=== PATIENT | female | born 1945 | race Caucasian/White ===

== ENCOUNTER 2016-12-26 00:29 | Emergency (ER) | payer MEDICARE, BC ==
[~2016-12-26] VITALS: Ht 172.7 cm; Wt 70.8 kg
[~2016-12-26 00:29] MED LIST: AMLO5TAB PO; ASPI-557 PO; ATOR10TA64 PO; CA C1TAB81 PO; DOCU-175 PO; ESCI5TAB8 PO; FENT1PAT68 TOP; FERR-70 PO; LEVO50TA72 PO; LORA-315 PO; OMEP40CA30 PO; ONDA4TAB7 PO; OXCA300T PO; OXYB15TA PO; PROM25TA7 PO; ROPI4TAB4 PO; TRAZ150T43 PO; [UNRECOGNIZED DRUG - CODE] PO
--- OUTSIDE RECORDS SUMMARY | 2016-12-26 00:32 | XMS REPORT | Continuity of Care Document ---
Author Author Melany Johnston Ambulatory Address Unknown Phone Unavailable Care Team Providers Care Store Deli Manager Name Role Phone Shon Decker PP Unavailable Jannie Cohen RP Unavailable Payers Payer name Insurance type Covered green party ID Authorization(s) Unknown Problems Condition Effective Dates (start - stop) Clinical Status Brachial neuritis or radiculitis nos - *Symptomatic Radiculitis, Thoracic or Lumbar - *Symptomatic Back pain - *Chronic Depression - *Chronic Anxiety - *Chronic Urge incontinence - *Chronic Paresthesias - *Chronic Narcotic dependency, continuous - *Chronic Hypertension - *Chronic Hypercholesterolemia - *Chronic Ulnar neuropathy - *Chronic Back pain - *Chronic Depression - *Chronic Anxiety - *Chronic Urge incontinence - *Chronic Hypertension - *Chronic Hypercholesterolemia - *Chronic Lymphadenopathy, inguinal - *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 - *Chronic Weight loss - *Chronic Rectal bleeding - Intermittent Lymphadenopathy - *Chronic Low back pain - *Chronic Hypertension - *Chronic Hypercholesterolemia - *Chronic Hypothyroidism - *Chronic Syncope - *Stable Chronic gastritis - *Chronic Hypertension - *Chronic Weight loss - *Resolved Generalized osteoarthritis - *Chronic Influenza Vaccine - Leg weakness, bilateral - *Worse Low back pain - *Chronic Chronic gastritis - Improved Fatigue - *Chronic Osteoarthritis, generalized - *Chronic Hypertension, Benign - *Chronic Urge incontinence - *Chronic Hypercholesterolemia - *Chronic Radiculitis, Thoracic or Lumbar - *Chronic Radiculitis, Thoracic or Lumbar - Chronic Radiculitis, Thoracic or Lumbar - *Symptomatic DISORDERS OF BLADDER NEC - *Chronic Mixed incontinence (male) (female) - *Chronic Enlargement of lymph nodes - *Resolved Lymphadenopathy, inguinal - New onset Hypertonicity of bladder - *Controlled Family History Family Member Diagnosis Age At Onset Status Mother (Alive) Lymphoma Yes Brother (Unknown) Myocardial infarction Yes Brother (Unknown) Diabetes Yes Brother (Alive) Cancer, colon and long Yes Mother (Unknown) Diabetes Yes Brother (Unknown) Alzheimer's Disease Yes Sister (Unknown) Diabetes Yes Social History Social History Element Description Quantity Unknown Allergies, Adverse Reactions, Alerts Substance Reaction Severity Status MORPHINE Delirium Unknown Medications Medication Instructions Dosage Effective Dates (start - stop) Status 1 tab PO QD - Active multivitamin with minerals tablet Take one daily. - Active lovastatin 10 mg tablet take 1 tablet (10MG) by oral route every day with the evening meal 10 MG - Active benazepril 20 mg tablet take 1 tablet (20MG) by oral route every day 20 MG - Active amlodipine 5 mg tablet take 1 tablet (5MG) by oral route every day 5 MG - Active omeprazole 40 mg capsule,delayed release take 1 capsule (40MG) by oral route every day before a meal 40 MG - Active gabapentin 800 mg tablet take 1 tablet (800MG) by oral route 2 times every day 800 MG - Active promethazine 25 mg tablet take 1 tablet (25MG) by oral route twice a day as needed for nausea - Active levothyroxine 50 mcg tablet take 1 tablet (50MCG) by oral route every day 50 MCG - Active trazodone 150 mg tablet take 3 tablets daily at bedtime. - Active docusate sodium 100 mg capsule take 1 capsule daily - Active Senokot-S 8.6 mg-50 mg tablet take 1 Tablet by oral route daily 2012 - Active Vitamin B Complex tablet take 1 Tablet by Oral route every day 0 2012 - Active ropinirole 3 mg tablet take 1 tablet by oral route daily at bedtime for restless legs. - Active sertraline 100 mg tablet take 1.5 tablets by oral route every day 100 MG - Active acetaminophen 500 mg tablet take 2 tablet (1000MG) by oral route every 6 hours as needed 1000 MG - Active ibuprofen 200 mg tablet take 2 tabletstwice a day as needed - Active Vitamin D3 1,000 unit tablet take 1 Tablet by Oral route every day 0 - Active oxybutynin chloride ER 15 mg tablet,extended release 24 hr take 1 tablet (15MG ) by oral route every day 15 MG - Active fentanyl 100 mcg/hr Transderm Patch apply 1 patch (100MCG/H) by transdermal route every 72 hours 100 MCG/H - Active lorazepam 0.5 mg tablet take 1 by Oral route 3 times a day - Active zolpidem 10 mg tablet take 1 tablet (10MG) by oral route every day at HS - Active Immunizations Vaccine Date Status Comments Flu (split) (3 yrs or older) completed Results Test Name Date and Time Measure Units Reference Range Abnormal Flag Comments Unknown Vital Signs Date / Time: Height Weight Pulse Rate Blood Pressure Temperature /14:34:00 64.00 in 182.00 lbs 110/62 mm[Hg] 98.1 F Procedures Procedure Date Unknown Encounters Encounter Location Date Patient Visit [facility] FC Pain Patient Visit [facility] FM Patient Visit [facility] FM Patient Visit [facility] Patient Visit [facility] Patient Visit [facility] New Patient [facility] Patient [facility] Patient [facility] Patient Visit [facility] FC Pain Patient Visit [facility] FC Pain Patient Visit [facility] Urology Patient Visit [facility] New Surg Patient Visit [facility] New Surg Patient Visit [facility] Advance Directives Directive Effective Date Unknown
--- OUTSIDE RECORDS SUMMARY | 2016-12-26 00:33 | XMS REPORT | Referral Summary ---
Author Author [facility], Family Medicine Organization [facility] Address Unknown Phone Unavailable Care Team Providers Care Business Area Manager Name Role Phone Lucian Decker Primary Care Physician [phone] Encounter VC Date(s): 05/06/16 - 05/06/16 [facility], [address] [place] [address]- Discharge Disposition: 01-Home or Self Care Attending Physician: Shon Decker MD Admitting Physician: Shon Decker MD Vital Signs Most recent to 1 oldest [Reference Range]: Temperature Tympanic 36.9 degC [36.6-38.1 degC] (05/06/16 10:45 AM) Apical Heart Rate 72 bpm [60-100 bpm] (05/06/16 10:45 AM) Blood Pressure 170/72 mmHg [90-140/60-90 mmHg] *HI* (05/06/16 10:45 AM) Problem List Condition Effective Dates Status Health Status Informant Acute Active bronchitis(Confirmed ) Arthritis(Confirmed) Resolved At high risk for Active pneumonia(Confirmed) Benign Active hypertension(Confirm ed) Atypical nevus of Active buttock(Confirmed) Cervical Active post-laminectomy syndrome(Confirmed) Cervical Active post-laminectomy syndrome(Confirmed) Cervical Active radiculopathy(Confir med) Chronic Active gastritis(Confirmed) Chronic low back Active pain(Confirmed) Lumbar degenerative Active disc disease(Confirmed) Fatigue(Confirmed) Active Gall bladder Resolved disease(Confirmed) Anxiety(Confirmed) Resolved History of lumbar Active fusion(Confirmed) Hypertension(Confirm Resolved ed) Adult Active hypothyroidism(Confi rmed) Rt Inguinal 04/12/13 Resolved lymphadenopathy(Conf irmed) Irregular Resolved heartbeat(Confirmed) Lumbar Active post-laminectomy syndrome (disorder)(Confirmed ) Basal cell Active carcinoma(Confirmed) Cancer of the skin, Active basal cell(Confirmed) Median nerve Active neuropathy(Confirmed ) Obesity(Confirmed) Active patient Pure Active hypercholesterolemia (Confirmed) Restless legs Active syndrome (RLS)(Confirmed) Depression(Confirmed Resolved ) Cervical spinal Active stenosis(Confirmed) Spinal stenosis, Active lumbar region, without neurogenic claudication(Confirm ed) Spondylolisthesis of Active lumbar region(Confirmed) Visit for suture Active removal(Confirmed) Thoracic or Active lumbosacral neuritis or radiculitis, unspecified(Confirme d) 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) Allergies, Adverse Reactions, Alerts Substance Reaction Severity Status meperidine took my memory away Active morphine Delirium Active Medications amLODIPine 5 mg oral tablet 2.5 mg 0.5 tabs, Oral, Daily, # 45 tabs, 3 Refill(s), other reason (Rx), TAKE ONE TABLET BY MOUTH EVERY DAY Start Date: 04/18/16 Stop Date: 04/13/17 Status: Ordered Aspirin Low Dose 81 mg, Oral, Daily, 0 Refill(s) Start Date: 11/03/15 Status: Ordered atorvastatin 10 mg oral tablet See Instructions, TAKE ONE TABLET BY MOUTH AT BEDTIME, # 30 tabs, 9 Refill(s), eRx: [facility] #[id number], TAKE ONE TABLET BY MOUTH AT BEDTIME Start Date: 07/27/15 Status: Ordered docusate sodium 100 mg, TAKES 1 BID, 0 Refill(s) Start Date: 12/12/15 Status: Ordered fentaNYL 100 mcg/hr transdermal film, extended release 1 patches, Topical, q72hr, # 10 patches, 0 Refill(s) Start Date: 04/12/16 Status: Ordered ferrous sulfate 325 mg (65 mg elemental iron) oral tablet 1 tabs, Oral, Daily, 0 Refill(s) Start Date: 07/07/14 Status: Ordered gabapentin 800 mg oral tablet See Instructions, TAKE ONE TABLET BY MOUTH TWICE A DAY, # 180 tabs, eRx: [facility] #[id number], TAKE ONE TABLET BY MOUTH TWICE A DAY Start Date: 04/30/16 Status: Ordered levothyroxine 50 mcg (0.05 mg) oral tablet See Instructions, TAKE ONE TABLET BY MOUTH DAILY, # 90 tabs, eRx: [facility] #[id number], TAKE ONE TABLET BY MOUTH DAILY Start Date: 02/19/16 Status: Ordered LORazepam 0.5 mg oral tablet 0.5 mg 1 tabs, Oral, BID, must last 30 days for each script Hetal Corado, # 60 tabs, 5 Refill(s) Start Date: 04/05/16 Status: Ordered omeprazole 40 mg oral delayed release capsule See Instructions, TAKE ONE CAPSULE BY MOUTH EVERY DAY BEFORE A MEAL, # 90 caps, eRx: [facility] #[id number], TAKE ONE CAPSULE BY MOUTH EVERY DAY BEFORE A MEAL Start Date: 03/25/16 Status: Ordered ondansetron 4 mg oral tablet 4 mg 1 tabs, Oral, BID, as needed for nausea/vomiting, 0 Refill(s) Start Date: 05/06/16 Status: Ordered OXcarbazepine 300 mg oral tablet 300 mg 1 tabs, Oral, BID, 0 Refill(s) Start Date: 05/06/16 Status: Ordered oxybutynin 15 mg/24 hr oral tablet, extended release See Instructions, TAKE ONE TABLET BY MOUTH EVERY DAY, # 30 unknown unit, 4 Refill(s), eRx: [facility] #[id number], TAKE ONE TABLET BY MOUTH EVERY DAY Start Date: 04/25/16 Status: Ordered promethazine 25 mg, Oral, BID, as needed for nausea/vomiting, 0 Refill(s) Start Date: 05/06/16 Status: Ordered rOPINIRole 4 mg oral tablet See Instructions, TAKE ONE TABLET BY MOUTH EVERY NIGHT AT BEDTIME, # 90 tabs, 1 Refill(s), eRx: [facility] #[id number], TAKE ONE TABLET BY MOUTH EVERY NIGHT AT BEDTIME Start Date: 03/11/16 Status: Ordered traZODone 150 mg oral tablet See Instructions, TAKE THREE TABLETS BY MOUTH EVERY NIGHT AT BEDTIME, # 270 tabs , eRx: [facility] #[id number], TAKE THREE TABLETS BY MOUTH EVERY NIGHT AT BEDTIME Start Date: 02/19/16 Status: Ordered Vitamin D3 1,000 Intl_Units, Oral, Daily, 0 Refill(s) Start Date: 03/21/14 Status: Ordered Results Chemistry Most recent to 1 oldest [Reference Range]: TSH [0.35-4.94] 0.62 (05/06/16 11:47 AM) Immunizations Vaccine Date Refusal Reason tetanus/diphth/pertuss (Tdap) adult/adol 03/28/14 hepatitis A-hepatitis B vaccine 09/07/15 hepatitis A-hepatitis B vaccine 08/07/15 influenza virus vaccine, inactivated 06/08/15 influenza virus vaccine, inactivated1 07/07/14 influenza virus vaccine, live 07/23/13 pneumococcal 13-valent conjugate vaccine 05/09/15 pneumococcal 23-polyvalent vaccine 03/28/14 pneumococcal 23-polyvalent vaccine 08/13/05 tetanus/diphtheria/pertussis, acel(Tdap) 06/08/15 1Result Comment: [07/07/2014] See scanned document Procedures Procedure Date Related Diagnosis Body Site T1-2 Translaminar 02/23/15 T1-2 Translaminar 10/20/14 Caudal 10/04/14 Caudal 06/20/14 T1-T2 Translaminar 06/07/14 Colonoscopic polypectomy1 05/09/14 Cataract extraction and insertion of 2014 intraocular lens2 Thoracic Transforaminal approach 08/25/13 Caudal 08/11/13 Cystoscopy 06/23/13 Rt Inguinal node biopsy benign 04/22/13 Carpal tunnel release and right elbow suergy 2013 Incisional hernia repair 2002 Cholecystectomy 1985 Appendectomy 1984 Gastric bypass 1981 Bilateral tubal ligation 1969 Hysterectomy and single salpingo-oophorectomy Low Back surgeries3 Neck surgery 1Tubular adenoma, diverticula, repeat in 5 years, family history of brother with colon cancer 2OU 38 low back surgeries Social History Social History Type Response Smoking Status Never smoker Assessment and Plan Extracted from: Title: Ambulatory Patient Education Author: Shon Decker MD Date: Cardiovascular Hyponatremia Hyponatremia is when the amount of salt (sodium) in your blood is too low. When sodium levels are low, your cells will absorb extra water and swell. The swelling happens throughout the body, but it mostly affects the brain. Severe brain swelling (cerebral edema), seizures, or coma can happen. CAUSES Heart, kidney, or liver problems. Thyroid problems. Adrenal gland problems. Severe vomiting and diarrhea. Certain medicines or illegal drugs. Dehydration. Drinking too much water. Low-sodium diet. SYMPTOMS Nausea and vomiting. Confusion. Lethargy. Agitation. Headache. Twitching or shaking (seizures). Unconsciousness. Appetite loss. Muscle weakness and cramping. DIAGNOSIS Hyponatremia is identified by a simple blood test. Your caregiver will perform a history and physical exam to try to find the cause and type of hyponatremia. Other tests may be needed to measure the amount of sodium in your blood and urine. TREATMENT Treatment will depend on the cause. Fluids may be given through the vein (IV). Medicines may be used to correct the sodium imbalance. If medicines are causing the problem, they will need to be adjusted. Water or fluid intake may be restricted to restore proper balance. The speed of correcting the sodium problem is very important. If the problem is corrected too fast, nerve damage (sometimes unchangeable) can happen. HOME CARE INSTRUCTIONS Only take medicines as directed by your caregiver. Many medicines can make hyponatremia worse. Discuss all your medicines with your caregiver. Carefully follow any recommended diet, including any fluid restrictions. You may be asked to repeat lab tests. Follow these directions. Avoid alcohol and recreational drugs. SEEK MEDICAL CARE IF: You develop worsening nausea, fatigue, headache, confusion, or weakness. Your original hyponatremia symptoms return. You have problems following the recommended diet. SEEK IMMEDIATE MEDICAL CARE IF: You have a seizure. You faint. You have ongoing diarrhea or vomiting. MAKE SURE YOU: Understand these instructions. Will watch your condition. Will get help right away if you are not doing well or get worse. This information is not intended to replace advice given to you by your health care provider. Make sure you discuss any questions you have with your health care provider. Document Released: 09/12/2003 Document Revised: 10/13/2015 Document Reviewed: [facility] Patient Information 2016 [facility]. No follow up information was provided. Extracted from: Title: tremors, depression Author: Shon Decker MD Date: 05/06/16 Impression and Plan Diagnosis Hypothyroidism (CHQ50-KP E03.9, Working, Medical). Tremor (ZGE33-KG R25.1, Working, Medical). Anxiety (OUU71-IJ F41.1, Working, Medical). 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 Hypertension (YDI71-GI I10, Working, Medical). Hyponatremia (FJS92-OY E87.1, Working, Medical). Low back pain (ORR63-MX M54.5, Working, Medical). Restless legs syndrome (RLS) (USO76-HX G25.81, Working, Medical). Plan: 1) Stop the Escitalopram, due to slight interaction with Oxcarbazepine.. 2) Restart Oxcarbazepine 300 mg BID, as you have taken before. 3) Continue the low dose Amlodipine at 1/2 of a 5 mg tab daily. 4) Continue your routine meds otherwise. 5) Lab ordered today. 6) See me in one week and as needed.. Orders Orders (Selected) Outpatient Orders Ordered Office Visit Level 4 Est 41855: TSH 3rd Generation: Future (On Hold) BMP: . Dx/Order Association Plan: Diagnosis: Anxiety Comment: Ordered: TSH 3rd Generation; Blood, Routine Collect, 05/06/16 11: 38:00 CDT, Once, Stop date 05/06/16 11:38:00 CDT, Lab Collect, Hypothyroidism | Tremor | Anxiety Office Visit Level 4 Est [id number]; 05/06/16 11:35:00 CDT, Tremor | Restless legs syndrome (RLS) | Moderate major depression | Hypertension | Anxiety Diagnosis: Hypertension Comment: Ordered: Office Visit Level 4 Est [id number]; 05/06/16 11:35:00 CDT, Tremor | Restless legs syndrome (RLS) | Moderate major depression | Hypertension | Anxiety Diagnosis: Hyponatremia Comment: Diagnosis: Hypothyroidism Comment: Ordered: TSH 3rd Generation; Blood, Routine Collect, 05/06/16 11: 38:00 CDT, Once, Stop date 05/06/16 11:38:00 CDT, Lab Collect, Hypothyroidism | Tremor | Anxiety Diagnosis: Low back pain Comment: Diagnosis: Moderate major depression Comment: Ordered: Office Visit Level 4 Est [id number]; 05/06/16 11:35:00 CDT, Tremor | Restless legs syndrome (RLS) | Moderate major depression | Hypertension | Anxiety Diagnosis: Restless legs syndrome (RLS) Comment: Ordered: Office Visit Level 4 Est [id number]; 05/06/16 11:35:00 CDT, Tremor | Restless legs syndrome (RLS) | Moderate major depression | Hypertension | Anxiety Diagnosis: Tremor Comment: Ordered: TSH 3rd Generation; Blood, Routine Collect, 05/06/16 11: 38:00 CDT, Once, Stop date 05/06/16 11:38:00 CDT, Lab Collect, Hypothyroidism | Tremor | Anxiety Office Visit Level 4 Est [id number]; 05/06/16 11:35:00 CDT, Tremor | Restless legs syndrome (RLS) | Moderate major depression | Hypertension | Anxiety Additional Orders: Comment: Ordered: OXcarbazepine 300 mg oral tablet,300 mg 1 tabs, Oral, BID , 0 Refill(s) End of Orders ."
--- OUTSIDE RECORDS SUMMARY | 2016-12-26 00:33 | XMS REPORT | Referral Summary ---
Author Author [facility], Family Medicine Organization [facility] Address Unknown Phone Unavailable Care Team Providers Care Chemical Engraver Name Role Phone Lucian Decker Primary Care Physician [phone] Encounter Date(s): 08/26/16 - 08/26/16 [facility], [address] [place] [address]- Discharge Diagnosis: Depression Discharge Diagnosis: Folate deficiency Discharge Diagnosis: Polyneuropathy Discharge Diagnosis: Fatigue Discharge Diagnosis: Restless legs syndrome (RLS) Discharge Diagnosis: Excessive daytime sleepiness Discharge Diagnosis: Hypertension Discharge Diagnosis: Anxiety Discharge Diagnosis: Vitamin B12 deficiency Discharge Diagnosis: Chronic low back pain Discharge Diagnosis: Mixed urge and stress incontinence Discharge Diagnosis: Need for influenza vaccination Discharge Disposition: 01-Home or Self Care Attending Physician: Shon Decker MD Admitting Physician: Shon Decker MD Vital Signs Most recent to 1 oldest [Reference Range]: Temperature Tympanic 36.2 degC [36.6-38.1 degC] *LOW* (08/26/16 9:28 AM) Peripheral Pulse 80 bpm Rate [60-100 bpm] (08/26/16 9:28 AM) Blood Pressure 96/62 mmHg [90-140/60-90 mmHg] (08/26/16 9:28 AM) Problem List Condition Effective Dates Status [...] memory away Active morphine Delirium Active Medications Amitiza 24 mcg oral capsule 24 mcg 1 caps, Oral, BID, # 60 caps, 11 Refill(s), Pharmacy: [facility] # [id number], 1 caps Oral BID Start Date: 05/29/16 Status: Ordered amLODIPine 5 mg oral tablet 2.5 mg 0.5 tabs, Oral, Daily, # 45 tabs, 3 Refill(s), other reason (Rx), TAKE ONE TABLET BY MOUTH EVERY DAY Start Date: 04/18/16 Stop Date: 04/13/17 Status: Ordered Aspirin Low Dose 81 mg, Oral, Daily, 0 Refill(s) Start Date: 11/03/15 Status: Ordered atorvastatin 10 mg oral tablet 10 mg 1 tabs, Oral, Daily, # 30 tabs, 3 Refill(s), Pharmacy: [facility] # [id number], 1 tabs Oral Daily Start Date: 05/27/16 Status: Ordered docusate sodium 100 mg, TAKES 1 BID, 0 Refill(s) Start Date: 12/12/15 Status: Ordered fentaNYL 100 mcg/hr transdermal film, extended release 1 patches, Topical, q72hr, # 10 patches, 0 Refill(s) Start Date: 08/12/16 Status: Ordered ferrous sulfate 325 mg (65 mg elemental iron) oral tablet 1 tabs, Oral, Daily, 0 Refill(s) Start Date: 07/07/14 Status: Ordered folic acid 0.4 mg oral tablet 0.4 mg 1 tabs, Oral, Daily, # 100 tabs, 0 Refill(s) Start Date: 08/26/16 Status: Ordered gabapentin 800 mg oral tablet 800 mg 1 tabs, Oral, BID, # 180 tabs, 0 Refill(s), Pharmacy: [facility] # [id number], 1 tabs Oral BID Start Date: 08/26/16 Status: Ordered levothyroxine 50 mcg (0.05 mg) oral tablet See Instructions, TAKE ONE TABLET BY MOUTH DAILY, # 90 tabs, eRx: [facility] #[id number], TAKE ONE TABLET BY MOUTH DAILY Start Date: 08/26/16 Status: Ordered LORazepam 0.5 mg oral tablet 0.5 mg 1 tabs, Oral, BID, must last 30 days for each script NBrigette Corado, # 60 tabs, 5 Refill(s) Start Date: 04/05/16 Status: Ordered omeprazole 40 mg oral delayed release capsule See Instructions, TAKE ONE CAPSULE BY MOUTH EVERY DAY BEFORE A MEAL, # 90 caps, eRx: [facility] #[id number], TAKE ONE CAPSULE BY MOUTH EVERY DAY BEFORE A MEAL Start Date: 06/25/16 Status: Ordered ondansetron 4 mg oral tablet See Instructions, TAKE ONE TABLET BY MOUTH TWICE A DAY NEEDED FOR NAUSEA AND VOMITING, # 60 tabs, eRx: [facility] #[id number], TAKE ONE TABLET BY MOUTH TWICE A DAY NEEDED FOR NAUSEA AND VOMITING Start Date: 08/05/16 Status: Ordered OXcarbazepine 300 mg oral tablet See Instructions, TAKE ONE-HALF TABLET BY MOUTH TWICE A DAY, # 90 tabs, 0 Refill (s), Pharmacy: [facility] #[id number], TAKE ONE-HALF TABLET BY MOUTH TWICE A DAY Start Date: 08/26/16 Status: Ordered oxybutynin 15 mg/24 hr oral tablet, extended release See Instructions, TAKE ONE TABLET BY MOUTH EVERY DAY, # 30 unknown unit, 4 Refill(s), eRx: [facility] #[id number], TAKE ONE TABLET BY MOUTH EVERY DAY Start Date: 04/25/16 Status: Ordered promethazine 25 mg oral tablet See Instructions, TAKE ONE TABLET BY MOUTH TWICE A DAY NEEDED FOR NAUSEA, # 180 tabs, eRx: [facility] #[id number], TAKE ONE TABLET BY MOUTH TWICE A DAY NEEDED FOR NAUSEA Start Date: 07/22/16 Status: Ordered rOPINIRole 2 mg oral tablet 2 mg 1 tabs, Oral, Bedtime (once a day), # 90 tabs, 3 Refill(s), Pharmacy: [facility] #[id number], 1 tabs Oral Bedtime (once a day),x90 days Start Date: 06/17/16 Stop Date: 06/12/17 Status: Ordered traZODone 150 mg oral tablet See Instructions, TAKE THREE TABLETS BY MOUTH EVERY NIGHT AT BEDTIME, # 270 tabs , eRx: [facility] #[id number], TAKE THREE TABLETS BY MOUTH EVERY NIGHT AT BEDTIME Start Date: 08/21/16 Status: Ordered Vitamin B-12 See Instructions, 2,000 mcg oral daily, 0 Refill(s) Start Date: 08/09/16 Status: Ordered Vitamin D3 1,000 Intl_Units, Oral, Daily, 0 Refill(s) Start Date: 03/21/14 Status: Ordered Results Hematology Most recent to 1 oldest [Reference Range]: WBC [4.8-10.8 3.7 10*3/uL 10*3/uL] *LOW* (08/26/16 10:14 AM) RBC [4.00-5.20] 4.77 (08/26/16 10:14 AM) Hgb [12.0-16.0 14.1 gm/dL gm/dL] (08/26/16 10:14 AM) Hct [37.0-47.0 %] 41.3 % (08/26/16 10:14 AM) MCV [82.0-99.0 fL] 86.6 fL (08/26/16 10:14 AM) MCH [27.0-32.0 pg] 29.6 pg (08/26/16 10:14 AM) MCHC [32.0-36.0 34.1 gm/dL gm/dL] (08/26/16 10:14 AM) RDW [11.5-14.5 %] 11.8 % (08/26/16 10:14 AM) Platelet [150-400 174 10*3/uL 10*3/uL] (08/26/16 10:14 AM) MPV [8.8-14.8 fL] 9.4 fL (08/26/16 10:14 AM) Immature 0.3 % Granulocytes (08/26/16 10:14 AM) [0.0-1.0 %] Neutrophils [51-75 55 % %] (08/26/16 10:14 AM) Lymphocytes [20-46 35 % %] (08/26/16 10:14 AM) Monocytes [4-11 %] 6 % (08/26/16 10:14 AM) Eosinophils [0-4 %] 3 % (08/26/16 10:14 AM) Basophils [0-2 %] 1 % (08/26/16 10:14 AM) Neutro Absolute 2.01 10*3 [1.90-7.00 10*3] (08/26/16 10:14 AM) Lymph Absolute 1.28 10*3 [0.80-3.30 10*3] (08/26/16 10:14 AM) [place] Absolute 0.21 10*3 [0.30-1.00 10*3] *LOW* (08/26/16 10:14 AM) Eos Absolute 0.12 10*3 [0.00-0.50 10*3] (08/26/16 10:14 AM) Baso Absolute 0.05 10*3 [0.00-0.20 10*3] (08/26/16 10:14 AM) Chemistry Most recent to 1 oldest [Reference Range]: Folate Lvl [7.0-31.4 15.2 ng/mL ng/mL] (08/26/16 10:14 AM) Immunizations Vaccine Date Refusal Reason tetanus/diphth/pertuss (Tdap) adult/adol 03/28/14 hepatitis A-hepatitis B vaccine 09/07/15 hepatitis A-hepatitis B vaccine 08/07/15 influenza virus vaccine, inactivated 08/26/16 influenza virus vaccine, inactivated 06/08/15 influenza virus [...] Incisional hernia repair 2002 Cholecystectomy 1985 Appendectomy 1983 Gastric bypass 1980 Bilateral tubal ligation 1969 Hysterectomy and single salpingo-oophorectomy Low Back surgeries3 Neck surgery 1Tubular adenoma, diverticula, repeat in 5 years, family history of brother with colon cancer 2OU 38 low back surgeries Social History Social History Type Response Smoking Status Never smoker Assessment and Plan Extracted from: Title: Ambulatory Patient Education Author: Shon Decker MD Date: Neurology Hypersomnia Hypersomnia is when you feel extremely tired during the day even though you're getting plenty of sleep at night. You may need to take naps during the day, and you may also be extremely difficult to wake up when you are sleeping. CAUSES The cause of your hypersomnia may not be known. Hypersomnia may be caused by: Medicines. Sleep disorders, such as narcolepsy. Trauma or injury to your head or nervous system. Using drugs or alcohol. Tumors. Medical conditions, such as depression or hypothyroidism. Genetics. SIGNS AND SYMPTOMS The main symptoms of hypersomnia include: Feeling extremely tired throughout the day. Being very difficult to wake up. Sleeping for longer and longer periods. Taking naps throughout the day. Other symptoms may include: Feeling: Restless. Annoyed. Anxious. Low energy. Having difficulty: Remembering. Speaking. Thinking. Losing your appetite. Experiencing hallucinations. DIAGNOSIS Hypersomnia may be diagnosed by: Medical history and physical exam. This will include a sleep history. Completing sleep logs. Tests may also be done, such as: Polysomnography. Multiple sleep latency test (MSLT). TREATMENT There is no cure for hypersomnia, but treatment can be very effective in helping manage the condition. Treatment may include: Lifestyle and sleeping strategies to help cope with the condition. Stimulant medicines. Treating any underlying causes of hypersomnia. HOME CARE INSTRUCTIONS Take medicines only as directed by your health care provider. Schedule short naps for when you feel sleepiest during the day. Tell your employer or teachers that you have hypersomnia. You may be able to adjust your schedule to include time for naps. Avoid drinking alcohol or caffeinated beverages. Do not eat a heavy meal before bedtime. Eat at about the same times every day. Do not drive or operate heavy machinery if you are sleepy. Do not swim or go out on the water without a life jacket. If possible, adjust your schedule so that you do not have to work or be active at night. Keep all follow-up visits as directed by your health care provider. This is important. SEEK MEDICAL CARE IF: You have new symptoms. Your symptoms get worse. SEEK IMMEDIATE MEDICAL CARE IF: You have serious thoughts of hurting yourself or someone else. This information is not intended to replace advice given to you by your health care provider. Make sure you discuss any questions you have with your health care provider. Document Released: 09/12/2003 Document Revised: 10/13/2015 Document Reviewed: [employer] Patient Education 2016 [employer] No follow up information was provided. Extracted from: Title: multiple problems Author: Shon Decker MD Date: 08/26/16 Impression and Plan Diagnosis Anxiety (OVT80-JK F41.1, Discharge, Medical). Hypertension (DTU56-TD I10, Discharge, Medical). Depression (ROQ94-IM F32.1, Discharge, Medical). Restless legs syndrome (RLS) (REI31-IR G25.81, Discharge, Medical). Excessive daytime sleepiness (MRX74-SR G47.19, Discharge, Medical). Chronic low back pain (CPG84-LF M54.5, Discharge, Medical). Vitamin B12 deficiency (WFV67-WQ E53.8, Discharge, Medical). Mixed urge and stress incontinence (EAJ46-KK N39.46, Discharge, Medical). Need for influenza vaccination (BVS42-NX Z23, Discharge, Medical). Folate deficiency (BMI08-LC E53.8, Discharge, Medical). Fatigue (CBH42-EO R53.83, Discharge, Medical). Polyneuropathy (DFY93-TN G62.9, Discharge, Medical). Plan: 1) Stop the Amlodipine. 2) See the neurologist about your peripheral neuropathy. 3) Continue your other meds. 4) See me in 3 months and as needed. 5) Lab ordered today. 6) Check your BP sometimes to see if it's normal. 7) Flu shot given today.. Orders Orders (Selected) Outpatient Orders Ordered Office Visit Level 4 Est 89052: influenza virus vaccine, inactivated: 0.5 mL, IntraMuscular, Once Future (On Hold) CBC w/ Differential: Folate Level: Heavy Metal Screen: Vitamin D 25 OH: Prescriptions Prescribed OXcarbazepine 300 mg oral tablet: See Instructions, TAKE ONE-HALF TABLET BY MOUTH TWICE A DAY, 90 tabs, 0 Refill(s) gabapentin 800 mg oral tablet: 800 mg=1 tabs, Oral, BID, 180 tabs, 0 Refill(s). Dx/Order Association Plan: Diagnosis: Anxiety Comment: Ordered: Office Visit Level 4 Est [id number]; 08/26/16 9:46:00 BIOPHYSICS SCIENTIST, Polyneuropathy | Fatigue | Hypertension | Restless legs syndrome (RLS) | Excessive daytime sleepiness | Chronic low back pain | Vitamin B12 deficiency | Depression | Anxiety | Folate deficiency | Mixed urge and stress incontinenc... Diagnosis: Chronic low back pain Comment: Ordered: Office Visit Level 4 Est [id number]; 08/26/16 9:46:00 BIOPHYSICS SCIENTIST, Polyneuropathy | Fatigue | Hypertension | Restless legs syndrome (RLS) | Excessive daytime sleepiness | Chronic low back pain | Vitamin B12 deficiency | Depression | Anxiety | Folate deficiency | Mixed urge and stress incontinenc... Diagnosis: Depression Comment: Ordered: Office Visit Level 4 Est [id number]; 08/26/16 9:46:00 BIOPHYSICS SCIENTIST, Polyneuropathy | Fatigue | Hypertension | Restless legs syndrome (RLS) | Excessive daytime sleepiness | Chronic low back pain | Vitamin B12 deficiency | Depression | Anxiety | Folate deficiency | Mixed urge and stress incontinenc... Diagnosis: Excessive daytime sleepiness Comment: Ordered: Office Visit Level 4 Est [id number]; 08/26/16 9:46:00 BIOPHYSICS SCIENTIST, Polyneuropathy | Fatigue | Hypertension | Restless legs syndrome (RLS) | Excessive daytime sleepiness | Chronic low back pain | Vitamin B12 deficiency | Depression | Anxiety | Folate deficiency | Mixed urge and stress incontinenc... Diagnosis: Fatigue Comment: Ordered: Office Visit Level 4 Est [id number]; 08/26/16 9:46:00 BIOPHYSICS SCIENTIST, Polyneuropathy | Fatigue | Hypertension | Restless legs syndrome (RLS) | Excessive daytime sleepiness | Chronic low back pain | Vitamin B12 deficiency | Depression | Anxiety | Folate deficiency | Mixed urge and stress incontinenc... Diagnosis: Folate deficiency Comment: Diagnosis: Hypertension Comment: Ordered: Office Visit Level 4 Est [id number]; 08/26/16 9:46:00 BIOPHYSICS SCIENTIST, Polyneuropathy | Fatigue | Hypertension | Restless legs syndrome (RLS) | Excessive daytime sleepiness | Chronic low back pain | Vitamin B12 deficiency | Depression | Anxiety | Folate deficiency | Mixed urge and stress incontinenc... Diagnosis: Mixed urge and stress incontinence Comment: Ordered: Office Visit Level 4 Est [id number]; 08/26/16 9:46:00 BIOPHYSICS SCIENTIST, Polyneuropathy | Fatigue | Hypertension | Restless legs syndrome (RLS) | Excessive daytime sleepiness | Chronic low back pain | Vitamin B12 deficiency | Depression | Anxiety | Folate deficiency | Mixed urge and stress incontinenc... Diagnosis: Need for influenza vaccination Comment: Ordered: influenza virus vaccine, inactivated; 0.5 mL, IntraMuscular, Once, First Dose: 08/26/16 9:47:00 BIOPHYSICS SCIENTIST, Stop Date: 08/26/16 9:47: 00 BIOPHYSICS SCIENTIST Office Visit Level 4 Est [id number]; 08/26/16 9:46:00 BIOPHYSICS SCIENTIST, Polyneuropathy | Fatigue | Hypertension | Restless legs syndrome (RLS) | Excessive daytime sleepiness | Chronic low back pain | Vitamin B12 deficiency | Depression | Anxiety | Folate deficiency | Mixed urge and stress incontinenc... Diagnosis: Polyneuropathy Comment: Ordered: Office Visit Level 4 Est [id number]; 08/26/16 9:46:00 BIOPHYSICS SCIENTIST, Polyneuropathy | Fatigue | Hypertension | Restless legs syndrome (RLS) | Excessive daytime sleepiness | Chronic low back pain | Vitamin B12 deficiency | Depression | Anxiety | Folate deficiency | Mixed urge and stress incontinenc... Diagnosis: Restless legs syndrome (RLS) Comment: Ordered: Office Visit Level 4 Est [id number]; 08/26/16 9:46:00 BIOPHYSICS SCIENTIST, Polyneuropathy | Fatigue | Hypertension | Restless legs syndrome (RLS) | Excessive daytime sleepiness | Chronic low back pain | Vitamin B12 deficiency | Depression | Anxiety | Folate deficiency | Mixed urge and stress incontinenc... Diagnosis: Vitamin B12 deficiency Comment: Ordered: Office Visit Level 4 Est [id number]; 08/26/16 9:46:00 BIOPHYSICS SCIENTIST, Polyneuropathy | Fatigue | Hypertension | Restless legs syndrome (RLS) | Excessive daytime sleepiness | Chronic low back pain | Vitamin B12 deficiency | Depression | Anxiety | Folate deficiency | Mixed urge and stress incontinenc... Diagnosis: Fatigue Comment: Diagnosis: Fatigue Comment: Diagnosis: Polyneuropathy Comment: Diagnosis: Vitamin B12 deficiency Comment: Diagnosis: Fatigue Comment: Diagnosis: Vitamin B12 deficiency Comment: End of Orders ."
--- OUTSIDE RECORDS SUMMARY | 2016-12-26 00:33 | XMS REPORT | Referral Summary ---
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 Phone Lucian Decker Primary Care Physician [phone] Encounter VC Date(s): 02/12/16 - 02/12/16 [facility], [address] [place] [address]- Discharge Disposition: 01-Home or Self Care Attending Physician: Shon Decker MD Admitting Physician: Shon Decker MD Vital Signs Most recent to 1 oldest [Reference Range]: Temperature Tympanic 36.4 degC [36.6-38.1 degC] *LOW* (02/12/16 11:00 AM) Peripheral Pulse 84 bpm Rate [60-100 bpm] (02/12/16 11:00 AM) Blood Pressure 136/62 mmHg [90-140/60-90 mmHg] (02/12/16 11:00 AM) Problem List Condition Effective Dates Status [...] Active Medications amLODIPine 5 mg oral tablet See Instructions, TAKE ONE TABLET BY MOUTH EVERY DAY, # 90 tabs, 2 Refill(s), eRx: [facility] #[id number], TAKE ONE TABLET BY MOUTH EVERY DAY Start Date: 06/15/15 Status: Ordered Aspirin Low Dose 81 mg, Oral, Daily, 0 Refill(s) Start Date: 11/03/15 Status: Ordered atorvastatin 10 mg oral tablet See Instructions, TAKE ONE TABLET BY MOUTH AT BEDTIME, # 30 tabs, 9 Refill(s), eRx: [facility] #[id number], TAKE ONE TABLET BY MOUTH AT BEDTIME Start Date: 07/27/15 Status: Ordered cyclobenzaprine 10 mg, Oral, TID, as needed for muscle spasm, 0 Refill(s) Start Date: 12/25/15 Status: Ordered docusate sodium 100 mg, TAKES 1 BID, 0 Refill(s) Start Date: 12/12/15 Status: Ordered fentaNYL 100 mcg/hr transdermal film, extended release 1 patches, Topical, q72hr, # 10 patches, 0 Refill(s) Start Date: 02/12/16 Status: Ordered ferrous sulfate 325 mg (65 mg elemental iron) oral tablet 1 tabs, Oral, Daily, 0 Refill(s) Start Date: 07/07/14 Status: Ordered gabapentin 800 mg oral tablet See Instructions, TAKE ONE TABLET BY MOUTH TWICE A DAY, # 180 tabs, 2 Refill(s) , eRx: [facility] #[id number], TAKE ONE TABLET BY MOUTH TWICE A DAY Start Date: 07/27/15 Status: Ordered levothyroxine 50 mcg (0.05 mg) oral tablet 50 mcg 1 tabs, Oral, Daily, # 90 tabs, 2 Refill(s), Pharmacy: [facility] # [id number], 1 tabs Oral Daily Start Date: 05/24/15 Status: Ordered LORazepam 0.5 mg oral tablet 0.5 mg 1 tabs, Oral, BID, must last 30 days for each script Hetal Corado, # 60 tabs, 5 Refill(s) Start Date: 10/05/15 Status: Ordered omeprazole 40 mg oral delayed release capsule See Instructions, TAKE ONE CAPSULE BY MOUTH EVERY DAY BEFORE A MEAL, # 90 caps, eRx: [facility] #[id number], TAKE ONE CAPSULE BY MOUTH EVERY DAY BEFORE A MEAL Start Date: 12/26/15 Status: Ordered ondansetron 4 mg oral tablet 4 mg 1 tabs, Oral, BID, as needed for nausea/vomiting, X 90 days, # 180 tabs, 3 Refill(s), Pharmacy: [facility] #[id number], 1 tabs Oral BID,x90 days,PRN:as needed for nausea/vomiting Start Date: 05/09/15 Stop Date: 05/03/16 Status: Ordered OXcarbazepine 300 mg oral tablet See Instructions, TAKE ONE TABLET BY MOUTH TWICE A DAY, # 120 tabs, eRx: [facility] #[id number], TAKE ONE TABLET BY MOUTH TWICE A DAY Start Date: 02/06/16 Status: Ordered oxybutynin 15 mg/24 hr oral tablet, extended release 15 mg 1 tabs, Oral, Daily, # 30 tabs, 4 Refill(s), Pharmacy: [facility] # [id number], 1 tabs Oral Daily Start Date: 11/14/15 Status: Ordered rOPINIRole 4 mg oral tablet See Instructions, TAKE ONE TABLET BY MOUTH EVERY NIGHT AT BEDTIME, # 90 tabs, 1 Refill(s), eRx: [facility] #[id number], TAKE ONE TABLET BY MOUTH EVERY NIGHT AT BEDTIME Start Date: 09/11/15 Status: Ordered traZODone 150 mg oral tablet See Instructions, TAKE THREE TABLETS BY MOUTH EVERY NIGHT AT BEDTIME, # 270 tabs , eRx: [facility] #[id number], TAKE THREE TABLETS BY MOUTH EVERY NIGHT AT BEDTIME Start Date: 11/22/15 Status: Ordered Vitamin D3 1,000 Intl_Units, Oral, Daily, 0 Refill(s) Start Date: 03/21/14 Status: Ordered Results No data available for this section Immunizations Vaccine Date Refusal Reason tetanus/diphth/pertuss (Tdap) [...] suergy 2013 Incisional hernia repair 2002 Cholecystectomy 1986 Appendectomy 1984 Gastric bypass 1981 Bilateral tubal ligation 1969 Hysterectomy and single salpingo-oophorectomy Low Back surgeries3 Neck surgery 1Tubular adenoma, diverticula, repeat in 5 years, family history of brother with colon cancer 2OU 38 low back surgeries Social History Social History Type Response Smoking Status Never smoker Assessment and Plan Extracted from: Title: Ambulatory Patient Education Author: Shno Decker MD Date: Musculoskeletal Bursitis Bursitis is inflammation and irritation of a bursa, which is one of the small, fluid-filled sacs that cushion and protect the moving parts of your body. These sacs are located between bones and muscles, muscle attachments, or skin areas next to bones. A bursa protects these structures from the wear and tear that results from frequent movement. An inflamed bursa causes pain and swelling. Fluid may build up inside the sac. Bursitis is most common near joints, especially the knees, elbows, hips, and shoulders. CAUSES Bursitis can be caused by: Injury from: A direct blow, like falling on your knee or elbow. Overuse of a joint (repetitive stress). Infection. This can happen if bacteria gets into a bursa through a cut or scrape near a joint. Diseases that cause joint inflammation, such as gout and rheumatoid arthritis. RISK FACTORS You may be at risk for bursitis if you: Have a job or hobby that involves a lot of repetitive stress on your joints. Have a condition that weakens your body's defense system (immune system) , such as diabetes, cancer, or HIV. Lift and reach overhead often. Kneel or lean on hard surfaces often. Run or walk often. SIGNS AND SYMPTOMS The most common signs and symptoms of bursitis are: Pain that gets worse when you move the affected body part or put weight on it. Inflammation. Stiffness. Other signs and symptoms may include: Redness. Tenderness. Warmth. Pain that continues after rest. Fever and chills. This may occur in bursitis caused by infection. DIAGNOSIS Bursitis may be diagnosed by: Medical history and physical exam. MRI. A procedure to drain fluid from the bursa with a needle (aspiration). The fluid may be checked for signs of infection or gout. Blood tests to rule out other causes of inflammation. TREATMENT Bursitis can usually be treated at home with rest, ice, compression, and elevation (RICE). For mild bursitis, RICE treatment may be all you need. Other treatments may include: Nonsteroidal anti-inflammatory drugs (NSAIDs) to treat pain and inflammation. Corticosteroids to fight inflammation. You may have these drugs injected into and around the area of bursitis. Aspiration of bursitis fluid to relieve pain and improve movement. Antibiotic medicine to treat an infected bursa. A splint, brace, or walking aid. Physical therapy if you continue to have pain or limited movement. Surgery to remove a damaged or infected bursa. This may be needed if you have a very bad case of bursitis or if other treatments have not worked. HOME CARE INSTRUCTIONS Take medicines only as directed by your health care provider. If you were prescribed an antibiotic medicine, finish it all even if you start to feel better. Rest the affected area as directed by your health care provider. Keep the area elevated. Avoid activities that make pain worse. Apply ice to the injured area: Place ice in a plastic bag. Place a towel between your skin and the bag. Leave the ice on for 20 minutes, 23 times a day. Use splints, braces, pads, or walking aids as directed by your health care provider. Keep all follow-up visits as directed by your health care provider. This is important. PREVENTION Wear kneepads if you kneel often. Wear sturdy running or walking shoes that fit you well. Take regular breaks from repetitive activity. Warm up by stretching before doing any strenuous activity. Maintain a healthy weight or lose weight as recommended by your health care provider. Ask your health care provider if you need help. Exercise regularly. Start any new physical activity gradually. SEEK MEDICAL CARE IF: Your bursitis is not responding to treatment or home care. You have a fever. You have chills. This information is not intended to replace advice given to you by your health care provider. Make sure you discuss any questions you have with your health care provider. Document Released: 09/19/2001 Document Revised: 07/11/2015 Document Reviewed: [facility]. No follow up information was provided. Extracted from: Title: cervical spinal stenosis Author: Shon Decker MD Date: 02/12/16 surgery, right hip bursitis, HTN Impression and Plan Diagnosis Depression (PMO87-RI F32.1, Working, Medical). Hypertension (MHI31-FE I10, Working, Medical). Restless legs syndrome (RLS) (OVS35-LA G25.81, Working, Medical). Pure hypercholesterolemia (EBY34-KF E78.0, Working, Medical). Adult hypothyroidism (OKB58-XW E03.9, Working, Medical). Cervical spinal stenosis (CPA89-SM M48.02, Working, Medical). Spinal stenosis, lumbar region, without neurogenic claudication (CCL20-KX M48.06 , Working, Medical). Greater trochanteric bursitis of right hip (XAS23-JG M70.61, Working, Medical). Drug-induced constipation (PVO12-RE K59.09, Working, Medical). Plan: 1) Continue your current meds, although you may reduce the Lorazepam to 1 daily.. 2) Add Miralax 17 gms mixed with water every day, for constipation. 3) See me in 3 months and as needed. 4) Get walking exercise every day. 5) Ask your orthopedic doctor about possible cortisone shot in the right hip bursitis region.. Orders Orders (Selected) Outpatient Orders Ordered Office Visit Level 4 Est 43146: Future (On Hold) XR Consultation Outside Film: Prescriptions Prescribed fentaNYL 100 mcg/hr transdermal film, extended release: 1 patches, Topical, q72hr, 10 patches, 0 Refill(s). Dx/Order Association Plan: Diagnosis: Adult hypothyroidism Comment: Diagnosis: Cervical spinal stenosis Comment: Diagnosis: Depression Comment: Ordered: Office Visit Level 4 Est 72082; 02/12/16 11:06:00 CDT, Hypertension | Pure hypercholesterolemia | Spinal stenosis, lumbar region, without neurogenic claudication | Restless legs syndrome (RLS) | Depression Diagnosis: Drug-induced constipation Comment: Diagnosis: Greater trochanteric bursitis of right hip Comment: Diagnosis: Hypertension Comment: Ordered: Office Visit Level 4 Est 65752; 02/12/16 11:06:00 CDT, Hypertension | Pure hypercholesterolemia | Spinal stenosis, lumbar region, without neurogenic claudication | Restless legs syndrome (RLS) | Depression Diagnosis: Pure hypercholesterolemia Comment: Ordered: Office Visit Level 4 Est 60883; 02/12/16 11:06:00 CDT, Hypertension | Pure hypercholesterolemia | Spinal stenosis, lumbar region, without neurogenic claudication | Restless legs syndrome (RLS) | Depression Diagnosis: Restless legs syndrome (RLS) Comment: Ordered: Office Visit Level 4 Est 11004; 02/12/16 11:06:00 CDT, Hypertension | Pure hypercholesterolemia | Spinal stenosis, lumbar region, without neurogenic claudication | Restless legs syndrome (RLS) | Depression Diagnosis: Spinal stenosis, lumbar region, without neurogenic claudication Comment: Ordered: Office Visit Level 4 Est 40958; 02/12/16 11:06:00 CDT, Hypertension | Pure hypercholesterolemia | Spinal stenosis, lumbar region, without neurogenic claudication | Restless legs syndrome (RLS) | Depression End of Orders ."
--- OUTSIDE RECORDS SUMMARY | 2016-12-26 00:33 | XMS REPORT | Referral Summary ---
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 Phone Lucian Decker Primary Care Physician [phone] Encounter VC Date(s): 05/13/16 - 05/13/16 [facility], [address] [place] [address]- Discharge Disposition: 01-Home or Self Care Attending Physician: Sohn Decker MD Admitting Physician: Shon Decker MD Vital Signs Most recent to 1 oldest [Reference Range]: Temperature Tympanic 36.0 degC [36.6-38.1 degC] *LOW* (05/13/16 9:59 AM) Apical Heart Rate 64 bpm [60-100 bpm] (05/13/16 9:59 AM) Blood Pressure 122/68 mmHg [90-140/60-90 mmHg] (05/13/16 9:59 AM) Problem List Condition Effective Dates Status [...] BEDTIME, # 30 tabs, 9 Refill(s), eRx: [facility] #[id number], TAKE ONE TABLET BY MOUTH AT BEDTIME Start Date: 07/27/15 Status: Ordered Cortisporin otic solution 4 drops, Ear-Left, TID, # 10 mL, 0 Refill(s), Pharmacy: [facility] #[id number] Start Date: 05/13/16 Stop Date: 05/20/16 Status: Ordered docusate sodium 100 mg, TAKES 1 BID, 0 Refill(s) Start Date: 12/12/15 Status: Ordered fentaNYL 100 mcg/hr transdermal film, extended release 1 patches, Topical, q72hr, # 10 patches, 0 Refill(s) Start Date: 05/13/16 Status: Ordered ferrous sulfate 325 mg (65 mg elemental iron) oral tablet 1 tabs, Oral, Daily, 0 Refill(s) Start Date: 07/07/14 Status: Ordered gabapentin 800 mg oral tablet See Instructions, TAKE ONE TABLET BY MOUTH TWICE A DAY, # 180 tabs, eRx: [facility] #[id number], TAKE ONE TABLET BY MOUTH TWICE A DAY Start Date: 04/30/16 Status: Ordered levothyroxine 50 mcg (0.05 mg) oral tablet See Instructions, TAKE ONE TABLET BY MOUTH DAILY, # 90 tabs, eRx: [facility] #[id number], TAKE ONE TABLET BY MOUTH DAILY Start Date: 02/19/16 Status: Ordered LORazepam 0.5 mg oral tablet 0.5 mg 1 tabs, Oral, BID, must last 30 days for each script JeffBrigette Morenitapancho, # 60 tabs, 5 Refill(s) Start Date: 04/05/16 Status: Ordered omeprazole 40 mg oral delayed release capsule See Instructions, TAKE ONE CAPSULE BY MOUTH EVERY DAY BEFORE A MEAL, # 90 caps, eRx: [facility] #[id number], TAKE ONE CAPSULE BY MOUTH EVERY DAY BEFORE A MEAL Start Date: 03/25/16 Status: Ordered ondansetron 4 mg oral tablet 4 mg 1 tabs, Oral, BID, as needed for nausea/vomiting, 0 Refill(s) Start Date: 05/06/16 Status: Ordered OXcarbazepine 300 mg oral tablet See Instructions, 1 tabs Oral in the morning and 0.5 tab in the evening, 0 Refill(s) Start Date: 05/06/16 Status: Ordered oxybutynin 15 mg/24 hr oral tablet, extended release See Instructions, TAKE ONE TABLET BY MOUTH EVERY DAY, # 30 unknown unit, 4 Refill(s), eRx: [facility] #[id number], TAKE ONE TABLET BY MOUTH EVERY DAY Start Date: 04/25/16 Status: Ordered promethazine 25 mg, Oral, BID, as needed for nausea/vomiting, 0 Refill(s) Start Date: 05/06/16 Status: Ordered rOPINIRole 4 mg oral tablet See Instructions, TAKE ONE TABLET BY MOUTH EVERY NIGHT AT BEDTIME, # 90 tabs, 1 Refill(s), eRx: [facility] #[id number], TAKE ONE TABLET BY MOUTH EVERY NIGHT AT BEDTIME Start Date: 03/11/16 Status: Ordered traZODone 150 mg oral tablet See Instructions, TAKE THREE TABLETS BY MOUTH EVERY NIGHT AT BEDTIME, # 270 tabs , eRx: [facility] #[id number], TAKE THREE TABLETS BY MOUTH EVERY NIGHT AT BEDTIME Start Date: 02/19/16 Status: Ordered Vitamin D3 1,000 Intl_Units, Oral, Daily, 0 Refill(s) Start Date: 03/21/14 Status: Ordered Results Chemistry Most recent to 1 oldest [Reference Range]: Sodium Lvl [135-144 124 mEq/L mEq/L] *LOW* (05/13/16 10:53 AM) Potassium Lvl 4.7 mEq/L [3.5-5.2 mEq/L] (05/13/16 10:53 AM) Chloride [99-111 92 mEq/L mEq/L] *LOW* (05/13/16 10:53 AM) CO2 [22-31 mEq/L] 24 mEq/L (05/13/16 10:53 AM) AGAP [3-20] 8 (05/13/16 10:53 AM) BUN [10-20 mg/dL] 11 mg/dL (05/13/16 10:53 AM) Glucose Lvl [70-99 111 mg/dL mg/dL] *HI* (05/13/16 10:53 AM) Creatinine Lvl 0.69 mg/dL [0.57-1.11 mg/dL] (05/13/16 10:53 AM) eGFR [>60 mL/min] >60 mL/min 1 (05/13/16 10:53 AM) Calcium Lvl 9.2 mg/dL [8.9-10.5 mg/dL] (05/13/16 10:53 AM) 1Result Comment: Multiply eGFR results by 1.21 for race. Immunizations Vaccine Date Refusal Reason tetanus/diphth/pertuss (Tdap) [...] Carpal tunnel release and right elbow suergy 2012 Incisional hernia repair 2002 Cholecystectomy 1985 Appendectomy [...] Released: 09/12/2003 Document Revised: 10/13/2015 Document Reviewed: [facility] Patient Information 2016 [place]. No follow up information was provided. Extracted from: Title: multiple medical problems Author: Shon Decker MD Date: 05/13/16 Impression and Plan Diagnosis Anxiety (LYN62-WW F41.1, Working, Medical). Depression (FHO22-LD F32.1, Working, Medical). Benign hypertension (RXA14-LD I10, Working, Medical). Restless legs syndrome (RLS) (YAN41-PR G25.81, Working, Medical). Chronic low back pain (UYZ19-HJ M54.5, Working, Medical). Pure hypercholesterolemia (LQJ88-AM E78.0, Working, Medical). Adult hypothyroidism (LBD37-SM E03.9, Working, Medical). Hyponatremia (SAG42-ZE E87.1, Working, Medical). Left otitis externa (WIA62-YT H60.8X2, Working, Medical). Dysplastic nevus (CLJ16-TU D23.9, Working, Medical). Plan: 1) Schedule a skin lesion removal from your left low back sometime. 2) Use your ear drops in the left ear for 7-10 days. 3) Continue your current meds. 4) Lab today. 5) Continue fluid restriction. . Orders Orders (Selected) Outpatient Orders Ordered BMP: Office Visit Level 4 Est 54859: eGFR: Prescriptions Prescribed Cortisporin otic solution: 4 drops, Ear-Left, TID, 10 mL, 0 Refill(s) fentaNYL 100 mcg/hr transdermal film, extended release: 1 patches, Topical, q72hr, 10 patches, 0 Refill(s). Dx/Order Association Plan: Diagnosis: Adult hypothyroidism Comment: Ordered: Office Visit Level 4 Est [id number]; 05/13/16 10:40:00 CDT, Depression | Hyponatremia | Left otitis externa | Benign hypertension | Anxiety | Chronic low back pain | Pure hypercholesterolemia | Restless legs syndrome ( RLS) | Adult hypothyroidism Diagnosis: Anxiety Comment: Ordered: Office Visit Level 4 Est 32965; 05/13/16 10:40:00 CDT, Depression | Hyponatremia | Left otitis externa | Benign hypertension | Anxiety | Chronic low back pain | Pure hypercholesterolemia | Restless legs syndrome ( RLS) | Adult hypothyroidism Diagnosis: Benign hypertension Comment: Ordered: BMP; Blood, Routine Collect, 05/13/16 10:46:00 CDT, Once , Stop date 05/13/16 10:46:00 CDT, Lab Collect, Hyponatremia | Benign hypertension Office Visit Level 4 Est 40738; 05/13/16 10:40:00 CDT, Depression | Hyponatremia | Left otitis externa | Benign hypertension | Anxiety | Chronic low back pain | Pure hypercholesterolemia | Restless legs syndrome (RLS) | Adult hypothyroidism Diagnosis: Chronic low back pain Comment: Ordered: Office Visit Level 4 Est 37273; 05/13/16 10:40:00 CDT, Depression | Hyponatremia | Left otitis externa | Benign hypertension | Anxiety | Chronic low back pain | Pure hypercholesterolemia | Restless legs syndrome ( RLS) | Adult hypothyroidism Diagnosis: Depression Comment: Ordered: Office Visit Level 4 Est 83489; 05/13/16 10:40:00 CDT, Depression | Hyponatremia | Left otitis externa | Benign hypertension | Anxiety | Chronic low back pain | Pure hypercholesterolemia | Restless legs syndrome ( RLS) | Adult hypothyroidism Diagnosis: Dysplastic nevus Comment: Diagnosis: Hyponatremia Comment: Ordered: BMP; Blood, Routine Collect, 05/13/16 10:46:00 CDT, Once , Stop date 05/13/16 10:46:00 CDT, Lab Collect, Hyponatremia | Benign hypertension Office Visit Level 4 Est 97132; 05/13/16 10:40:00 CDT, Depression | Hyponatremia | Left otitis externa | Benign hypertension | Anxiety | Chronic low back pain | Pure hypercholesterolemia | Restless legs syndrome (RLS) | Adult hypothyroidism Diagnosis: Left otitis externa Comment: Ordered: Office Visit Level 4 Est 87922; 05/13/16 10:40:00 CDT, Depression | Hyponatremia | Left otitis externa | Benign hypertension | Anxiety | Chronic low back pain | Pure hypercholesterolemia | Restless legs syndrome ( RLS) | Adult hypothyroidism Diagnosis: Pure hypercholesterolemia Comment: Ordered: Office Visit Level 4 Est 52965; 05/13/16 10:40:00 CDT, Depression | Hyponatremia | Left otitis externa | Benign hypertension | Anxiety | Chronic low back pain | Pure hypercholesterolemia | Restless legs syndrome ( RLS) | Adult hypothyroidism Diagnosis: Restless legs syndrome (RLS) Comment: Ordered: Office Visit Level 4 Est 69229; 05/13/16 10:40:00 CDT, Depression | Hyponatremia | Left otitis externa | Benign hypertension | Anxiety | Chronic low back pain | Pure hypercholesterolemia | Restless legs syndrome ( RLS) | Adult hypothyroidism Additional Orders: Comment: Ordered: Cortisporin otic solution,4 drops, Ear-Left, TID, # 10 mL , 0 Refill(s), Pharmacy: [facility] #[id number] End of Orders ."
--- OUTSIDE RECORDS SUMMARY | 2016-12-26 00:33 | XMS REPORT | Referral Summary ---
Author Author [facility] [place], [facility] Organization [facility] Address Unknown Phone Unavailable Care Team Providers Care Visitor Services Coordinator Name Role Phone Lucian Decker Primary Care Physician [phone] Encounter [facility] [phone] Date(s): 11/25/16 - 11/25/16 [facility] [place], [address] [place] [phone] Discharge Diagnosis: Lumbar radiculopathy Discharge Diagnosis: Weakness Discharge Diagnosis: Primary osteoarthritis of lumbar spine Discharge Diagnosis: Slow urinary stream Discharge Diagnosis: Benign essential hypertension Discharge Diagnosis: Fatigue Discharge Diagnosis: Myalgia Discharge Diagnosis: Hypovitaminosis D Discharge Diagnosis: Adult hypothyroidism Discharge Diagnosis: Primary hypercholesterolemia Discharge Diagnosis: Thrombocytopenia Discharge Diagnosis: Hyponatremia Discharge Diagnosis: Fever Discharge Diagnosis: Polyneuropathy Discharge Disposition: 01-Home or Self Care Attending Physician: Shon Decker MD Admitting Physician: Shon Decker MD Vital Signs Most recent to 1 oldest [Reference Range]: Temperature Tympanic 37.3 degC [36.6-38.1 degC] (11/25/16 10:24 AM) Peripheral Pulse 84 bpm Rate [60-100 bpm] (11/25/16 10:24 AM) Blood Pressure 130/80 mmHg [90-140/60-90 mmHg] (11/25/16 10:24 AM) Problem List Condition Effective Dates Status [...] memory away Active morphine Delirium Active Medications Aspirin Low Dose 81 mg, Oral, Daily, 0 Refill(s) Start Date: 11/03/15 Status: Ordered atorvastatin 10 mg oral tablet See Instructions, TAKE ONE TABLET BY MOUTH DAILY, # 30 tabs, 2 Refill(s), eRx: [facility] #[id number] Start Date: 09/24/16 Status: Ordered docusate sodium 100 mg, TAKES 1 BID, 0 Refill(s) Start Date: 12/12/15 Status: Ordered fentaNYL 100 mcg/hr transdermal film, extended release 1 patches, Topical, q72hr, # 10 patches, 0 Refill(s) Start Date: 11/13/16 Status: Ordered ferrous sulfate 325 mg (65 mg elemental iron) oral tablet 1 tabs, Oral, Daily, 0 Refill(s) Start Date: 07/07/14 Status: Ordered folic acid 0.4 mg oral tablet 0.4 mg 1 tabs, Oral, Daily, # 100 tabs, 0 Refill(s) Start Date: 08/26/16 Status: Ordered gabapentin 800 mg oral tablet 800 mg 1 tabs, Oral, BID, # 180 tabs, 0 Refill(s), Pharmacy: [facility] # [id number], 1 tabs Oral BID Start Date: 08/26/16 Status: Ordered levothyroxine 50 mcg (0.05 mg) oral tablet See Instructions, TAKE ONE TABLET BY MOUTH DAILY, # 90 tabs, eRx: [facility] #[id number] Start Date: 11/25/16 Status: Ordered LORazepam 0.5 mg oral tablet 0.5 mg 1 tabs, Oral, BID, must last 30 days for each script JeffBrigette Corado, # 60 tabs, 1 Refill(s) Start Date: 10/02/16 Status: Ordered omeprazole 40 mg oral delayed release capsule See Instructions, TAKE ONE CAPSULE BY MOUTH EVERY DAY BEFORE A MEAL, # 90 caps, eRx: [facility] #[id number] Start Date: 09/24/16 Status: Ordered ondansetron 4 mg oral tablet 4 mg 1 tabs, Oral, BID, as needed for nausea and vomiting, # 60 tabs, 1 Refill(s ), Pharmacy: [facility] #[id number], 1 tabs Oral BID,PRN:as needed for nausea and vomiting Start Date: 10/02/16 Status: Ordered OXcarbazepine 300 mg oral tablet See Instructions, TAKE ONE-HALF TABLET BY MOUTH TWICE A DAY, # 90 tabs, eRx: [facility] #[id number] Start Date: 11/25/16 Status: Ordered oxybutynin 15 mg/24 hr oral tablet, extended release See Instructions, TAKE ONE TABLET BY MOUTH DAILY, # 30 unknown unit, 2 Refill(s) , eRx: [facility] #[id number] Start Date: 11/25/16 Status: Ordered promethazine 25 mg oral tablet See Instructions, TAKE ONE TABLET BY MOUTH TWICE A DAY NEEDED FOR NAUSEA, # 180 tabs, eRx: [facility] #[id number], TAKE ONE TABLET BY MOUTH TWICE A DAY NEEDED FOR NAUSEA Start Date: 10/25/16 Status: Ordered rOPINIRole 2 mg oral tablet 2 mg 1 tabs, Oral, Bedtime (once a day), # 90 tabs, 3 Refill(s), Pharmacy: [facility] #[id number], 1 tabs Oral Bedtime (once a day),x90 days Start Date: 06/17/16 Stop Date: 06/12/17 Status: Ordered traZODone 150 mg oral tablet See Instructions, TAKE THREE TABLETS BY MOUTH EVERY NIGHT AT BEDTIME, # 150 tabs , 2 Refill(s), Pharmacy: [facility] #[id number], TAKE THREE TABLETS BY MOUTH EVERY NIGHT AT BEDTIME Start Date: 11/25/16 Status: Ordered Vitamin B-12 See Instructions, 2,000 mcg oral daily, 0 Refill(s) Start Date: 08/09/16 Status: Ordered Vitamin D3 1,000 Intl_Units, Oral, Daily, 0 Refill(s) Start Date: 03/21/14 Status: Ordered Results Hematology Most recent to 1 oldest [Reference Range]: WBC [4.8-10.8 7.8 10*3/uL 10*3/uL] (11/25/16 11:38 AM) RBC [4.00-5.20] 5.07 (11/25/16 11:38 AM) Hgb [12.0-16.0 15.0 gm/dL gm/dL] (11/25/16 11:38 AM) Hct [37.0-47.0 %] 42.8 % (11/25/16 11:38 AM) MCV [82.0-99.0 fL] 84.4 fL (11/25/16 11:38 AM) MCH [27.0-32.0 pg] 29.6 pg (11/25/16 11:38 AM) MCHC [32.0-36.0 35.0 gm/dL gm/dL] (11/25/16 11:38 AM) RDW [11.5-14.5 %] 12.6 % (11/25/16 11:38 AM) Platelet [150-400 142 10*3/uL 10*3/uL] *LOW* (11/25/16 11:38 AM) MPV [8.8-14.8 fL] 9.9 fL (11/25/16 11:38 AM) Immature 0.4 % Granulocytes (11/25/16 11:38 AM) [0.0-1.0 %] Neutrophils [51-75 90 % %] *HI* (11/25/16 11:38 AM) Lymphocytes [20-46 6 % %] *LOW* (11/25/16 11:38 AM) Monocytes [4-11 %] 3 % *LOW* (11/25/16 11:38 AM) Eosinophils [0-4 %] 0 % (11/25/16 11:38 AM) Basophils [0-2 %] 0 % (11/25/16 11:38 AM) Neutro Absolute 7.07 [1.90-7.00] *HI* (11/25/1638 AM) Lymph Absolute 0.45 [0.80-3.30] *LOW* (11/25/16 AM) Lander Absolute 0.27 [0.30-1.00] *LOW* (11/25/16 AM) Eos Absolute 0.00 [0.00-0.50] (11/25/16:38 AM) Baso Absolute 0.02 [0.00-0.20] (11/25/16:38 AM) Differential Scanned Slide (11/25/16 AM) Sed Rate [0-23] 9 (11/25/16 AM) Chemistry Most recent to 1 oldest [Reference Range]: Sodium Lvl [135-144 131 mEq/L mEq/L] *LOW* (11/25/16 AM) Potassium Lvl 4.2 mEq/L [3.5-5.2 mEq/L] (11/25/16:38 AM) Chloride [99-111 97 mEq/L mEq/L] *LOW* (11/25/16 AM) CO2 [22-31 mEq/L] 22 mEq/L (11/25/16:38 AM) AGAP [3-20] 12 (11/25/16:38 AM) BUN [10-20 mg/dL] 10 mg/dL (11/25/1638 AM) Glucose Lvl [70-99 127 mg/dL mg/dL] *HI* (11/25/16 AM) Creatinine Lvl 0.76 mg/dL [0.57-1.11 mg/dL] (11/25/16:38 AM) eGFR [>60 mL/min] >60 mL/min 1 (11/25/1638 AM) Calcium Lvl 9.1 mg/dL 2 [8.4-10.2 mg/dL] (11/25/16:38 AM) Albumin Lvl [3.4-4.8 4.5 gm/dL gm/dL] (2/20/17 11:38 AM) Total Protein 7.5 gm/dL [6.0-7.6 gm/dL] (11/25/16 11:38 AM) Globulin [1.8-4.0 3.0 gm/dL gm/dL] (11/25/16 11:38 AM) ALT [0-55 U/L] 9 U/L (11/25/16 11:38 AM) AST [5-34 U/L] 20 U/L 3 (11/25/16 11:38 AM) Alk Phos [40-150 56 U/L U/L] (11/25/16 11:38 AM) Bili Total [0.2-1.2 0.8 mg/dL mg/dL] (11/25/16 11:38 AM) Total CK [29-168 53 U/L U/L] (11/25/16 11:38 AM) Chol [0-199 mg/dL] 211 mg/dL *HI* (11/25/16 11:38 AM) Trig [0-149 mg/dL] 79 mg/dL (11/25/16 11:38 AM) HDL [40-84 mg/dL] 71 mg/dL (11/25/16 11:38 AM) LDL [0-130 mg/dL] 124 mg/dL (11/25/16 11:38 AM) VLDL Cholesterol 16 mg/dL [0-28 mg/dL] (11/25/16 11:38 AM) Cardiac Risk 3.0 [0.0-5.0] (11/25/16 11:38 AM) TSH [0.35-4.94] 0.63 (11/25/16 11:38 AM) 1Result Comment: Multiply eGFR results by 1.21 for race. 2Result Comment: Please note reference range change effective 11/08/2016. 3Result Comment: Specimen slightly hemolyzed. LDH, AST and Direct Bilirubin may be affected. Urinalysis Most recent to 1 oldest [Reference Range]: UA Color Yellow (11/25/16 3:00 PM) UA Appear Clear (11/25/16 3:00 PM) UA pH [5.0-8.0] 7.5 (11/25/16 3:00 PM) UA Leuk Est Pos 1+ [Negative] *ABN* (11/25/16 3:00 PM) UA Nitrite Negative [Negative] (11/25/16 3:00 PM) UA Protein Negative [Negative] (11/25/16 3:00 PM) UA Glucose Negative [Negative] (11/25/16 3:00 PM) UA Ketones Trace [Negative] *ABN* (11/25/16 3:00 PM) UA Urobilinogen 1.0 mg/dL [<1.0 mg/dL] (11/25/16 3:00 PM) UA Bili [Negative] Negative (11/25/16 3:00 PM) UA Blood [Negative] Trace *ABN* (11/25/16 3:00 PM) UA Spec Grav 1.012 [1.003-1.030] (11/25/16 3:00 PM) Type Clean Catch (11/25/16 3:00 PM) UA WBC [0-4] 2-4 (11/25/16 3:00 PM) UA RBC [0-4] 5-10 *ABN* (11/25/16 3:00 PM) Epithelial Cells 0-2 (11/25/16 3:00 PM) Immunizations Given and Recorded Vaccine Date Status Refusal Reason tetanus/diphth/pertuss (Tdap) adult/adol 03/28/14 Given hepatitis A-hepatitis B vaccine 09/07/15 Recorded hepatitis A-hepatitis B vaccine 08/07/15 Recorded influenza virus vaccine, inactivated 08/26/16 Given influenza virus vaccine, inactivated 06/08/15 Recorded influenza virus vaccine, inactivated1 07/07/14 Recorded influenza virus vaccine, live 07/23/13 Given pneumococcal 13-valent conjugate vaccine 05/09/15 Given pneumococcal 23-polyvalent vaccine 03/28/14 Given pneumococcal 23-polyvalent vaccine 08/13/05 Given tetanus/diphtheria/pertussis, acel(Tdap) 06/08/15 Recorded 1Result Comment: [07/07/2014] See scanned document Procedures [...] suergy 2012 Incisional hernia repair 2002 Cholecystectomy 1986 Appendectomy [...] Patient Education Author: Shon Decker MD Date: 11/25 Home Health Care Chronic Pain Chronic pain can be defined as pain that is off and on and lasts for 36 months or longer. Many things cause chronic pain, which can make it difficult to make a diagnosis. There are many treatment options available for chronic pain. However, finding a treatment that works well for you may require trying various approaches until the right one is found. Many people benefit from a combination of two or more types of treatment to control their pain. SYMPTOMS Chronic pain can occur anywhere in the body and can range from mild to very severe. Some types of chronic pain include: Headache. Low back pain. Cancer pain. Arthritis pain. Neurogenic pain. This is pain resulting from damage to nerves. People with chronic pain may also have other symptoms such as: Depression. Anger. Insomnia. Anxiety. DIAGNOSIS Your health care provider will help diagnose your condition over time. In many cases, the initial focus will be on excluding possible conditions that could be causing the pain. Depending on your symptoms, your health care provider may order tests to diagnose your condition. Some of these tests may include: Blood tests. CT scan. MRI. X-rays. Ultrasounds. Nerve conduction studies. You may need to see a specialist. TREATMENT Finding treatment that works well may take time. You may be referred to a pain specialist. He or she may prescribe medicine or therapies, such as: Mindful meditation or yoga. Shots (injections) of numbing or pain-relieving medicines into the spine or area of pain. Local electrical stimulation. Acupuncture. Massage therapy. Aroma, color, light, or sound therapy. Biofeedback. Working with a physical therapist to keep from getting stiff. Regular, gentle exercise. Cognitive or behavioral therapy. Group support. Sometimes, surgery may be recommended. HOME CARE INSTRUCTIONS Take all medicines as directed by your health care provider. Lessen stress in your life by relaxing and doing things such as listening to calming music. Exercise or be active as directed by your health care provider. Eat a healthy diet and include things such as vegetables, fruits, fish, and lean meats in your diet. Keep all follow-up appointments with your health care provider. Attend a support group with others suffering from chronic pain. SEEK MEDICAL CARE IF: Your pain gets worse. You develop a new pain that was not there before. You cannot tolerate medicines given to you by your health care provider. You have new symptoms since your last visit with your health care provider. SEEK IMMEDIATE MEDICAL CARE IF: You feel weak. You have decreased sensation or numbness. You lose control of bowel or bladder function. Your pain suddenly gets much worse. You develop shaking. You develop chills. You develop confusion. You develop chest pain. You develop shortness of breath. MAKE SURE YOU: Understand these instructions. Will watch your condition. Will get help right away if you are not doing well or get worse. This information is not intended to replace advice given to you by your health care provider. Make sure you discuss any questions you have with your health care provider. Document Released: 06/14/2003 Document Revised: 05/25/2014 Document Reviewed: [employer] Patient Education 2016 [employer] No follow up information was provided. Extracted from: Title: multiple diagnoses Author: Shon Decker MD Date: 11/25/16 Impression and Plan Diagnosis Polyneuropathy (TND76-YT G62.9, Discharge, Medical). Primary osteoarthritis of lumbar spine (EMJ46-BW M47.816, Discharge, Medical). Lumbar radiculopathy (MJG49-UD M54.16, Discharge, Medical). Fatigue (AZD37-XT R53.83, Discharge, Medical). Hypovitaminosis D (JHG33-NT E55.9, Discharge, Medical). Fever (FPV16-OQ R50.9, Discharge, Medical). Myalgia (LQD06-UR M79.1, Discharge, Medical). Slow urinary stream (VFC85-KX R39.198, Discharge, Medical). Weakness (LZA28-JC R53.1, Discharge, Medical). Adult hypothyroidism (ZFF42-RT E03.9, Discharge, Medical). Primary hypercholesterolemia (MFF62-YS E78.00, Discharge, Medical). Benign essential hypertension (KAF36-CR I10, Discharge, Medical). Hyponatremia (HJU27-OA E87.1, Discharge, Medical). Thrombocytopenia (LGD66-SK D69.6, Discharge, Medical). Plan: 1) Stop Atorvastatin. 2) Fasting lab ordered today. 3) Schedule an MRI of the lumbar spine at [facility]. 4) See me for a physical in 2-3 months, and as needed. 5) See the neurologist, as scheduled.. Orders Orders (Selected) Outpatient Orders InProcess (In Process) ESR: Vitamin D 25 OH: Ordered Office Visit Level 5 Est 99878: Ordered (Pending Collection) Routine Urinalysis: Completed CBC w/ Differential: CK: CMP: Fasting Lipid Profile: Influenza A/B: TSH 3rd Generation: eGFR: Future (On Hold) MRI Spine Lumbar w/o Contrast: Vitamin D 25 OH: Prescriptions Prescribed OXcarbazepine 300 mg oral tablet: See Instructions, TAKE ONE-HALF TABLET BY MOUTH TWICE A DAY, 90 tabs levothyroxine 50 mcg (0.05 mg) oral tablet: See Instructions, TAKE ONE TABLET BY MOUTH DAILY, 90 tabs oxybutynin 15 mg/24 hr oral tablet, extended release: See Instructions, TAKE ONE TABLET BY MOUTH DAILY, 30 unknown unit, 2 Refill(s) traZODone 150 mg oral tablet: See Instructions, TAKE THREE TABLETS BY MOUTH EVERY NIGHT AT BEDTIME, 150 tabs, 2 Refill(s). Dx/Order Association Plan: Diagnosis: Adult hypothyroidism Comment: Diagnosis: Benign essential hypertension Comment: Ordered: Office Visit Level 5 Est [id number]; 11/25/16 17:19:00 SHAKER REPAIRER, Myalgia | Lumbar radiculopathy | Polyneuropathy | Weakness | Primary osteoarthritis of lumbar spine | Primary hypercholesterolemia | Fatigue | Benign essential hypertension | Fever | Hypovitaminosis D | Hyponatremia | Thrombocyt... Other status: CBC w/ Differential; Blood, Routine Collect, 11:22:00 SHAKER REPAIRER, Once, Stop date 11/25/16 11:22:00 SHAKER REPAIRER, Lab Collect, Polyneuropathy | Fever | Fatigue | Benign essential hypertension (Completed) Diagnosis: Fatigue Comment: Ordered: Office Visit Level 5 Est 79382; 11/25/16 17:19:00 SHAKER REPAIRER, Myalgia | Lumbar radiculopathy | Polyneuropathy | Weakness | Primary osteoarthritis of lumbar spine | Primary hypercholesterolemia | Fatigue | Benign essential hypertension | Fever | Hypovitaminosis D | Hyponatremia | Thrombocyt... Other status: CBC w/ Differential; Blood, Routine Collect, 11:22:00 SHAKER REPAIRER, Once, Stop date 11/25/16 11:22:00 SHAKER REPAIRER, Lab Collect, Polyneuropathy | Fever | Fatigue | Benign essential hypertension (Completed) CMP; Blood, Routine Collect, 11/25/16 11:22: 00 SHAKER REPAIRER, Once, Stop date 11/25/16 11:22:00 SHAKER REPAIRER, Lab Collect, Polyneuropathy | Weakness | Fatigue | Primary hypercholesterolemia (Completed) Diagnosis: Fever Comment: Ordered: Office Visit Level 5 Est [id number]; 11/25/16 17:19:00 SHAKER REPAIRER, Myalgia | Lumbar radiculopathy | Polyneuropathy | Weakness | Primary osteoarthritis of lumbar spine | Primary hypercholesterolemia | Fatigue | Benign essential hypertension | Fever | Hypovitaminosis D | Hyponatremia | Thrombocyt... Other status: CBC w/ Differential; Blood, Routine Collect, 11:22:00 SHAKER REPAIRER, Once, Stop date 11/25/16 11:22:00 SHAKER REPAIRER, Lab Collect, Polyneuropathy | Fever | Fatigue | Benign essential hypertension (Completed) Influenza A/B; Nasopharyngeal Swab, Stat collect, 11/25/16 11:12:00 SHAKER REPAIRER, Once, Stop date 11/25/16 11:12:00 SHAKER REPAIRER, Nurse Collect Non-Blood, Fever (Completed) Diagnosis: Hyponatremia Comment: Ordered: Office Visit Level 5 Est [id number]; 11/25/16 17:19:00 SHAKER REPAIRER, Myalgia | Lumbar radiculopathy | Polyneuropathy | Weakness | Primary osteoarthritis of lumbar spine | Primary hypercholesterolemia | Fatigue | Benign essential hypertension | Fever | Hypovitaminosis D | Hyponatremia | Thrombocyt... Diagnosis: Hypovitaminosis D Comment: Ordered: Office Visit Level 5 Est 87331; 11/25/16 17:19:00 SHAKER REPAIRER, Myalgia | Lumbar radiculopathy | Polyneuropathy | Weakness | Primary osteoarthritis of lumbar spine | Primary hypercholesterolemia | Fatigue | Benign essential hypertension | Fever | Hypovitaminosis D | Hyponatremia | Thrombocyt... Diagnosis: Lumbar radiculopathy Comment: Ordered: Office Visit Level 5 Est 16223; 11/25/16 17:19:00 SHAKER REPAIRER, Myalgia | Lumbar radiculopathy | Polyneuropathy | Weakness | Primary osteoarthritis of lumbar spine | Primary hypercholesterolemia | Fatigue | Benign essential hypertension | Fever | Hypovitaminosis D | Hyponatremia | Thrombocyt... Diagnosis: Myalgia Comment: Ordered: Office Visit Level 5 Est 66889; 11/25/16 17:19:00 SHAKER REPAIRER, Myalgia | Lumbar radiculopathy | Polyneuropathy | Weakness | Primary osteoarthritis of lumbar spine | Primary hypercholesterolemia | Fatigue | Benign essential hypertension | Fever | Hypovitaminosis D | Hyponatremia | Thrombocyt... Other status: CK; Blood, Routine Collect, 11/25/16 11:22:00 SHAKER REPAIRER, Once, Stop date 11/25/16 11:22:00 SHAKER REPAIRER, Lab Collect, Myalgia | Weakness | Polyneuropathy | Primary hypercholesterolemia (Completed) Diagnosis: Polyneuropathy Comment: Ordered: Office Visit Level 5 Est 69871; 11/25/16 17:19:00 SHAKER REPAIRER, Myalgia | Lumbar radiculopathy | Polyneuropathy | Weakness | Primary osteoarthritis of lumbar spine | Primary hypercholesterolemia | Fatigue | Benign essential hypertension | Fever | Hypovitaminosis D | Hyponatremia | Thrombocyt... Other status: CBC w/ Differential; Blood, Routine Collect, 11:22:00 SHAKER REPAIRER, Once, Stop date 11/25/16 11:22:00 SHAKER REPAIRER, Lab Collect, Polyneuropathy | Fever | Fatigue | Benign essential hypertension (Completed) CMP; Blood, Routine Collect, 11/25/16 11:22: 00 SHAKER REPAIRER, Once, Stop date 11/25/16 11:22:00 SHAKER REPAIRER, Lab Collect, Polyneuropathy | Weakness | Fatigue | Primary hypercholesterolemia (Completed) CK; Blood, Routine Collect, 11/25/16 11:22: 00 SHAKER REPAIRER, Once, Stop date 11/25/16 11:22:00 SHAKER REPAIRER, Lab Collect, Myalgia | Weakness | Polyneuropathy | Primary hypercholesterolemia (Completed) Diagnosis: Primary hypercholesterolemia Comment: Ordered: Office Visit Level 5 Est 55042; 11/25/16 17:19:00 SHAKER REPAIRER, Myalgia | Lumbar radiculopathy | Polyneuropathy | Weakness | Primary osteoarthritis of lumbar spine | Primary hypercholesterolemia | Fatigue | Benign essential hypertension | Fever | Hypovitaminosis D | Hyponatremia | Thrombocyt... Other status: Fasting Lipid Profile; Blood, Routine Collect, 11/25 11:22:00 SHAKER REPAIRER, Once, Stop date 11/25/16 11:22:00 SHAKER REPAIRER, Lab Collect, Primary hypercholesterolemia (Completed) CMP; Blood, Routine Collect, 11/25/16 11:22: 00 SHAKER REPAIRER, Once, Stop date 11/25/16 11:22:00 SHAKER REPAIRER, Lab Collect, Polyneuropathy | Weakness | Fatigue | Primary hypercholesterolemia (Completed) CK; Blood, Routine Collect, 11/25/16 11:22: 00 SHAKER REPAIRER, Once, Stop date 11/25/16 11:22:00 SHAKER REPAIRER, Lab Collect, Myalgia | Weakness | Polyneuropathy | Primary hypercholesterolemia (Completed) Diagnosis: Primary osteoarthritis of lumbar spine Comment: Ordered: Office Visit Level 5 Est [id number]; 11/25/16 17:19:00 SHAKER REPAIRER, Myalgia | Lumbar radiculopathy | Polyneuropathy | Weakness | Primary osteoarthritis of lumbar spine | Primary hypercholesterolemia | Fatigue | Benign essential hypertension | Fever | Hypovitaminosis D | Hyponatremia | Thrombocyt... Diagnosis: Slow urinary stream Comment: Ordered: Routine Urinalysis; Urine, Clean Catch, Routine collect, 11/25/16 11:22:00 SHAKER REPAIRER, Once, Stop date 11/25/16 11:22:00 SHAKER REPAIRER, Nurse Collect Non- Blood, Slow urinary stream Diagnosis: Thrombocytopenia Comment: Ordered: Office Visit Level 5 Est [id number]; 11/25/16 17:19:00 SHAKER REPAIRER, Myalgia | Lumbar radiculopathy | Polyneuropathy | Weakness | Primary osteoarthritis of lumbar spine | Primary hypercholesterolemia | Fatigue | Benign essential hypertension | Fever | Hypovitaminosis D | Hyponatremia | Thrombocyt... Diagnosis: Weakness Comment: Ordered: Office Visit Level 5 Est 29247; 11/25/16 17:19:00 SHAKER REPAIRER, Myalgia | Lumbar radiculopathy | Polyneuropathy | Weakness | Primary osteoarthritis of lumbar spine | Primary hypercholesterolemia | Fatigue | Benign essential hypertension | Fever | Hypovitaminosis D | Hyponatremia | Thrombocyt... Other status: CMP; Blood, Routine Collect, 11/25/16 11:22:00 SHAKER REPAIRER, Once, Stop date 11/25/16 11:22:00 SHAKER REPAIRER, Lab Collect, Polyneuropathy | Weakness | Fatigue | Primary hypercholesterolemia (Completed) CK; Blood, Routine Collect, 11/25/16 11:22: 00 SHAKER REPAIRER, Once, Stop date 11/25/16 11:22:00 SHAKER REPAIRER, Lab Collect, Myalgia | Weakness | Polyneuropathy | Primary hypercholesterolemia (Completed) Diagnosis: Lumbar radiculopathy Comment: Diagnosis: Polyneuropathy Comment: Diagnosis: Primary osteoarthritis of lumbar spine Comment: End of Orders ."
--- OUTSIDE RECORDS SUMMARY | 2016-12-26 00:33 | XMS REPORT | Referral Summary ---
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 Discharge Diagnosis: Cervical radiculopathy Discharge Diagnosis: Spinal stenosis, lumbar region, without neurogenic claudication Discharge Diagnosis: Lumbar post-laminectomy syndrome (disorder) Discharge Diagnosis: Cervical spinal stenosis Discharge Diagnosis: Thoracic or lumbosacral neuritis or radiculitis, unspecified Discharge Diagnosis: Cervical post-laminectomy syndrome Discharge Diagnosis: Chronic low back pain Discharge Disposition: 01-Home or Self Care Attending Physician: Pili Oliva APRN Admitting Physician: Pili Oliva APRN Referring Physician: Shon Decker MD Vital Signs Most recent to 1 oldest [Reference Range]: Temperature Oral 36.5 degC [35.8-37.3 degC] (02/13/15 1:35 PM) Blood Pressure 134/78 mmHg [90-140/60-90 mmHg] (02/13/15 1:35 PM) Problem List Condition Effective Dates Status Health [...] DAY, # 90 tabs, 2 Refill(s), eRx: [facility] #[id number], TAKE ONE TABLET BY MOUTH EVERY DAY Start Date: 06/15/15 Status: Ordered atorvastatin 10 mg oral tablet See Instructions, TAKE ONE TABLET BY MOUTH AT BEDTIME, # 30 tabs, 9 Refill(s), eRx: [facility] #[id number], TAKE ONE TABLET BY MOUTH AT BEDTIME Start Date: 07/27/15 Status: Ordered docusate 100 mg, Oral, Daily, 0 Refill(s) Start Date: 03/28/14 Status: Ordered fentaNYL 100 mcg/hr transdermal film, extended release 1 patches, Topical, q72hr, # 10 patches, 0 Refill(s) Start Date: 08/14/15 Status: Ordered ferrous sulfate 325 mg (65 mg elemental iron) oral tablet 1 tabs, Oral, Daily, 0 Refill(s) Start Date: 07/07/14 Status: Ordered gabapentin 800 mg oral tablet See Instructions, TAKE ONE TABLET BY MOUTH TWICE A DAY, # 180 tabs, 2 Refill(s) , eRx: [facility] #[id number], TAKE ONE TABLET BY MOUTH TWICE A DAY Start Date: 07/27/15 Status: Ordered ibuprofen 200 mg oral tablet 2 tabs, Oral, BID, as needed for arthritis, # 120 tabs, 0 Refill(s) Start Date: 03/28/14 Status: Ordered levothyroxine 50 mcg (0.05 mg) oral tablet 50 mcg 1 tabs, Oral, Daily, # 90 tabs, 2 Refill(s), Pharmacy: [facility] # [id number], 1 tabs Oral Daily Start Date: 05/24/15 Status: Ordered LORazepam 0.5 mg oral tablet 0.5 mg 1 tabs, Oral, BID, must last 30 days Hetal Corado, # 60 tabs, 0 Refill(s) Start Date: 08/07/15 Status: Ordered omeprazole 40 mg oral delayed release capsule See Instructions, TAKE ONE CAPSULE BY MOUTH EVERY DAY BEFORE A MEAL, # 90 caps, 2 Refill(s), eRx: [facility] #[id number], TAKE ONE CAPSULE BY MOUTH EVERY DAY BEFORE A MEAL Start Date: 03/30/15 Status: Ordered ondansetron 4 mg oral tablet 4 mg 1 tabs, Oral, BID, as needed for nausea/vomiting, X 90 days, # 180 tabs, 3 Refill(s), Pharmacy: [facility] #[id number], 1 tabs Oral BID,x90 days,PRN:as needed for nausea/vomiting Start Date: 05/09/15 Stop Date: 05/03/16 Status: Ordered oxybutynin 15 mg/24 hr oral tablet, extended release See Instructions, TAKE ONE TABLET BY MOUTH EVERY DAY, # 30 unknown unit, 6 Refill(s), eRx: [facility] #[id number], TAKE ONE TABLET BY MOUTH EVERY DAY Start Date: 08/11/14 Status: Ordered oxybutynin 15 mg/24 hr oral tablet, extended release See Instructions, TAKE ONE TABLET BY MOUTH EVERY DAY, # 30 unknown unit, 5 Refill(s), eRx: [facility] #[id number], TAKE ONE TABLET BY MOUTH EVERY DAY Start Date: 03/13/15 Status: Ordered rOPINIRole 4 mg oral tablet See Instructions, TAKE ONE TABLET BY MOUTH EVERY NIGHT AT BEDTIME, # 90 tabs, 2 Refill(s), eRx: [facility] #[id number], TAKE ONE TABLET BY MOUTH EVERY NIGHT AT BEDTIME Start Date: 12/14/14 Status: Ordered Senna S 1 tabs, Oral, Bedtime (once a day), 0 Refill(s) Start Date: 03/28/14 Status: Ordered traZODone 150 mg oral tablet See Instructions, TAKE THREE TABLETS BY MOUTH EVERY NIGHT AT BEDTIME, # 270 tabs , eRx: [facility] #[id number], TAKE THREE TABLETS BY MOUTH EVERY NIGHT AT BEDTIME Start Date: 08/23/15 Status: Ordered Trileptal 300 mg oral tablet See Instructions, TAKE ONE TABLET BY MOUTH TWICE A DAY, # 120 tabs, eRx: [facility] #[id number], TAKE ONE TABLET BY MOUTH TWICE A DAY Start Date: 06/29/15 Status: Ordered Vitamin D3 1,000 Intl_Units, Oral, Daily, 0 Refill(s) Start Date: 03/21/14 Status: Ordered Results No data available for this section Immunizations Vaccine Date Refusal Reason tetanus/diphth/pertuss (Tdap) adult/adol 03/28/14 hepatitis A-hepatitis B vaccine 08/07/15 influenza virus [...] smoker Assessment and Plan Extracted from: Title: Office Visit Note Author: Pili Oliva ZHEN Date: 02/13/15 Assessment/Plan Cervical post-laminectomy syndrome Cervical radiculopathy Cervical spinal stenosis Chronic low back pain Lumbar post-laminectomy syndrome (disorder) Median nerve neuropathy Spinal stenosis, lumbar region, without neurogenic claudication Thoracic or lumbosacral neuritis or radiculitis, unspecified Ulnar neuropathy at elbow This patient was evaluated by Dr. Harrell. She is here today for follow-up of her low back pain and neck pain symptoms. Her primary complaint is low back pain radiating into her bilateral legs worse in the right leg and anterior thigh. Dr. Harrell discussed with her that unfortunately he does read not recommend any further injections for her low back pain, she has previously not hadsignificant relief with a caudal epidural steroid injections. Her second pain complaint is her neck pain radiating into her right shoulder. He does recommend repeating her T1 2 transforaminal epidural steroid injection which previously provided her with 60 percent relief for approximately 3-4 months. 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 Discussed the potential side effects and possible risks from the injection: localized increase in pain, infection, bleeding, allergic reaction, nerve damage involving temporary or permanent pain , numbness, weakness, epidural headache, paralysis or . She will continue to take her Trileptal 300 mg twice daily denies any side effects. She has previously not tolerated and increase in higher dose due to side effects. The patient is requesting to have a CT myelogram of her neck and back to see if she has had any changes since her lumbar spine MRI on July 29, 2013 and cervical spine MRI from August 12, 2013[address] Dr. Harrell did discuss with her that he would not order this at this time however if she would like to see a spinal surgeon or neurosurgeon for further evaluation, they may order one.The patient would like to defer seen a surgeon currently for further evaluation of her neck and low back pain. History of present illness, physical exam and plan of care are in agreement with Dr. Harrell's findings patient is in agreement to the above plan of care. She will continue to obtain refills for her nortriptyline gabapentin and fentanyl through her primary care provider. Her last sodium level was checked in August 2014, will recheck at future visit. She will follow-up in our clinic 3 months after her injection or sooner if her symptoms do not improve patient is in agreement to the above plan of care.
--- OUTSIDE RECORDS SUMMARY | 2016-12-26 00:34 | XMS REPORT | Continuity Of Care Document ---
Author Author [facility] Organization [facility] Address [address] [place] [address] Phone Care Team Providers Care Packing Checker Name Role Phone FANNY NEGRON, LAKE Badillo AT ANKITA NEGRON, MO Moore AT ABRIL NEGRON, EILEEN Castro CP [phone] STANISLAV NEGRON, RICHI Mazariegos PP Results Lab Results Visit/Account #[id number] (January 27, 2013 12:34pm - February 03, 2013 2:54pm) Test Result Reported Date/Time G3AR STYPE ART January 29, 2013 8:58am PH(7.35-7.45) 7.479 January 29, 2013 8:58am PCO2(35-45 mmHg) 35.7 mmHg January 29, 2013 8:58am PO2(80-105 mmHg) 76 mmHg January 29, 2013 8:58am HCO3(22-26 MMOL/L) 26.5 MMOL/L January 29, 2013 8:58am TCO2(23-27 MMOL/L) 28 MMOL/L January 29, 2013 8:58am SO2C(95-98 %) 96 % January 29, 2013 8:58am ABG BASE EXCESS(0-30 mmol/L) 3 mmol/L January 29, 2013 8:58am FIO2(%) 21 % January 29, 2013 8:58am COMPLETE BLOOD COUNT WITH DIFF WHITE BLOOD COUNT(4.0-11.0 10E3/UL) 5.5 10E3/UL January 27, 2013 12:59pm 5.8 10E3/UL January 27, 2013 3:43pm 5.0 10E3/UL January 28, 2013 7:08am 7.9 10E3/UL January 29, 2013 4:42am 6.0 10E3/UL January 30, 2013 4:10am 5.0 10E3/UL January 31, 2013 5:36am RED BLOOD COUNT(3.80-5.20 10E6/UL) 3.87 10E6/UL January 27, 2013 12:59pm 3.73 10E6/UL January 27, 2013 3:43pm 3.39 10E6/UL January 28, 2013 7:08am 3.71 10E6/UL January 29, 2013 4:42am 3.90 10E6/UL January 30, 2013 4:10am 3.45 10E6/UL January 31, 2013 5:36am HEMOGLOBIN(12.0-16.0 G/DL) 10.7 G/DL January 27, 2013 12:59pm 10.2 G/DL January 27, 2013 3:43pm 9.4 G/DL January 28, 2013 7:08am 10.1 G/DL January 29, 2013 4:42am 10.7 G/DL January 30, 2013 4:10am 9.6 G/DL January 31, 2013 5:36am HEMATOCRIT(36.0-48.0 %) 33.5 % January 27, 2013 12:59pm 32.3 % January 27, 2013 3:43pm 29.3 % January 28, 2013 7:08am 31.8 % January 29, 2013 4:42am 33.6 % January 30, 2013 4:10am 30.0 % January 31, 2013 5:36am MEAN CORPUSCULAR VOLUME(80.0-100.0 FL) 86.6 FL January 27, 2013 12:59pm 86.6 FL January 27, 2013 3:43pm 86.4 FL January 28, 2013 7:08am 85.7 FL January 29, 2013 4:42am 86.2 FL January 30, 2013 4:10am 87.0 FL January 31, 2013 5:36am MEAN CORPUSCULAR HEMOGLOBIN(27.0-34.0 PG) 27.6 PG January 27, 2013 12:59pm 27.3 PG January 27, 2013 3:43pm 27.7 PG January 28, 2013 7:08am 27.2 PG January 29, 2013 4:42am 27.4 PG January 30, 2013 4:10am 27.8 PG January 31, 2013 5:36am MEAN CORPUSCULAR HGB CONC(33.0-37.0 G/DL) 31.9 G/DL January 27, 2013 12:59pm 31.6 G/DL January 27, 2013 3:43pm 32.1 G/DL January 28, 2013 7:08am 31.8 G/DL January 29, 2013 4:42am 31.8 G/DL January 30, 2013 4:10am 32.0 G/DL January 31, 2013 5:36am RED CELL DISTRIBUTION WIDTH(11.0-15.0 %) 14.4 % January 27, 2013 12:59pm 14.4 % January 27, 2013 3:43pm 14.5 % January 28, 2013 7:08am 14.3 % January 29, 2013 4:42am 14.7 % January 30, 2013 4:10am 14.5 % January 31, 2013 5:36am 777-3: PLATELET COUNT(130-400 10E3/UL) 274 10E3/UL January 27, 2013 12:59pm 310 10E3/UL January 27, 2013 3:43pm 286 10E3/UL January 28, 2013 7:08am 286 10E3/UL January 29, 2013 4:42am 267 10E3/UL January 30, 2013 4:10am 252 10E3/UL January 31, 2013 5:36am MEAN PLATELET VOLUME(7.4-11.0 FL) 9.2 FL January 27, 2013 12:59pm 9.6 FL January 27, 2013 3:43pm 9.5 FL January 28, 2013 7:08am 8.9 FL January 29, 2013 4:42am 9.1 FL January 30, 2013 4:10am 9.0 FL January 31, 2013 5:36am NEUTROPHILS % (AUTO)(40-70 %) 82 % January 27, 2013 12:59pm 79 % January 27, 2013 3:43pm 61 % January 28, 2013 7:08am 67 % January 29, 2013 4:42am 70 % January 30, 2013 4:10am 64 % January 31, 2013 5:36am LYMPHOCYTES % (AUTO)(15-45 %) % January 27, 2013 12:59pm 16 % January 27, 2013 3:43pm 29 % January 28, 2013 7:08am 21 % January 29, 2013 4:42am 19 % January 30, 2013 4:10am 27 % January 31, 2013 5:36am MONOCYTES % (AUTO)(2-10 %) 5 % January 27, 2013 12:59pm 5 % January 27, 2013 3:43pm 8 % January 28, 2013 7:08am 10 % January 29, 2013 4:42am 8 % January 30, 2013 4:10am 7 % January 31, 2013 5:36am EOSINOPHILS % (AUTO)(0-6 %) 0 % January 27, 2013 12:59pm 0 % January 27, 2013 3:43pm 1 % January 28, 2013 7:08am 1 % January 29, 2013 4:42am 3 % January 30, 2013 4:10am 2 % January 31, 2013 5:36am BASOPHILS % (AUTO)(0-1 %) 0 % January 27, 2013 12:59pm 0 % January 27, 2013 3:43pm 1 % January 28, 2013 7:08am 1 % January 29, 2013 4:42am 1 % January 30, 2013 4:10am 1 % January 31, 2013 5:36am IMMATURE GRANS % (AUTO)(0-0 %) 0 % January 27, 2013 12:59pm 0 % January 27, 2013 3:43pm 0 % January 28, 2013 7:08am 0 % January 29, 2013 4:42am 0 % January 30, 2013 4:10am 0 % January 31, 2013 5:36am NEUTROPHILS # (AUTO)(2.5-7.5 10E3/UL) 4.5 10E3/UL January 27, 2013 12:59pm 4.5 10E3/UL January 27, 2013 3:43pm 3.1 10E3/UL January 28, 2013 7:08am 5.3 10E3/UL January 29, 2013 4:42am 4.2 10E3/UL January 30, 2013 4:10am 3.2 10E3/UL January 31, 2013 5:36am LYMPHOCYTES # (AUTO)(1.0-4.0 10E3/UL) 0.7 10E3/UL January 27, 2013 12:59pm 0.9 10E3/UL January 27, 2013 3:43pm 1.5 10E3/UL January 28, 2013 7:08am 1.7 10E3/UL January 29, 2013 4:42am 1.1 10E3/UL January 30, 2013 4:10am 1.3 10E3/UL January 31, 2013 5:36am MONOCYTES # (AUTO)(0.2-0.8 10E3/UL) 0.3 10E3/UL January 27, 2013 12:59pm 0.3 10E3/UL January 27, 2013 3:43pm 0.4 10E3/UL January 28, 2013 7:08am 0.8 10E3/UL January 29, 2013 4:42am 0.5 10E3/UL January 30, 2013 4:10am 0.3 10E3/UL January 31, 2013 5:36am EOSINOPHILS # (AUTO)(0.0-0.4 10E3/UL) 0.0 10E3/UL January 27, 2013 12:59pm 0.0 10E3/UL January 27, 2013 3:43pm 0.0 10E3/UL January 28, 2013 7:08am 0.1 10E3/UL January 29, 2013 4:42am 0.2 10E3/UL January 30, 2013 4:10am 0.1 10E3/UL January 31, 2013 5:36am BASOPHILS # (AUTO)(0.0-0.2 10E3/UL) 0.0 10E3/UL January 27, 2013 12:59pm 0.0 10E3/UL January 27, 2013 3:43pm 0.0 10E3/UL January 28, 2013 7:08am 0.0 10E3/UL January 29, 2013 4:42am 0.0 10E3/UL January 30, 2013 4:10am 0.0 10E3/UL January 31, 2013 5:36am IMMATURE GRANS # (AUTO)(0.0-0.0 10E3/UL) 0.0 10E3/UL January 27, 2013 12:59pm 0.0 10E3/UL January 27, 2013 3:43pm 0.0 10E3/UL January 28, 2013 7:08am 0.0 10E3/UL January 29, 2013 4:42am 0.0 10E3/UL January 30, 2013 4:10am 0.0 10E3/UL January 31, 2013 5:36am DIFF TYPE AUTOMATED January 27, 2013 1:03pm AUTOMATED January 27, 2013 3:44pm AUTOMATED January 28, 2013 7:11am AUTOMATED January 29, 2013 4:44am AUTOMATED January 30, 2013 4:10am AUTOMATED January 31, 2013 5:37am ERYTHROCYTE SEDIMENTATION RATE ERYTHROCYTE SEDIMENTATION RATE(0-20 MM/HR) 82 MM/HR January 27, 2013 4:21pm RETIC PANEL RETICULOCYTE %(0.5-1.7 %) 1.5 % January 27, 2013 3:54pm ABSOLUTE RETICS #(16-78 10E9/L) 55 10E9/L January 27, 2013 3:54pm IMMATURE RETIC FRACTION(3.0-15.9 %) 6.2 % January 27, 2013 3:54pm 33733-9: PROTHROMBIN TIME WITH INR PROTHROMBIN TIME(12.6-14.9 SEC) 13.4 SEC January 27, 2013 3:50pm 14.4 SEC January 28, 2013 7:22am 74677-0: INR 1.05 Result Comments: INR reference interval applies to patients on anticoagulant therapy. Suggested INR therapeutic range for oral anticoagulant therapy: (Stabilized anticoagulated patients) Routine Therapy: 2.0 to 3.0 Recurrent Myocardial Infarction: 2.5 to 3.5 Mechanical Prosthetic Valves: 2.5 to 3.5 January 27, 2013 3:50pm 1.15 Result Comments: INR reference interval applies to patients on anticoagulant therapy. Suggested INR therapeutic range for oral anticoagulant therapy: (Stabilized anticoagulated patients) Routine Therapy: 2.0 to 3.0 Recurrent Myocardial Infarction: 2.5 to 3.5 Mechanical Prosthetic Valves: 2.5 to 3.5 January 28, 2013 7:22am PARTIAL THROMBOPLASTIN TIME PARTIAL THROMBOPLASTIN TIME(22.2-37.4 SEC) 31.8 SEC January 27, 2013 3:51pm 41.0 SEC January 28, 2013 7:23am UA WITH SCREEN FOR CULTURE COLOR,URINE YELLOW January 29, 2013 2:21am CLARITY,URINE CLEAR January 29, 2013 2:21am GLUCOSE, URINE(NEGATIVE MG/DL) NEGATIVE MG/DL January 29, 2013 2:21am URINE BILIRUBIN(NEGATIVE) NEGATIVE January 29, 2013 2:21am KETONES,URINE(NEGATIVE MG/DL) NEGATIVE MG/DL January 29, 2013 2:21am URINE SPECIFIC GRAVITY(1.001-1.035) 1.010 January 29, 2013 2:21am URINE BLOOD(NEGATIVE) MODERATE January 29, 2013 2:21am URINE PH(5.0-9.0) 7.0 January 29, 2013 2:21am URINE PROTEIN(Less than 20 MG/DL) NEGATIVE MG/DL January 29, 2013 2:21am URINE UROBILINOGEN(0.2-1.0 MG/DL) 0.2 MG/DL January 29, 2013 2:21am URINE NITRITE(NEGATIVE) NEGATIVE January 29, 2013 2:21am LEUKOCYTE ESTERASE ,URINE(NEGATIVE) NEGATIVE January 29, 2013 2:21am URINE CULTURE NOT INDICATED January 29, 2013 2:21am URINE MICROSCOPIC REQUIRED YES January 29, 2013 2:21am URINE WBCS(/HPF) 0-3 /HPF January 29, 2013 2:31am URINE RBCS(/HPF) 8-12 /HPF January 29, 2013 2:31am URINE EPITHELIAL CELLS(/HPF) 0-3 /HPF January 29, 2013 2:31am BACTERIA,URINE(/HPF) NONE SEEN /HPF January 29, 2013 2:31am URINE CRYSTALS(/HPF) NONE SEEN /HPF January 29, 2013 2:23am URINE CASTS(/LPF) NONE SEEN /LPF January 29, 2013 2:23am URINE COMMENTS NONE January 29, 2013 2:23am COMPLETE METABOLIC PROFILE GLUCOSE(70-110 MG/DL) 93 MG/DL January 27, 2013 1:19pm 96 MG/DL January 27, 2013 4:44pm 136 MG/DL January 29, 2013 5:02am 95 MG/DL January 30, 2013 4:36am BLOOD UREA NITROGEN(6-20 MG/DL) 12 MG/DL January 27, 2013 1:19pm 12 MG/DL January 27, 2013 4:44pm 5 MG/DL January 29, 2013 5:02am 6 MG/DL January 30, 2013 4:36am CREATININE(0.50-1.20 MG/DL) 0.51 MG/DL January 27, 2013 1:19pm 0.54 MG/DL January 27, 2013 4:44pm 0.40 MG/DL January 29, 2013 5:02am 0.53 MG/DL January 30, 2013 4:36am EST GLOMERULAR FILTRATION RATE(Greater than or equal to 60) Greater than or equal to 60 Result Comments: If the patient is of -[place] descent/extraction multiply the eGFR value by 1.212 to obtain the actual eGFR. >=60 mg/dL Normal 30-59 mg/dL Moderate Kidney Disease 15-29 mg/dL Severe Kidney Disease <15 mg/dL Kidney Failure January 27, 2013 1:19pm Greater than or equal to 60 Result Comments: If the patient is of -[place] descent/extraction multiply the eGFR value by 1.212 to obtain the actual eGFR. >=60 mg/dL Normal 30-59 mg/dL Moderate Kidney Disease 15-29 mg/dL Severe Kidney Disease <15 mg/dL Kidney Failure January 27, 2013 4:44pm Greater than or equal to 60 Result Comments: If the patient is of -[place] descent/extraction multiply the eGFR value by 1.212 to obtain the actual eGFR. >=60 mg/dL Normal 30-59 mg/dL Moderate Kidney Disease 15-29 mg/dL Severe Kidney Disease <15 mg/dL Kidney Failure If the patient is of -[place] descent/extraction multiply the eGFR value by 1.212 to obtain the actual eGFR. >=60 mg/dL Normal 30-59 mg/dL Moderate Kidney Disease 15-29 mg/dL Severe Kidney Disease <15 mg/dL Kidney Failure January 29, 2013 5:04am Greater than or equal to 60 Result Comments: If the patient is of -[place] descent/extraction multiply the eGFR value by 1.212 to obtain the actual eGFR. >=60 mg/dL Normal 30-59 mg/dL Moderate Kidney Disease 15-29 mg/dL Severe Kidney Disease <15 mg/dL Kidney Failure If the patient is of -[place] descent/extraction multiply the eGFR value by 1.212 to obtain the actual eGFR. >=60 mg/dL Normal 30-59 mg/dL Moderate Kidney Disease 15-29 mg/dL Severe Kidney Disease <15 mg/dL Kidney Failure January 30, 2013 4:36am BUN CREATININE RATIO(10.0-20.0 RATIO) 23.5 RATIO January 27, 2013 1:19pm 22.2 RATIO January 27, 2013 4:44pm 12.5 RATIO January 29, 2013 5:02am 11.3 RATIO January 30, 2013 4:36am SODIUM(135-145 MMOL/L) 135 MMOL/L January 27, 2013 1:19pm 135 MMOL/L January 27, 2013 4:44pm 140 MMOL/L January 29, 2013 5:02am 141 MMOL/L January 30, 2013 4:36am POTASSIUM(3.6-5.0 MMOL/L) 3.8 MMOL/L January 27, 2013 1:19pm 3.5 MMOL/L January 27, 2013 4:44pm 3.8 MMOL/L January 29, 2013 5:02am 3.4 MMOL/L January 30, 2013 4:36am CHLORIDE(101-111 MMOL/L) 99 MMOL/L January 27, 2013 1:19pm 98 MMOL/L January 27, 2013 4:44pm 105 MMOL/L January 29, 2013 5:02am 109 MMOL/L January 30, 2013 4:36am CO2(21-31 MMOL/L) 25.0 MMOL/L January 27, 2013 1:19pm 24.0 MMOL/L January 27, 2013 4:44pm 27.0 MMOL/L January 29, 2013 5:02am 24.0 MMOL/L January 30, 2013 4:36am ANION GAP(8-18) 15 January 27, 2013 1:19pm 17 January 27, 2013 4:44pm 12 January 29, 2013 5:02am 11 January 30, 2013 4:36am OSMO CALCULATED(270.0-290.0) 269.5 January 27, 2013 1:19pm 269.6 January 27, 2013 4:44pm 278.7 January 29, 2013 5:02am 278.6 January 30, 2013 4:36am CALCIUM(8.5-10.5 MG/DL) 9.1 MG/DL January 27, 2013 1:19pm 9.0 MG/DL January 27, 2013 4:44pm 9.2 MG/DL January 29, 2013 5:02am 8.6 MG/DL January 30, 2013 4:36am BILIRUBIN,TOTAL(0.1-1.2 MG/DL) 0.8 MG/DL January 27, 2013 1:19pm 0.9 MG/DL January 27, 2013 4:44pm 0.6 MG/DL January 29, 2013 5:02am 0.7 MG/DL January 30, 2013 4:36am ALKALINE PHOSPHATASE(42-121 U/L) 89 U/L January 27, 2013 1:19pm 92 U/L January 27, 2013 4:44pm 84 U/L January 29, 2013 5:02am 74 U/L January 30, 2013 4:36am ASPARTATE AMINO TRANSFERASE(10-42 U/L) 50 U/L January 27, 2013 1:19pm 50 U/L January 27, 2013 4:44pm 60 U/L January 29, 2013 5:02am 36 U/L January 30, 2013 4:36am ALANINE AMINOTRANSFERASE(10-60 U/L) 28 U/L January 27, 2013 1:19pm 28 U/L January 27, 2013 4:44pm 37 U/L January 29, 2013 5:02am 30 U/L January 30, 2013 4:36am TOTAL PROTEIN(6.4-8.2 G/DL) 8.0 G/DL January 27, 2013 1:19pm 7.9 G/DL January 27, 2013 4:44pm 7.7 G/DL January 29, 2013 5:02am 6.4 G/DL January 30, 2013 4:36am ALBUMIN(3.5-5.5 G/DL) 3.5 G/DL January 27, 2013 1:19pm 3.5 G/DL January 27, 2013 4:44pm 3.6 G/DL January 29, 2013 5:02am 3.4 G/DL January 30, 2013 4:36am GLOBULIN(2.4-3.6) 4.5 January 27, 2013 1:19pm 4.4 January 27, 2013 4:44pm 4.1 January 29, 2013 5:02am 3.0 January 30, 2013 4:36am ALBUMIN/GLOBULIN RATIO(0.9-1.8 RATIO) 0.8 RATIO January 27, 2013 1:19pm 0.8 RATIO January 27, 2013 4:44pm 0.9 RATIO January 29, 2013 5:02am 1.1 RATIO January 30, 2013 4:36am BASIC METABOLIC PANEL GLUCOSE(70-110 MG/DL) 79 MG/DL January 28, 2013 8:15am BLOOD UREA NITROGEN(6-20 MG/DL) 10 MG/DL January 28, 2013 8:15am CREATININE(0.50-1.20 MG/DL) 0.42 MG/DL January 28, 2013 8:15am EST GLOMERULAR FILTRATION RATE(Greater than or equal to 60) Greater than or equal to 60 Result Comments: If the patient is of -[place] descent/extraction multiply the eGFR value by 1.212 to obtain the actual eGFR. >=60 mg/dL Normal 30-59 mg/dL Moderate Kidney Disease 15-29 mg/dL Severe Kidney Disease <15 mg/dL Kidney Failure If the patient is of -[place] descent/extraction multiply the eGFR value by 1.212 to obtain the actual eGFR. >=60 mg/dL Normal 30-59 mg/dL Moderate Kidney Disease 15-29 mg/dL Severe Kidney Disease <15 mg/dL Kidney Failure January 28, 2013 8:16am BUN CREATININE RATIO(10.0-20.0 RATIO) 23.8 RATIO January 28, 2013 8:15am SODIUM(135-145 MMOL/L) 138 MMOL/L January 28, 2013 8:15am POTASSIUM(3.6-5.0 MMOL/L) 2.9 MMOL/L January 28, 2013 8:15am CHLORIDE(101-111 MMOL/L) 103 MMOL/L January 28, 2013 8:15am CO2(21-31 MMOL/L) 25.0 MMOL/L January 28, 2013 8:15am ANION GAP(8-18) 13 January 28, 2013 8:15am OSMO CALCULATED(270.0-290.0) 273.6 January 28, 2013 8:15am CALCIUM(8.5-10.5 MG/DL) 8.5 MG/DL January 28, 2013 8:15am TOTAL IRON BINDING CAPACITY IRON BINDING CAPACITY, TOTAL(250-400 UG/DL) 212 UG/DL January 27, 2013 5:22pm TRANSFERRIN(192-382 MG/DL) 142 MG/DL January 27, 2013 5:22pm PREALBUMIN PREALBUMIN(18.0-38.0 MG/DL) 11.0 MG/DL January 27, 2013 6:02pm CARDIAC TROPONIN I CARDIAC TROPONIN I(0.01-0.04 NG/ML) 0.01 NG/ML Result Comments: REFERENCE RANGES: NEGATIVE </=0.04 NG/ML INTERMEDIATE 0.05-0.49 NG/ML POSITIVE >/=0.50 NG/ML January 27, 2013 4:44pm IRON IRON(40-160 UG/DL) 32 UG/DL January 27, 2013 5:22pm LIPID PROFILE TRIGLYCERIDES(35-160 MG/DL) 95 MG/DL January 28, 2013 8:15am CHOLESTEROL(0-200 MG/DL) 180 MG/DL January 28, 2013 8:15am LDL CHOLESTEROL,DIRECT(0-99 MG/DL) 108 MG/DL January 28, 2013 8:15am VLDL CHOLESTEROL(1-53 MG/DL) 19 MG/DL January 28, 2013 8:15am HDL CHOLESTEROL(35-85 MG/DL) 44 MG/DL January 28, 2013 8:15am CHOL/HDL RATIO(0.0-4.4 RATIO) 4.1 RATIO January 28, 2013 8:15am FERRITIN FERRITIN(11.0-306.8 NG/ML) 362.2 NG/ML January 27, 2013 5:22pm VITAMIN B12 AND FOLATE VITAMIN B12(180-914 PG/ML) 432 PG/ML Result Comments: REFERENCE RANGES: B12 NORMAL 180-914 PG/ML B12 INDETERMINATE 145-180 PG/ML B12 DEFICIENT <145 PG/ML January 27, 2013 5:22pm FOLATE(5.90-24.80 NG/ML) 12.89 NG/ML Result Comments: The folate assay is not traceable to WHO standards. Patient values may shift upwards from previous values. Please note the new Reference Range and Deficiency cutoff values. Reference Range: 5.90 - 24.80 ng/ml Deficiency Cutoff: <4.00 ng/ml January 27, 2013 5:22pm FREE T4 FREE T4(0.58-1.64 NG/DL) 1.10 NG/DL January 27, 2013 4:44pm THYROID STIMULATING HORMONE THYROID STIMULATING HORMONE(0.340-5.600 uIU/ML) 1.000 uIU/ML January 27, 2013 4:44pm AMMONIA AMMONIA(10-35 uMOL/L) Less than 9.0 uMOL/L January 31, 2013 9:19pm ALCOHOL ALCOHOL(0-5.0 MG/DL) Less than 5.0 MG/DL January 27, 2013 6:02pm DRUGS OF ABUSE, URINE OPIATE SCREEN,URINE(NEGATIVE) NEGATIVE January 29, 2013 1:20am BARBITURATES SCREEN, URINE(NEGATIVE) NEGATIVE January 29, 2013 1:20am AMPHETAMINE SCREEN,URINE(NEGATIVE) NEGATIVE January 29, 2013 1:20am BENZODIAZEPINES SCREEN,URINE(NEGATIVE) PRESUMPTIVE POSITIVE January 29, 2013 1:20am COCAINE SCREEN, URINE(NEGATIVE) NEGATIVE January 29, 2013 1:20am CANNABINOID SCREEN,URINE(NEGATIVE) NEGATIVE January 29, 2013 1:20am Microbiology Results Visit/Account #[id number] (January 27, 2013 12:34pm - February 03, 2013 2:54pm) Procedure Result Specimen #: [id number] BLOOD CULTURE Result Instance On February 02, 2013 6:29am Source: BLOOD Special Result Comments: BLOOD CULTURE NEGATIVE: NO GROWTH IN 5 DAYS Specimen #: [id number] BLOOD CULTURE Result Instance On February 02, 2013 6:30am Source: BLOOD Special Result Comments: BLOOD CULTURE NEGATIVE: NO GROWTH IN 5 DAYS Specimen #: [id number] MRSA SCREEN FOR INFEC CONTROL Result Instance On January 29, 2013 9:24am Source: NARE Special Result Comments: NO MRSA ISOLATED Result Procedures Visit/Account #[id number] (January 27, 2013 12:34pm - February 03, 2013 2:54pm) Department: DIAGNOSTIC IMAGING [ Report: Diagnostic Imaging Report ] Diagnostic Imaging Report Dictated By: GERMAN AREVALO MD Signed By: GERMAN AREVALO MD Reason for exam: CONFUSION/CHNG LEVEL OF CONSCIENTIOUSNESS & BEHAVI Special Instructions: *CALL REPORT [phone]*/JAKOB JAC FOR CT ADD ON TODAY [address] [id number] ~Department of Radiology~ Patient: EVENS ORNELAS Unit/MR#: [id number] : 1945 Age: 67 Sex: F Report#: [id number] Room#: 358-A Location: 3SE Order Dr: RICHI BURGER MD Tech: Jac Ribeiro Attn: Dr: MO LUCIANO MD Signed CAT SCAN Dt/Tm of Exam: 01/27/13 1300 Exam Description: CT HEAD WO Reason for Exam: CONFUSION/CHNG LEVEL OF CONSCIENTIOUSNESS & BEHAVI cc: RICHI BURGER MD [facility] ~ EXAM: CT HEAD WITHOUT CONTRAST DATE: 01/27/2013 at 1310 hours LOCATION OF DICTATION: Main HISTORY: 67-year-old female with confusion, changed level of consciousness COMPARISON: 04/02/2012 PROCEDURE: CT images were obtained throughout the head without contrast enhancement. FINDINGS: The ventricles are symmetrical and not enlarged. There is no evidence of midline shift or mass effect. No wedge shaped ischemia changes, mass lesions, or hemorrhages can be identified. The cortical sulci are preserved. The orbits and sinuses are unremarkable. IMPRESSION: 1. Negative CT head with no evidence of hemorrhage, ischemic changes or mass lesions 2. The right maxillary now clear Transcribed By: SPEECHQ 01/27/13 1315 Dictated By: GERMAN AREVALO MD Signed By: GERMAN AREVALO MD 01/27/139 Diagnostic Imaging Report Dictated By: JUSTINO SANCHEZ DO Signed By: JUSTINO SANCHEZ DO Method of Transportation: Reason for exam: Suspected Stroke Isolation #1: S Isolation?: N [address] [address] ~Department of Radiology~ Patient: CECIEVENS Unit/MR#: [id number] : 1945 Age: 67 Sex: F Report#: [id number] Room#: 358-A Location: 3SE Order Dr: LAKE TONG MD Tech: [place] Mayo Attn: Dr: MO LUCIANO MD Signed ULTRASOUND Dt/Tm of Exam: 01/27/13 Exam Description: US CAROTID DOPPLER BILAT Reason for Exam: Suspected Stroke cc: [place] TONG [facility] ~ LOCATION OF DICTATION: Main EXAM: Bilateral carotid Doppler ultrasound exam. HISTORY: Suspected stroke. COMPARISON: None FINDINGS: Somewhat technically difficult exam as the patient was very confused and unable to cooperate. No significantly elevated velocity in the right internal carotid artery to suggest hemodynamically significant stenosis. Right vertebral blood flow is antegrade. There is a small amount of calcific plaque noted in the left carotid bulb/proximal internal carotid artery region. No significantly elevated velocities to suggest hemodynamically significant stenosis. Degree of stenosis is probably less than 50% by velocity criteria. Left vertebral blood flow is antegrade. IMPRESSION: Somewhat technically limited examination as the patient was confused and unable to cooperate with the radiologic technologist. No significantly elevated velocities in either the right or left internal carotid arteries to suggest hemodynamically significant stenosis. Transcribed By: SPEECHQ 01/27/13 2970 Dictated By: JUSTINO SANCHEZ DO Signed By: JUSTINO SANCHEZ DO 01/27/13 1701 Diagnostic Imaging Report Dictated By: AD AGRAWAL MD Signed By: AD AGRAWAL MD Method of Transportation: B Pertinent Items in Place: IV T Reason for exam: AMS Isolation #1: S Isolation?: N [address] [address] ~Department of Radiology~ Patient: EVENS ORNELAS Unit/MR#: [id number] : 1945 Age: 67 Sex: F Report#: [id number] Room#: 358-A Location: [address] [place] [address] Dr: FRANDY RASHID MD Tech: Elvia Arzate Attn: Dr: MO LUCIANO MD Signed CAT SCAN Dt/Tm of Exam: 01/29/13 Exam Description: CT HEAD W/WO Reason for Exam: AMS cc: RICHI BURGER MD, SUHAIR MD [facility] ~ CT BRAIN WITHOUT AND WITH IV CONTRAST CLINICAL INFORMATION: 67-year-old patient, AMS, altered mental status. CT brain without and with IV contrast. Patient received 50 cc of Omnipaque-240. This is compared with prior studies dated 03/26/2012, 04/02/2012 and 2012. DISCUSSION: Ventricular system is in the midline. Carney-white matter differentiation is maintained. There is no intra-axial or extra-axial bleed or intracerebral hematoma noted. Postcontrast exam reveals no abnormal enhancement. Bone calvarium is unremarkable. Mastoid air cells are equal. Visualized sinuses are normal. Compared with prior study reveals no change. IMPRESSION: 1. There is no acute intracranial abnormality. 2. There is no bleed. 3. No abnormal enhancement with contrast. 4. There is no change since previous exam dated 01/27/2013. Job [id number] Transcribed By: PETE 01/29/13 1144 Dictated By: AD AGRAWAL MD Signed By: AD AGRAWAL MD 02/01/13 1446 Department: MEDICAL RECORDS [ Report: CARDIAC LAB ] CARDIAC LAB Dictated By: MARCELLO QUIJANO MD Signed By: MARCELLO QUIJANO MD [address] [address] Patient: [facility]/MR#: [id number] : 1945 Age: 67 Sex: F Report#: [id number] Room#: 358-A [place] [facility] [place]ictator: MARCELLO QUIJANO MD Attn Phys: MO LUCIANO MD Adm Date: 01/29/13 01/27/13 Disch Date: 02/03/13 ~CARDIAC LAB~ Signed DATE OF SERVICE: 01/27/2013 PRIMARY CARE PHYSICIAN: Dr. Burger, and Dr. Tong. INDICATION FOR STUDY: Possible cerebrovascular accident. TECHNICAL QUALITY: 2D, M-mode, color, and Doppler images were obtained of good technical quality. CHAMBER DIMENSIONS: All 4 chambers were adequately visualized, appeared to be normal in size. No intracardiac mass or thrombus was seen. VALVES: Aortic valve: Aortic valve is normal structure and motion. Normal Doppler interrogation. Mitral valve: Normal structure and motion. Mild mitral regurgitation, mitral stenosis. Tricuspid valve: Appears to have normal structure and motion. Mild tricuspid regurgitation. No tricuspid stenosis. Regurgitant velocity is 2.1 m/sec. Peak right ventricular systolic pressure of approximately 25 to 30 mmHg. LEFT VENTRICLE: Left ventricular martinez are of normal thickness. There are no segmental wall motion abnormalities identified. Overall, left ventricular contractility is normal. Estimated ejection fraction between 50 and 60%. MISCELLANEOUS: There is no pericardial effusion seen. IMPRESSION: 1. Normal left ventricular contractility 2. Mild tricuspid regurgitation. 3. Mild mitral regurgitation. 4. No evidence of intracardiac mass or thrombus. MTM:MedQ [id number] D. 01/27/2013 T. 01/27/2013 CC: MD LA[place] SAUCEDO MD BRUCE L LABES, MD ~ Dictated By: MARCELLO QUIJANO MD Signed By: MARCELLO QUIJANO MD 02/05/13 0826 MARCELLO QUIJANO MD 02/05/13 0826 Allergies and Adverse Reactions Allergies and Adverse Reactions Patient Unit Number: [id number] Agent Type Reaction Severity Status Date ADHESIVE TAPES Adverse Reaction BLISTERS/REDNESS Intermediate Active February 09, 2007 MORPHINE Drug Allergy HALLUCINATIONS Unknown Active January 05, 2009 OXYCODONE Drug Allergy HALLUCINATIONS Unknown Active December 09, 2006 ASPIRIN Drug Allergy nausea Intermediate Active February 09, 2007 NAPROXEN Drug Allergy N/V Unknown Active December 09, 2006 METHADONE Drug Allergy HALLUCINATIONS Intermediate Active February 09, 2007 Problem List Problem List Visit/Account #[id number] (January 27, 2013 12:34pm - February 03, 2013 2:54pm) Active Problems: Code/Condition Comments Documented Start Date Documented Resolved Date 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 February 01, 2013 Vital Signs Vital Signs Visit/Account #[id number] (January 27, 2013 12:34pm - February 03, 2013 2:54pm) Label First Result Last Result 2710-2: O2% 98 % January 27, 2013 2:46pm 96 % February 03, 2013 2:26pm 3141-9: Weight Measured 68.8000 kg January 27, 2013 2:48pm 68.8000 kg January 27, 2013 2:48pm 8310-5: Celsius Body Temperature 36.66045 Shanika January 27, 2013 2:46pm 36.84124 Shanika February 03, 2013 2:26pm 8310-5: Fahrenheit Body Temperature 97.9 [degF] January 27, 2013 2:46pm 98.3 [degF] February 03, 2013 2:26pm Blood Pressure 154/61 mm[Hg] January 27, 2013 2:46pm 126/65 mm[Hg] February 03, 2013 2:26pm 8867-4: Heart Rate 71 /min January 27, 2013 2:46pm 77 /min February 03, 2013 2:26pm 9279-1: Respiratory Rate 18 /min January 27, 2013 2:46pm 20 /min February 03, 2013 2:26pm Home Medications Home Medications Visit/Account #[id number] (January 27, 2013 12:34pm - February 03, 2013 2:54pm) Medication Dose Route Sig/Schedule Precondition/Indication Comments/ Instructions NDC Prevacid(LANSOPRAZOLE) 30 MG CAPSULE.DR 30 MG PO: ORAL PRN: NEEDED Prevacid (LANSOPRAZOLE): [id number] Levothroid(LEVOTHYROXINE SODIUM) 0.05 MG TAB 0.05 MG PO: ORAL DAILYAM: DAILY IN AM Levothroid (LEVOTHYROXINE SODIUM): 18229027677 Mevacor(LOVASTATIN) 10 MG TAB 10 MG PO: ORAL DAILYS: DAILY WITH SUPPER Mevacor (LOVASTATIN): 37817989204 Demerol(MEPERIDINE HCL) 50 MG TABLET 200 MG PO: ORAL Q6S: EVERY 6 HOURS Demerol (MEPERIDINE HCL): 47694308713 Gabapentin(GABAPENTIN) 800 MG TABLET 800 MG PO: ORAL BID: TWICE A DAY Gabapentin (GABAPENTIN): 80100898322 Trazodone Hcl(TraZODone HCL) 100 MG TABLET 300 MG PO: ORAL HS: AT BEDTIME Trazodone Hcl (TraZODone HCL): 13769356840 Promethazine(PROMETHazine HCL) 25 MG TAB 50 MG PO: ORAL Q8S: EVERY 8 HOURS Promethazine (PROMETHazine HCL): 91242820653 Lorazepam(LORazepam) 1 MG TAB 1 MG PO: ORAL TID: 3 TIMES A DAY Lorazepam (LORazepam): 73292962616 Demerol(MEPERIDINE HCL) 100 MG/ML INJECTION 100 MG IM: INTRAMUSC q2h Rx Note Text Comments: Takes 2 ampules q3h. Demerol (MEPERIDINE HCL): 50976993738 PHENERGAN INJ(PROMETHazine HCL) 50 MG/ML AMPUL 50 MG IM: INTRAMUSC PRN: NEEDED PHENERGAN INJ (PROMETHazine HCL): 15495132637 DOCUSATE SODIUM-SENNOSIDES(SENNOSIDES/DOCUSATE SODIUM) 1 TAB TABLET 1 TAB PO: ORAL PRN: NEEDED DOCUSATE SODIUM-SENNOSIDES (SENNOSIDES/DOCUSATE SODIUM): 49418005642 Furosemide(FUROSEMIDE) 40 MG TAB 40 MG PO: ORAL DAILY: DAILY Furosemide (FUROSEMIDE): 27391998399 Ropinirole Hcl(ROPINIRole HCL) 3 MG TABLET 3 MG PO: ORAL HS: AT BEDTIME Rx Note Text Comments: PER [facility] H&P Ropinirole Hcl (ROPINIRole HCL): 14422030364 Benazepril Hcl(BENAZEPRIL HCL) 20 MG TAB 20 MG PO: ORAL DAILY: DAILY Benazepril Hcl (BENAZEPRIL HCL): 14954206875 Amlodipine Besylate(AmLODIpine BESYLATE) 5 MG TABLET 5 MG PO: ORAL DAILY: DAILY Amlodipine Besylate (AmLODIpine BESYLATE): 01041833352 Omeprazole(OMEPRAZOLE) 20 MG CAP 40 MG PO: ORAL HS: AT BEDTIME Rx Note Text Comments: PER [facility] H&P Omeprazole (OMEPRAZOLE): 57165644032 calcium complete 1 TAB PO: ORAL PRN: NEEDED Multivitamin And Mineral(MULTIVITS,TH W-CA,FE,OTH MIN) 1 TAB TABLET 1 TAB PO: ORAL PRN: NEEDED Multivitamin And Mineral (MULTIVITS,TH W-CA,FE,OTH MIN): 72866401908 Iron(FERROUS SULFate) 1 TAB TABLET 1 TAB PO: ORAL DAILY: DAILY Rx Instructions: 27 mg Iron (FERROUS SULFate): 46029644489 Ibuprofen(IBUPROFEN) 200 MG CAPSULE 200 MG PO: ORAL PRN: NEEDED Ibuprofen (IBUPROFEN): 68423432296 Zoloft(SERTRALINE HCL) 50 MG TAB 50 MG PO: ORAL DAILY: DAILY Zoloft (SERTRALINE HCL): 29811013231 DURAGESIC 100(FentaNYL) 1 PATCH PATCH 1 PATCH TOP: TOPICALLY Q72H DURAGESIC 100 (FentaNYL): 29001445519 Discontinued Medications Medication Dose Route Sig/Schedule Precondition/Indication Comments/ Instructions NDC Lotrel 5-10 Mg Capsule(AmLODIpine/BENAZEPRIL) 1 CAP CAP 1 CAP PO: ORAL DAILYAM: DAILY IN AM Status: Discontinued as of 01/27/2013 6:24pm Lotrel 5-10 Mg Capsule (AmLODIpine/BENAZEPRIL): 35539328461 pristig 50 MG PO: ORAL DAILYAM: DAILY IN AM Status: Discontinued as of 01/27/2013 6:31pm natural made vitamin 1 (No Unit Defined) PO: ORAL DAILY: DAILY Status: Discontinued as of 01/27/2013 6:31pm Lorcet 10-650 Tablet(HYDROCODONE BIT/ACETAMINOPHEN) 1 TAB TABLET 2 TAB PO: ORAL Q6: EVERY 6 HOURS Status: Discontinued as of 01/27/2013 6:35pm Lorcet 10-650 Tablet (HYDROCODONE BIT/ACETAMINOPHEN): 72400808322 Sertraline Hcl(SERTRALINE HCL) 100 MG TABLET 2 TAB PO: ORAL DAILYAM: DAILY IN AM Status: Discontinued as of 01/27/2013 6:31pm Sertraline Hcl (SERTRALINE HCL): 72784527657 Pramipexole Dihydrochloride(PRAMIPEXOLE DI-HCL) 1 MG TABLET 2 TAB PO: ORAL HS: AT BEDTIME Status: Discontinued as of 01/27/2013 6:35pm Pramipexole Dihydrochloride (PRAMIPEXOLE DI-HCL): 39053459112 Amoxil(AMOXICILLIN) 875 MG TAB 1 TAB PO: ORAL BID: TWICE A DAY Status: Discontinued as of 01/27/2013 6:24pm Amoxil (AMOXICILLIN): 98247828989 Ordered Medications Ordered Medications Visit/Account #[id number] (January 27, 2013 12:34pm - February 03, 2013 2:54pm) Medication Dose Route Sig/Schedule Precondition/Indication Comments/ Instructions NDC DEMEROL INJ(MEPERIDINE HCL) 50 MG/ML INJECTION 100 MG IV: INTRAVEN SHANICE: ONE TIME ORDER Label Comments: MAY INCREASE FALL RISK DEMEROL INJ (MEPERIDINE HCL): 73015539224 IV Medication Carriers: NORMAL SALINE(SODIUM CHLORIDE) 1000 ML INJECTION 1000 ML IV: INTRAVEN .Q6H40M (Rate: 150 MLS/HR Duration: 6 HR 40 MIN) Label Comments: Give 2 Liters then stop Carriers: NORMAL SALINE (SODIUM CHLORIDE): 34121972056 NORVASC(AmLODIpine BESYLATE) 5 MG TAB 5 MG PO: ORAL DAILY: DAILY Label Comments: MAY INCREASE FALL RISK NORVASC (AmLODIpine BESYLATE): 51829334497 ATIVAN(LORazepam) 1 MG TAB 1 MG PO: ORAL TID: 3 TIMES A DAY PRN Reason: anxiety Label Comments: MAY INCREASE FALL RISK ATIVAN (LORazepam): 47297882245 DEMEROL INJ(MEPERIDINE HCL) 100 MG/ML INJECTION 100 MG IM: INTRAMUSC Q3H PRN Reason: PRN Is Schedule, No PRN Reason Listed Rx Order Comments: Order filed UNV: 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 WOMEN SHOULD NOT HANDLE OR CRUSH. MEVACOR (LOVASTATIN): 58518968997 REQUIP(ROPINIRole HCL) 2 MG TAB 3 MG PO: ORAL HS: AT BEDTIME Label Comments: MAY INCREASE FALL RISK REQUIP (ROPINIRole HCL): 45024972615 PROTONIX(PANTOPRAZOLE SOD) 40 MG TAB 40 MG PO: ORAL 60ACB: 60 MIN BEFORE BKFST Label Comments: SUB FOR PRILOSEC 20 MG DAILY PROTONIX (PANTOPRAZOLE SOD): 88992736944 LOVENOX(ENOXAPARIN) 40 MG/0.4 ML INJECTION 40 MG SC: SUBCUTANEOUSLY DAILY@07 Label Comments: INJECT SC INTO ABDOMINAL WALL ONLY. LOVENOX (ENOXAPARIN): 71522685475 IV Medication Additives: KCL INJ(POTASSIUM CHLORIDE) 40 MEQ/20 ML INJECTION Carriers: SODIUM CHLORIDE 500 ML INJECTION 520 MEQ IV: INTRAVEN NOW (Rate: 130 MLS/HR Duration: 4 HR) Additives: KCL INJ (POTASSIUM CHLORIDE): 87979527508 Carriers: (SODIUM CHLORIDE): 75663418382 K-DUR(POTASSIUM CHLORIDE) 20 MEQ TAB 40 MEQ PO: ORAL NOW: NOW Label Comments: TAKE WITH FOOD TO AVOID GI UPSET Special Dose Instructions: REPEAT IN 4 HOURS K-DUR (POTASSIUM CHLORIDE): 28347649331 ATIVAN INJ(LORazepam) 2 MG/ML INJECTION 0 MG IV: INTRAVEN Q2H PRN Reason: PRN Reason: ANXIETY/AGITATION Label Comments: *DILUTE WITH EQUAL VOLUME OF NORMAL SALINE PRIOR TO IV ADMINISTRATION MAY INCREASE FALL RISK Special Dose Instructions: 1-2 mg ATIVAN INJ (LORazepam): 54037597897 K-DUR(POTASSIUM CHLORIDE) 20 MEQ TAB 40 MEQ PO: ORAL NOW: NOW Label Comments: TAKE WITH FOOD TO AVOID GI UPSET Special Dose Instructions: REPEAT IN 4 HOURS K-DUR (POTASSIUM CHLORIDE): 92954078478 MICRO-K(POTASSIUM CHLORIDE) 10 MEQ TAB 10 MEQ PO: ORAL SHANICE: ONE TIME ORDER Label Comments: TO REPLACE 1/2 OF 20 MEQ THAT FELL ON THE FLOOR TAKE WITH FOOD TO AVOID GI USPET MICRO-K (POTASSIUM CHLORIDE): 76136372533 HALDOL INJ(HALOPERIDOL LACTATE) 5 MG/ML INJECTION 5 MG .ROUTE: Route .[facility] HALDOL INJ (HALOPERIDOL LACTATE): 25826955935 HALDOL INJ(HALOPERIDOL LACTATE) 5 MG/ML INJECTION 0 MG IV: INTRAVEN Q1H PRN Reason: PRN Reason: AGITATION Label Comments: MAY INCREASE FALL RISK Special Dose Instructions: may give 5-10 mg iv every hour as needed for agitation HALDOL INJ (HALOPERIDOL LACTATE): 29272999323 HALDOL INJ(HALOPERIDOL LACTATE) 5 MG/ML INJECTION 5 MG .ROUTE: Route .STK-MED HALDOL INJ (HALOPERIDOL LACTATE): 56243651631 HALDOL INJ(HALOPERIDOL LACTATE) 5 MG/ML INJECTION 5 MG IV: INTRAVEN NOW: NOW Label Comments: MAY INCREASE FALL RISK Special Dose Instructions: ALREADY GIVEN HALDOL INJ (HALOPERIDOL LACTATE): 56249899500 GEODON INJ(ZIPRASIDONE) 20 MG INJECTION 10 MG IM: INTRAMUSC Q2H PRN Reason: PRN Is Schedule, No PRN Reason Listed Label Comments: NOT TO EXCEED 40 MG /24 HRS MAY INCREASE FALL RISK GEODON INJ (ZIPRASIDONE): 08976763066 WATER STERILE 10 ML INJECTION 1.2 ML INJ: INJECTION Q2H PRN Reason: PRN Is Schedule, No PRN Reason Listed Label Comments: FOR GEODON DILUTION (WATER STERILE): 11922191002 DEMEROL INJ(MEPERIDINE HCL) 100 MG/ML INJECTION 200 MG .ROUTE: Route .ST-MED DEMEROL INJ (MEPERIDINE HCL): 32664123864 IV Medication Additives: PRECEDEX INJ(DEXMEDETOMIDINE HCL) 200 MCG/2 ML INJECTION Carriers: SODIUM CHLORIDE 100 ML INJECTION 100 ML IV: INTRAVEN .Q0M (Rate: 0 MLS/HR Duration: 0 SEC) PRN Reason: PRN Reason: SEDATION Label Comments: Conc: 4 mcg/mL *Dexmedetomidine (Precedex) Protocol* start at 0.2 mcg/kg/hr with no bolus. Titrate every 30 minutes to a max dose of 1.5 mcg/kg/hr to the desired Gilbert score. *Restricted to critical care areas* Additives: PRECEDEX INJ (DEXMEDETOMIDINE HCL): 31022264258 Carriers: (SODIUM CHLORIDE): 15645583705 IV Medication Additives: SUBLIMAZE INJ(FentaNYL CITRATE) 250 MCG/5 ML INJECTION Carriers: SODIUM CHLORIDE 100 ML INJECTION 100 ML IV: INTRAVEN .Q0M (Rate: 0 MLS/HR Duration: 0 SEC) PRN Reason: PRN Reason: CONTINUOUS IV Label Comments: Initial infusion rate: CONC=5 MCG/ML MAY INCREASE FALL RISK Additives: SUBLIMAZE INJ (FentaNYL CITRATE): 36720192783 Carriers: (SODIUM CHLORIDE): 32411024254 ZyPREXA INJ(OLANZapine) 10 MG INJECTION 10 MG IM: INTRAMUSC Q2H PRN Reason: PRN Reason: ANXIETY/AGITATION/SLEEP Label Comments: Dilute vial with 2.1 mL Sterile water for injection. The final concentration is 5 mg/mL. Use immediately (within 1 hr) following reconstitution. Discard unused portion. MAY INCREASE FALL RISK Special Dose Instructions: NOT TO EXCEED TOTAL DAILY DOSE OF 30 MG/24 HR ZyPREXA INJ (OLANZapine): 85295226512 WATER STERILE 10 ML INJECTION 2.1 ML INJ: INJECTION .DRUG DILUTION PRN Reason: PRN Is Schedule, No PRN Reason Listed Label Comments: TO DILUTE ZYPREXA IM (WATER STERILE): 09519713998 IV Medication Additives: ZOVIRAX INJ(ACYCLOVIR) 500 MG INJECTION Carriers: SODIUM CHLORIDE 100 ML INJECTION 100 MG IV: INTRAVEN Q8S (Rate: 100 MLS/HR Duration: 1 HR) Label Comments: EXP IN 24 HR @ DO NOT REFRIGERATE Additives: ZOVIRAX INJ (ACYCLOVIR): 70184426877N Carriers: (SODIUM CHLORIDE): 87011666629 XYLOCAINE-MPF 1% INJ(LIDOCAINE HCL/PF) 20 MG/2 ML INJECTION 0 MG ID: INTRADERM PRN: NEEDED PRN Reason: PRN Reason: CATHETER INSERTION Label Comments: For PICC line insertion if no allergy to Lidocaine and needed for pain control. Special Dose Instructions: 0.1 - 0.5 ML XYLOCAINE-MPF 1% INJ (LIDOCAINE HCL/PF): 99574310984 IV Medication Additives: PRECEDEX INJ(DEXMEDETOMIDINE HCL) 200 MCG/2 ML INJECTION Carriers: SODIUM CHLORIDE 250 ML INJECTION 250 ML IV: INTRAVEN .Q0M (Rate: 0 MLS/HR Duration: 0 SEC) PRN Reason: PRN Reason: SEDATION Label Comments: CONC=4 MCG/ML MAY INCREASE FALL RISK Additives: PRECEDEX INJ (DEXMEDETOMIDINE HCL): 84221341655 Carriers: (SODIUM CHLORIDE): 66768857563 IV Medication Additives: SUBLIMAZE INJ(FentaNYL CITRATE) 1000 MCG/20 ML INJECTION SUBLIMAZE INJ(FentaNYL CITRATE) 250 MCG/5 ML INJECTION Carriers: SODIUM CHLORIDE 250 ML INJECTION 250 MCG IV: INTRAVEN PRN (Rate: 0 MLS/HR Duration: 0 SEC) PRN Reason: PRN Reason: PAIN Label Comments: FENTANYL CONC: 5 MCG/ML *REFRIGERATE* MAY INCREASE FALL RISK Expires 48 HRS after preparation Taper off after few hours of placing fentanyl patch Additives: SUBLIMAZE INJ (FentaNYL CITRATE): 14239718242 SUBLIMAZE INJ (FentaNYL CITRATE): 33270898708 Carriers: (SODIUM CHLORIDE): 99456742067 IV Medication Carriers: NORMAL SALINE(SODIUM CHLORIDE) 1000 ML INJECTION 1000 ML IV: INTRAVEN .Q10H (Rate: 100 MLS/HR Duration: 10 HR) PRN Reason: PRN Is Schedule, No PRN Reason Listed Carriers: NORMAL SALINE (SODIUM CHLORIDE): 92343813638 DURAGESIC 100(FentaNYL) 1 PATCH PATCH 1 PATCH TOP: TOPICALLY Q72H Label Comments: MAY INCREASE FALL RISK *Warning* patients with fever or patches exposed to a heat source can lead to substantial increases in fentanyl absorption and possible overdose. DURAGESIC 100 (FentaNYL): 02312582450 DESYREL(TraZODone HCL) 100 MG TAB 300 MG PO: ORAL HS: AT BEDTIME Label Comments: MAY INCREASE FALL RISK DESYREL (TraZODone HCL): 05634983933F ZOLOFT(SERTRALINE HCL) 50 MG TAB 50 MG PO: ORAL DAILY: DAILY Label Comments: MAY INCREASE FALL RISK ZOLOFT (SERTRALINE HCL): 30700586006 TYLENOL(ACETAMINOPHEN) 325 MG TAB 650 MG PO: ORAL Q6H PRN Reason: PRN Reason: PAIN OR FEVER Label Comments: DO NOT EXCEED 4000 MG PER 24 HR Special Dose Instructions: for pain TYLENOL (ACETAMINOPHEN): 88541040037O Discharge Medications Discharge Medications Visit/Account #[id number] (January 27, 2013 12:34pm - February 03, 2013 2:54pm) Medication Dose Route Sig/Schedule Precondition/Indication Comments/ Instructions NDC Levothroid(LEVOTHYROXINE SODIUM) 0.05 MG TAB 0.05 MG PO: ORAL DAILYAM: DAILY IN AM Levothroid (LEVOTHYROXINE SODIUM): 98485135017 Ambien(ZOLPIDEM TARTRATE) 10 MG TABLET 10 MG PO: ORAL HS: AT BEDTIME Ambien (ZOLPIDEM TARTRATE): 09492048178 Mevacor(LOVASTATIN) 10 MG TAB 10 MG PO: ORAL DAILYS: DAILY WITH SUPPER Mevacor (LOVASTATIN): 38059061029 Gabapentin(GABAPENTIN) 800 MG TABLET 800 MG PO: ORAL BID: TWICE A DAY Gabapentin (GABAPENTIN): 54076739624 Trazodone Hcl(TraZODone HCL) 100 MG TABLET 300 MG PO: ORAL HS: AT BEDTIME Trazodone Hcl (TraZODone HCL): 08153178121 Lorazepam(LORazepam) 1 MG TAB 1 MG PO: ORAL TID: 3 TIMES A DAY Lorazepam (LORazepam): 02644056447 DOCUSATE SODIUM-SENNOSIDES(SENNOSIDES/DOCUSATE SODIUM) 1 TAB TABLET 1 TAB PO: ORAL PRN: NEEDED DOCUSATE SODIUM-SENNOSIDES (SENNOSIDES/DOCUSATE SODIUM): 22297761028 Ropinirole Hcl(ROPINIRole HCL) 3 MG TABLET 3 MG PO: ORAL HS: AT BEDTIME Rx Note Text Comments: PER [facility] H[facility]P Ropinirole Hcl (ROPINIRole HCL): 58651004654 Benazepril Hcl(BENAZEPRIL HCL) 20 MG TAB 20 MG PO: ORAL DAILY: DAILY Benazepril Hcl (BENAZEPRIL HCL): 09285076179 Amlodipine Besylate(AmLODIpine BESYLATE) 5 MG TABLET 5 MG PO: ORAL DAILY: DAILY Amlodipine Besylate (AmLODIpine BESYLATE): 15637374516 Omeprazole(OMEPRAZOLE) 20 MG CAP 40 MG PO: ORAL HS: AT BEDTIME Rx Note Text Comments: PER [facility] H&P Omeprazole (OMEPRAZOLE): 47853588035 calcium complete 1 TAB PO: ORAL PRN: NEEDED Multivitamin And Mineral(MULTIVITS,TH W-CA,FE,OTH MIN) 1 TAB TABLET 1 TAB PO: ORAL PRN: NEEDED Multivitamin And Mineral (MULTIVITS,TH W-CA,FE,OTH MIN): 21428938907 Iron(FERROUS SULFate) 1 TAB TABLET 1 TAB PO: ORAL DAILY: DAILY Rx Instructions: 27 mg Iron (FERROUS SULFate): 85232751180 Ibuprofen(IBUPROFEN) 200 MG CAPSULE 200 MG PO: ORAL PRN: NEEDED Ibuprofen (IBUPROFEN): 31634932800 Zoloft(SERTRALINE HCL) 50 MG TAB 50 MG PO: ORAL DAILY: DAILY Converted from Pharmacy Inpatient Medication Zoloft (SERTRALINE HCL): 44100549769 DURAGESIC 100(FentaNYL) 1 PATCH PATCH 1 PATCH TOP: TOPICALLY Q72H Converted from Pharmacy Inpatient Medication DURAGESIC 100 (FentaNYL): 67952521747 Discontinued Medication Dose Route Sig/Schedule Precondition/Indication Comments/ Instructions NDC Prevacid(LANSOPRAZOLE) 30 MG CAPSULE.DR 30 MG PO: ORAL PRN: NEEDED Status: Discontinued as of 02/03/2013 2:12pm Prevacid (LANSOPRAZOLE): 75706350381Q Demerol(MEPERIDINE HCL) 50 MG TABLET 200 MG PO: ORAL Q6S: EVERY 6 HOURS Status: Discontinued as of 02/03/2013 2:12pm Demerol (MEPERIDINE HCL): 11829612141 Carafate(SUCRALFATE) 1 GM TAB 1 GM PO: ORAL 4XD: 4 TIMES DAILY Status: Discontinued as of 02/03/2013 2:12pm Carafate (SUCRALFATE): 07704672565 Promethazine(PROMETHazine HCL) 25 MG TAB 50 MG PO: ORAL Q8S: EVERY 8 HOURS Status: Discontinued as of 02/03/2013 2:12pm Promethazine (PROMETHazine HCL): 65192910250 Demerol(MEPERIDINE HCL) 100 MG/ML INJECTION 100 MG IM: INTRAMUSC q2h Status: Discontinued as of 02/03/2013 2:12pm Rx Note Text Comments: Takes 2 ampules q3h. Demerol (MEPERIDINE HCL): 78358599123 PHENERGAN INJ(PROMETHazine HCL) 50 MG/ML AMPUL 50 MG IM: INTRAMUSC PRN: NEEDED Status: Discontinued as of 02/03/2013 2:12pm PHENERGAN INJ (PROMETHazine HCL): 46771703585 Furosemide(FUROSEMIDE) 40 MG TAB 40 MG PO: ORAL DAILY: DAILY Status: Discontinued as of 02/03/2013 2:12pm Furosemide (FUROSEMIDE): 43900844646 Functional Status Functional Status Visit/Account #[id number] (January 27, 2013 12:34pm - February 03, 2013 2:54pm) Intervention: Physical Therapy Activity Record: PT documented on February 01, 2013 9:50am Activity Intervention: Physical Therapy Activity Record: PT documented on February 01, 2013 3:28pm Activity Intervention: Physical Therapy Activity Record: PT documented on February 02, 2013 2:10pm Activity Activity Ability Needs Assistance 2 Person Assist Activity Ability Needs Assistance 1 Person Assist 2 Person Assist Activity Ability Needs Assistance 1 Person Assist 2 Person Assist Mobility Ambulation Ability Min Assist Mod Assist 1 Person Transfers Transfers Supine to Sit Max Assist Of 1 Person Supine to Sit Mod Assist Of 1 Person Sit to Supine Max Assist Of 1 Person Sit to Supine Of 2 Person Max Assist Mod Assist Sit to Stand Min Assist Mod Assist Of 1 Person History Of Encounters Encounters Visit/Account #[id number] (January 27, 2013 12:34pm - February 03, 2013 2:54pm) HISTORY AND PHYSICAL January 27, 2013 3:30pm Dictated By: LAKE TONG MD Signed By: LAKE TONG MD [address] [address] Patient: EVENS ORNELAS [place] UNIT/MR#: [id number] : 1945 Age: 67 Sex: F Report#: [id number] Room#: 358-A [place] [facility] [place]ictator: LAKE TONG MD Attn Phys: MO LUCIANO MD Adm Date: 01/29/13 01/27/13 Disch Date: 02/03/13 ~HISTORY AND PHYSICAL~ Signed ADMISSION CHIEF COMPLAINT: Altered mental status. ADMISSION HISTORY OF PRESENT ILLNESS: The patient is a 67-year-old female with a past medical history significant for chronic narcotic use due to chronic pain from multiple back surgeries, hypertension, hypothyroidism, gastroesophageal reflux and depression, who initially presented to Dr. Burger' office today with a 2-day history of altered mental status. The patient has a long history of chronic back pain and reports being on injection Demerol for pain control for the past 15 years. The patient normally takes 100 mg of Demerol every 3 hours for pain control. The patient's reports that she is allergic to all morphine-containing medications and does not tolerate them well. The patient has been staying at her sister's house for the last 3 weeks with her while they are switching houses. The patient has a poor diet at baseline and is becoming more weak and deconditioned. The patient has lost 50 pounds in the last year due to malnutrition per report. Yesterday, the patient was noted to wake up in the morning and was somewhat confused. The patient was acting "goofy" and had altered mental status. The patient did not recognize some of her family members. The patient was spelling words that were nonsense. The patient was continued on her pain medication during the day, and in the evening the patient was back to her normal state per her . When patient woke up this morning she was very confused and did not know where she was. She did not recognize her . Patient's tried to give her her prescription Demerol, but he was unable to find the supply. They do not know if patient received her doses at night. The patient was taken in to Dr. Burger' office who seeing her confused state was sent over to [facility] for a CT scan head to evaluate for possible stroke. CT head was negative. Patient was subsequently admitted to [facility] directly to the Hospitalist Service for evaluation of altered mental status. On my interview, patient was awake, writhing and tearful because she was in pain. They report that patient has not received her pain medication since approximately 3:30 a.m. this morning. The patient does not do well when she does not have her Demerol and she frequently goes into withdrawal. Looking at the patient's medication list she is on antidepressants which include sertraline that has serotonin effects. The patient was not able to very well contribute to the history because she was tearful because she was in so much pain. The patient indicated her pain was in her back and in her legs. The patient has had multiple back surgeries, approximately 7 on her low back per report. The patient was last seen by the Neurosurgery Service in 2007 per report. The patient was admitted to the Hospitalist Service for concern for possible stroke. REVIEW OF SYSTEMS: Unable to obtain review of systems due to patient's altered mental status. PAST MEDICAL HISTORY: 1. Hypertension. 2. Gastroesophageal reflux disease. 3. Obesity. 4. Hyperlipidemia. 5. Multiple back surgeries with chronic narcotic use. Patient uses injection Demerol every 3 hours at home per report. This is confirmed by records from Dr. Burger' office. PAST SURGICAL HISTORY: 1. Multiple back surgeries in the past due to spinal stenosis. 2. Varicose vein stripping in the past. 3. D and C performed in past. 4. Tubal ligation in past. 5. Hysterectomy done in past. 6. Dental extraction in past. 7. Cervical laminectomy in past. SOCIAL HISTORY: The patient has a history of smoking in the past, but none currently. The family denies history of alcohol use. Denies history of recreational drug abuse. The patient currently lives with her and they are staying at her sister's house for 3 weeks while they are changing houses. FAMILY HISTORY: Noncontributory. ALLERGIES: THE PATIENT HAS MULTIPLE DRUG ALLERGIES REPORTED INCLUDING ASPIRIN, METHADONE, MORPHINE, NAPROXEN, AND OXYCODONE. HOME MEDICATIONS: 1. Amlodipine 5 mg p.o. daily. 2. Ativan 1 mg p.o. q.h.s. p.r.n. anxiety. 3. Benazepril 20 mg p.o. daily. 4. Demerol injection 100 mcg injection q.2 hours p.r.n. 5. Demerol oral tab 50 mg, 4 tablets by mouth every 6 hours p.r.n. 6. Furosemide 40 mg p.o. daily. 7. Gabapentin 800 mg p.o. b.i.d. 8. Iron tablets strength unknown daily. 9. Levothyroxine 50 mcg p.o. daily. 10.Lovastatin 10 mg p.o. q.h.s. 11.Omeprazole 40 mg p.o. q.h.s. 12.Phenergan injection 25 mg p.r.n. nausea and vomiting. 13.Promethazine 25 mg p.o. q.6 hours p.r.n. nausea and vomiting. 14.Requip 3 mg p.o. q.h.s. 15.Sertraline 200 mg p.o. daily. 16.Trazodone 150 mg 3 tablets p.o. q.h.s. 17.Zolpidem 10 mg p.o. q.h.s. p.r.n. insomnia. CURRENT PHYSICAL EXAMINATION: VITAL SIGNS: Temperature 97.9, pulse 71, respiratory rate 18, blood pressure 154/61, oxygen saturation 98% on room air. GENERAL: Patient awake, but very tearful, crying in pain, oriented to person and place, disoriented to date and time, recognizes family members' faces. In significant distress due to back and lower extremity discomfort. HEENT: Atraumatic, normocephalic. Pupils equal, round, responsive to light and accommodation. Extraocular movements intact. Oral mucosa moist. NECK: Supple with no lymphadenopathy. No JVD or bruit appreciated. CARDIOVASCULAR: Regular rate and rhythm. No appreciable murmur. PULM: Clear to auscultation bilaterally. No wheezes or rhonchi. ABDOMEN: Soft, nontender, nondistended. Positive bowel sounds. No guarding. BACK: Exquisitely tender as are hips and upper thighs. No erythema or skin breakdown observed. EXTREMITIES: No cyanosis or edema appreciated. 2+ peripheral pulses of all extremities. NEURO: Cranial nerves 2-12 grossly intact. Patient moves all extremities. Symmetric machine egg washer strength. SKIN: No obvious skin rashes. Lots of loose skin on patient. ADMISSION LABORATORY DATA: White blood cell count 5.5, hemoglobin 10.7, hematocrit 33.5, platelet count 274, differential 82% neutrophils, 13% lymphocytes, 5% monocytes. Sodium 135, potassium 3.8, chloride 99, carbon dioxide 25, BUN 12, creatinine 0.51, glucose 93, calcium 9.1. LFTs within normal limits except for an AST slightly elevated at 50. IMAGING: CT head without contrast revealed no evidence of hemorrhage, ischemic change or mass lesions. ASSESSMENT: A 67-year-old female with history of hypertension, hypothyroidism, hyperlipidemia and has severe back pain with narcotic dependence, currently admitted for altered mental status. The leading consideration of this would be Demerol withdrawal. Other considerations would include a possible ischemic stroke as the patient does have risk factors including hypertension, hyperlipidemia, and a history of smoking. Other medical problems include the acute weight loss, hypothyroidism, anemia, weakness and deconditioning. PLAN: 1. Altered mental status. We will admit patient on observation status and a telemetry bed. We will restart patient's home Demerol as patient has chronic back pain and has been on this medication documented for several years. We will monitor patient's mental status once Demerol is restarted. We will check a urine drug screen and evaluate for other contributing substances. Due to concern for stroke we will obtain a carotid ultrasound and an echocardiogram to assess for structural abnormalities. We will monitor patient on telemetry for arrhythmia. We will perform neuro status checks regularly. 2. Hypertension. We will continue patient's home blood pressure medications of benazepril and amlodipine. 3. Hypothyroidism. We will continue patient's home thyroid supplementation of 15 mcg daily. We will check a TSH and free T4. 4. Gastroesophageal reflux. We will continue patient's home omeprazole. 5. Depression. Patient is on sertraline and trazodone for depression management. It is not recommended for SSRIs to be given with Demerol. We will stop sertraline and we will discuss management with primary care physician at discharge. 6. Restless legs syndrome in past. We will continue patient's home Requip and gabapentin. 7. Protein calorie malnutrition. We will check patient's albumin level as well as a pre-albumin. We will monitor p.o. intake while in house. 8. DVT prophylaxis. We will use Lovenox for DVT prophylaxis. 9. Anemia. We will assess anemia with iron panel, vitamin B12 and folic acid level. 10.Code status DNR. ADH:MedQ [id number] D. 01/27/2013 T. 01/27/2013 CC: MD RICHI OCHOA MD ~ Dictated By: LAKE TONG MD Signed By: LAKE TONG MD 01/28/13 1356 LAKE TONG MD 01/28/13 1356 DISCHARGE SUMMARY February 03, 2013 5:39pm Dictated By: MO LUCIANO MD Signed By: OM LUCIANO MD [address] [place] [address] Patient: CECIEVENS Kumari UNIT/MR#: [id number] : 1945 Age: 67 Sex: F Report#: [id number] Room#: 358-A [place] [facility] [place]ator: MO LUCIANO MD Attn Phys: MO LUCIANO MD Adm Date: 01/29/13 01/27/13 Disch Date: 02/03/13 ~DISCHARGE SUMMARY~ Signed DISCHARGE DIAGNOSES: Change in mental status, most likely metabolic encephalopathy; chronic back pain and long-term narcotic use; med noncompliance; failed back surgery; reported weight loss; depression; normochromic, normocytic anemia. HISTORY OF PRESENT ILLNESS: This is a 67-year-old white female with failed back syndrome and chronic narcotic use; on 100 mg IM Demerol q.3 hours for the past 10 to 15 years. The patient had been under a lot of stress with attempting to move to [place], but was unable to obtain her medications and had some noncompliant with her other medications during this move. She moved back [place] into her sister's home and was not having very coherent speech and was acting goofy and was brought to the emergency room for further evaluation. The patient was initially thought to have been going through drug withdrawal as a number of her medications were missing, but these were later found and the pt never went without narcotics. DISCHARGE PHYSICAL EXAMINATION: GENERAL: This is an elderly white female, appears older than her stated age, sitting in bed. SKIN: Warm and dry. Her skin is intact. HEENT: Sclerae and conjunctivae are clear. Oropharynx benign. CARDIOVASCULAR: Regular rate and rhythm. CHEST: Clear. ABDOMEN: Obese, soft, nontender. No masses. EXTREMITIES: No peripheral edema. She moves all extremities without difficulty and has adequate strength bilaterally and symmetric. She has some ecchymosis over the forearm with some mild tenderness of the left dorsum of the hand. She has no soft tissue or joint edema or effusions. NEUROLOGIC: The patient is oriented to person and place. Cranial nerves are nonfocal. Her gait is actually fairly stable. PERTINENT LABORATORY AND X-RAY DATA: The patient's CBC was fairly unremarkable. Hemoglobin stable at 9.6. Platelets and WBC were normal. Her potassium dropped to 2.9, but corrected to 3.4 before discharge. Creatinine was normal. Albumin was 3.4. Cholesterol 180, LDL 108, HDL 44. B12 432. TSH 1. Ammonia level was less than 9. The patient had a CT of the head, which was fairly unremarkable without any acute changes. She had a EEG, which showed no seizure activity. HOSPITAL COURSE: The patient was admitted and was fairly agitated and incoherent. It was thought that she was going through withdrawal from her Demerol and she was placed in the ICU on a fentanyl drip and was quite sedated. As they lightened up the sedation, she became fairly agitated and was treated with Haldol and Geodon. Over the next 24 hours, we discontinued the Precedex and titrated down the fentanyl and started her on a fentanyl patch, and she gradually became more awake and alert. She was stable and transferred to the floor. Over the course of the next couple days, she became more awake, alert, and responsive with the family. She was up ambulating with physical therapy and not actually complaining of any back pain. She had some hand and ankle pain and some nonspecific complaints, but was in general doing fairly well. She was seen by Cardiology, Neurology, Psychiatry and Rehab without any specific significant abnormalities. The patient was noted to be depressed and was restarted on Zoloft 50 mg with her reportedly being on 200 mg prior to this admission, but not taking it. The patient was doing well and it was felt that she would be benefited by some physical and occupational therapy before returning to independent living, and would be transferred to skilled facility. DISCHARGE DISPOSITION: She is going to the skilled facility in [place]. DIET: As tolerated. ACTIVITY: Up with assistance and using a walker. Physical and Occupational Therapy evaluation. She will need to establish with a new physician as they will be moving to [place] within the next month after discharge. MEDICATIONS: Levothyroxine 50 mcg daily; Ambien 10 mg at bedtime; Mevacor 10 mg at bedtime; gabapentin 800 mg twice daily; trazodone 300 mg at bedtime; lorazepam 1 mg 3 times daily; docusate daily; ropinirole 3 mg daily; benazepril 20 mg daily; amlodipine 5 mg daily; omeprazole 20 mg daily; multivitamin daily; iron daily; ibuprofen 200 mg p.r.n.; sertraline 50 mg daily; fentanyl 100 mcg patch q.3 days. BKS:MedQ [id number] D. 02/03/2013 T. 02/03/2013 CC: MO LUCIANO MD ~ Dictated By: MO LUCIANO MD Signed By: MO LUCIANO MD 02/11/13 0808 MO LUCIANO MD 02/11/13 0808
--- OUTSIDE RECORDS SUMMARY | 2016-12-26 00:34 | XMS REPORT | Referral Summary ---
Author Author [facility], Family Medicine Organization [facility] Address Unknown Phone Unavailable Care Team Providers Care Container Coordinator Name Role Phone Lucian Decker Primary Care Physician [phone] Encounter VC Date(s): 07/03/16 - 07/03/16 [facility], [address] [place] [address]- Discharge Disposition: 01-Home or Self Care Attending Physician: Shon Decker MD Admitting Physician: Shon Decker MD Vital Signs No data available for this section Problem List Condition Effective Dates Status Health [...] BID, # 60 caps, 11 Refill(s), Pharmacy: [facility] # [id number], 1 caps Oral BID Start Date: 05/29/16 [...] Daily, # 30 tabs, 3 Refill(s), Pharmacy: [facility] # [id number], 1 tabs Oral Daily Start Date: 05/27/16 Status: Ordered cyanocobalamin 1000 mcg/mL injectable solution 1,000 mcg, IntraMuscular, Daily, Given LV 07-01-16, 0 Refill(s) Start Date: 06/21/16 Stop Date: 06/27/16 Status: Ordered docusate sodium 100 mg, TAKES 1 BID, 0 Refill(s) Start Date: 12/12/15 Status: Ordered fentaNYL 100 mcg/hr transdermal film, extended release 1 patches, Topical, q72hr, # 10 patches, 0 Refill(s) Start Date: 06/12/16 Status: Ordered ferrous sulfate 325 mg (65 mg elemental iron) oral tablet 1 tabs, Oral, Daily, 0 Refill(s) Start Date: 07/07/14 Status: Ordered gabapentin 800 mg oral tablet See Instructions, TAKE ONE TABLET BY MOUTH TWICE A DAY, # 180 tabs, eRx: [facility] #[id number], TAKE ONE TABLET BY MOUTH TWICE A DAY Start Date: 04/30/16 Status: Ordered levothyroxine 50 mcg (0.05 mg) oral tablet See Instructions, TAKE ONE TABLET BY MOUTH DAILY, # 90 tabs, eRx: [facility] #[id number], TAKE ONE TABLET BY MOUTH DAILY Start Date: 05/21/16 Status: Ordered LORazepam 0.5 mg oral tablet 0.5 mg 1 tabs, Oral, BID, must last 30 days for each script JeffBrigette Mak, # 60 tabs, 5 Refill(s) Start Date: 04/05/16 Status: Ordered omeprazole 40 mg oral delayed release capsule See Instructions, TAKE ONE CAPSULE BY MOUTH EVERY DAY BEFORE A MEAL, # 90 caps, eRx: [facility] #[id number], TAKE ONE CAPSULE BY MOUTH EVERY DAY BEFORE A MEAL Start Date: 06/25/16 Status: Ordered ondansetron 4 mg oral tablet See Instructions, TAKE ONE TABLET BY MOUTH TWICE A DAY NEEDED FOR NAUSEA AND VOMITING, # 60 tabs, eRx: [facility] #[id number], TAKE ONE TABLET BY MOUTH TWICE A DAY NEEDED FOR NAUSEA AND VOMITING Start Date: 07/01/16 Status: Ordered OXcarbazepine 300 mg oral tablet 150 mg 0.5 tabs, Oral, Daily, # 30 tabs, 0 Refill(s), Pharmacy: [facility] #[id number], 0.5 tabs Oral BID Start Date: 05/27/16 Status: Ordered oxybutynin 15 mg/24 hr oral tablet, extended release See Instructions, TAKE ONE TABLET BY MOUTH EVERY DAY, # 30 unknown unit, 4 Refill(s), eRx: [facility] #[id number], TAKE ONE TABLET BY MOUTH EVERY DAY Start Date: 04/25/16 Status: Ordered promethazine 25 mg, Oral, BID, as needed for nausea/vomiting, 0 Refill(s) Start Date: 05/06/16 Status: Ordered rOPINIRole 2 mg oral tablet 2 mg 1 tabs, Oral, Bedtime (once a day), # 90 tabs, 3 Refill(s), Pharmacy: [facility] #[id number], 1 tabs Oral Bedtime (once a day),x90 days Start Date: 06/17/16 Stop Date: 06/12/17 Status: Ordered traZODone 150 mg oral tablet See Instructions, TAKE THREE TABLETS BY MOUTH EVERY NIGHT AT BEDTIME, # 270 tabs , eRx: [facility] #[id number], TAKE THREE TABLETS BY MOUTH EVERY NIGHT AT BEDTIME Start Date: 05/21/16 Status: Ordered Vitamin D3 1,000 Intl_Units, Oral, [...] 2002 Cholecystectomy 1986 Appendectomy 1984 Gastric bypass 1980 Bilateral tubal ligation 1969 Hysterectomy and single salpingo-oophorectomy Low Back surgeries3 Neck surgery 1Tubular adenoma, diverticula, repeat in 5 years, family history of brother with colon cancer 2OU 38 low back surgeries Social History Social History Type Response Smoking Status Never smoker Assessment and Plan No data available for this section
--- OUTSIDE RECORDS SUMMARY | 2016-12-26 00:34 | XMS REPORT | Referral Summary ---
Author Author [facility], [facility] Organization [facility] Address Unknown Phone Unavailable Care Team Providers Care Estate Agent Name Role Phone Lucian Decker Primary Care Physician [phone] Encounter VC Date(s): 07/17/16 - 07/17/16 [facility], [address] [place] [address] Discharge Disposition: 01-Home or Self Care Attending [...] BID, # 60 caps, 11 Refill(s), Pharmacy: [facility] # [id number], 1 caps Oral BID Start Date: 05/29/16 [...] Daily, # 30 tabs, 3 Refill(s), Pharmacy: [facility] # [id number], 1 tabs Oral Daily Start Date: 05/27/16 Status: Ordered cyanocobalamin 1000 mcg/mL injectable solution 1,000 mcg, IntraMuscular, Daily, Given [facility] 07-01-16 To get weekly dose x4 weeks after 7 daily doses., 0 Refill(s) Start Date: 06/21/16 Stop Date: 06/27/16 Status: Ordered docusate sodium 100 mg, TAKES 1 BID, 0 Refill(s) Start Date: 12/12/15 Status: Ordered fentaNYL 100 mcg/hr transdermal film, extended release 1 patches, Topical, q72hr, # 10 patches, 0 Refill(s) Start Date: 07/12/16 Status: Ordered ferrous sulfate 325 mg (65 mg elemental iron) oral tablet 1 tabs, Oral, Daily, 0 Refill(s) Start Date: 07/07/14 Status: Ordered gabapentin 800 mg oral tablet See Instructions, TAKE ONE TABLET BY MOUTH TWICE A DAY, # 180 tabs, eRx: [facility] #[id number], TAKE ONE TABLET BY MOUTH TWICE A DAY Start Date: 04/30/16 Status: Ordered levothyroxine 50 mcg (0.05 mg) oral tablet See Instructions, TAKE ONE TABLET BY MOUTH DAILY, # 90 tabs, eRx: [facility] #[id number], TAKE ONE TABLET BY MOUTH DAILY Start Date: 05/21/16 Status: Ordered LORazepam 0.5 mg oral tablet 0.5 mg 1 tabs, Oral, BID, must last 30 days for each script JeffBrigette Corado, # 60 tabs, 5 Refill(s) Start Date: 04/05/16 Status: Ordered omeprazole 40 mg oral delayed release capsule See Instructions, TAKE ONE CAPSULE BY MOUTH EVERY DAY BEFORE A MEAL, # 90 caps, eRx: [facility] #[id number], TAKE ONE CAPSULE BY MOUTH EVERY DAY BEFORE A MEAL Start Date: 06/25/16 Status: Ordered ondansetron 4 mg oral tablet See Instructions, TAKE ONE TABLET BY MOUTH TWICE A DAY NEEDED FOR NAUSEA AND VOMITING, # 60 tabs, eRx: [facility] #[id number], TAKE ONE TABLET BY MOUTH TWICE A DAY NEEDED FOR NAUSEA AND VOMITING Start Date: 07/01/16 Status: Ordered OXcarbazepine 300 mg oral tablet 150 mg 0.5 tabs, Oral, Daily, # 30 tabs, 0 Refill(s), Pharmacy: [facility] #[id number], 0.5 tabs Oral BID Start Date: 05/27/16 Status: Ordered oxybutynin 15 mg/24 hr oral tablet, extended release See Instructions, TAKE ONE TABLET BY MOUTH EVERY DAY, # 30 unknown unit, 4 Refill(s), eRx: [facility] #[id number], TAKE ONE TABLET BY MOUTH EVERY DAY Start Date: 04/25/16 Status: Ordered promethazine 25 mg, Oral, BID, as needed for nausea/vomiting, 0 Refill(s) Start Date: 05/06/16 Status: Ordered rOPINIRole 2 mg oral tablet 2 mg 1 tabs, Oral, Bedtime (once a day), # 90 tabs, 3 Refill(s), Pharmacy: [facility] #[id number], 1 tabs Oral Bedtime (once a day),x90 days Start Date: 06/17/16 Stop Date: 06/12/17 Status: Ordered traZODone 150 mg oral tablet See Instructions, TAKE THREE TABLETS BY MOUTH EVERY NIGHT AT BEDTIME, # 270 tabs , eRx: [facility] #[id number], TAKE THREE TABLETS BY MOUTH EVERY NIGHT [...] Incisional hernia repair 2002 Cholecystectomy 1986 Appendectomy 1983 Gastric bypass 1980 Bilateral tubal ligation 1969 Hysterectomy and single salpingo-oophorectomy Low Back surgeries3 Neck surgery 1Tubular adenoma, diverticula, repeat in 5 years, family history of brother with colon cancer 2OU 38 low back surgeries Social History Social History Type Response Smoking Status Never smoker Assessment and Plan No data available for this section
--- OUTSIDE RECORDS SUMMARY | 2016-12-26 00:34 | XMS REPORT | Referral Summary ---
Author Author [facility] Organization [facility] Address Unknown Phone Unavailable Care Team Providers Care Clothing Worker Name Role Phone Lucian Decker Primary Care Physician [phone] Encounter [facility] [id number] Date(s): 02/03/15 - 02/03/15 [facility], [address] [place] [address]- Discharge Diagnosis: Benign hypertension Discharge Diagnosis: Anxiety Discharge Diagnosis: Cervical spinal stenosis Discharge Diagnosis: Cervical radiculopathy Discharge Diagnosis: Hyperglycemia Discharge Diagnosis: Restless legs syndrome (RLS) Discharge Diagnosis: Depression Discharge Diagnosis: Pure hypercholesterolemia Discharge Diagnosis: Spinal stenosis, lumbar region, without neurogenic claudication Discharge Disposition: 01-Home or Self Care Attending Physician: Shon Decker MD Admitting Physician: Shon Decker MD Referring Physician: Shon Decker MD Vital Signs Most recent to 1 oldest [Reference Range]: Temperature Tympanic 35.9 degC [36.6-38.1 degC] *LOW* (02/03/15 9:57 AM) Peripheral Pulse 68 bpm Rate [60-100 bpm] (02/03/15 9:57 AM) Blood Pressure 126/74 mmHg [90-140/60-90 mmHg] (02/03/15 9:57 AM) Problem List Condition Effective Dates Status [...] DAY, # 90 tabs, 2 Refill(s), eRx: [facility] #[id number], TAKE ONE TABLET BY MOUTH EVERY DAY Start Date: 06/15/15 Status: Ordered atorvastatin 10 mg oral tablet See Instructions, TAKE ONE TABLET BY MOUTH AT BEDTIME, # 30 tabs, 9 Refill(s), eRx: [facility] #[id number], TAKE ONE TABLET BY MOUTH AT BEDTIME Start Date: 07/27/15 Status: Ordered docusate 100 mg, Oral, Daily, 0 Refill(s) Start Date: 03/28/14 Status: Ordered fentaNYL 100 mcg/hr transdermal film, extended release 1 patches, Topical, q72hr, # 10 patches, 0 Refill(s) Start Date: 07/13/15 Status: Ordered ferrous sulfate 325 mg (65 mg elemental iron) oral tablet 1 tabs, Oral, Daily, 0 Refill(s) Start Date: 07/07/14 Status: Ordered gabapentin 800 mg oral tablet See Instructions, TAKE ONE TABLET BY MOUTH TWICE A DAY, # 180 tabs, 2 Refill(s) , eRx: [facility] #[id number], TAKE ONE TABLET BY MOUTH TWICE A DAY Start Date: 07/27/15 Status: Ordered ibuprofen 200 mg oral tablet 2 tabs, Oral, BID, as needed for arthritis, # 120 tabs, 0 Refill(s) Start Date: 03/28/14 Status: Ordered levothyroxine 50 mcg (0.05 mg) oral tablet 50 mcg 1 tabs, Oral, Daily, # 90 tabs, 2 Refill(s), Pharmacy: [facility] # [id number], 1 tabs Oral Daily Start Date: 05/24/15 Status: Ordered LORazepam 0.5 mg oral tablet 0.5 mg 1 tabs, Oral, BID, must last 30 days Hetal Corado, # 60 tabs, 0 Refill(s) Start Date: 08/07/15 Status: Ordered omeprazole 40 mg oral delayed release capsule See Instructions, TAKE ONE CAPSULE BY MOUTH EVERY DAY BEFORE A MEAL, # 90 caps, 2 Refill(s), eRx: [facility] #[id number], TAKE ONE CAPSULE BY MOUTH EVERY DAY BEFORE A MEAL Start Date: 03/30/15 Status: Ordered ondansetron 4 mg oral tablet 4 mg 1 tabs, Oral, BID, as needed for nausea/vomiting, X 90 days, # 180 tabs, 3 Refill(s), Pharmacy: [facility] #[id number], 1 tabs Oral BID,x90 days,PRN:as needed for nausea/vomiting Start Date: 05/09/15 Stop Date: 05/03/16 Status: Ordered oxybutynin 15 mg/24 hr oral tablet, extended release See Instructions, TAKE ONE TABLET BY MOUTH EVERY DAY, # 30 unknown unit, 6 Refill(s), eRx: [facility] #[id number], TAKE ONE TABLET BY MOUTH EVERY DAY Start Date: 08/11/14 Status: Ordered oxybutynin 15 mg/24 hr oral tablet, extended release See Instructions, TAKE ONE TABLET BY MOUTH EVERY DAY, # 30 unknown unit, 5 Refill(s), eRx: [facility] #[id number], TAKE ONE TABLET BY MOUTH EVERY DAY Start Date: 03/13/15 Status: Ordered rOPINIRole 4 mg oral tablet See Instructions, TAKE ONE TABLET BY MOUTH EVERY NIGHT AT BEDTIME, # 90 tabs, 2 Refill(s), eRx: [facility] #[id number], TAKE ONE TABLET BY MOUTH EVERY NIGHT AT BEDTIME Start Date: 12/14/14 Status: Ordered Senna S 1 tabs, Oral, Bedtime (once a day), 0 Refill(s) Start Date: 03/28/14 Status: Ordered traZODone 150 mg oral tablet See Instructions, TAKE THREE TABLETS BY MOUTH EVERY NIGHT AT BEDTIME, # 270 tabs , eRx: [facility] #[id number], TAKE THREE TABLETS BY MOUTH EVERY NIGHT AT BEDTIME Start Date: 05/24/15 Status: Ordered traZODone 150 mg oral tablet See Instructions, TAKE THREE TABLETS BY MOUTH EVERY NIGHT AT BEDTIME, # 270 tabs , eRx: [facility] #[id number], TAKE THREE TABLETS BY MOUTH EVERY NIGHT AT BEDTIME Start Date: 02/22/15 Status: Ordered Trileptal 300 mg oral tablet See Instructions, TAKE ONE TABLET BY MOUTH TWICE A DAY, # 120 tabs, eRx: [facility] #[id number], TAKE ONE TABLET BY MOUTH TWICE A DAY Start Date: 06/29/15 Status: Ordered Vitamin D3 1,000 Intl_Units, Oral, Daily, 0 Refill(s) Start Date: 03/21/14 Status: Ordered Results Chemistry Most recent to 1 oldest [Reference Range]: Sodium Lvl [135-144 137 mEq/L mEq/L] (02/03/15 10:50 AM) Potassium Lvl 3.7 mEq/L [3.5-5.2 mEq/L] (02/03/15 10:50 AM) Chloride [99-111 103 mEq/L mEq/L] (02/03/15 10:50 AM) CO2 [22-31 mEq/L] 26 mEq/L (02/03/15 10:50 AM) AGAP [3-20] 8 (02/03/15 10:50 AM) BUN [10-20 mg/dL] 13 mg/dL (02/03/15 10:50 AM) Glucose Lvl [70-99 109 mg/dL mg/dL] *HI* (02/03/15 10:50 AM) Creatinine Lvl 0.74 mg/dL [0.57-1.11 mg/dL] (02/03/15 10:50 AM) eGFR [>60 mL/min] >60 mL/min 1 (02/03/15 10:50 AM) Calcium Lvl 9.6 mg/dL [8.9-10.5 mg/dL] (02/03/15 10:50 AM) LDL Direct [0-129 127 mg/dL mg/dL] (02/03/15 10:50 AM) Hgb A1c [4.1-5.6 %] 4.7 % (02/03/15 10:50 AM) eAvg Glucose 88.2 mg/dL (02/03/15 10:50 AM) 1Result Comment: Multiply eGFR results by [...] Patient Education Author: Shon Decker MD Date: Family Medicine Hyperglycemia Hyperglycemia occurs when the glucose (sugar ) in your blood is too high. Hyperglycemia can happen for many reasons, but it most often happens to people who do not know they have diabetes or are not managing their diabetes properly. CAUSES Whether you have diabetes or not, there are other causes of hyperglycemia. Hyperglycemia can occur when you have diabetes, but it can also occur in other situations that you might not be as aware of, such as: Diabetes If you have diabetes and are having problems controlling your blood glucose , hyperglycemia could occur because of some of the following reasons: Not following your meal plan. Not taking your diabetes medications or not taking it properly. Exercising less or doing less activity than you normally do. Being sick. Pre-diabetes This cannot be ignored. Before people develop Type 2 diabetes, they almost always have "pre-diabetes." This is when your blood glucose levels are higher than normal, but not yet high enough to be diagnosed as diabetes. Research has shown that some long-term damage to the body, especially the heart and circulatory system, may already be occurring during pre-diabetes. If you take action to manage your blood glucose when you have pre-diabetes, you may delay or prevent Type 2 diabetes from developing. Stress If you have diabetes, you may be "diet" controlled or on oral medications or insulin to control your diabetes. However, you may find that your blood glucose is higher than usual in the hospital whether you have diabetes or not. This is often referred to as "stress hyperglycemia." Stress can elevate your blood glucose. This happens because of hormones put out by the body during times of stress. If stress has been the cause of your high blood glucose, it can be followed regularly by your caregiver. That way he/she can make sure your hyperglycemia does not continue to get worse or progress to diabetes. Steroids Steroids are medications that act on the infection fighting system (immune system ) to block inflammation or infection. One side effect can be a rise in blood glucose. Most people can produce enough extra insulin to allow for this rise, but for those who cannot, steroids make blood glucose levels go even higher. It is not unusual for steroid treatments to "uncover" diabetes that is developing. It is not always possible to determine if the hyperglycemia will go away after the steroids are stopped. A special blood test called an A1c is sometimes done to determine if your blood glucose was elevated before the steroids were started. SYMPTOMS Thirsty. Frequent urination. Dry mouth. Blurred vision. Tired or fatigue. Weakness. Sleepy. Tingling in feet or leg. DIAGNOSIS Diagnosis is made by monitoring blood glucose in one or all of the following ways: A1c test. This is a chemical found in your blood. Fingerstick blood glucose monitoring. Laboratory results. TREATMENT First, knowing the cause of the hyperglycemia is important before the hyperglycemia can be treated. Treatment may include, but is not be limited to: Education. Change or adjustment in medications. Change or adjustment in meal plan. Treatment for an illness, infection, etc. More frequent blood glucose monitoring. Change in exercise plan. Decreasing or stopping steroids. Lifestyle changes. HOME CARE INSTRUCTIONS Test your blood glucose as directed. Exercise regularly. Your caregiver will give you instructions about exercise. Pre-diabetes or diabetes which comes on with stress is helped by exercising. Eat wholesome, balanced meals. Eat often and at regular, fixed times. Your caregiver or planting machine operator will give you a meal plan to guide your sugar intake. Being at an ideal weight is important. If needed, losing as little as 10 to 15 pounds may help improve blood glucose levels. SEEK MEDICAL CARE IF: You have questions about medicine, activity, or diet. You continue to have symptoms (problems such as increased thirst, urination , or weight gain). SEEK IMMEDIATE MEDICAL CARE IF: You are vomiting or have diarrhea. Your breath smells fruity. You are breathing faster or slower. You are very sleepy or incoherent. You have numbness, tingling, or pain in your feet or hands. You have chest pain. Your symptoms get worse even though you have been following your caregiver' s orders. If you have any other questions or concerns. Document Released: 03/18/2002 Document Revised: 12/14/2012 Document Reviewed: [facility] Patient Information 2014 [employer] [facility]. No follow up information was provided. Extracted from: Title: neck pain, HTN Author: Shon Decker MD Date: 02/03/15 Impression and Plan Diagnosis Anxiety (ICD9 300.00, Discharge, Medical). Benign hypertension (ICD9 401.1, Discharge, Medical). Cervical radiculopathy (ICD9 723.4, Discharge, Medical). Cervical spinal stenosis (ICD9 723.0, Discharge, Medical). Depression (ICD9 311, Discharge, Medical). Pure hypercholesterolemia (ICD9 272.0, Discharge, Medical). Restless legs syndrome (RLS) (ICD9 333.94, Discharge, Medical). Spinal stenosis, lumbar region, without neurogenic claudication (ICD9 724.02, Discharge, Medical). Plan: Continue your current meds. The patient doesn't want physical therapy. See Dr. Harrell as scheduled. See me in 3 months and as needed. Daily exercise and healthy diet helps everything., Lab ordered today.. Orders Orders (Selected) Outpatient Orders Ordered Office Visit Level 4 Est 09848: Future (On Hold) BMP: Hgb A1c: LDL Direct: . Dx/Order Association Plan: Diagnosis: Anxiety Comment: Ordered: Office Visit Level 4 Est 25942; 02/03/15 10:25:00 CDT, Benign hypertension | Cervical radiculopathy | Cervical spinal stenosis | Depression | Pure hypercholesterolemia Diagnosis: Benign hypertension Comment: Ordered: Office Visit Level 4 Est 99800; 02/03/15 10:25:00 CDT, Benign hypertension | Cervical radiculopathy | Cervical spinal stenosis | Depression | Pure hypercholesterolemia Diagnosis: Cervical radiculopathy Comment: Ordered: Office Visit Level 4 Est 97767; 02/03/15 10:25:00 CDT, Benign hypertension | Cervical radiculopathy | Cervical spinal stenosis | Depression | Pure hypercholesterolemia Diagnosis: Cervical spinal stenosis Comment: Ordered: Office Visit Level 4 Est 98696; 02/03/15 10:25:00 CDT, Benign hypertension | Cervical radiculopathy | Cervical spinal stenosis | Depression | Pure hypercholesterolemia Diagnosis: Depression Comment: Ordered: Office Visit Level 4 Est 17326; 02/03/15 10:25:00 CDT, Benign hypertension | Cervical radiculopathy | Cervical spinal stenosis | Depression | Pure hypercholesterolemia Diagnosis: Hyperglycemia Comment: Ordered: Office Visit Level 4 Est 13368; 02/03/15 10:25:00 CDT, Benign hypertension | Cervical radiculopathy | Cervical spinal stenosis | Depression | Pure hypercholesterolemia Diagnosis: Pure hypercholesterolemia Comment: Ordered: Office Visit Level 4 Est 24642; 02/03/15 10:25:00 CDT, Benign hypertension | Cervical radiculopathy | Cervical spinal stenosis | Depression | Pure hypercholesterolemia Diagnosis: Restless legs syndrome (RLS) Comment: Ordered: Office Visit Level 4 Est 18363; 02/03/15 10:25:00 CDT, Benign hypertension | Cervical radiculopathy | Cervical spinal stenosis | Depression | Pure hypercholesterolemia Diagnosis: Spinal stenosis, lumbar region, without neurogenic claudication Comment: Ordered: Office Visit Level 4 Est 06912; 02/03/15 10:25:00 CDT, Benign hypertension | Cervical radiculopathy | Cervical spinal stenosis | Depression | Pure hypercholesterolemia Additional Orders: Comment: Future Orders: BMP,Blood, Routine Collect, 02/03/15, Once, Lab Collect, Benign hypertension, Order for future visit Future Orders: Hgb A1c,Blood, Routine Collect, 02/03/15, Once, Lab Collect, Hyperglycemia, Order for future visit Future Orders: LDL Direct,Blood, Routine Collect, 02/03/15, Once, Lab Collect, Pure hypercholesterolemia, Order for future visit End of Orders .
--- OUTSIDE RECORDS SUMMARY | 2016-12-26 00:34 | XMS REPORT | Continuity of Care Document ---
Author Author [facility] Organization [facility] Address Unknown Phone Unavailable Allergies Active Description Code Type Severity Reaction Onset Reported/Identified Relationship to Patient Clinical Status Yes meperidine meperidine Drug Allergy Mild DIDN'T WORK FOR HER 12/20/2015 Yes morphine morphine Drug Allergy Mild NIGHT TERRORS 12/20/2015 Medications Problems Date Dx Coded Attending Type Code Diagnosis Diagnosed By 12/21/2015 Jared Haji MD D69.6 THROMBOCYTOPENIA, UNSPECIFIED 12/21/2015 Jared Haji MD E03.9 HYPOTHYROIDISM, UNSPECIFIED 12/21/2015 Jared Haji MD E78.5 HYPERLIPIDEMIA, UNSPECIFIED 12/21/2015 Jared Haji MD E87.1 HYPO-OSMOLALITY AND HYPONATREMIA 12/21/2015 Jared Haji MD F32.9 MAJOR DEPRESSIVE DISORDER, SINGLE EPISODE, UNSPECI 12/21/2015 Jared Haji MD G25.81 RESTLESS LEGS SYNDROME 12/21/2015 Jared Haji MD I10 ESSENTIAL (PRIMARY) HYPERTENSION 12/21/2015 Jared Haji MD K21.9 GASTRO-ESOPHAGEAL REFLUX DISEASE WITHOUT ESOPHAGIT 12/21/2015 Jared Haji MD M43.02 SPONDYLOLYSIS, CERVICAL REGION 12/21/2015 Jared Haji MD 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, MID-CE 12/21/2015 Jared Haji MD 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 12/21/2015 Jared Haji MD M54.12 RADICULOPATHY, CERVICAL REGION 12/21/2015 Jared Haji MD M96.1 POSTLAMINECTOMY SYNDROME, NOT ELSEWHERE CLASSIFIED 12/21/2015 Jared Haji MD 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 12/21/2015 Jared Haji MD M43.02 SPONDYLOLYSIS, CERVICAL REGION 12/21/2015 Jared Haji MD 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, MID-CE Procedures Code Description Performed By Performed On [id number] FUSION OF 2-6 C JT, ANT APPR A COL, OPEN APPROACH Jared Haji MD 12/21/2015 [id number] RESECTION OF CERVICAL VERTEBRAL DISC, OPEN APPROAC Jared Haji MD 12/21/2015 Results Test Result Range METABOLIC PANEL, BASIC - 12/21/15 06:24 POTASSIUM 3.6 mmol/L 3.5-5.3 EST GFR (MDRD) > 60 mL/min > 59 ANION GAP 12 mmol/L 5-15 EST CrCl (CG) > 60 mL/min > 59 GLUCOSE 104 mg/dL 70-99 CALCIUM 9.4 mg/dL 8.5-10.1 BLOOD UREA NITROGEN 6 mg/dL 7-20 CREATININE 0.7 mg/dL 0.6-1.0 SODIUM 135 mmol/L 135-148 CHLORIDE 99 mmol/L 98-110 CARBON DIOXIDE 24 mmol/L 21-32 HEMOGLOBIN - 12/21/15 06:24 MEAN CELL VOLUME 83.7 fl 80.0-100.0 HEMOGLOBIN 14.4 gm/dL 12.0-16.0 MRSA SURVEILLANCE SCREEN - 12/21/15 06:24 Microbiology GLUCOSE (POC) - 12/22/15 00:41 GLUCOSE (POC) 156 mg/dL 70-99 CBC - 12/22/15 06:57 MEAN CELL HGB 30.5 pg 27.0-33.0 MEAN CELL HGB CONCENTRATION 36.8 g/dL 32.0-37.0 MEAN CELL VOLUME 82.7 fl 80.0-100.0 RED BLOOD CELL 4.63 m/cumm 4.00-6.00 RED CELL DISTRIBUTION WIDTH 12.4 % 11.0- 15.6 WHITE BLOOD CELL 7.4 k/cumm 5.0-10.0 HEMOGLOBIN 14.1 gm/dL 12.0-16.0 HEMATOCRIT 38.3 % 37.0-47.0 PLATELET COUNT 110 k/cumm 150-400 METABOLIC PANEL, COMPREHN - 12/22/15 06:57 POTASSIUM 4.7 mmol/L 3.5-5.3 EST GFR (MDRD) > 60 mL/min > 59 ANION GAP 8 mmol/L 5-15 EST CrCl (CG) > 60 mL/min > 59 GLUCOSE 145 mg/dL 70-99 CALCIUM 8.6 mg/dL 8.5-10.1 BLOOD UREA NITROGEN 7 mg/dL 7-20 CREATININE 0.6 mg/dL 0.6-1.0 SODIUM 133 mmol/L 135-148 CHLORIDE 100 mmol/L 98-110 AST/SGOT 36 Units/L 10-37 ALT/SGPT 17 Units/L < 66 CARBON DIOXIDE 25 mmol/L 21-32 TOTAL PROTEIN 7.0 gm/dL 6.4-8.2 ALBUMIN 3.7 gm/dL 3.4-5.0 BILI TOTAL 0.5 mg/dL 0.0-1.0 ALKALINE PHOSPHATASE TOTAL 56 IU/L 45- 117 Encounters ACCT No. Visit Date/Time Discharge Status Pt. Type Provider Facility Loc./Unit Complaint [id number] 12/21/2013 09:56:00 12/21/2013 23 :59:59 CLS Outpatient [id number] 10/22/2013 10:05:00 10/22/2013 23 :59:59 CLS Outpatient [id number] 10/07/2013 10:17:00 10/07/2013 23 :59:59 CLS Outpatient [id number] 08/02/2013 14:13:00 08/02/2013 23 :59:59 CLS Outpatient
--- OUTSIDE RECORDS SUMMARY | 2016-12-26 00:35 | XMS REPORT | Referral Summary ---
Author Author [facility] Organization [facility] Address Unknown Phone Unavailable Care Team Providers Care Photography Intern Name Role Phone Lucian Decker Primary Care Physician [phone] Encounter [facility] Date(s): 06/26/16 - 06/26/16 [facility], [address] [place] [address]- Discharge Disposition: 01-Home or Self Care Attending [...] BID, # 60 caps, 11 Refill(s), Pharmacy: [facility] # [id number], 1 caps Oral BID Start Date: 05/29/16 [...] Daily, # 30 tabs, 3 Refill(s), Pharmacy: [facility] # [id number], 1 tabs Oral Daily Start Date: 05/27/16 Status: Ordered cyanocobalamin 1000 mcg/mL injectable solution 1,000 mcg, IntraMuscular, Daily, 0 Refill(s) Start Date: 06/21/16 Stop Date: [...] TWICE A DAY, # 180 tabs, eRx: [facility] #[id number], TAKE ONE TABLET BY MOUTH TWICE A DAY Start Date: 04/30/16 Status: Ordered levothyroxine 50 mcg (0.05 mg) oral tablet See Instructions, TAKE ONE TABLET BY MOUTH DAILY, # 90 tabs, eRx: [facility] #[id number], TAKE ONE TABLET BY MOUTH DAILY Start [...] BEFORE A MEAL, # 90 caps, eRx: [facility] #[id number], TAKE ONE CAPSULE BY MOUTH EVERY DAY BEFORE A MEAL Start Date: 06/25/16 Status: Ordered ondansetron 4 mg oral tablet 4 mg 1 tabs, Oral, BID, as needed for nausea/vomiting, # 60 tabs, 0 Refill(s), Pharmacy: [facility] #[id number], 1 tabs Oral BID,PRN:as needed for nausea/ vomiting Start Date: 05/27/16 Status: Ordered OXcarbazepine 300 mg oral tablet 150 mg 0.5 tabs, Oral, Daily, # 30 tabs, 0 Refill(s), Pharmacy: [facility] #[id number], 0.5 tabs Oral BID Start Date: 05/27/16 Status: Ordered oxybutynin 15 mg/24 hr oral tablet, extended release See Instructions, TAKE ONE TABLET BY MOUTH EVERY DAY, # 30 unknown unit, 4 Refill(s), eRx: [facility] #[id number], TAKE ONE TABLET BY MOUTH EVERY DAY Start Date: 04/25/16 Status: Ordered promethazine 25 mg, Oral, BID, as needed for nausea/vomiting, 0 Refill(s) Start Date: 05/06/16 Status: Ordered rOPINIRole 2 mg oral tablet 2 mg 1 tabs, Oral, Bedtime (once a day), # 90 tabs, 3 Refill(s), Pharmacy: [facility] #[id number], 1 tabs Oral Bedtime (once a day),x90 days Start Date: 06/17/16 Stop Date: 06/12/17 Status: Ordered traZODone 150 mg oral tablet See Instructions, TAKE THREE TABLETS BY MOUTH EVERY NIGHT AT BEDTIME, # 270 tabs , eRx: [facility] #[id number], TAKE THREE TABLETS BY MOUTH EVERY NIGHT [...]
--- OUTSIDE RECORDS SUMMARY | 2016-12-26 00:35 | XMS REPORT | Referral Summary ---
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 Name Role Phone Lucian Decker Primary Care Physician [phone] Encounter VC Date(s): 10/20/14 - 10/20/14 [facility], Milana Sifuentes, Pain Management [address] [place], [place] [address] Discharge Diagnosis: Back pain, thoracic Discharge Diagnosis: Cervical radiculopathy Discharge Diagnosis: Cervical spinal stenosis Discharge Diagnosis: Cervical post-laminectomy syndrome Discharge Disposition: Home or Self Care Attending Physician: Derek Harrell MD Admitting Physician: Derek Harrell MD Referring Physician: Shon Decker MD Vital Signs Most recent to 1 oldest [Reference Range]: Apical Heart Rate 72 bpm [60-100 bpm] (10/20/14 1:48 PM) Respiratory Rate 24 br/min [14-20 br/min] *HI* (10/20/14 1:48 PM) Blood Pressure 153/82 mmHg [90-140/60-90 mmHg] *HI* (10/20/14 1:48 PM) Most recent to 1 oldest [Reference Range]: SpO2 96 % (10/20/14 1:48 PM) Problem List Condition Effective Dates Status Health Status Informant Acute Active bronchitis(Confirmed ) Anxiety(Confirmed) Resolved Arthritis(Confirmed) Resolved Benign Active hypertension(Confirm ed) Atypical nevus of Active buttock(Confirmed) Cervical Active post-laminectomy syndrome(Confirmed) Cervical Active radiculopathy(Confir med) Chronic Active gastritis(Confirmed) Chronic low back Active pain(Confirmed) Lumbar degenerative Active disc disease(Confirmed) Depression(Confirmed Resolved ) Gall bladder Resolved disease(Confirmed) Hypertension(Confirm Resolved ed) Adult Active hypothyroidism(Confi rmed) Rt Inguinal 04/12/13 Resolved lymphadenopathy(Conf irmed) Irregular Resolved heartbeat(Confirmed) Lumbar Active post-laminectomy syndrome (disorder)(Confirmed ) Basal cell Active carcinoma(Confirmed) Cancer of the skin, Active basal cell(Confirmed) Median nerve Active neuropathy(Confirmed ) Pure Active hypercholesterolemia (Confirmed) Restless legs Active syndrome (RLS)(Confirmed) Cervical spinal Active stenosis(Confirmed) Spinal stenosis, Active lumbar region, without neurogenic claudication(Confirm ed) Visit for suture Active removal(Confirmed) Thoracic or Active lumbosacral neuritis or radiculitis, unspecified(Confirme d) 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) Allergies, Adverse Reactions, Alerts Substance Reaction Severity Status morphine Delirium Active Medications amLODIPine 5 mg oral tablet See Instructions, TAKE ONE TABLET BY MOUTH EVERY DAY, # 90 tabs, 3 Refill(s), eRx: [facility] #[id number], TAKE ONE TABLET BY MOUTH EVERY DAY Special Instructions: TAKE ONE TABLET BY MOUTH EVERY DAY Start Date: 06/13/14 Status: Ordered atorvastatin 10 mg oral tablet 1 tabs, Oral, Bedtime (once a day), # 30 tabs, 11 Refill(s), Pharmacy: [facility] #[id number], Stop Lovastatin, 1 tabs Oral Bedtime (once a day) Start Date: 03/29/14 Status: Ordered docusate 100 mg, Oral, Daily, 0 Refill(s) Start Date: 03/28/14 Status: Ordered fentaNYL 100 mcg/hr transdermal film, extended release 1 patches, Topical, q72hr, # 10 patches, 0 Refill(s) Start Date: 10/14/14 Status: Ordered ferrous sulfate 325 mg (65 mg elemental iron) oral tablet 1 tabs, Oral, Daily, 0 Refill(s) Start Date: 07/07/14 Status: Ordered gabapentin 800 mg oral tablet See Instructions, TAKE ONE TABLET BY MOUTH TWICE A DAY, # 180 tabs, 3 Refill(s) , eRx: [facility] #[id number], TAKE ONE TABLET BY MOUTH TWICE A DAY Special Instructions: TAKE ONE TABLET BY MOUTH TWICE A DAY Start Date: 04/28/14 Status: Ordered ibuprofen 200 mg oral tablet 2 tabs, Oral, BID, as needed for arthritis, # 120 tabs, 0 Refill(s) Start Date: 03/28/14 Status: Ordered levothyroxine 50 mcg (0.05 mg) oral tablet See Instructions, TAKE ONE TABLET BY MOUTH EVERY DAY, # 90 tabs, 2 Refill(s), eRx: [facility] #[id number], TAKE ONE TABLET BY MOUTH EVERY DAY Special Instructions: TAKE ONE TABLET BY MOUTH EVERY DAY Start Date: 08/02/14 Status: Ordered levothyroxine 50 mcg (0.05 mg) oral tablet 1 tabs, Oral, Daily, # 30 tabs, 2 Refill(s), Pharmacy: [facility] #[id number] , 1 tabs Oral Daily Start Date: 08/01/14 Status: Ordered LORazepam 0.5 mg oral tablet 1 tabs, Oral, BID, must last 30 days NBrigette Corado, # 60 tabs, 0 Refill(s) Special Instructions: must last 30 days Hetal Corado Start Date: 10/03/14 Stop Date: 11/02/14 Status: Ordered omeprazole 40 mg oral delayed release capsule See Instructions, TAKE ONE CAPSULE BY MOUTH EVERY DAY BEFORE A MEAL, # 90 caps, 3 Refill(s), eRx: [facility] #[id number], TAKE ONE CAPSULE BY MOUTH EVERY DAY BEFORE A MEAL Special Instructions: TAKE ONE CAPSULE BY MOUTH EVERY DAY BEFORE A MEAL Start Date: 04/04/14 Status: Ordered oxybutynin 15 mg/24 hr oral tablet, extended release See Instructions, TAKE ONE TABLET BY MOUTH EVERY DAY, # 30 unknown unit, 6 Refill(s), eRx: [facility] #[id number], TAKE ONE TABLET BY MOUTH EVERY DAY Special Instructions: TAKE ONE TABLET BY MOUTH EVERY DAY Start Date: 08/11/14 Status: Ordered promethazine 25 mg oral tablet See Instructions, TAKE ONE TABLET BY MOUTH TWICE A DAY NEEDED FOR NAUSEA, # 180 tabs, eRx: [facility] #[id number], TAKE ONE TABLET BY MOUTH TWICE A DAY NEEDED FOR NAUSEA Special Instructions: TAKE ONE TABLET BY MOUTH TWICE A DAY NEEDED FOR NAUSEA Start Date: 07/12/14 Status: Ordered rOPINIRole 4 mg oral tablet 1 tabs, Oral, Bedtime (once a day), 0 Refill(s) Start Date: 03/21/14 Status: Ordered Senna S 1 tabs, Oral, Bedtime (once a day), 0 Refill(s) Start Date: 03/28/14 Status: Ordered traZODone 150 mg oral tablet See Instructions, TAKE THREE TABLETS BY MOUTH EVERY NIGHT AT BEDTIME, # 270 tabs , 1 Refill(s), eRx: [facility] #[id number], TAKE THREE TABLETS BY MOUTH EVERY NIGHT AT BEDTIME Special Instructions: TAKE THREE TABLETS BY MOUTH EVERY NIGHT AT BEDTIME Start Date: 08/26/14 Status: Ordered Trileptal 300 mg oral tablet See Instructions, TAKE ONE TABLET BY MOUTH THREE TIMES A DAY FOR 7 DAYS,THEN INCREASE TO 2 TABLETS EVERY 12 HOURS, # 120 tabs, eRx: [facility] #[id number] , TAKE ONE TABLET BY MOUTH THREE TIMES A DAY FOR 7 DAYS,THEN INCREASE TO 2 TABLETS EVERY 12 HOURS Special Instructions: TAKE ONE TABLET BY MOUTH THREE TIMES A DAY FOR 7 DAYS, THEN INCREASE TO 2 TABLETS EVERY 12 HOURS Start Date: 10/03/14 Status: Ordered Trileptal 300 mg oral tablet See Instructions, Take 1 tab, by mouth, 3 times a day for 7 days, then take 2 tabs every 12 hours, # 120 tabs, 0 Refill(s), Pharmacy: [facility] #[id number] , Take 1 tab, by mouth, 3 times a day for 7 days, then take 2 tabs every 12 hours Special Instructions: Take 1 tab, by mouth, 3 times a day for 7 days, then take 2 tabs every 12 hours Start Date: 08/10/14 Status: Ordered Trileptal 300 mg oral tablet See Instructions, TAKE ONE TABLET BY MOUTH TWICE A DAY, # 60 tabs, eRx: [facility] #[id number], TAKE ONE TABLET BY MOUTH TWICE A DAY Special Instructions: TAKE ONE TABLET BY MOUTH TWICE A DAY Start Date: 07/12/14 Status: Ordered Vitamin D3 1,000 Intl_Units, Oral, Daily, 0 Refill(s) Start Date: 03/21/14 Status: Ordered zolpidem 10 mg oral tablet 1 tabs, Oral, Bedtime (once a day), as needed for sleep, Hetal Corado, # 30 tabs, 0 Refill(s) Special Instructions: Hetal Corado Start Date: 10/03/14 Status: Ordered Results No data available for this section Immunizations Vaccine Date Refusal Reason tetanus/diphth/pertuss (Tdap) adult/adol 03/28/14 influenza virus vaccine, inactivated1 07/07/14 influenza virus vaccine, live 07/23/13 pneumococcal 23-polyvalent vaccine 03/28/14 pneumococcal 23-polyvalent vaccine 08/13/05 1Result Comment: [07/07/2014] See scanned document Procedures Procedure Date Related Diagnosis Body Site Injection(s), of diagnostic or therapeutic 10/20/14 substance(s) (including anesthetic, antispasmodic, opioid, steroid, other solution), not including neurolytic substances, including needle or catheter placement, includes contrast for localization when performed, T1-2 Translaminar 10/20/14 Caudal 10/04/14 Caudal 06/20/14 T1-T2 Translaminar 06/07/14 Colonoscopic polypectomy1 05/09/14 Thoracic Transforaminal approach 08/25/13 Caudal 08/11/13 Cystoscopy 06/23/13 Rt Inguinal node biopsy benign 04/22/13 Carpal tunnel release and right elbow suergy 2012 Incisional hernia repair 2002 Cholecystectomy 1986 Appendectomy 1984 Gastric bypass 1980 Bilateral tubal ligation 1969 Hysterectomy and single salpingo-oophorectomy Low Back surgeries2 Neck surgery 1Tubular adenoma, diverticula, repeat in 5 years, family history of brother with colon cancer 28 low back surgeries Social History Social History Type Response Smoking Status Never smoker Assessment and Plan No data available for this section
--- OUTSIDE RECORDS SUMMARY | 2016-12-26 00:35 | XMS REPORT | Continuity of Care Document ---
Author Author [facility] Organization [facility] Address Unknown Phone Unavailable Support Name Relationship Address Phone ALDO VAZ Next Of Kin [address] [place] [address] Unavailable Insurance Providers Payer Name Policy Number Subscriber Name Relationship Medicare [facility] [employer] Pffs [id number] Jennifer Vaz 17 Self Problems No Known Problems or Medical conditions. Family History History Response Recorded Date/Time HX of Orthopedic Surgeries Y [facility]; RT ELBOW NERVE TRANSPOSITION 05/11/13 5 :10pm Hx Abdominal Surgery Y MALI SHUNT; HERNIA; SACHI; 05/11/13 5:10pm HX Cerebrovascular Accident Y MAYBE TIA 05/11/13 5:10pm Hx Seizures N 05/11/13 5:10pm Hx Angina Y FREQUENTLY-NON CARDIAC 05/11/13 5:10pm Hx Congestive Heart Failure N 05/11/13 5:10pm Hx Heart Attack N 05/11/13 5:10pm Hx Hypertension Y 05/11/13 5:10pm Hx Chronic Obstructive Pulmonary Disease (COPD) N 05/11/13 5:10pm Hx Diabetes N 05/11/13 5:10pm Hx Clotting Problems N 05/11/13 5:10pm Hx Cancer N 05/11/13 5:10pm Hx MRSA Y HIP-2003 05/11/13 5:10pm HX of Cardiac Surgeries N 05/11/13 5:10pm HX of Reproductive Surgeries Y TUBAL LIG; HYST 05/11/13 5:10pm HX of Endocrine Surgeries N 05/11/13 5:10pm HX of Throat Surgery N 05/11/13 5:10pm HX of Neurological Surgeries Y BACK X8; CERVICAL X1; HAS ONE SCREW IN BACK ALL OTHER HARDWARE REMOVED 05/11/13 5:10pm HX of Genitourinary Surgeries N 05/11/13 5:10pm Social History History Response Recorded Date/Time Smoking Status Never smoker 05/11/13 5:10pm Chewing Tobacco Status N 05/11/13 5:10pm Hx Substance Use N 05/11/13 5:10pm Hx Alcohol Use N 05/11/13 5:10pm Has the pt used tobacco in the last 12 months N 04/20/13 2:22pm Allergies, Adverse Reactions, Alerts Allergen Type Severity Reaction Last Updated meperidine HCl Allergy Unknown DISORIENTED, ALMOST 05/11/13 morphine Allergy Unknown NIGHT TERRORS 05/11/13 Medications Medication Dose Units Route Sig Qty Days Benazepril Hcl (Lotensin) 120 Mg PO DAILY Ferrous Sulfate (Iron) 1 Tab PO DAILY Levothyroxine Sodium 50 Mcg PO DAILY Promethazine Hcl 25 Mg PO BID Gabapentin 800 Mg PO BID Ropinirole Hcl 3 Mg PO HS Docusate Sodium 200 Mg PO HS PRN Omeprazole 40 Mg PO DAILY Amlodipine Besylate DAILY Lorazepam 0.5 Mg PO TID Zolpidem Tartrate 10 Mg PO HS Sertraline Hcl 150 Mg PO DAILY Trazodone Hcl 450 Mg PO HS Lovastatin 10 Mg PO PM Sennosides/Docusate Sodium (Senokot-S Tablet) 1 Tab PO BID Acetaminophen Q4H PRN Fentanyl (Duragesic 100MCG/Hr Patch) 1 Patch TD Q72H Immunizations Name Given Type Hx Influenza Vaccination N H Hx Pneumococcal Vaccination N 2011 H Response Recorded Date/Time Status not known Unknown Results No Known Relevant Diagnostic Tests, Laboratory Data and/or Discharge Summary. Procedures Procedure Code Date BIOPSY/REMOVAL LYMPH NODES 33402 04/22/13 THER/PROPH/DIAG INJ IV PUSH 73970 05/11/13 HYDRATE IV INFUSION ADD-ON 28504 05/11/13 HYDRATE IV INFUSION ADD-ON 32496 05/11/13 Encounters Encounter Location Date/Time Departed Emergency Room [facility] 05/11/13 3:56pm
--- OUTSIDE RECORDS SUMMARY | 2016-12-26 00:35 | XMS REPORT | Referral Summary ---
Author Author [facility], [facility] Organization [facility] [place], [facility] Address Unknown Phone Unavailable Care Team Providers Care Installation Engineer Name Role Phone Lucian Decker Primary Care Physician [phone] Encounter VC Date(s): 02/26/16 - 02/26/16 [facility] [place], [address] [place] [address]- Discharge Disposition: 01-Home or Self Care Attending Physician: Shon Decker MD Admitting Physician: Shon Decker MD Vital Signs Most recent to 1 oldest [Reference Range]: Temperature Tympanic 37.1 degC [36.6-38.1 degC] (02/26/16 4:27 PM) Peripheral Pulse 88 bpm Rate [60-100 bpm] (02/26/16 4:27 PM) Blood Pressure 138/76 mmHg [90-140/60-90 mmHg] (02/26/16 4:27 PM) Mean Arterial 97 mmHg Pressure, Cuff (02/26/16 4:27 PM) Problem List Condition Effective Dates Status [...] DAY, # 90 tabs, 2 Refill(s), eRx: [facility] #[id number], TAKE ONE TABLET BY MOUTH EVERY DAY Start Date: 06/15/15 Status: Ordered Aspirin Low Dose 81 mg, Oral, Daily, 0 Refill(s) Start Date: 11/03/15 Status: Ordered atorvastatin 10 mg oral tablet See Instructions, TAKE ONE TABLET BY MOUTH AT BEDTIME, # 30 tabs, 9 Refill(s), eRx: [facility] #[id number], TAKE ONE TABLET BY MOUTH AT BEDTIME [...] # 180 tabs, 2 Refill(s) , eRx: [facility] #[id number], TAKE ONE TABLET BY MOUTH TWICE A DAY Start Date: 07/27/15 Status: Ordered levothyroxine 50 mcg (0.05 mg) oral tablet See Instructions, TAKE ONE TABLET BY MOUTH DAILY, # 90 tabs, eRx: [facility] #[id number], TAKE ONE TABLET BY MOUTH DAILY Start [...] BEFORE A MEAL, # 90 caps, eRx: [facility] #[id number], TAKE ONE CAPSULE BY MOUTH EVERY DAY BEFORE A MEAL Start Date: 12/26/15 Status: Ordered ondansetron 4 mg oral tablet 4 mg 1 tabs, Oral, BID, as needed for nausea/vomiting, X 90 days, # 180 tabs, 3 Refill(s), Pharmacy: [facility] #[id number], 1 tabs Oral BID,x90 days,PRN:as needed for nausea/vomiting Start Date: 05/09/15 Stop Date: 05/03/16 Status: Ordered OXcarbazepine 300 mg oral tablet See Instructions, TAKE ONE TABLET BY MOUTH TWICE A DAY, # 120 tabs, eRx: [facility] #[id number], TAKE ONE TABLET BY MOUTH TWICE A DAY Start Date: 02/06/16 Status: Ordered oxybutynin 15 mg/24 hr oral tablet, extended release 15 mg 1 tabs, Oral, Daily, # 30 tabs, 4 Refill(s), Pharmacy: [facility] # [id number], 1 tabs Oral Daily Start Date: 11/14/15 Status: Ordered rOPINIRole 4 mg oral tablet See Instructions, TAKE ONE TABLET BY MOUTH EVERY NIGHT AT BEDTIME, # 90 tabs, 1 Refill(s), eRx: [facility] #[id number], TAKE ONE TABLET BY MOUTH EVERY NIGHT AT BEDTIME Start Date: 09/11/15 Status: Ordered traZODone 150 mg oral tablet See Instructions, TAKE THREE TABLETS BY MOUTH EVERY NIGHT AT BEDTIME, # 270 tabs , eRx: [facility] #[id number], TAKE THREE TABLETS BY MOUTH EVERY NIGHT [...] Patient Education Author: Shon Decker MD Date: 02/25 Family Medicine Constipation Constipation is when a person has fewer than three bowel movements a week, has difficulty having a bowel movement, or has stools that are dry, hard, or larger than normal. As people grow older, constipation is more common. If you try to fix constipation with medicines that make you have a bowel movement (laxatives) , the problem may get worse. Long-term laxative use may cause the muscles of the colon to become weak. A low-fiber diet, not taking in enough fluids, and taking certain medicines may make constipation worse. CAUSES Certain medicines, such as antidepressants, pain medicine, iron supplements, antacids, and water pills. Certain diseases, such as diabetes, irritable bowel syndrome (IBS), thyroid disease, or depression. Not drinking enough water. Not eating enough fiber-rich foods. Stress or travel. Lack of physical activity or exercise. Ignoring the urge to have a bowel movement. Using laxatives too much. SIGNS AND SYMPTOMS Having fewer than three bowel movements a week. Straining to have a bowel movement. Having stools that are hard, dry, or larger than normal. Feeling full or bloated. Pain in the lower abdomen. Not feeling relief after having a bowel movement. DIAGNOSIS Your health care provider will take a medical history and perform a physical exam. Further testing may be done for severe constipation. Some tests may include: A barium enema X-ray to examine your rectum, colon, and, sometimes, your small intestine. A sigmoidoscopy to examine your lower colon. A colonoscopy to examine your entire colon. TREATMENT Treatment will depend on the severity of your constipation and what is causing it. Some dietary treatments include drinking more fluids and eating more fiber- rich foods. Lifestyle treatments may include regular exercise. If these diet and lifestyle recommendations do not help, your health care provider may recommend taking dmyp-[id number] laxative medicines to help you have bowel movements. Prescription medicines may be prescribed if qsei-gsh-xeksscc medicines do not work. HOME CARE INSTRUCTIONS Eat foods that have a lot of fiber, such as fruits, vegetables, whole grains, and beans. Limit foods high in fat and processed sugars, such as luxembourger fries, hamburgers, cookies, candies, and soda. A fiber supplement may be added to your diet if you cannot get enough fiber from foods. Drink enough fluids to keep your urine clear or pale yellow. Exercise regularly or as directed by your health care provider. Go to the restroom when you have the urge to go. Do not hold it. Only take [id number] or prescription medicines as directed by your health care provider. Do not take other medicines for constipation without talking to your health care provider first. SEEK IMMEDIATE MEDICAL CARE IF: You have bright red blood in your stool. Your constipation lasts for more than 4 days or gets worse. You have abdominal or rectal pain. You have thin, pencil-like stools. You have unexplained weight loss. MAKE SURE YOU: Understand these instructions. Will watch your condition. Will get help right away if you are not doing well or get worse. This information is not intended to replace advice given to you by your health care provider. Make sure you discuss any questions you have with your health care provider. Document Released: 06/20/2005 Document Revised: 09/27/2014 Document Reviewed: [facility] Patient Information 2015 [employer] [facility]. No follow up information was provided. Extracted from: Title: decubitus ulcer left Author: Shon Decker MD Date: 02/26/16 buttock, chronic LBP, HTN Impression and Plan Diagnosis Decubitus ulcer of left buttock, stage 1 (DXG41-XY L89.321, Working, Medical). Drug-induced constipation (LBG71-PP K59.09, Working, Medical). Trochanteric bursitis, right hip (NVF90-EG M70.61, Working, Medical). Hypertension (QUB62-YD I10, Working, Medical). Spinal stenosis, lumbar region, without neurogenic claudication (KSF15-GI M48.06 , Working, Medical). Mild major depression (WHS05-QK F32.0, Working, Medical). Plan: 1) See your orthopedic surgeon about possibly excising some of the scar tissue from the left buttock, since this seems to be contributing to the small decubitus ulcer. 2) In the meantime, use LAKEISHA and a bandaid to the area and keep pressure off that ulcerated area. 3) May continue your current meds the same otherwise. 4) Followup with me as scheduled, and as needed.. Orders Orders (Selected) Outpatient Orders Ordered Office Visit Level 4 Est 99019: Discontinued Office Visit Level 3 Est 36535: Future (On Hold) XR Consultation Outside Film: . Dx/Order Association Plan: Diagnosis: Decubitus ulcer of left buttock, stage 1 Comment: Ordered: Office Visit Level 4 Est 45367; 02/26/16 17:07:00 CDT, Decubitus ulcer of left buttock, stage 1 | Trochanteric bursitis, right hip | Drug-induced constipation | Hypertension | Mild major depression Discontinued: Office Visit Level 3 Est 91790; 02/26/16 16:51:00 CDT, Decubitus ulcer of left buttock, stage 1 | Drug-induced constipation | Trochanteric bursitis, right hip Diagnosis: Drug-induced constipation Comment: Ordered: Office Visit Level 4 Est 62863; 02/26/16 17:07:00 CDT, Decubitus ulcer of left buttock, stage 1 | Trochanteric bursitis, right hip | Drug-induced constipation | Hypertension | Mild major depression Discontinued: Office Visit Level 3 Est 37577; 02/26/16 16:51:00 CDT, Decubitus ulcer of left buttock, stage 1 | Drug-induced constipation | Trochanteric bursitis, right hip Diagnosis: Hypertension Comment: Ordered: Office Visit Level 4 Est 16005; 02/26/16 17:07:00 CDT, Decubitus ulcer of left buttock, stage 1 | Trochanteric bursitis, right hip | Drug-induced constipation | Hypertension | Mild major depression Diagnosis: Mild major depression Comment: Ordered: Office Visit Level 4 Est 33126; 02/26/16 17:07:00 CDT, Decubitus ulcer of left buttock, stage 1 | Trochanteric bursitis, right hip | Drug-induced constipation | Hypertension | Mild major depression Diagnosis: Spinal stenosis, lumbar region, without neurogenic claudication Comment: Diagnosis: Trochanteric bursitis, right hip Comment: Ordered: Office Visit Level 4 Est 45249; 02/26/16 17:07:00 CDT, Decubitus ulcer of left buttock, stage 1 | Trochanteric bursitis, right hip | Drug-induced constipation | Hypertension | Mild major depression Discontinued: Office Visit Level 3 Est 11842; 02/26/16 16:51:00 CDT, Decubitus ulcer of left buttock, stage 1 | Drug-induced constipation | Trochanteric bursitis, right hip End of Orders ."
--- OUTSIDE RECORDS SUMMARY | 2016-12-26 00:35 | XMS REPORT | Continuity of Care Document ---
Author Author [facility] Organization [facility] Address Unknown Phone Unavailable Support Name Relationship Address Phone SAMANTHA ALBERTO MD Caregiver [facility] [address] [place] [address] Unavailable EMERSON POLLARD MD Caregiver [address] [place] [address] [place], [place] [phone] ENRIQUEALDO Castro Next Of Kin [address] [place] [address] CP Insurance Providers Payer Name Policy Number Subscriber Name Relationship Medicare [id number] Jennifer Ornelas 17 Self [facility] [id number] Jennifer Ornelas 17 Self Advance Directives Directive Response Recorded Date/Time Advanced Directives Type None 09/02/14 6:00pm Problems Medical Problems Problem Onset Date Status Influenza-like illness Unknown Active Influenza-like illness Unknown Active Medications Medication Dose Route Sig Days/Qty Instructions Order Date Discontinued Date Status Trazodone Hcl 450 Mg PO BEDTIME 04/20/13 Active Zolpidem Tartrate 10 Mg PO BEDTIME 04/20/13 Active Lorazepam 0.5 Mg PO TWICE A DAY 04/20/13 Active Amlodipine Besylate DAILY 04/20/13 Active Omeprazole 40 Mg PO DAILY 04/20/13 Active Gabapentin 800 Mg PO TWICE A DAY 04/20/13 Active Promethazine Hcl 25 Mg PO TWICE A DAY 04/20/13 Active Levothyroxine Sodium 50 Mcg PO DAILY 04/20/13 Active Multivits,Therap W-Fe,Hematin 1 Tab PO DAILY 06/22/13 Active Multivitamins 1 Tab PO DAILY 06/22/13 Active Duloxetine HCl 60 Mg PO DAILY 30 Qty 05/06/14 Active Atorvastatin Calcium 10 Mg PO DAILY 30 Qty 05/06/14 Active Oxybutynin Chloride 15 Mg PO DAILY 30 Qty 05/06/14 Active Ropinirole HCl 05/09/14 Active Fentanyl 100 Mcg TOP Q 72HR 05/09/14 Active Ca Cmb No.1/Vit D3/B-6/FA/B12 1 PO DAILY 09/02/14 Active Docusate Sodium 1 Cap PO DAILY 09/02/14 Active Sennosides/Docusate Sodium 1 PO BEDTIME 09/02/14 Active Ferrous Sulfate 1 Tab PO GIVE WITH BREAKFAST BEST WITH FOOD. 09/02/14 Active Ibuprofen 1 Cap PO Q4H PRN 09/02/14 Active Oxcarbazepine 300 Mg PO TWICE A DAY 09/02/14 Active Benzonatate 1 Cap PO THREE TIMES A DAY For COUGH 30 Qty DO NOT BITE, CHEW , OR CRUSH 09/02/14 Active Social History Social History Problem Response Recorded Date/Time Smoking Status Never smoker 09/02/2014 7:00pm Chewing Tobacco Status No 06/23/2013 10:27am Hx Substance Use No 09/02/2014 7:00pm Hx Alcohol Use No 09/02/2014 7:00pm Has the pt used tobacco in the last 12 months No 05/09/2014 9:09am Query Response Start Date Stop Date Smoking Status Never smoker Hospital Discharge Instructions No hospital discharge instructions. Plan of Care No plan of care. Functional Status Query Response Date Recorded Physical Hygiene Self September 02, 2014 7:00pm Disabilities Visual September 02, 2014 7:00pm Devices Used Glasses Cane Walker Wheelchair September 02, 2014 7:00pm Dressing Self September 02, 2014 7:00pm Ambulation Assist September 02, 2014 7:00pm Diet Self September 02, 2014 7:00pm Mental Status Alert September 02, 2014 8:06pm Disabilities Visual September 02, 2014 7:00pm Devices Used Glasses Cane Walker Wheelchair September 02, 2014 7:00pm Physical Hygiene Self September 02, 2014 7:00pm Dressing Self September 02, 2014 7:00pm Ambulation Assist September 02, 2014 7:00pm Diet Self September 02, 2014 7:00pm Allergies, Adverse Reactions, Alerts Allergen Type Severity Reaction Status Last Updated meperidine HCl Allergy Unknown DISORIENTED, ALMOST Active 09/02/14 Morphine Allergy Unknown NIGHT TERRORS Active 09/02/14 Adhesive Adverse Reaction Mild RASH Active 09/02/14 Immunizations Name Given Type Hx Influenza Vaccination Y Jul Historical Hx Pneumococcal Vaccination Y 2010 Historical Hx Influenza Vaccination Y Jul Historical Vital Signs Acute Vital Signs Vital Response Date/Time Temperature (Fahrenheit) 99.2 deg F (96.8 - 99.1) Temperature (Calculated Celsius) 37.22359 degrees C (36.0 - 37.3) Pulse Rate (adult) 65 bpm (60 - 100) Respiratory Rate 18 breaths/min (10 - 20) O2 Sat by Pulse Oximetry 97 % (90 - 100) Blood Pressure 142/65 mm Hg Height 5 ft 4 in Weight 182 lb Body Mass Index 31.0 kg/m^2 Results Test Source Date Result Interp. Ref. Range Comments Alanine Aminotransferase (ALT/SGPT) September 02, 2014 6:50pm 38 U/L N 9- 52 Albumin September 02, 2014 6:50pm 4.2 G/DL N 3.5-5.0 Albumin/Globulin Ratio September 02, 2014 6:50pm 1.4 RATIO N 1.1-2.2 Alkaline Phosphatase September 02, 2014 6:50pm 84 U/L N 38-126 Amylase Level May 11, 2013 4:30pm 127 U/L H 30-110 Anion Gap September 02, 2014 6:50pm 16 MEQ/L H 5-15 Aspartate Amino Transf (AST/SGOT) September 02, 2014 6:50pm 41 U/L H 14- 36 BUN/Creatinine Ratio September 02, 2014 6:50pm 17 RATIO N 6-26 Basophils # (Auto) September 02, 2014 6:50pm 0.1 T/MM3 N 0-0.2 Basophils (%) (Auto) September 02, 2014 6:50pm 0.9 % N 0-2 Blood Urea Nitrogen September 02, 2014 6:50pm 12.0 MG/DL N 7-17 Calcium Level September 02, 2014 6:50pm 9.3 MG/DL N 8.4-10.2 Calculated Osmolality September 02, 2014 6:50pm 253 MOSM/KG L 261-280 Carbon Dioxide Level September 02, 2014 6:50pm 22 MEQ/L N 22-30 Chloride Level September 02, 2014 6:50pm 93 MEQ/L L 98-107 Creatinine September 02, 2014 6:50pm 0.7 MG/DL N 0.7-1.2 Eosinophils # (Auto) September 02, 2014 6:50pm 0.1 T/MM3 N 0-0.5 Eosinophils (%) (Auto) September 02, 2014 6:50pm 1.0 % N 0-4 Globulin September 02, 2014 6:50pm 2.9 G/DL N 2.4-3.6 Glucose Level September 02, 2014 6:50pm 107 MG/DL N 65-110 Hematocrit September 02, 2014 6:50pm 37.3 % N 36-46 Hemoglobin September 02, 2014 6:50pm 13.5 GM/DL N 12-16 Influenza Type A Antigen September 02, 2014 7:14pm Negative - Negative for Flu A protein antigen. Assay sensitivity is90%. Influenza Type B Antigen September 02, 2014 7:14pm Negative - Negative for Flu B protein antigen. Assay sensitivity is90%. Lipase May 11, 2013 4:30pm 74 U/L N 23-300 Lymphocytes # (Auto) September 02, 2014 6:50pm 2.4 T/MM3 N 1-4.8 Lymphocytes (%) (Auto) September 02, 2014 6:50pm 26.7 % N 23-45 Mean Corpuscular Hemoglobin September 02, 2014 6:50pm 29.9 UUG N 26-34 Mean Corpuscular Hemoglobin Concent September 02, 2014 6:50pm 36.2 GM/DL N 31-37 Mean Corpuscular Volume September 02, 2014 6:50pm 82.5 UM3 N 80-100 Mean Platelet Volume September 02, 2014 6:50pm 8.8 UM3 L 9.4-12.4 Monocytes # (Auto) September 02, 2014 6:50pm 0.6 T/MM3 N 0-0.8 Monocytes (%) (Auto) September 02, 2014 6:50pm 7.1 % N 0-9.0 Neutrophils # (Auto) September 02, 2014 6:50pm 5.8 T/MM3 N 1.8-7.7 Neutrophils (%) (Auto) September 02, 2014 6:50pm 64.2 % N 33-66 Platelet Count September 02, 2014 6:50pm 195 T/MM3 N 130-400 Potassium Level September 02, 2014 6:50pm 3.6 MEQ/L N 3.6-5 RDW Standard Deviation September 02, 2014 6:50pm 35.3 FL L 36.9-50.2 Red Blood Count September 02, 2014 6:50pm 4.52 M/MM3 N 4.00-5.20 Sodium Level September 02, 2014 6:50pm 131 MEQ/L L 134-144 Total Bilirubin September 02, 2014 6:50pm 0.90 MG/DL N 0.20-1.30 Total Protein September 02, 2014 6:50pm 7.1 G/DL N 6.3-8.2 Troponin I May 11, 2013 4:30pm < 0.012 ng/ml 0-0.12 Urine Bacteria May 11, 2013 6:09pm None seen - Has specimen been collected/obtained? Y Urine Bilirubin May 11, 2013 6:09pm Negative - Has specimen been collected/obtained? Y Urine Blood May 11, 2013 6:09pm 1+ H - Has specimen been collected/ obtained? Y Urine Collection Type May 11, 2013 6:09pm Voided-not cc-midstr - Has specimen been collected/obtained? Y Urine Color May 11, 2013 6:09pm Yellow - Has specimen been collected/obtained? Y Urine Culture Indicated May 11, 2013 6:09pm Cult not indicated - Has specimen been collected/obtained? Y Urine Glucose (UA) May 11, 2013 6:09pm Negative - Has specimen been collected/obtained? Y Urine Ketones May 11, 2013 6:09pm Negative - Has specimen been collected/obtained? Y Urine Leukocyte Esterase May 11, 2013 6:09pm Negative - Has specimen been collected/obtained? Y Urine Nitrite May 11, 2013 6:09pm Negative - Has specimen been collected/obtained? Y Urine Protein May 11, 2013 6:09pm Negative - Has specimen been collected/obtained? Y Urine RBC May 11, 2013 6:09pm 0-1 /HPF - Has specimen been collected/obtained? Y Urine Specific [place] May 11, 2013 6:09pm 1.005 L - Has specimen been collected/obtained? Y Urine Squamous Epithelial Cells May 11, 2013 6:09pm None seen - Has specimen been collected/obtained? Y Urine Turbidity May 11, 2013 6:09pm Clear - Has specimen been collected/obtained? Y Urine Urobilinogen May 11, 2013 6:09pm Normal EU/DL - Has specimen been collected/obtained? Y Urine WBC May 11, 2013 6:09pm 0-1 /HPF - Has specimen been collected/obtained? Y Urine pH May 11, 2013 6:09pm 7.0 - Has specimen been collected/ obtained? Y White Blood Count September 02, 2014 6:50pm 9.1 T/MM3 N 4.5-11.0 Chemistry Specimen Hemolysis September 02, 2014 6:50pm < 15 0-25 0-25 : No Hemolysis.26-70: Slight Hemolysis - can falsely elevate K and Urine Protein. 71-285: Moderate Hemolysis - can falsely elevate K, Troponin I, CA 19-9, PTH, CSF GLucose, and Urine Protein, and can falsely decrease Phenytoin. 286-999: Gross Hemolysis - can falsely elevate K, Troponin I, CA 19-9, PTH, CSF Glucose, and Urine Protine, and can falsely decrease Phenytoin. Recommend specimen recollection. Lab Scanned Report August 12, 2013 10:06am LAB TEST FORM REQUEST [id number] - Turbidity September 02, 2014 6:50pm < 20 0-20 Glomerular Filtration Rate Calc September 02, 2014 6:50pm 83 - Immature Granulocyte # (Auto) September 02, 2014 6:50pm 0.01 T/MM3 N 0.00 -0.03 Immature Granulocyte % (Auto) September 02, 2014 6:50pm 0.1 % N 0.0-0.5 Icterus Index September 02, 2014 6:50pm < 2 0-7 Procedures No known history of procedures. Encounters Encounter Location Date/Time Departed Emergency Room [facility] 09/02/14 4:51pm Recent Diagnosis
--- OUTSIDE RECORDS SUMMARY | 2016-12-26 00:35 | XMS REPORT | Continuity of Care Document ---
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 Phone Shon Decker PP Unavailable Jannie Cohen RP Unavailable Payers Payer name Insurance type Covered republican ID Authorization(s) Unknown Problems Condition Effective Dates (start - stop) Clinical Status Hypertension, benign - *Chronic Low back pain - *Chronic Chest pain - Intermittent Fatigue - *Chronic Chronic gastritis - *Chronic Restless legs syndrome (RLS) - *Chronic Hypercholesterolemia - *Chronic Depression - *Chronic Back pain - *Chronic Depression [...] Chronic Radiculitis, Thoracic or Lumbar - *Symptomatic Brachial neuritis or radiculitis nos - *Symptomatic Radiculitis, Thoracic or Lumbar - *Symptomatic Postlaminectomy syndrome of lumbar region - *Symptomatic DISORDERS OF BLADDER NEC - *Chronic Mixed incontinence (male) (female) - *Chronic Brachial neuritis or radiculitis nos - *Symptomatic Radiculitis, Thoracic or Lumbar - *Symptomatic Enlargement of lymph nodes - *Resolved Hypertension - *Chronic Low back pain - *Chronic Fatigue - *Chronic Chronic gastritis - Improved Hypercholesterolemia - *Chronic RLS (restless legs syndrome) - *Chronic Hypertonicity of bladder - *Poor control Urge incontinence - *Poor control Lymphadenopathy, inguinal - New onset Hypertonicity of [...] Dosage Effective Dates (start - stop) Status ropinirole 4 mg tablet take 1 tablet (4MG) by oral route daily at bedtime - Active oxybutynin chloride ER 15 mg tablet,extended release 24 hr take 1 tablet (15MG ) by oral route every day 15 MG - Active promethazine 25 mg tablet take 1 tablet (25MG) by oral route once a day as needed for nausea - Active sertraline 100 mg tablet take 2 tablets by oral route every day 100 MG - Active oxybutynin chloride ER 10 mg tablet,extended release 24 hr take 1 tablet (10MG ) by oral route every day 10 MG - No Longer Active 1 tab PO QD - Active multivitamin with minerals tablet Take one daily. - Active benazepril 20 mg tablet take [...] times every day 800 MG - Active levothyroxine 50 mcg tablet take 1 tablet (50MCG) by oral route every day 50 MCG - Active trazodone 150 mg tablet take 3 tablets daily at bedtime. - Active docusate sodium 100 mg capsule take 1 capsule daily - Active Senokot-S 8.6 mg-50 mg tablet take 1 Tablet by oral route daily 2012 - Active acetaminophen 500 mg tablet take 2 tablet (1000MG) by oral route every 6 hours as needed 1000 MG - Active Vitamin D3 1,000 unit tablet take 1 Tablet by Oral route every day 0 - Active lovastatin 10 mg tablet take 1 tablet (10MG) by oral route every day with the evening meal 10 MG - Active zolpidem 10 mg tablet take 1 tablet (10MG) by oral route every day at HS - Active fentanyl 100 mcg/hr transdermal patch apply 1 patch (100MCG/H) by transdermal route every 72 hours 100 MCG/H - Active lorazepam 0.5 mg tablet take 1 by Oral route 3 times a day - Active Immunizations Vaccine Date Status Comments Flu (split) (3 yrs or older) completed Results Test Name Date and Time Measure Units Reference Range Abnormal Flag Comments Unknown Vital Signs Date / Time: Height Weight Pulse Rate Blood Pressure Temperature /10:05:00 64.00 in 190.50 lbs 76 /min 132/78 mm[Hg] 97.1 F Procedures Procedure Date Unknown Encounters Encounter Location Date Patient Visit [facility] Patient Visit [facility] Patient Visit [facility] Patient Visit [facility] Patient Visit [facility] Patient [facility] Patient [facility] New FM Patient Visit [facility] Patient Visit [facility] FM Patient Visit [facility] FC Pain Patient Visit [facility] FC Pain Patient Visit [facility] FC Pain Patient Visit [facility] Urology Patient Visit [facility] FC Pain Patient Visit [facility] New Surg Patient Visit [facility] FM Patient Visit [facility] FM Patient Visit [facility] New Surg Patient Visit [facility] FM Advance Directives Directive Effective Date Unknown
--- OUTSIDE RECORDS SUMMARY | 2016-12-26 00:35 | XMS REPORT | Continuity of Care Document ---
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 Role Phone Shon Decker PP Unavailable Jannie Cohen RP Unavailable Payers Payer name Insurance type Covered democrat ID Authorization(s) Unknown Problems Condition Effective Dates (start - stop) Clinical Status Hypertonicity of bladder - *Poor control Urge incontinence - *Poor control Back pain - *Chronic Depression - *Chronic Anxiety - *Chronic Urge incontinence - *Chronic Paresthesias - *Chronic Narcotic dependency, continuous - *Chronic Hypertension - *Chronic Hypercholesterolemia - *Chronic Lymphadenopathy, inguinal - *Chronic Hypercholesterolemia - *Chronic Hypertension - *Chronic Urge incontinence - *Chronic Anxiety - *Chronic Depression - *Chronic Back pain - *Chronic Ulnar neuropathy - *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 - *Chronic Weight loss - *Chronic Rectal bleeding - Intermittent Lymphadenopathy - *Chronic Low back pain - *Chronic Hypertension - *Chronic Hypercholesterolemia - *Chronic Hypothyroidism - *Chronic Generalized osteoarthritis - *Chronic Weight loss - *Resolved Hypertension - *Chronic Chronic gastritis - *Chronic Syncope - *Stable Leg weakness, bilateral - *Worse Low back pain - *Chronic Chronic gastritis - Improved Fatigue - *Chronic Osteoarthritis, generalized - *Chronic Hypertension, Benign - *Chronic Urge incontinence - *Chronic Hypercholesterolemia - *Chronic Influenza Vaccine - Brachial neuritis or radiculitis nos - *Symptomatic Radiculitis, Thoracic or Lumbar - *Symptomatic Postlaminectomy syndrome of lumbar region - *Symptomatic Enlargement of lymph nodes - *Resolved Hypertension - *Chronic Low back pain - *Chronic Fatigue - *Chronic Chronic gastritis - Improved Hypercholesterolemia - *Chronic RLS (restless legs syndrome) - *Chronic Lymphadenopathy, inguinal - New onset Hypertonicity of bladder - *Controlled Radiculitis, Thoracic or Lumbar - *Symptomatic Brachial neuritis or radiculitis nos - *Symptomatic Radiculitis, Thoracic or Lumbar - *Symptomatic Radiculitis, Thoracic or Lumbar - Chronic Radiculitis, Thoracic or Lumbar - *Chronic Mixed incontinence (male) (female) - *Chronic DISORDERS OF BLADDER NEC - *Chronic Family History Family Member Diagnosis Age At Onset Status Mother (Alive) Lymphoma Yes Brother (Unknown) Myocardial infarction Yes Brother (Unknown) Diabetes Yes Brother (Alive) Cancer, colon and long Yes Mother (Unknown) Diabetes Yes Brother (Unknown) Alzheimer's Disease Yes Sister (Unknown) Diabetes Yes Social History Social History Element Description Quantity caffeine soda 4 cups Allergies, Adverse Reactions, Alerts Substance Reaction Severity Status MORPHINE Delirium Unknown Medications Medication Instructions Dosage Effective Dates (start - stop) Status Abilify 2 mg tablet take 1 tab po q am - No Longer Active Vesicare 10 mg tablet take 1 tablet (10MG) by oral route every day 10 MG - Active Vesicare 10 mg tablet take 1 tablet (10MG) by oral route every day 10 MG [...] by oral route daily 2012 - Active ropinirole 3 mg tablet [...] Height Weight Pulse Rate Blood Pressure Temperature /13:27:00 64.00 in 183.00 lbs 72 /min 134/94 mm[Hg] Procedures Procedure Date Unknown Encounters Encounter Location Date Patient Visit [facility] Patient Visit [facility] Patient Visit [facility] Patient Visit [facility] Patient Visit [facility] Patient Visit [facility] FM Patient Visit [facility] FM Patient Visit [facility] FM Patient Visit [facility] FM Patient Visit [facility] FM Patient [facility] Pain Patient Visit [facility] Surg Patient Visit [facility] Patient Visit [facility] New Surg Patient Visit [facility] Patient Visit [facility] Pain Patient Visit [facility] Pain Patient Visit [facility] Pain Patient Visit [facility] New Urology Advance Directives Directive Effective Date Unknown
--- OUTSIDE RECORDS SUMMARY | 2016-12-26 00:35 | XMS REPORT | Referral Summary ---
Author Author [facility] Organization [facility] Address Unknown Phone Unavailable Care Team Providers Care Health Information Systems Technician Name Role Phone Lucian Decker Primary Care Physician [phone] Encounter VC Date(s): 06/12/16 - 06/12/16 [facility], [address] [place] [address]- Discharge Disposition: 01-Home or Self Care Attending Physician: Shon Decker MD Admitting Physician: Shon Decker MD Vital Signs Most recent to 1 oldest [Reference Range]: Temperature Tympanic 36.4 degC [36.6-38.1 degC] *LOW* (06/12/16 9:04 AM) Apical Heart Rate 80 bpm [60-100 bpm] (06/12/16 9:04 AM) Blood Pressure 122/70 mmHg [90-140/60-90 mmHg] (06/12/16 9:04 AM) Problem List Condition Effective Dates Status [...] BID, # 60 caps, 11 Refill(s), Pharmacy: [facility] # [id number], 1 caps Oral BID Start Date: 05/29/16 [...] Daily, # 30 tabs, 3 Refill(s), Pharmacy: [facility] # [id number], 1 tabs Oral Daily Start Date: 05/27/16 [...] TWICE A DAY, # 180 tabs, eRx: [facility] #[id number], TAKE ONE TABLET BY MOUTH TWICE A DAY Start Date: 04/30/16 Status: Ordered levothyroxine 50 mcg (0.05 mg) oral tablet See Instructions, TAKE ONE TABLET BY MOUTH DAILY, # 90 tabs, eRx: [facility] #[id number], TAKE ONE TABLET BY MOUTH DAILY Start [...] BEFORE A MEAL, # 90 caps, eRx: [facility] #[id number], TAKE ONE CAPSULE BY MOUTH EVERY DAY BEFORE A MEAL Start Date: 03/25/16 Status: Ordered ondansetron 4 mg oral tablet 4 mg 1 tabs, Oral, BID, as needed for nausea/vomiting, # 60 tabs, 0 Refill(s), Pharmacy: [facility] #[id number], 1 tabs Oral BID,PRN:as needed for nausea/ vomiting Start Date: 05/27/16 Status: Ordered OXcarbazepine 300 mg oral tablet 150 mg 0.5 tabs, Oral, Daily, # 30 tabs, 0 Refill(s), Pharmacy: [facility] #[id number], 0.5 tabs Oral BID Start Date: 05/27/16 Status: Ordered oxybutynin 15 mg/24 hr oral tablet, extended release See Instructions, TAKE ONE TABLET BY MOUTH EVERY DAY, # 30 unknown unit, 4 Refill(s), eRx: [facility] #[id number], TAKE ONE TABLET BY MOUTH EVERY DAY Start Date: 04/25/16 Status: Ordered promethazine 25 mg, Oral, BID, as needed for nausea/vomiting, 0 Refill(s) Start Date: 05/06/16 Status: Ordered rOPINIRole 4 mg oral tablet See Instructions, TAKE ONE TABLET BY MOUTH EVERY NIGHT AT BEDTIME, # 90 tabs, 1 Refill(s), eRx: [facility] #[id number], TAKE ONE TABLET BY MOUTH EVERY NIGHT AT BEDTIME Start Date: 03/11/16 Status: Ordered traZODone 150 mg oral tablet See Instructions, TAKE THREE TABLETS BY MOUTH EVERY NIGHT AT BEDTIME, # 270 tabs , eRx: [facility] #[id number], TAKE THREE TABLETS BY MOUTH EVERY NIGHT AT BEDTIME Start Date: 05/21/16 Status: Ordered Vitamin D3 1,000 Intl_Units, Oral, Daily, 0 Refill(s) Start Date: 03/21/14 Status: Ordered Results Hematology Most recent to 1 oldest [Reference Range]: WBC [5.0-10.0 4.7 10*3/uL 10*3/uL] *LOW* (06/12/16 10:16 AM) RBC [3.70-5.20] 4.43 (06/12/16 10:16 AM) Hgb [12.0-16.0 13.5 gm/dL gm/dL] (06/12/16 10:16 AM) Hct [37.0-47.0 %] 39.8 % (06/12/16 10:16 AM) MCV [80.0-96.0 fL] 89.8 fL (06/12/16 10:16 AM) MCH [26.0-34.0 pg] 30.5 pg (06/12/16 10:16 AM) MCHC [32.0-36.0 33.9 gm/dL gm/dL] (06/12/16 10:16 AM) RDW [0.0-14.5 %] 12.4 % (06/12/16 10:16 AM) Platelet [150-400 119 10*3/uL 10*3/uL] *LOW* (06/12/16 10:16 AM) MPV [8.8-14.8 fL] 9.6 fL (06/12/16 10:16 AM) Neutrophils [50-70 64 % %] (06/12/16 10:16 AM) Lymphocytes [20-40 28 % %] (06/12/16 10:16 AM) Monocytes [4-8 %] 6 % (06/12/16 10:16 AM) Eosinophils [0-6 %] 1 % (06/12/16 10:16 AM) Basophils [0-2 %] 1 % (06/12/16 10:16 AM) Neutro Absolute 3.04 10*3 [2.50-7.00 10*3] (06/12/16 10:16 AM) Lymph Absolute 1.31 10*3 [1.00-4.00 10*3] (06/12/16 10:16 AM) Kidder Absolute 0.30 10*3 [0.20-0.80 10*3] (06/12/16 10:16 AM) Eos Absolute 0.04 10*3 [0.00-0.60 10*3] (06/12/16 10:16 AM) Baso Absolute 0.05 [0.00-0.30] (06/12/16 10:16 AM) Urinalysis Most recent to 1 oldest [Reference Range]: UA Color Yellow (06/12/16 11:30 AM) UA Appear Clear (06/12/16 11:30 AM) UA pH [5.0-8.0] 6.0 (06/12/16 11:30 AM) UA Leuk Est Trace [Negative] *ABN* (06/12/16 11:30 AM) UA Nitrite Negative [Negative] (06/12/16 11:30 AM) UA Protein Negative [Negative] (06/12/16 11:30 AM) UA Glucose Negative [Negative] (06/12/16 11:30 AM) UA Ketones Negative [Negative] (06/12/16 11:30 AM) UA Urobilinogen 1.0 mg/dL [<=1.0 mg/dL] (06/12/16 11:30 AM) UA Bili [Negative] Negative (06/12/16 11:30 AM) UA Blood [Negative] Pos 2+ *ABN* (06/12/16 11:30 AM) UA Spec Grav 1.010 [1.003-1.030] (06/12/16 11:30 AM) Type Cl Catch (06/12/16 11:30 AM) UA WBC [0-4] 0-2 (06/12/16 11:30 AM) UA RBC [0-2] 0-2 (06/12/16 11:30 AM) Epithelial Cells 10-20 (06/12/16 11:30 AM) UA Bacteria Rare (06/12/16 11:30 AM) UA Mucous Present (06/12/16 11:30 AM) Immunizations Vaccine Date Refusal Reason tetanus/diphth/pertuss [...] 1983 Gastric bypass 1980 Bilateral tubal ligation 1968 Hysterectomy and single salpingo-oophorectomy Low Back surgeries3 Neck surgery 1Tubular adenoma, diverticula, repeat in 5 years, family history of brother with colon cancer 2OU 38 low back surgeries Social History Social History Type Response Smoking Status Never smoker Assessment and Plan Extracted from: Title: Ambulatory Patient Education Author: Shon Decker MD Date: Family Medicine Back Exercises Back exercises help treat and prevent back injuries. The goal is to increase your strength in your belly (abdominal) and back muscles. These exercises can also help with flexibility. Start these exercises when told by your doctor. HOME CARE Back exercises include: Pelvic Tilt. Lie on your back with your knees bent. Tilt your pelvis until the lower part of your back is against the floor. Hold this position 5 to 10 sec. Repeat this exercise 5 to 10 times. Knee to Chest. Pull 1 knee up against your chest and hold for 20 to 30 seconds. Repeat this with the other knee. This may be done with the other leg straight or bent, whichever feels better. Then, pull both knees up against your chest. Sit-Ups or Curl-Ups. Bend your knees 90 degrees. Start with tilting your pelvis, and do a partial, slow sit-up. Only lift your upper half 30 to 45 degrees off the floor. Take at least 2 to 3 seonds for each sit-up. Do not do sit-ups with your knees out straight. If partial sit-ups are difficult, simply do the above but with only tightening your belly (abdominal) muscles and holding it as told. Hip-Lift. Lie on your back with your knees flexed 90 degrees. Push down with your feet and shoulders as you raise your hips 2 inches off the floor. Hold for 10 seconds, repeat 5 to 10 times. Back Arches. Lie on your stomach. Prop yourself up on bent elbows. Slowly press on your hands, causing an arch in your low back. Repeat 3 to 5 times. Shoulder-Lifts. Lie face down with arms beside your body. Keep hips and belly pressed to floor as you slowly lift your head and shoulders off the floor. Do not overdo your exercises. Be careful in the beginning. Exercises may cause you some mild back discomfort. If the pain lasts for more than 15 minutes, stop the exercises until you see your doctor. Improvement with exercise for back problems is slow. This information is not intended to replace advice given to you by your health care provider. Make sure you discuss any questions you have with your health care provider. Document Released: 10/25/2011 Document Revised: 12/14/2012 Document Reviewed: [employer] Patient Information 2016 [place]. No follow up information was provided. Extracted from: Title: multiple problems Author: Shon Decker MD Date: 06/12/16 Impression and Plan Diagnosis Excessive daytime sleepiness (ZZR72-OA G47.19, Working, Medical). Constipation due to opioid therapy (VUO26-BO K59.09, Working, Medical). Urge incontinence (BAN69-IE N39.41, Working, Medical). Chilling (BHT60-GC R68.83, Working, Medical). Chronic low back pain (ZQK55-UD M54.5, Working, Medical). RLS (restless legs syndrome) (BGP81-BN G25.81, Working, Medical). Tremor (KJO26-PC R25.1, Working, Medical). Hyponatremia (HPH02-VR E87.1, Working, Medical). Plan: 1) Reduce your Ropinirole to 1/2 tab daily. 2) Get lab today. 3) Continue your other meds. 4) See me next week as scheduled.. Orders Orders (Selected) Outpatient Orders InProcess (In Process) Urine Culture: Ordered Office Visit Level 4 Est 77915: Canceled BMP: Completed CBC w/ Differential: Routine Urinalysis: Urine Microscopic: Prescriptions Prescribed fentaNYL 100 mcg/hr transdermal film, extended release: 1 patches, Topical, q72hr, 10 patches, 0 Refill(s). Dx/Order Association Plan: Diagnosis: Chilling Comment: Ordered: Office Visit Level 4 Est 36676; 06/12/16 13:33:00 CDT, Excessive daytime sleepiness | Chilling | RLS (restless legs syndrome) | Tremor | Hyponatremia | Constipation due to opioid therapy | Urge incontinence | Chronic low back pain Other status: CBC w/ Differential; Blood, Stat Collect, 06/12/16 10:05:00 CDT, Once, Stop date 06/12/16 10:05:00 CDT, Lab Collect, Chilling | Urge incontinence (Completed) Diagnosis: Chronic low back pain Comment: Ordered: Office Visit Level 4 Est [id number]; 06/12/16 13:33:00 CDT, Excessive daytime sleepiness | Chilling | RLS (restless legs syndrome) | Tremor | Hyponatremia | Constipation due to opioid therapy | Urge incontinence | Chronic low back pain Diagnosis: Constipation due to opioid therapy Comment: Ordered: Office Visit Level 4 Est [id number]; 06/12/16 13:33:00 CDT, Excessive daytime sleepiness | Chilling | RLS (restless legs syndrome) | Tremor | Hyponatremia | Constipation due to opioid therapy | Urge incontinence | Chronic low back pain Diagnosis: Excessive daytime sleepiness Comment: Ordered: Office Visit Level 4 Est 16547; 06/12/16 13:33:00 CDT, Excessive daytime sleepiness | Chilling | RLS (restless legs syndrome) | Tremor | Hyponatremia | Constipation due to opioid therapy | Urge incontinence | Chronic low back pain Diagnosis: Hyponatremia Comment: Ordered: Office Visit Level 4 Est 19397; 06/12/16 13:33:00 CDT, Excessive daytime sleepiness | Chilling | RLS (restless legs syndrome) | Tremor | Hyponatremia | Constipation due to opioid therapy | Urge incontinence | Chronic low back pain Diagnosis: RLS (restless legs syndrome) Comment: Ordered: Office Visit Level 4 Est 71835; 06/12/16 13:33:00 CDT, Excessive daytime sleepiness | Chilling | RLS (restless legs syndrome) | Tremor | Hyponatremia | Constipation due to opioid therapy | Urge incontinence | Chronic low back pain Diagnosis: Tremor Comment: Ordered: Office Visit Level 4 Est [id number]; 06/12/16 13:33:00 CDT, Excessive daytime sleepiness | Chilling | RLS (restless legs syndrome) | Tremor | Hyponatremia | Constipation due to opioid therapy | Urge incontinence | Chronic low back pain Diagnosis: Urge incontinence Comment: Ordered: Office Visit Level 4 Est 80508; 06/12/16 13:33:00 CDT, Excessive daytime sleepiness | Chilling | RLS (restless legs syndrome) | Tremor | Hyponatremia | Constipation due to opioid therapy | Urge incontinence | Chronic low back pain Other status: Routine Urinalysis; Urine, Clean Catch, Stat collect , 06/12/16 12:15:00 CDT, Once, Stop date 06/12/16 12:15:00 CDT, Nurse Collect Non-Blood, Urge incontinence (Completed) CBC w/ Differential; Blood, Stat Collect, 10:05:00 CDT, Once, Stop date 06/12/16 10:05:00 CDT, Lab Collect, Chilling | Urge incontinence (Completed) Additional Orders: Comment: Ordered: fentaNYL 100 mcg/hr transdermal film, extended release,1 patches, Topical, q72hr, # 10 patches, 0 Refill(s) End of Orders ."
--- OUTSIDE RECORDS SUMMARY | 2016-12-26 00:36 | XMS REPORT | Referral Summary ---
Author Author [facility] Organization [facility] Address Unknown Phone Unavailable Care Team Providers Care Pipe Chipper Name Role Phone Lucian Decker Primary Care Physician [phone] Encounter VC Date(s): 02/23/15 - 02/23/15 [facility] [address], [place] [address] Discharge Diagnosis: Thoracic back pain Discharge Diagnosis: Cervical spinal stenosis Discharge Diagnosis: Cervical radiculopathy Discharge Diagnosis: Cervical post-laminectomy syndrome Discharge Disposition: 01-Home or Self Care Attending Physician: Derek Harrell MD Admitting Physician: Derek Harrell MD Referring Physician: Shon Decker MD Vital Signs Most recent to 1 oldest [Reference Range]: Apical Heart Rate 86 bpm [60-100 bpm] (02/23/15 11:18 AM) Respiratory Rate 14 br/min [14-20 br/min] (02/23/15 11:18 AM) Blood Pressure 134/82 mmHg [90-140/60-90 mmHg] (02/23/15 11:18 AM) SpO2 96 % (02/23/15 11:18 AM) Problem List Condition Effective Dates Status [...] ed) Adult Active hypothyroidism(Confi rmed) Rt Inguinal 7/8/13 Resolved lymphadenopathy(Conf irmed) Irregular Resolved heartbeat(Confirmed) Lumbar [...] DAY, # 90 tabs, 2 Refill(s), eRx: [facility] #[id number], TAKE ONE TABLET BY MOUTH EVERY DAY Start Date: 06/15/15 Status: Ordered atorvastatin 10 mg oral tablet See Instructions, TAKE ONE TABLET BY MOUTH AT BEDTIME, # 30 tabs, 9 Refill(s), eRx: [facility] #[id number], TAKE ONE TABLET BY MOUTH AT BEDTIME [...] # 180 tabs, 2 Refill(s) , eRx: [facility] #[id number], TAKE ONE TABLET BY MOUTH TWICE A DAY Start Date: 07/27/15 Status: Ordered ibuprofen 200 mg oral tablet 2 tabs, Oral, BID, as needed for arthritis, # 120 tabs, 0 Refill(s) Start Date: 03/28/14 Status: Ordered levothyroxine 50 mcg (0.05 mg) oral tablet 50 mcg 1 tabs, Oral, Daily, # 90 tabs, 2 Refill(s), Pharmacy: [facility] # [id number], 1 tabs Oral Daily Start Date: 05/24/15 Status: Ordered LORazepam 0.5 mg oral tablet 0.5 mg 1 tabs, Oral, BID, must last 30 days Hetal Corado, # 60 tabs, 0 Refill(s) Start Date: 09/04/15 Status: Ordered omeprazole 40 mg oral delayed release capsule See Instructions, TAKE ONE CAPSULE BY MOUTH EVERY DAY BEFORE A MEAL, # 90 caps, 2 Refill(s), eRx: [facility] #[id number], TAKE ONE CAPSULE BY MOUTH EVERY DAY BEFORE A MEAL Start Date: 03/30/15 Status: Ordered ondansetron 4 mg oral tablet 4 mg 1 tabs, Oral, BID, as needed for nausea/vomiting, X 90 days, # 180 tabs, 3 Refill(s), Pharmacy: [facility] #[id number], 1 tabs Oral BID,x90 days,PRN:as needed for nausea/vomiting Start Date: 05/09/15 Stop Date: 05/03/16 Status: Ordered oxybutynin 15 mg/24 hr oral tablet, extended release See Instructions, TAKE ONE TABLET BY MOUTH EVERY DAY, # 30 unknown unit, 6 Refill(s), eRx: [facility] #[id number], TAKE ONE TABLET BY MOUTH EVERY DAY Start Date: 08/11/14 Status: Ordered oxybutynin 15 mg/24 hr oral tablet, extended release See Instructions, TAKE ONE TABLET BY MOUTH EVERY DAY, # 30 unknown unit, 5 Refill(s), eRx: [facility] #[id number], TAKE ONE TABLET BY MOUTH EVERY DAY Start Date: 03/13/15 Status: Ordered rOPINIRole 4 mg oral tablet See Instructions, TAKE ONE TABLET BY MOUTH EVERY NIGHT AT BEDTIME, # 90 tabs, 2 Refill(s), eRx: [facility] #[id number], TAKE ONE TABLET BY MOUTH EVERY NIGHT AT BEDTIME Start Date: 12/14/14 Status: Ordered Senna S 1 tabs, Oral, Bedtime (once a day), 0 Refill(s) Start Date: 03/28/14 Status: Ordered traZODone 150 mg oral tablet See Instructions, TAKE THREE TABLETS BY MOUTH EVERY NIGHT AT BEDTIME, # 270 tabs , eRx: [facility] #[id number], TAKE THREE TABLETS BY MOUTH EVERY NIGHT AT BEDTIME Start Date: 08/23/15 Status: Ordered Trileptal 300 mg oral tablet See Instructions, TAKE ONE TABLET BY MOUTH TWICE A DAY, # 120 tabs, eRx: [facility] #[id number], TAKE ONE TABLET BY MOUTH TWICE A [...] Body Site Injection(s), of diagnostic or therapeutic 02/23/15 substance(s) (including anesthetic, antispasmodic, opioid, steroid, other solution), not including neurolytic substances, including needle or catheter placement, includes contrast for localization when performed, T1-2 Translaminar 02/23/15 T1-2 Translaminar 10/20/14 Caudal [...]
--- OUTSIDE RECORDS SUMMARY | 2016-12-26 00:36 | XMS REPORT | Continuity of Care Document ---
Author Author [facility] Organization [facility] Address Unknown Phone Unavailable Support Name Relationship Address Phone CALOS BENNETT FACS, MD Caregiver [address] [place] [address] [place] [phone] EMERSON POLLARD MD Caregiver [address] [place] [address] [place] [phone] CECI ALDO Next Of Kin [address] [place] [address] Insurance Providers Payer Name Policy Number Subscriber Name Relationship Medicare [id number] Jennifer Ornelas 17 Self [facility] [id number] Jennifer Ornelas 17 Self Advance Directives Directive Response Recorded Date/Time Advanced Directives Type None 05/06/14 3:30pm Ordered Resuscitation Status Full Code 05/06/14 3:43pm Problems No known problems or medical conditions. Medications Medication Dose Route Sig Days/Qty Instructions Order Date Discontinued Date Status Acetaminophen Q4H PRN 04/20/13 Active Trazodone Hcl 450 Mg PO BEDTIME 04/20/13 Active Zolpidem Tartrate 10 Mg PO BEDTIME 04/20/13 Active Lorazepam 0.5 Mg PO THREE TIMES A DAY 04/20/13 Active Amlodipine Besylate DAILY [...] 05/06/14 Active Ropinirole HCl 05/09/14 Active Fentanyl 05/09/14 Active Sertraline HCl 05/09/14 Active Social History Social History Problem Response Recorded Date/Time Smoking Status Never smoker 05/09/2014 9:09am Chewing Tobacco Status No 06/23/2013 10:27am Hx Substance Use No 05/09/2014 9:09am Hx Alcohol Use No 05/09/2014 9:09am Has the pt used tobacco in the last 12 months No 05/09/2014 9:09am Query Response Start Date Stop Date Smoking Status Never smoker Hospital Discharge Instructions No hospital discharge instructions. Plan of Care No plan of care. Functional Status No functional status results. Allergies, Adverse Reactions, Alerts Allergen Type Severity Reaction Status Last Updated meperidine HCl Allergy Unknown DISORIENTED, ALMOST Active 05/11/13 Morphine Allergy Unknown NIGHT TERRORS Active 05/11/13 Adhesive Adverse Reaction Mild RASH Active 05/09/14 Immunizations Name Given Type Hx Influenza Vaccination Y FALL 2012 Historical Hx Pneumococcal Vaccination Y 2010 Historical Hx Influenza Vaccination Y FALL 2012 Historical Vital Signs Acute Vital Signs Vital Response Date/Time Temperature (Fahrenheit) 97.6 deg F (96.8 - 99.1) Temperature (Calculated Celsius) 36.88314 degrees C (36.0 - 37.3) Temperature Source Temporal Pulse Rate (adult) 60 bpm (60 - 100) Respiratory Rate 16 breaths/min (10 - 20) O2 Sat by Pulse Oximetry 90 % (90 - 100) Blood Pressure 146/67 mm Hg Blood Pressure Source Automatic Cuff Height 5 ft 4 in Weight 190 lb Body Mass Index 32.0 kg/m^2 Results Test Source Date Result Interp. Ref. Range Comments Alanine Aminotransferase (ALT/SGPT) May 11, 2013 4:30pm 24 U/L N 9- 52 Albumin May 11, 2013 4:30pm 4.1 G/DL N 3.5-5.0 Albumin/Globulin Ratio May 11, 2013 4:30pm 1.2 RATIO N 1.1-2.2 Alkaline Phosphatase May 11, 2013 4:30pm 66 U/L N 38-126 Amylase Level May 11, 2013 4:30pm 127 U/L H 30-110 Anion Gap June 23, 2013 10:42am 10 MEQ/L N 5-15 Aspartate Amino Transf (AST/SGOT) May 11, 2013 4:30pm 29 U/L N 14-36 BUN/Creatinine Ratio June 23, 2013 10:42am 20 RATIO N 6-26 Basophils # (Auto) June 23, 2013 10:42am 0.0 T/MM3 N 0-0.2 COMMENT SCU WILL CALL Basophils (%) (Auto) June 23, 2013 10:42am 0.7 % N 0-2 COMMENT SCU WILL CALL Blood Urea Nitrogen August 12, 2013 9:05am 15.0 MG/DL N 7-17 Calcium Level June 23, 2013 10:42am 9.7 MG/DL N 8.4-10.2 Calculated Osmolality June 23, 2013 10:42am 272 MOSM/KG N 261-280 Carbon Dioxide Level June 23, 2013 10:42am 28 MEQ/L N 22-30 Chloride Level June 23, 2013 10:42am 103 MEQ/L N 98-107 Creatinine August 12, 2013 9:05am 0.6 MG/DL L 0.7-1.2 Eosinophils # (Auto) June 23, 2013 10:42am 0.1 T/MM3 N 0-0.5 COMMENT SCU WILL CALL Eosinophils (%) (Auto) June 23, 2013 10:42am 1.8 % N 0-4 COMMENT SCU WILL CALL Globulin May 11, 2013 4:30pm 3.5 G/DL N 2.4-3.6 Glucose Level June 23, 2013 10:42am 98 MG/DL N 65-110 Hematocrit June 23, 2013 10:42am 37.3 % N 36-46 COMMENT SCU WILL CALL Hemoglobin June 23, 2013 10:42am 12.5 GM/DL N 12-16 COMMENT SCU WILL CALL Lipase May 11, 2013 4:30pm 74 U/L N 23-300 Lymphocytes # (Auto) June 23, 2013 10:42am 1.2 T/MM3 N 1-4.8 COMMENT SCU WILL CALL Lymphocytes (%) (Auto) June 23, 2013 10:42am 20.5 % L 23-45 COMMENT SCU WILL CALL Mean Corpuscular Hemoglobin June 23, 2013 10:42am 29.1 UUG N 26-34 COMMENT SCU WILL CALL Mean Corpuscular Hemoglobin Concent June 23, 2013 10:42am 33.5 GM/DL N 31-37 COMMENT SCU WILL CALL Mean Corpuscular Volume June 23, 2013 10:42am 86.9 UM3 N 80-100 COMMENT SCU WILL CALL Mean Platelet Volume June 23, 2013 10:42am 9.2 UM3 L 9.4-12.4 COMMENT SCU WILL CALL Monocytes # (Auto) June 23, 2013 10:42am 0.3 T/MM3 N 0-0.8 COMMENT SCU WILL CALL Monocytes (%) (Auto) June 23, 2013 10:42am 5.5 % N 0-9.0 COMMENT SCU WILL CALL Neutrophils # (Auto) June 23, 2013 10:42am 4.1 T/MM3 N 1.8-7.7 COMMENT SCU WILL CALL Neutrophils (%) (Auto) June 23, 2013 10:42am 71.3 % H 33-66 COMMENT SCU WILL CALL Platelet Count June 23, 2013 10:42am 197 T/MM3 N 130-400 COMMENT SCU WILL CALL Potassium Level June 23, 2013 10:42am 4.6 MEQ/L N 3.6-5 RDW Standard Deviation June 23, 2013 10:42am 39.0 FL N 36.9-50.2 COMMENT SCU WILL CALL Red Blood Count June 23, 2013 10:42am 4.29 M/MM3 N 4.00-5.20 COMMENT SCU WILL CALL Sodium Level June 23, 2013 10:42am 141 MEQ/L N 134-144 Total Bilirubin May 11, 2013 4:30pm 0.50 MG/DL N 0.20-1.30 Total Protein May 11, 2013 4:30pm 7.6 G/DL N 6.3-8.2 Troponin I May 11, [...] Has specimen been collected/obtained? Y Urine Specific [place] May 11, 2013 6:09pm 1.005 L - [...] been collected/ obtained? Y White Blood Count June 23, 2013 10:42am 5.7 T/MM3 N 4.5-11.0 COMMENT SCU WILL CALL Lab Scanned Report August 12, 2013 10:06am LAB TEST FORM REQUEST [id number] - Glomerular Filtration Rate Calc August 12, 2013 9:05am 99 - Immature Granulocyte # (Auto) June 23, 2013 10:42am 0.01 T/MM3 N 0.00-0.03 COMMENT SCU WILL CALL Immature Granulocyte % (Auto) June 23, 2013 10:42am 0.2 % N 0.0- 0.5 COMMENT SCU WILL CALL Procedures Procedure Status Date Provider(s) Colonoscopy with polypectomy and biopsy completed 05/09/14 CALOS BENNETT MD, FACS, CWS
--- OUTSIDE RECORDS SUMMARY | 2016-12-26 00:36 | XMS REPORT | Referral Summary ---
Author Author [facility], Family Medicine Organization [facility] Address Unknown Phone Unavailable Care Team Providers Care Leak Detector Name Role Phone Lucian Decker Primary Care Physician [phone] Encounter [facility] Date(s): 05/29/16 - 05/29/16 [facility], [address] [place] [address]- Discharge Disposition: 01-Home or Self Care Attending Physician: Shon Decker MD Admitting Physician: Shon Decker MD Vital Signs Most recent to 1 oldest [Reference Range]: Temperature Tympanic 36.5 degC [36.6-38.1 degC] *LOW* (05/29/16 9:38 AM) Peripheral Pulse 76 bpm Rate [60-100 bpm] (05/29/16 9:38 AM) Blood Pressure 144/78 mmHg [90-140/60-90 mmHg] *HI* (05/29/16 9:38 AM) Problem List Condition Effective Dates Status [...] Refill(s), Pharmacy: [facility] # [id number], 1 caps Oral BID Start Date: 05/29/16 [...] Refill(s), Pharmacy: [facility] # [id number], 1 tabs Oral Daily Start Date: 05/27/16 [...] 180 tabs, eRx: [facility] #[id number], TAKE ONE TABLET BY MOUTH TWICE A DAY Start Date: 04/30/16 Status: Ordered levothyroxine 50 mcg (0.05 mg) oral tablet See Instructions, TAKE ONE TABLET BY MOUTH DAILY, # 90 tabs, eRx: [facility] #[id number], TAKE ONE TABLET BY MOUTH DAILY Start [...] 90 caps, eRx: [facility] #[id number], TAKE ONE CAPSULE BY MOUTH EVERY DAY BEFORE A MEAL Start Date: 03/25/16 Status: Ordered ondansetron 4 mg oral tablet 4 mg 1 tabs, Oral, BID, as needed for nausea/vomiting, # 60 tabs, 0 Refill(s), Pharmacy: [facility] #[id number], 1 tabs Oral BID,PRN:as needed for nausea/ vomiting Start Date: 05/27/16 Status: Ordered OXcarbazepine 300 mg oral tablet 150 mg 0.5 tabs, Oral, BID, # 30 tabs, 0 Refill(s), Pharmacy: [facility] # [id number], 0.5 tabs Oral BID Start Date: 05/27/16 Status: Ordered oxybutynin 15 mg/24 hr oral tablet, extended release See Instructions, TAKE ONE TABLET BY MOUTH EVERY DAY, # 30 unknown unit, 4 Refill(s), eRx: [facility] #[id number], TAKE ONE TABLET BY MOUTH EVERY DAY Start Date: 04/25/16 Status: Ordered promethazine 25 mg, Oral, BID, as needed for nausea/vomiting, 0 Refill(s) Start Date: 05/06/16 Status: Ordered rOPINIRole 4 mg oral tablet See Instructions, TAKE ONE TABLET BY MOUTH EVERY NIGHT AT BEDTIME, # 90 tabs, 1 Refill(s), eRx: [facility] #[id number], TAKE ONE TABLET BY MOUTH EVERY NIGHT AT BEDTIME Start Date: 03/11/16 Status: Ordered traZODone 150 mg oral tablet See Instructions, TAKE THREE TABLETS BY MOUTH EVERY NIGHT AT BEDTIME, # 270 tabs , eRx: [facility] #[id number], TAKE THREE TABLETS BY MOUTH EVERY NIGHT AT BEDTIME Start Date: 05/21/16 Status: Ordered Vitamin D3 1,000 Intl_Units, Oral, Daily, 0 Refill(s) Start Date: 03/21/14 Status: Ordered Results Chemistry Most recent to 1 oldest [Reference Range]: Sodium Lvl [135-144 127 mEq/L mEq/L] *LOW* (05/29/16 10:13 AM) Potassium Lvl 4.5 mEq/L [3.5-5.2 mEq/L] (05/29/16 10:13 AM) Chloride [99-111 94 mEq/L mEq/L] *LOW* (05/29/16 10:13 AM) CO2 [22-31 mEq/L] 25 mEq/L (05/29/16 10:13 AM) AGAP [3-20] 8 (05/29/16 10:13 AM) BUN [10-20 mg/dL] 9 mg/dL *LOW* (05/29/16 10:13 AM) Glucose Lvl [70-99 102 mg/dL mg/dL] *HI* (05/29/16 10:13 AM) Creatinine Lvl 0.68 mg/dL [0.57-1.11 mg/dL] (05/29/16 10:13 AM) eGFR [>60 mL/min] >60 mL/min 1 (05/29/16 10:13 AM) Calcium Lvl 9.3 mg/dL [8.9-10.5 mg/dL] (05/29/16 10:13 AM) Albumin Lvl [3.4-4.8 4.3 gm/dL gm/dL] (05/29/16 10:13 AM) Total Protein 6.6 gm/dL 2 [6.0-7.6 gm/dL] (05/29/16 10:13 AM) Globulin [1.8-4.0 2.3 gm/dL gm/dL] (05/29/16 10:13 AM) ALT [0-55 U/L] 9 U/L (05/29/16 10:13 AM) AST [5-34 U/L] 17 U/L (05/29/16 10:13 AM) Alk Phos [40-150 62 U/L U/L] (05/29/16 10:13 AM) Bili Total [0.2-1.2 0.8 mg/dL mg/dL] (05/29/16 10:13 AM) 1Result Comment: Multiply eGFR results by 1.21 for race. 2Result Comment: Please note new reference range for adult Protein. Immunizations Vaccine Date Refusal Reason tetanus/diphth/pertuss (Tdap) [...] Patient Education Author: Shon Decker MD Date: 05/29 Cardiovascular Hyponatremia Hyponatremia is when the amount [...] Released: 09/12/2003 Document Revised: 10/13/2015 Document Reviewed: [employer]Care Patient Information 2016 [employer] [facility]. No follow up information was provided. Extracted from: Title: Hyponatremia, tremors, HTN, Author: Shno Decker MD Date: and other problems Impression and Plan Diagnosis Anxiety (QSO62-LM F41.1, Working, Medical). Depression (PGI76-BS F32.1, Working, Medical). Hypertension (DOE58-FT I10, Working, Medical). Restless legs syndrome (RLS) (BIU47-JS G25.81, Working, Medical). Pure hypercholesterolemia (PUN47-LI E78.0, Working, Medical). Adult hypothyroidism (PAN31-ZX E03.9, Working, Medical). Hyponatremia (RVO88-UT E87.1, Working, Medical). Tremor (HJL70-WW G25.2, Working, Medical). Constipation due to opioid therapy (ZEX14-PW K59.09, Working, Medical). Plan: 1) Movantik initially prescribed. Insurance refused to pay unless Amitiza tried first. 2) Amitiza prescribed for your constipation. 3) Lab ordered today. 4) Continue your other meds the same. 5) May use Miralax daily as needed for constipation.. Orders Orders (Selected) Outpatient Orders Ordered CMP: Office Visit Level 4 Est 01349: eGFR: Canceled BMP: Prescriptions Prescribed Amitiza 24 mcg oral capsule: 24 mcg=1 caps, Oral, BID, 60 caps, 11 Refill(s) Discontinued Movantik 25 mg oral tablet: 25 mg=1 tabs, Oral, qAM, on an empty stomach 1 hour before or 2 hours after eating, 30 tabs, 11 Refill(s). Dx/Order Association Plan: Diagnosis: Adult hypothyroidism Comment: Ordered: Office Visit Level 4 Est 43703; 05/29/16 10:07:00 CDT, Tremor | Constipation due to opioid therapy | Hyponatremia | Hypertension | Depression | Restless legs syndrome (RLS) | Pure hypercholesterolemia | Anxiety | Adult hypothyroidism Diagnosis: Anxiety Comment: Ordered: Office Visit Level 4 Est 72729; 05/29/16 10:07:00 CDT, Tremor | Constipation due to opioid therapy | Hyponatremia | Hypertension | Depression | Restless legs syndrome (RLS) | Pure hypercholesterolemia | Anxiety | Adult hypothyroidism Diagnosis: Constipation due to opioid therapy Comment: Ordered: Office Visit Level 4 Est 58455; 05/29/16 10:07:00 CDT, Tremor | Constipation due to opioid therapy | Hyponatremia | Hypertension | Depression | Restless legs syndrome (RLS) | Pure hypercholesterolemia | Anxiety | Adult hypothyroidism Diagnosis: Depression Comment: Ordered: Office Visit Level 4 Est 16819; 05/29/16 10:07:00 CDT, Tremor | Constipation due to opioid therapy | Hyponatremia | Hypertension | Depression | Restless legs syndrome (RLS) | Pure hypercholesterolemia | Anxiety | Adult hypothyroidism Diagnosis: Hypertension Comment: Ordered: CMP; Blood, Routine Collect, 05/29/16 10:06:00 CDT, Once , Stop date 05/29/16 10:06:00 CDT, Lab Collect, Hyponatremia | Hypertension Office Visit Level 4 Est 27828; 05/29/16 10:07:00 CDT, Tremor | Constipation due to opioid therapy | Hyponatremia | Hypertension | Depression | Restless legs syndrome (RLS) | Pure hypercholesterolemia | Anxiety | Adult hypothyroidism Diagnosis: Hyponatremia Comment: Ordered: CMP; Blood, Routine Collect, 05/29/16 10:06:00 CDT, Once , Stop date 05/29/16 10:06:00 CDT, Lab Collect, Hyponatremia | Hypertension Office Visit Level 4 Est 94726; 05/29/16 10:07:00 CDT, Tremor | Constipation due to opioid therapy | Hyponatremia | Hypertension | Depression | Restless legs syndrome (RLS) | Pure hypercholesterolemia | Anxiety | Adult hypothyroidism Diagnosis: Pure hypercholesterolemia Comment: Ordered: Office Visit Level 4 Est 69875; 05/29/16 10:07:00 CDT, Tremor | Constipation due to opioid therapy | Hyponatremia | Hypertension | Depression | Restless legs syndrome (RLS) | Pure hypercholesterolemia | Anxiety | Adult hypothyroidism Diagnosis: Restless legs syndrome (RLS) Comment: Ordered: Office Visit Level 4 Est 81005; 05/29/16 10:07:00 CDT, Tremor | Constipation due to opioid therapy | Hyponatremia | Hypertension | Depression | Restless legs syndrome (RLS) | Pure hypercholesterolemia | Anxiety | Adult hypothyroidism Diagnosis: Tremor Comment: Ordered: Office Visit Level 4 Est 15118; 05/29/16 10:07:00 CDT, Tremor | Constipation due to opioid therapy | Hyponatremia | Hypertension | Depression | Restless legs syndrome (RLS) | Pure hypercholesterolemia | Anxiety | Adult hypothyroidism Additional Orders: Comment: Ordered: Amitiza 24 mcg oral capsule,24 mcg 1 caps, Oral, BID, # 60 caps, 11 Refill(s), Pharmacy: [facility] #[id number], 1 caps Oral BID Discontinued: Movantik 25 mg oral tablet,25 mg 1 tabs, Oral, qAM, on an empty stomach 1 hour before or 2 hours after eating, # 30 tabs, 11 Refill( s), Pharmacy: [facility] #[id number], 1 tabs Oral qAM,Instr:on an empty stomach 1 hour before or 2 hours after eating End of Orders ."
--- OUTSIDE RECORDS SUMMARY | 2016-12-26 00:36 | XMS REPORT | Referral Summary ---
Author Author [facility], [facility] Medicine Organization [facility] Address Unknown Phone Unavailable Care Team Providers Care Fine Arts Teacher Name Role Phone Lucian Decker Primary Care Physician [phone] Encounter [facility] [id number] Date(s): 02/03/15 - 02/03/15 [facility], [address] [place] [address]- Discharge Diagnosis: Benign hypertension Discharge Diagnosis: Anxiety [...] DAY, # 90 tabs, 2 Refill(s), eRx: [facility] #[id number], TAKE ONE TABLET BY MOUTH EVERY DAY Start Date: 06/15/15 Status: Ordered atorvastatin 10 mg oral tablet See Instructions, TAKE ONE TABLET BY MOUTH AT BEDTIME, # 30 tabs, 9 Refill(s), eRx: [facility] #[id number], TAKE ONE TABLET BY MOUTH AT BEDTIME [...] # 180 tabs, 2 Refill(s) , eRx: [facility] #[id number], TAKE ONE TABLET BY MOUTH TWICE A DAY Start Date: 07/27/15 Status: Ordered ibuprofen 200 mg oral tablet 2 tabs, Oral, BID, as needed for arthritis, # 120 tabs, 0 Refill(s) Start Date: 03/28/14 Status: Ordered levothyroxine 50 mcg (0.05 mg) oral tablet 50 mcg 1 tabs, Oral, Daily, # 90 tabs, 2 Refill(s), Pharmacy: [facility] # [id number], 1 tabs Oral Daily Start Date: 05/24/15 Status: Ordered LORazepam 0.5 mg oral tablet 0.5 mg 1 tabs, Oral, BID, must last 30 days Hetal Corado, # 60 tabs, 0 Refill(s) Start Date: 08/07/15 Status: Ordered omeprazole 40 mg oral delayed release capsule See Instructions, TAKE ONE CAPSULE BY MOUTH EVERY DAY BEFORE A MEAL, # 90 caps, 2 Refill(s), eRx: [facility] #[id number], TAKE ONE CAPSULE BY MOUTH EVERY DAY BEFORE A MEAL Start Date: 03/30/15 Status: Ordered ondansetron 4 mg oral tablet 4 mg 1 tabs, Oral, BID, as needed for nausea/vomiting, X 90 days, # 180 tabs, 3 Refill(s), Pharmacy: [facility] #[id number], 1 tabs Oral BID,x90 days,PRN:as needed for nausea/vomiting Start Date: 05/09/15 Stop Date: 05/03/16 Status: Ordered oxybutynin 15 mg/24 hr oral tablet, extended release See Instructions, TAKE ONE TABLET BY MOUTH EVERY DAY, # 30 unknown unit, 6 Refill(s), eRx: [facility] #[id number], TAKE ONE TABLET BY MOUTH EVERY DAY Start Date: 08/11/14 Status: Ordered oxybutynin 15 mg/24 hr oral tablet, extended release See Instructions, TAKE ONE TABLET BY MOUTH EVERY DAY, # 30 unknown unit, 5 Refill(s), eRx: [facility] #[id number], TAKE ONE TABLET BY MOUTH EVERY DAY Start Date: 03/13/15 Status: Ordered rOPINIRole 4 mg oral tablet See Instructions, TAKE ONE TABLET BY MOUTH EVERY NIGHT AT BEDTIME, # 90 tabs, 2 Refill(s), eRx: [facility] #[id number], TAKE ONE TABLET BY MOUTH EVERY NIGHT AT BEDTIME Start Date: 12/14/14 Status: Ordered Senna S 1 tabs, Oral, Bedtime (once a day), 0 Refill(s) Start Date: 03/28/14 Status: Ordered traZODone 150 mg oral tablet See Instructions, TAKE THREE TABLETS BY MOUTH EVERY NIGHT AT BEDTIME, # 270 tabs , eRx: [facility] #[id number], TAKE THREE TABLETS BY MOUTH EVERY NIGHT AT BEDTIME Start Date: 05/24/15 Status: Ordered traZODone 150 mg oral tablet See Instructions, TAKE THREE TABLETS BY MOUTH EVERY NIGHT AT BEDTIME, # 270 tabs , eRx: [facility] #[id number], TAKE THREE TABLETS BY MOUTH EVERY NIGHT AT BEDTIME Start Date: 02/22/15 Status: Ordered Trileptal 300 mg oral tablet See Instructions, TAKE ONE TABLET BY MOUTH TWICE A DAY, # 120 tabs, eRx: [facility] #[id number], TAKE ONE TABLET BY MOUTH TWICE A [...] at regular, fixed times. Your caregiver or audit manager will give you a meal plan to [...] Released: 03/18/2002 Document Revised: 12/14/2012 Document Reviewed: [facility] Patient Information [address] [employer] [facility]. No follow up information was provided. [...] Orders Ordered Office Visit Level 4 Est 33918: Future (On Hold) BMP: Hgb A1c: LDL Direct: . Dx/Order Association Plan: Diagnosis: Anxiety Comment: Ordered: Office Visit Level 4 Est 39975; 02/03/15 10:25:00 CDT, Benign hypertension | Cervical radiculopathy | Cervical spinal stenosis | Depression | Pure hypercholesterolemia Diagnosis: Benign hypertension Comment: Ordered: Office Visit Level 4 Est 69325; 02/03/15 10:25:00 CDT, Benign hypertension | Cervical radiculopathy | Cervical spinal stenosis | Depression | Pure hypercholesterolemia Diagnosis: Cervical radiculopathy Comment: Ordered: Office Visit Level 4 Est 77450; 02/03/15 10:25:00 CDT, Benign hypertension | Cervical radiculopathy | Cervical spinal stenosis | Depression | Pure hypercholesterolemia Diagnosis: Cervical spinal stenosis Comment: Ordered: Office Visit Level 4 Est 09602; 02/03/15 10:25:00 CDT, Benign hypertension | Cervical radiculopathy | Cervical spinal stenosis | Depression | Pure hypercholesterolemia Diagnosis: Depression Comment: Ordered: Office Visit Level 4 Est 76939; 02/03/15 10:25:00 CDT, Benign hypertension | Cervical radiculopathy | Cervical spinal stenosis | Depression | Pure hypercholesterolemia Diagnosis: Hyperglycemia Comment: Ordered: Office Visit Level 4 Est 36449; 02/03/15 10:25:00 CDT, Benign hypertension | Cervical radiculopathy | Cervical spinal stenosis | Depression | Pure hypercholesterolemia Diagnosis: Pure hypercholesterolemia Comment: Ordered: Office Visit Level 4 Est 81821; 02/03/15 10:25:00 CDT, Benign hypertension | Cervical radiculopathy | Cervical spinal stenosis | Depression | Pure hypercholesterolemia Diagnosis: Restless legs syndrome (RLS) Comment: Ordered: Office Visit Level 4 Est 20191; 02/03/15 10:25:00 CDT, Benign hypertension | Cervical radiculopathy | Cervical spinal stenosis | Depression | Pure hypercholesterolemia Diagnosis: Spinal stenosis, lumbar region, without neurogenic claudication Comment: Ordered: Office Visit Level 4 Est 68861; 02/03/15 10:25:00 CDT, Benign hypertension | Cervical [...]
--- OUTSIDE RECORDS SUMMARY | 2016-12-26 00:36 | XMS REPORT | Referral Summary ---
Author Author [facility], [facility] Medicine Organization [facility] Address Unknown Phone Unavailable Care Team Providers Care Tufter Hand Name Role Phone Lucian Decker Primary Care Physician [phone] Encounter [facility] Date(s): 06/04/16 - 06/04/16 [facility], [address] [place] [address]- Discharge Disposition: 01-Home or Self Care Attending Physician: Shon Decker MD Admitting Physician: Shon Decker MD Vital Signs Most recent to 1 oldest [Reference Range]: Temperature Tympanic 26.2 degC [36.6-38.1 degC] *LOW* (06/04/16 7:23 AM) Peripheral Pulse 87 bpm Rate [60-100 bpm] (06/04/16 7:23 AM) Blood Pressure 122/80 mmHg [90-140/60-90 mmHg] (06/04/16 7:23 AM) SpO2 97 % (06/04/16 7:23 AM) Problem List Condition Effective Dates Status [...] BID, # 60 caps, 11 Refill(s), Pharmacy: [facility] # [id number], 1 caps Oral BID Start Date: 05/29/16 [...] Daily, # 30 tabs, 3 Refill(s), Pharmacy: [facility] # [id number], 1 tabs Oral Daily Start Date: 05/27/16 [...] TWICE A DAY, # 180 tabs, eRx: [facility] #[id number], TAKE ONE TABLET BY MOUTH TWICE A DAY Start Date: 04/30/16 Status: Ordered levothyroxine 50 mcg (0.05 mg) oral tablet See Instructions, TAKE ONE TABLET BY MOUTH DAILY, # 90 tabs, eRx: [facility] #[id number], TAKE ONE TABLET BY MOUTH DAILY Start [...] BEFORE A MEAL, # 90 caps, eRx: [facility] #[id number], TAKE ONE CAPSULE BY MOUTH EVERY DAY BEFORE A MEAL Start Date: 03/25/16 Status: Ordered ondansetron 4 mg oral tablet 4 mg 1 tabs, Oral, BID, as needed for nausea/vomiting, # 60 tabs, 0 Refill(s), Pharmacy: [facility] #[id number], 1 tabs Oral BID,PRN:as needed for nausea/ vomiting Start Date: 05/27/16 Status: Ordered OXcarbazepine 300 mg oral tablet 150 mg 0.5 tabs, Oral, Daily, # 30 tabs, 0 Refill(s), Pharmacy: [facility] #[id number], 0.5 tabs Oral BID Start Date: 05/27/16 Status: Ordered oxybutynin 15 mg/24 hr oral tablet, extended release See Instructions, TAKE ONE TABLET BY MOUTH EVERY DAY, # 30 unknown unit, 4 Refill(s), eRx: [facility] #[id number], TAKE ONE TABLET BY MOUTH EVERY DAY Start Date: 04/25/16 Status: Ordered promethazine 25 mg, Oral, BID, as needed for nausea/vomiting, 0 Refill(s) Start Date: 05/06/16 Status: Ordered rOPINIRole 4 mg oral tablet See Instructions, TAKE ONE TABLET BY MOUTH EVERY NIGHT AT BEDTIME, # 90 tabs, 1 Refill(s), eRx: [facility] #[id number], TAKE ONE TABLET BY MOUTH EVERY NIGHT AT BEDTIME Start Date: 03/11/16 Status: Ordered traZODone 150 mg oral tablet See Instructions, TAKE THREE TABLETS BY MOUTH EVERY NIGHT AT BEDTIME, # 270 tabs , eRx: [facility] #[id number], TAKE THREE TABLETS BY MOUTH EVERY NIGHT [...] Procedures Procedure Date Related Diagnosis Body Site Excision, benign lesion including margins, 06/04/16 except skin tag (unless listed elsewhere), trunk, arms or legs; excised diameter 0.5 cm or less T1-2 Translaminar 02/23/15 T1-2 Translaminar 10/20/14 Caudal [...] Patient Education Author: Shon Decker MD Date: 06/04 Dermatology Moles Moles are usually harmless growths on the skin. They are accumulations of color (pigment) cells in the skin that: Can be various colors, from light brown to black. Can appear anywhere on the body. May remain flat or become raised. May contain hairs. May remain smooth or develop wrinkling. Most moles are not cancerous (benign). However, some moles may develop changes and become cancerous. It is important to check your moles every month. If you check your moles regularly, you will be able to notice any changes that may occur. CAUSES Moles occur when skin cells grow together in clusters instead of spreading out in the skin as they normally do. The reason for this clustering is unknown. DIAGNOSIS Your caregiver will perform a skin examination to diagnose your mole. TREATMENT Moles usually do not require treatment. If a mole becomes worrisome, your caregiver may choose to take a sample of the mole or remove it entirely, and then send it to a lab for examination. HOME CARE INSTRUCTIONS Check your mole(s) monthly for changes that may indicate skin cancer. These changes can include: A change in size. A change in color. Note that moles tend to darken during or when taking control pills (oral contraception). A change in shape. A change in the border of the mole. Wear sunscreen (with an SPF of at least 30) when you spend long periods of time outside. Reapply the sunscreen every 23 hours. Schedule annual appointments with your skin doctor (gear inspector) if you have a large number of moles. SEEK MEDICAL CARE IF: Your mole changes size, especially if it becomes larger than a pencil eraser. Your mole changes in color or develops more than one color. Your mole becomes itchy or bleeds. Your mole, or the skin near the mole, becomes painful, sore, red, or swollen. Your mole becomes scaly, sheds skin, or oozes fluid. Your mole develops irregular borders. Your mole becomes flat or develops raised areas. Your mole becomes hard or soft. This information is not intended to replace advice given to you by your health care provider. Make sure you discuss any questions you have with your health care provider. Document Released: 06/17/2002 Document Revised: 06/16/2013 Document Reviewed: [employer] Patient Information 2016 [employer] [facility]. No follow up information was provided. Extracted from: Title: Nevus excision from back Author: Shon Decker MD Date: 06/04/16 Impression and Plan Diagnosis Atypical mole (ESS94-KX L81.9, Working, Medical). Dysplastic nevus (ISQ21-LK D22.9, Working, Medical). Orders (Selected) Outpatient Orders Ordered Exc Nelson Les Trunk Arm Leg 0.5cm or less 97983: Completed Pathology Surgical Order: Future (On Hold) BMP: . Counseled: Patient advised to keep the excisional site clean and dry for 72 hours. Apply LAKEISHA and dressing daily. Return in 2 weeks for suture removal and PRN..
--- OUTSIDE RECORDS SUMMARY | 2016-12-26 00:36 | XMS REPORT | Referral Summary ---
Author Author [facility], [facility] Organization [facility] Address Unknown Phone Unavailable Care Team Providers Care Stitch Cleaner Name Role Phone Lucian Decker Primary Care Physician [phone] Encounter VC Date(s): 07/24/16 - 07/24/16 [facility], [address] [place] [address]- Discharge Disposition: 01-Home or Self Care Attending [...] BID, # 60 caps, 11 Refill(s), Pharmacy: [facility] # [id number], 1 caps Oral BID Start Date: 05/29/16 [...] Daily, # 30 tabs, 3 Refill(s), Pharmacy: [facility] # [id number], 1 tabs Oral Daily Start Date: 05/27/16 Status: Ordered cyanocobalamin 1000 mcg/mL injectable solution 1,000 mcg, IntraMuscular, Daily, Given [facility] 07-01-16 To get weekly dose x4 weeks [...] TWICE A DAY, # 180 tabs, eRx: [facility] #[id number], TAKE ONE TABLET BY MOUTH TWICE A DAY Start Date: 04/30/16 Status: Ordered levothyroxine 50 mcg (0.05 mg) oral tablet See Instructions, TAKE ONE TABLET BY MOUTH DAILY, # 90 tabs, eRx: [facility] #[id number], TAKE ONE TABLET BY MOUTH DAILY Start [...] A MEAL, # 90 caps, eRx: [facility] #[id number], TAKE ONE CAPSULE BY MOUTH EVERY DAY BEFORE A MEAL Start Date: 06/25/16 Status: Ordered ondansetron 4 mg oral tablet See Instructions, TAKE ONE TABLET BY MOUTH TWICE A DAY NEEDED FOR NAUSEA AND VOMITING, # 60 tabs, eRx: [facility] #[id number], TAKE ONE TABLET BY MOUTH TWICE A DAY NEEDED FOR NAUSEA AND VOMITING Start Date: 07/01/16 Status: Ordered OXcarbazepine 300 mg oral tablet 150 mg 0.5 tabs, Oral, Daily, # 30 tabs, 0 Refill(s), Pharmacy: [facility] #[id number], 0.5 tabs Oral BID Start Date: 05/27/16 Status: Ordered oxybutynin 15 mg/24 hr oral tablet, extended release See Instructions, TAKE ONE TABLET BY MOUTH EVERY DAY, # 30 unknown unit, 4 Refill(s), eRx: [facility] #[id number], TAKE ONE TABLET BY MOUTH EVERY DAY Start Date: 04/25/16 Status: Ordered promethazine 25 mg oral tablet See Instructions, TAKE ONE TABLET BY MOUTH TWICE A DAY NEEDED FOR NAUSEA, # 180 tabs, eRx: [facility] #[id number], TAKE ONE TABLET BY MOUTH TWICE A DAY NEEDED FOR NAUSEA Start Date: 07/22/16 Status: Ordered rOPINIRole 2 mg oral tablet 2 mg 1 tabs, Oral, Bedtime (once a day), # 90 tabs, 3 Refill(s), Pharmacy: [facility] #[id number], 1 tabs Oral Bedtime (once a day),x90 days Start Date: 06/17/16 Stop Date: 06/12/17 Status: Ordered traZODone 150 mg oral tablet See Instructions, TAKE THREE TABLETS BY MOUTH EVERY NIGHT AT BEDTIME, # 270 tabs , eRx: [facility] #[id number], TAKE THREE TABLETS BY MOUTH EVERY NIGHT [...]
--- OUTSIDE RECORDS SUMMARY | 2016-12-26 00:36 | XMS REPORT | Referral Summary ---
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 Role Phone Lucian Decker Primary Care Physician [phone] Encounter VC Date(s): 05/16/15 - 05/16/15 [address] [facility] [address] [address] [place], [place] [address] Discharge Diagnosis: Cervicalgia Discharge Diagnosis: Cervical post-laminectomy syndrome Discharge Diagnosis: History of lumbar fusion Discharge Diagnosis: Spondylolisthesis of lumbar region Discharge Diagnosis: Lumbago Discharge Disposition: 01-Home or Self Care Attending Physician: Willi Duran MD Admitting Physician: Willi Duran MD Referring Physician: Derek Harrell MD Vital Signs Most recent to 1 oldest [Reference Range]: Respiratory Rate 14 br/min [14-20 br/min] (05/16/15 2:08 PM) Problem List Condition Effective Dates Status [...] DAY, # 90 tabs, 2 Refill(s), eRx: [facility] #[id number], TAKE ONE TABLET BY MOUTH EVERY DAY Start Date: 06/15/15 Status: Ordered Aspirin Low Dose 81 mg, Oral, Daily, 0 Refill(s) Start Date: 11/03/15 Status: Ordered atorvastatin 10 mg oral tablet See Instructions, TAKE ONE TABLET BY MOUTH AT BEDTIME, # 30 tabs, 9 Refill(s), eRx: [facility] #[id number], TAKE ONE TABLET BY MOUTH AT BEDTIME Start Date: 07/27/15 Status: Ordered fentaNYL 100 mcg/hr transdermal film, extended release 1 patches, Topical, q72hr, # 10 patches, 0 Refill(s) Start Date: 11/14/15 Status: Ordered ferrous sulfate 325 mg (65 mg elemental iron) oral tablet 1 tabs, Oral, Daily, 0 Refill(s) Start Date: 07/07/14 Status: Ordered gabapentin 800 mg oral tablet See Instructions, TAKE ONE TABLET BY MOUTH TWICE A DAY, # 180 tabs, 2 Refill(s) , eRx: [facility] #[id number], TAKE ONE TABLET BY MOUTH TWICE A DAY Start Date: 07/27/15 Status: Ordered levothyroxine 50 mcg (0.05 mg) oral tablet 50 mcg 1 tabs, Oral, Daily, # 90 tabs, 2 Refill(s), Pharmacy: [facility] # [id number], 1 tabs Oral Daily Start Date: 05/24/15 [...] MEAL, # 90 caps, 2 Refill(s), eRx: [facility] #[id number], TAKE ONE CAPSULE BY MOUTH EVERY DAY BEFORE A MEAL Start Date: 03/30/15 Status: Ordered ondansetron 4 mg oral tablet 4 mg 1 tabs, Oral, BID, as needed for nausea/vomiting, X 90 days, # 180 tabs, 3 Refill(s), Pharmacy: [facility] #[id number], 1 tabs Oral BID,x90 days,PRN:as needed for nausea/vomiting Start Date: 05/09/15 Stop Date: 05/03/16 Status: Ordered oxybutynin 15 mg/24 hr oral tablet, extended release 15 mg 1 tabs, Oral, Daily, # 30 tabs, 4 Refill(s), Pharmacy: [facility] # [id number], 1 tabs Oral Daily Start Date: 11/14/15 Status: Ordered rOPINIRole 4 mg oral tablet See Instructions, TAKE ONE TABLET BY MOUTH EVERY NIGHT AT BEDTIME, # 90 tabs, 1 Refill(s), eRx: [facility] #[id number], TAKE ONE TABLET BY MOUTH EVERY NIGHT AT BEDTIME Start Date: 09/11/15 Status: Ordered Senna S 1 tabs, Oral, Bedtime (once a day), 0 Refill(s) Start Date: 03/28/14 Status: Ordered traZODone 150 mg oral tablet See Instructions, TAKE THREE TABLETS BY MOUTH EVERY NIGHT AT BEDTIME, # 270 tabs , eRx: [facility] #[id number], TAKE THREE TABLETS BY MOUTH EVERY NIGHT AT BEDTIME Start Date: 11/22/15 Status: Ordered Trileptal 300 mg oral tablet See Instructions, TAKE ONE TABLET BY MOUTH TWICE A DAY, # 120 tabs, eRx: [facility] #[id number], TAKE ONE TABLET BY MOUTH TWICE A DAY Start Date: 10/12/15 Status: Ordered Vitamin D3 1,000 Intl_Units, Oral, Daily, 0 Refill(s) Start Date: 6/16/14 Status: Ordered Results No data available for [...] Extracted from: Title: Office Visit Note Author: Willi Duran Date: 05/16/15 Assessment/Plan Cervical post-laminectomy syndrome Ordered: Office Visit Level 3 New 61875 Return to Clinic Cervicalgia Ordered: Office Visit Level 3 New 18199 Return to Clinic History of lumbar fusion Ordered: Office Visit Level 3 New 12404 Return to Clinic Lumbago Ordered: Office Visit Level 3 New 66239 Return to Clinic Spondylolisthesis of lumbar region Conservative treatment options were discussed with the patient length. She's tried physical therapy and injections with little to no benefit. She has over 10 mm of anterolisthesis of L4 and L5 and 10 mm of retrolisthesis of L2 on L3. Number of previous lumbar spine surgeries. In addition, she has cervical kyphosis, likely related to her previous laminectomy. I recommended updating her cervical and lumbar spine MRIs. We discussed, that I will not be with the clinic much longer. She was provided a list of other spine surgeons and we will attempt to expedite her appointment. She was instructed to have the MRIs completed prior to the appointment so that it's not a wasted visit. Ordered: Office Visit Level 3 New 84835 Return to Clinic Referrals to Other Providers Referred by: Willi Duran MD
--- OUTSIDE RECORDS SUMMARY | 2016-12-26 00:37 | XMS REPORT | Continuity of Care Document ---
Author Author [facility] Organization [facility] Address Unknown Phone Unavailable Support Name Relationship Address Phone ALDO VAZ Next Of Kin [address] [place] [address] Unavailable Insurance Providers Payer Name Policy Number Subscriber Name Relationship Medicare [facility] [employer] Pffs [id number] Jennifer Vaz 17 Self Problems No Known [...] Procedures Procedure Code Date BIOPSY/REMOVAL LYMPH NODES 80406 04/22/13 THER/PROPH/DIAG INJ IV PUSH 06795 05/11/13 HYDRATE IV INFUSION ADD-ON 14834 05/11/13 HYDRATE IV INFUSION ADD-ON 67766 05/11/13 Encounters Encounter Location Date/Time Departed Emergency Room [facility] 05/11/13 3:56pm
--- OUTSIDE RECORDS SUMMARY | 2016-12-26 00:37 | XMS REPORT | Referral Summary ---
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 Role Phone Lucian Decker Primary Care Physician [phone] Encounter VC Date(s): 06/27/16 - 06/27/16 [facility], [address] [place] [address]- Discharge Disposition: 01-Home or Self Care Attending [...] BID, # 60 caps, 11 Refill(s), Pharmacy: [facility] # [id number], 1 caps Oral BID Start Date: 05/29/16 [...] Daily, # 30 tabs, 3 Refill(s), Pharmacy: [facility] # [id number], 1 tabs Oral Daily Start Date: 05/27/16 [...] TWICE A DAY, # 180 tabs, eRx: [facility] #[id number], TAKE ONE TABLET BY MOUTH TWICE A DAY Start Date: 04/30/16 Status: Ordered levothyroxine 50 mcg (0.05 mg) oral tablet See Instructions, TAKE ONE TABLET BY MOUTH DAILY, # 90 tabs, eRx: [facility] #[id number], TAKE ONE TABLET BY MOUTH DAILY Start [...] BEFORE A MEAL, # 90 caps, eRx: [facility] #[id number], TAKE ONE CAPSULE BY MOUTH EVERY DAY BEFORE A MEAL Start Date: 06/25/16 Status: Ordered ondansetron 4 mg oral tablet 4 mg 1 tabs, Oral, BID, as needed for nausea/vomiting, # 60 tabs, 0 Refill(s), Pharmacy: [facility] #[id number], 1 tabs Oral BID,PRN:as needed for nausea/ vomiting Start Date: 05/27/16 Status: Ordered OXcarbazepine 300 mg oral tablet 150 mg 0.5 tabs, Oral, Daily, # 30 tabs, 0 Refill(s), Pharmacy: [facility] #[id number], 0.5 tabs Oral BID Start Date: 05/27/16 Status: Ordered oxybutynin 15 mg/24 hr oral tablet, extended release See Instructions, TAKE ONE TABLET BY MOUTH EVERY DAY, # 30 unknown unit, 4 Refill(s), eRx: [facility] #[id number], TAKE ONE TABLET BY MOUTH EVERY DAY Start Date: 04/25/16 Status: Ordered promethazine 25 mg, Oral, BID, as needed for nausea/vomiting, 0 Refill(s) Start Date: 05/06/16 Status: Ordered rOPINIRole 2 mg oral tablet 2 mg 1 tabs, Oral, Bedtime (once a day), # 90 tabs, 3 Refill(s), Pharmacy: [facility] #[id number], 1 tabs Oral Bedtime (once a day),x90 days Start Date: 06/17/16 Stop Date: 06/12/17 Status: Ordered traZODone 150 mg oral tablet See Instructions, TAKE THREE TABLETS BY MOUTH EVERY NIGHT AT BEDTIME, # 270 tabs , eRx: [facility] #[id number], TAKE THREE TABLETS BY MOUTH EVERY NIGHT [...]
--- OUTSIDE RECORDS SUMMARY | 2016-12-26 00:37 | XMS REPORT | Referral Summary ---
Author Author [facility] Organization [facility] Address Unknown Phone Unavailable Care Team Providers Care Chief Medical Physicist Name Role Phone Lucian Decker Primary Care Physician [phone] Encounter VC Date(s): 12/12/15 - 12/12/15 [facility], [address] [place] [address]- Discharge Disposition: 01-Home or Self Care Attending Physician: Shon Decker MD Admitting Physician: Shon Decker MD Referring Physician: Shon Decker MD Vital Signs Most recent to 1 oldest [Reference Range]: Temperature Tympanic 36.6 degC [36.6-38.1 degC] (12/12/15 10:52 AM) Peripheral Pulse 81 bpm Rate [60-100 bpm] (12/12/15 10:52 AM) Blood Pressure 118/76 mmHg [90-140/60-90 mmHg] (12/12/15 10:52 AM) SpO2 96 % (12/12/15 10:52 AM) Problem List Condition Effective Dates Status [...] # 90 tabs, 2 Refill(s), eRx: [facility] #[id number], TAKE ONE TABLET BY MOUTH EVERY DAY Start Date: 06/15/15 Status: Ordered Aspirin Low Dose 81 mg, Oral, Daily, 0 Refill(s) Start Date: 11/03/15 Status: Ordered atorvastatin 10 mg oral tablet See Instructions, TAKE ONE TABLET BY MOUTH AT BEDTIME, # 30 tabs, 9 Refill(s), eRx: [facility] #[id number], TAKE ONE TABLET BY MOUTH AT BEDTIME Start Date: 07/27/15 Status: Ordered docusate sodium 100 mg, TAKES 1 QD, 0 Refill(s) Start Date: 12/12/15 Status: Ordered fentaNYL 100 mcg/hr transdermal film, extended release 1 patches, Topical, q72hr, # 10 patches, 0 Refill(s) Start Date: 12/12/15 Status: Ordered ferrous sulfate 325 mg (65 mg elemental iron) oral tablet 1 tabs, Oral, Daily, 0 Refill(s) Start Date: 07/07/14 Status: Ordered gabapentin 800 mg oral tablet See Instructions, TAKE ONE TABLET BY MOUTH TWICE A DAY, # 180 tabs, 2 Refill(s) , eRx: [facility] #[id number], TAKE ONE TABLET BY MOUTH TWICE A DAY Start Date: 07/27/15 Status: Ordered levothyroxine 50 mcg (0.05 mg) oral tablet 50 mcg 1 tabs, Oral, Daily, # 90 tabs, 2 Refill(s), Pharmacy: [facility] # [id number], 1 tabs Oral Daily Start Date: 05/24/15 [...] MEAL, # 90 caps, 2 Refill(s), eRx: [facility] #[id number], TAKE ONE CAPSULE BY MOUTH EVERY DAY BEFORE A MEAL Start Date: 03/30/15 Status: Ordered ondansetron 4 mg oral tablet 4 mg 1 tabs, Oral, BID, as needed for nausea/vomiting, X 90 days, # 180 tabs, 3 Refill(s), Pharmacy: [facility] #[id number], 1 tabs Oral BID,x90 days,PRN:as needed for nausea/vomiting Start Date: 05/09/15 Stop Date: 05/03/16 Status: Ordered oxybutynin 15 mg/24 hr oral tablet, extended release 15 mg 1 tabs, Oral, Daily, # 30 tabs, 4 Refill(s), Pharmacy: [facility] # [id number], 1 tabs Oral Daily Start Date: 11/14/15 Status: Ordered rOPINIRole 4 mg oral tablet See Instructions, TAKE ONE TABLET BY MOUTH EVERY NIGHT AT BEDTIME, # 90 tabs, 1 Refill(s), eRx: [facility] #[id number], TAKE ONE TABLET BY MOUTH EVERY NIGHT AT BEDTIME Start Date: 09/11/15 Status: Ordered traZODone 150 mg oral tablet See Instructions, TAKE THREE TABLETS BY MOUTH EVERY NIGHT AT BEDTIME, # 270 tabs , eRx: [facility] #[id number], TAKE THREE TABLETS BY MOUTH EVERY NIGHT AT BEDTIME Start Date: 11/22/15 Status: Ordered Trileptal 300 mg oral tablet See Instructions, TAKE ONE TABLET BY MOUTH TWICE A DAY, # 120 tabs, eRx: [facility] #[id number], TAKE ONE TABLET BY MOUTH TWICE A DAY Start Date: 10/12/15 Status: Ordered Vitamin D3 1,000 Intl_Units, Oral, Daily, 0 Refill(s) Start Date: 03/21/14 Status: Ordered Results Hematology Most recent to 1 oldest [Reference Range]: WBC [5.0-10.0 4.7 10*3/uL 10*3/uL] *LOW* (12/12/15:23 AM) RBC [3.70-5.20] 4.94 (12/12/15:23 AM) Hgb [12.0-16.0 15.1 gm/dL gm/dL] (12/12/1523 AM) Hct [37.0-47.0 %] 41.6 % (12/12/15:23 AM) MCV [80.0-96.0 fL] 84.2 fL (12/12/15:23 AM) MCH [26.0-34.0 pg] 30.6 pg (12/12/15:23 AM) MCHC [32.0-36.0 36.3 gm/dL gm/dL] *HI* (12/12/15:) RDW [0.0-14.5 %] 12.4 % (12/12/15:23 AM) Platelet [150-400 162 10*3/uL 10*3/uL] (12/12/15 11:23 AM) MPV [8.8-14.8 fL] 9.4 fL (12/12/15:23 AM) Neutrophils [50-70 60 % %] (12/12/15:23 AM) Lymphocytes [20-40 31 % %] (12/12/15:23 AM) Monocytes [4-8 %] 6 % (12/12/15:23 AM) Eosinophils [0-6 %] 1 % (12/12/15:23 AM) Basophils [0-2 %] 1 % (12/12/15 11:23 AM) Neutro Absolute 2.79 10*3 [2.50-7.00 10*3] (12/12/15 11:23 AM) Lymph Absolute 1.46 10*3 [1.00-4.00 10*3] (12/12/15 11:23 AM) Sabine Absolute 0.30 10*3 [0.20-0.80 10*3] (12/12/15 11:23 AM) Eos Absolute 0.05 10*3 [0.00-0.60 10*3] (12/12/15 AM) Baso Absolute 0.06 [0.00-0.30] (12/12/15 AM) Chemistry Most recent to 1 oldest [Reference Range]: Sodium Lvl [135-144 130 mEq/L mEq/L] *LOW* (12/12/15) Potassium Lvl 3.7 mEq/L [3.5-5.2 mEq/L] (12/12/15 AM) Chloride [99-111 96 mEq/L mEq/L] *LOW* (12/12/15) CO2 [22-31 mEq/L] 24 mEq/L (12/12/15 AM) AGAP [3-20] 10 (12/12/15 AM) BUN [10-20 mg/dL] 7 mg/dL *LOW* (12/12/15) Glucose Lvl [70-99 123 mg/dL mg/dL] *HI* (12/12/15) Creatinine Lvl 0.72 mg/dL [0.57-1.11 mg/dL] (12/12/15 AM) eGFR [>60 mL/min] >60 mL/min 1 (12/12/15 AM) Calcium Lvl 9.1 mg/dL [8.9-10.5 mg/dL] (12/12/15 AM) Albumin Lvl [3.4-4.8 4.3 gm/dL gm/dL] (12/12/15 AM) Total Protein 6.7 gm/dL [6.2-8.1 gm/dL] (12/12/15) Globulin [1.8-4.0 2.4 gm/dL gm/dL] (12/12/15 AM) ALT [0-55 U/L] 10 U/L (12/12/15 AM) AST [5-34 U/L] 18 U/L (12/12/15 AM) Alk Phos [40-150 59 U/L U/L] (12/12/15 11:23 AM) Bili Total [0.2-1.2 0.8 mg/dL mg/dL] (12/12/15 11:23 AM) 1Result Comment: Multiply eGFR results by [...] Patient Education Author: Shon Decker MD Date: Emergency Medicine Abdominal Pain Many things can cause abdominal pain. Usually, abdominal pain is not caused by a disease and will improve without treatment. It can often be observed and treated at home. Your health care provider will do a physical exam and possibly order blood tests and X-rays to help determine the seriousness of your pain. However, in many cases, more time must pass before a clear cause of the pain can be found. Before that point, your health care provider may not know if you need more testing or further treatment. HOME CARE INSTRUCTIONS Monitor your abdominal pain for any changes. The following actions may help to alleviate any discomfort you are experiencing: Only take [id number]-[id number] or prescription medicines as directed by your health care provider. Do not take laxatives unless directed to do so by your health care provider. Try a clear liquid diet (broth, tea, or water) as directed by your health care provider. Slowly move to a bland diet as tolerated. SEEK MEDICAL CARE IF: You have unexplained abdominal pain. You have abdominal pain associated with nausea or diarrhea. You have pain when you urinate or have a bowel movement. You experience abdominal pain that wakes you in the night. You have abdominal pain that is worsened or improved by eating food. You have abdominal pain that is worsened with eating fatty foods. You have a fever. SEEK IMMEDIATE MEDICAL CARE IF: Your pain does not go away within 2 hours. You keep throwing up (vomiting). Your pain is felt only in portions of the abdomen, such as the right side or the left lower portion of the abdomen. You pass bloody or black tarry stools. MAKE SURE YOU: Understand these instructions. Will watch your condition. Will get help right away if you are not doing well or get worse. This information is not intended to replace advice given to you by your health care provider. Make sure you discuss any questions you have with your health care provider. Document Released: 07/02/2006 Document Revised: 09/27/2014 Document Reviewed: [facility] Patient Information 2015 [employer]. No follow up information was provided. Extracted from: Title: abdominal pain, nausea, Author: hSon Decker MD Date: 12/12/15 weight loss, depression, cervical spinal stenosis, HTN Impression and Plan Diagnosis LLQ abdominal pain (EEY13-PG R10.32, Working, Medical). Abnormal weight loss (TBZ44-FX R63.4, Working, Medical). Hypertension (PHN85-GT I10, Working, Medical). Pure hypercholesterolemia (NNO43-OQ E78.0, Working, Medical). Chronic low back pain (PRG18-QT M54.5, Working, Medical). Cervical spinal stenosis (SGE44-UL M48.02, Working, Medical). Cervical radiculopathy (SED25-AB M54.12, Working, Medical). Moderate major depression (RJP70-TP F32.1, Working, Medical). Spinal stenosis, lumbar region, without neurogenic claudication (VCQ83-WX M48.06 , Working, Medical). Plan: 1) Renal Colic CT ordered today, due to the lower abdominal pain, nausea , and abnormal weight loss. 2) Lab ordered today. 3) May have neck surgery if your CT and lab are OK. 4) May continue your routine meds the same. 5) See me in 2 months and as needed.. Orders Orders (Selected) Outpatient Orders Ordered CMP: Office Visit Level 4 Est 85792: Completed CBC w/ Differential: Future (On Hold) XR Consultation Outside Film: Prescriptions Prescribed fentaNYL 100 mcg/hr transdermal film, extended release: 1 patches, Topical, q72hr, 10 patches, 0 Refill(s). Dx/Order Association Plan: Diagnosis: Abnormal weight loss Comment: Ordered: CMP; Blood, Routine Collect, 12/12/15 11:17:00 TELESALES AGENT, Once , Stop date 12/12/15 11:17:00 TELESALES AGENT, Lab Collect, LLQ abdominal pain | Abnormal weight loss | Hypertension | Pure hypercholesterolemia Office Visit Level 4 Est 79742; 12/12/15 11:28:00 TELESALES AGENT, LLQ abdominal pain | Abnormal weight loss | Cervical spinal stenosis | Moderate major depression Other status: CBC w/ Differential; Blood, Routine Collect, 11:17:00 TELESALES AGENT, Once, Stop date 12/12/15 11:17:00 TELESALES AGENT, Lab Collect, LLQ abdominal pain | Abnormal weight loss | Hypertension | Pure hypercholesterolemia (Completed) Diagnosis: Cervical radiculopathy Comment: Diagnosis: Cervical spinal stenosis Comment: Ordered: Office Visit Level 4 Est 13563; 12/12/15 11:28:00 TELESALES AGENT, LLQ abdominal pain | Abnormal weight loss | Cervical spinal stenosis | Moderate major depression Diagnosis: Chronic low back pain Comment: Diagnosis: Hypertension Comment: Ordered: CMP; Blood, Routine Collect, 12/12/15 11:17:00 TELESALES AGENT, Once , Stop date 12/12/15 11:17:00 TELESALES AGENT, Lab Collect, LLQ abdominal pain | Abnormal weight loss | Hypertension | Pure hypercholesterolemia Other status: CBC w/ Differential; Blood, Routine Collect, 11:17:00 TELESALES AGENT, Once, Stop date 12/12/15 11:17:00 TELESALES AGENT, Lab Collect, LLQ abdominal pain | Abnormal weight loss | Hypertension | Pure hypercholesterolemia (Completed) Diagnosis: LLQ abdominal pain Comment: Ordered: CMP; Blood, Routine Collect, 12/12/15 11:17:00 TELESALES AGENT, Once , Stop date 12/12/15 11:17:00 TELESALES AGENT, Lab Collect, LLQ abdominal pain | Abnormal weight loss | Hypertension | Pure hypercholesterolemia Office Visit Level 4 Est 94707; 12/12/15 11:28:00 TELESALES AGENT, LLQ abdominal pain | Abnormal weight loss | Cervical spinal stenosis | Moderate major depression Other status: CBC w/ Differential; Blood, Routine Collect, 11:17:00 TELESALES AGENT, Once, Stop date 12/12/15 11:17:00 TELESALES AGENT, Lab Collect, LLQ abdominal pain | Abnormal weight loss | Hypertension | Pure hypercholesterolemia (Completed) Diagnosis: Moderate major depression Comment: Ordered: Office Visit Level 4 Est 20937; 12/12/15 11:28:00 TELESALES AGENT, LLQ abdominal pain | Abnormal weight loss | Cervical spinal stenosis | Moderate major depression Diagnosis: Pure hypercholesterolemia Comment: Ordered: CMP; Blood, Routine Collect, 12/12/15 11:17:00 TELESALES AGENT, Once , Stop date 12/12/15 11:17:00 TELESALES AGENT, Lab Collect, LLQ abdominal pain | Abnormal weight loss | Hypertension | Pure hypercholesterolemia Other status: CBC w/ Differential; Blood, Routine Collect, 11:17:00 TELESALES AGENT, Once, Stop date 12/12/15 11:17:00 TELESALES AGENT, Lab Collect, LLQ abdominal pain | Abnormal weight loss | Hypertension | Pure hypercholesterolemia (Completed) Diagnosis: Spinal stenosis, lumbar region, without neurogenic claudication Comment: End of Orders ."
--- OUTSIDE RECORDS SUMMARY | 2016-12-26 00:37 | XMS REPORT | Referral Summary ---
Author Author [facility], Family Medicine Organization 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 Role Phone Lucian Decker Primary Care Physician [phone] Encounter VC Date(s): 06/28/16 - 06/28/16 [facility], [address] [place] [address]- Discharge Disposition: 01-Home or Self Care Attending Physician: Shon Decker MD Admitting Physician: hSon Decker MD Vital Signs No data available [...] BID, # 60 caps, 11 Refill(s), Pharmacy: [facility] # [id number], 1 caps Oral BID Start Date: 05/29/16 [...] Daily, # 30 tabs, 3 Refill(s), Pharmacy: [facility] # [id number], 1 tabs Oral Daily Start Date: 05/27/16 [...] TWICE A DAY, # 180 tabs, eRx: [facility] #[id number], TAKE ONE TABLET BY MOUTH TWICE A DAY Start Date: 04/30/16 Status: Ordered levothyroxine 50 mcg (0.05 mg) oral tablet See Instructions, TAKE ONE TABLET BY MOUTH DAILY, # 90 tabs, eRx: [facility] #[id number], TAKE ONE TABLET BY MOUTH DAILY Start [...] BEFORE A MEAL, # 90 caps, eRx: [facility] #[id number], TAKE ONE CAPSULE BY MOUTH EVERY DAY BEFORE A MEAL Start Date: 06/25/16 Status: Ordered ondansetron 4 mg oral tablet 4 mg 1 tabs, Oral, BID, as needed for nausea/vomiting, # 60 tabs, 0 Refill(s), Pharmacy: [facility] #[id number], 1 tabs Oral BID,PRN:as needed for nausea/ vomiting Start Date: 05/27/16 Status: Ordered OXcarbazepine 300 mg oral tablet 150 mg 0.5 tabs, Oral, Daily, # 30 tabs, 0 Refill(s), Pharmacy: [facility] #[id number], 0.5 tabs Oral BID Start Date: 05/27/16 Status: Ordered oxybutynin 15 mg/24 hr oral tablet, extended release See Instructions, TAKE ONE TABLET BY MOUTH EVERY DAY, # 30 unknown unit, 4 Refill(s), eRx: [facility] #[id number], TAKE ONE TABLET BY MOUTH EVERY DAY Start Date: 04/25/16 Status: Ordered promethazine 25 mg, Oral, BID, as needed for nausea/vomiting, 0 Refill(s) Start Date: 05/06/16 Status: Ordered rOPINIRole 2 mg oral tablet 2 mg 1 tabs, Oral, Bedtime (once a day), # 90 tabs, 3 Refill(s), Pharmacy: [facility] #[id number], 1 tabs Oral Bedtime (once a day),x90 days Start Date: 06/17/16 Stop Date: 06/12/17 Status: Ordered traZODone 150 mg oral tablet See Instructions, TAKE THREE TABLETS BY MOUTH EVERY NIGHT AT BEDTIME, # 270 tabs , eRx: [facility] #[id number], TAKE THREE TABLETS BY MOUTH EVERY NIGHT [...]
--- OUTSIDE RECORDS SUMMARY | 2016-12-26 00:37 | XMS REPORT | Continuity of Care Document ---
Author Author [facility] Organization [facility] Address Unknown Phone Unavailable Support Name Relationship Address Phone EMERSON DECKER MD Caregiver [address] [place] [place] [address] Unavailable NITA SHOEMAKER MD Caregiver [address] [place] [place] [address] Unavailable ALDO ORNELAS Next Of Kin [address] [place] [address] CP Insurance Providers Guarantor Nanci Ornelas Address [address] [place] [address] CP Email DENIED/NO TO PT PORT AT THIS TIME [facility] Policy Number [id number] Subscriber's Name Jennifer Ornelas Relationship 18 Self Group Number [id number] Payer Medicare Policy Number [id number] Subscriber's Name Jennifer Ornelas Relationship 18 Self Chief Complaint and Reason for Visit Chief Complaint Neuro Symptoms/Deficits Reason for Visit [id number] Problems Active Problems Medical Problem Onset Date Status Influenza-like illness Unknown Acute Influenza-like illness Unknown Acute Past Problems Medical Problem Onset Date Dystonic drug reaction Unknown Medications Current Home Medications Medication Dose Units Route Directions Days Qty Instructions Start Date Amlodipine Besylate (Norvasc) 5 Mg Tablet 2.5 Mg Oral Daily 04/20 Aspirin (Aspir 81) 81 Mg Tablet.dr 81 Mg Oral Daily 09/15/15 Atorvastatin Calcium 10 Mg Tablet 10 Mg Oral Bedtime 05/06/14 Ca Cmb No.1/Vit D3/B-6/Fa/B12 (Vitamin D3 1,000 Unit Tablet) 1 Each Tablet 1 Oral Daily 09/02/14 Docusate Sodium 100 Mg Capsule 100 Mg Oral Twice A Day 09/02/14 Escitalopram Oxalate 5 Mg Tablet 5 Mg Oral Daily 05/05/16 Fentanyl (Fentanyl 100 Mcg/Hr) 1 Each Patch.td72 1 Patch Topically Every 72 Hours 05/05/16 Ferrous Sulfate 325 Mg Tablet 325 Mg Oral Daily 09/02/14 Gabapentin 800 Mg Tablet 800 Mg Oral Twice A Day 04/20/13 Levothyroxine Sodium 50 Mcg Tablet 50 Mcg Oral Daily 04/20/13 Lorazepam 0.5 Mg Tablet 0.5 Mg Oral Twice A Day 04/20/13 Omeprazole (Prilosec) 40 Mg Capsule.dr 40 Mg Oral Daily 04/20/13 Ondansetron (Zofran Odt) 4 Mg Tab.rapdis 4 Mg Oral Twice A Day Oxcarbazepine (Trileptal) 300 Mg Tablet 150 Mg Oral Twice A Day 09/02/14 Oxybutynin Chloride (Oxybutynin Chloride Er) 15 Mg Tab.er.24 15 Mg Oral Daily 05/06/14 Promethazine Hcl 25 Mg Tablet 25 Mg Oral Twice A Day as needed for Prn Orders 05/05/16 Ropinirole Hcl 4 Mg Tablet 4 Mg Oral Bedtime 05/09/14 Trazodone Hcl 150 Mg Tablet 450 Mg Oral Bedtime 04/20/13 Past Home Medications Medication Directions Ordered Status Nitroglycerin (Nitrostat) 0.4 Mg Tablet, 0.4 Mg Sublingual for Chest Pain Discontinued Social History Social History Problem Response Recorded Date/Time Onset Date Status Chewing Tobacco Status No 06/23/2013 10:27am Not Applicable Not Applicable Hx Substance Use No 05/05/2016 2:25pm Not Applicable Not Applicable Hx Alcohol Use No 05/05/2016 2:25pm Not Applicable Not Applicable Has the pt used tobacco in the last 12 months No 09/18/2015 7:10am Not Applicable Not Applicable Query Response Start Date Stop Date Smoking Status Never smoker Hospital Discharge Instructions No hospital discharge instructions. Plan of Care Discharge Date 05/05/16 4:36pm Disposition 01 DISCHARGED HOME, SELF-CARE Condition at Discharge Stable Instructions/Education Provided Dystonia Movement Disorders Prescriptions See Medication Section Referrals EMERSON DECKER MD Address: [address] [place] [address] [place] [phone] Note: Follow-up for evaluation Additional Instructions/Education Follow-up with Dr. Decker tomorrow recommend diphenhydramine (Benadryl) 25 mg tablets, take 2 tablets every 6 hours for the next 2 days Care Plan and Goals Physician Care Plan Problem: Dystonic reaction probable medication Goal: Follow up with primary care provider Instructions: Take medications and follow care plan as discussed/written Functional Status No functional status results. Allergies, Adverse Reactions, Alerts Allergen Type Severity Reaction Status Last Updated meperidine HCl Allergy Unknown DISORIENTED, ALMOST Active 05/05/16 Morphine Allergy Unknown NIGHT TERRORS Active 05/05/16 Adhesive Adverse Reaction Mild RASH Active 05/05/16 Immunizations Query Response on File Recorded Date/Time Hx Influenza Vaccination Y Jul09/18/15 7:10am Hx Pneumococcal Vaccination Y 201409/18/15 7:10am Hx Influenza Vaccination Y Jul09/18/15 7:10am Vital Signs Acute Vital Signs Vital Response Date/Time Temperature (Fahrenheit) 98.5 deg F (96.8 - 99.1) 05/05/2016 4:36pm Temperature (Calculated Celsius) 36.62276 degrees C (36.0 - 37.3) 05/05/2016 4:36pm Pulse Rate (adult) 54 bpm (60 - 100) 05/05/2016 4:36pm Respiratory Rate 18 breaths/min (10 - 20) 05/05/2016 4:36pm O2 Sat by Pulse Oximetry 95 % (90 - 100) 05/05/2016 4:36pm Blood Pressure 144/70 mm Hg 05/05/2016 4:36pm Height (Feet) 5 feet 05/05/2016 1:35pm Height (Inches) 4.00 inches 05/05/2016 1:35pm Weight (Kilograms) 69.000 kg 05/05/2016 1:35pm Body Mass Index (BMI) 26.0 05/05/2016 1:35pm Results Laboratory Results Test Name Result Units Flags Reference Collection Date/Time Result Date/ Time Comments White Blood Count 3.4 T/MM3 L 4.5-11.0 05/05/2016 2:38pm 05/05/2016 2: 44pm Red Blood Count 4.30 M/MM3 4.00-5.20 05/05/2016 2:38pm 05/05/2016 2: 44pm Hemoglobin 13.1 GM/DL -16 05/05/2016 2:38pm 05/05/2016 2:44pm Hematocrit 38.2 % 36-46 05/05/2016 2:38pm 05/05/2016 2:44pm Mean Corpuscular Volume 88.8 UM3 80-100 05/05/2016 2:38pm 05/05/2016 2: 44pm Mean Corpuscular Hemoglobin 30.5 UUG 26-34 05/05/2016 2:38pm 2015 2:44pm Mean Corpuscular Hemoglobin Concent 34.3 GM/DL 31-37 05/05/2016 2:38pm 05/05/2016 2:44pm RDW Standard Deviation 39.1 FL 36.9-50.2 05/05/2016 2:38pm 05/05/2016 2 :44pm Platelet Count 173 T/MM3 130-400 05/05/2016 2:38pm 05/05/2016 2:44pm Mean Platelet Volume 9.2 UM3 L 9.4-12.4 05/05/2016 2:38pm 05/05/2016 2: 44pm Neutrophils (%) (Auto) 61.2 % 33-66 05/05/2016 2:38pm 05/05/2016 2: 44pm Lymphocytes (%) (Auto) 31.3 % 23-45 05/05/2016 2:38pm 05/05/2016 2: 44pm Monocytes (%) (Auto) 6.3 % 0-9.0 05/05/2016 2:38pm 05/05/2016 2:44pm Eosinophils (%) (Auto) 0.3 % 0-4 05/05/2016 2:38pm 05/05/2016 2:44pm Basophils (%) (Auto) 0.9 % 0-2 05/05/2016 2:38pm 05/05/2016 2:44pm Immature Granulocyte % (Auto) 0.0 % 0.0-0.5 05/05/2016 2:38pm 2015 2:44pm Absolute Neutrophils (auto) 2.1 T/MM3 1.8-7.7 05/05/2016 2:38pm 2015 2:44pm Absolute Lymphocytes (auto) 1.1 T/MM3 1-4.8 05/05/2016 2:38pm 2015 2:44pm Absolute Monocytes (auto) 0.2 T/MM3 0-0.8 05/05/2016 2:38pm 05/05/2016 2:44pm Absolute Eosinophils (auto) 0.0 T/MM3 0-0.5 05/05/2016 2:38pm 2015 2:44pm Absolute Basophils (auto) 0.0 T/MM3 0-0.2 05/05/2016 2:38pm 05/05/2016 2:44pm Absolute Immature Granulocyte (auto 0.00 T/MM3 0.00-0.03 05/05/2016 2: 38pm 05/05/2016 2:44pm Icterus Index < 2 0-7 05/05/2016 2:38pm 05/05/2016 2:55pm Chemistry Specimen Hemolysis < 15 0-25 05/05/2016 2:38pm 05/05/2016 2 :55pm 0-25: Specimen Exhibited No Hemolysis. Turbidity < 20 0-20 05/05/2016 2:38pm 05/05/2016 2:55pm Sodium Level 141 MEQ/L 134-144 05/05/2016 2:38pm 05/05/2016 2:55pm Potassium Level 4.2 MEQ/L 3.6-5 05/05/2016 2:38pm 05/05/2016 2:55pm Chloride Level 104 MEQ/L 98-107 05/05/2016 2:38pm 05/05/2016 2:55pm Carbon Dioxide Level 25 MEQ/L 22-30 05/05/2016 2:38pm 05/05/2016 2: 55pm Anion Gap 12 MEQ/L 5-15 05/05/2016 2:38pm 05/05/2016 2:55pm Blood Urea Nitrogen 7.0 MG/DL 7-17 05/05/2016 2:38pm 05/05/2016 2:55pm Creatinine 0.6 MG/DL L 0.7-1.2 05/05/2016 2:38pm 05/05/2016 2:55pm BUN/Creatinine Ratio 12 RATIO 6-26 05/05/2016 2:38pm 05/05/2016 2:55pm Glomerular Filtration Rate Calc 99 05/05/2016 2:38pm 05/05/2016 2: 55pm Glucose Level 108 MG/DL 65-110 05/05/2016 2:38pm 05/05/2016 2:55pm Calculated Osmolality 270 MOSM/KG 261-280 05/05/2016 2:38pm 05/05/2016 2:55pm Calcium Level 9.4 MG/DL 8.4-10.2 05/05/2016 2:38pm 05/05/2016 2:55pm C-Reactive Protein < 5.0 MG/L 0-9 05/05/2016 2:38pm 05/05/2016 2:55pm Procedures No known history of procedures. Encounters Encounter Location Arrival/Admit Date Discharge/Depart Date Attending Provider Departed Emergency Room [facility] 05/05/16 1:31pm 05/05/16 4: 36pm NITA SHOEMAKER MD Recent Diagnosis
--- OUTSIDE RECORDS SUMMARY | 2016-12-26 00:37 | XMS REPORT | Referral Summary ---
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 Name Role Phone Lucian Decker Primary Care Physician [phone] Encounter VC Date(s): 11/03/15 - 11/03/15 [facility], [address] [place] [address]- Discharge Disposition: 01-Home or Self Care Attending Physician: Shon Decker MD Admitting Physician: Shon Decker MD Vital Signs Most recent to 1 oldest [Reference Range]: Temperature Tympanic 35.8 degC [36.6-38.1 degC] *LOW* (11/03/15 10:53 AM) Peripheral Pulse 74 bpm Rate [60-100 bpm] (11/03/15 10:53 AM) Blood Pressure 124/80 mmHg [90-140/60-90 mmHg] (11/03/15 10:53 AM) SpO2 97 % (11/03/15 10:53 AM) Problem List Condition Effective Dates Status [...] DAY, # 90 tabs, 2 Refill(s), eRx: [facility] #[id number], TAKE ONE TABLET BY MOUTH EVERY DAY Start Date: 06/15/15 Status: Ordered Aspirin Low Dose 81 mg, Oral, Daily, 0 Refill(s) Start Date: 11/03/15 Status: Ordered atorvastatin 10 mg oral tablet See Instructions, TAKE ONE TABLET BY MOUTH AT BEDTIME, # 30 tabs, 9 Refill(s), eRx: [facility] #[id number], TAKE ONE TABLET BY MOUTH AT BEDTIME Start Date: 07/27/15 Status: Ordered fentaNYL 100 mcg/hr transdermal film, extended release 1 patches, Topical, q72hr, # 10 patches, 0 Refill(s) Start Date: 10/12/15 Status: Ordered ferrous sulfate 325 mg (65 mg elemental iron) oral tablet 1 tabs, Oral, Daily, 0 Refill(s) Start Date: 07/07/14 Status: Ordered gabapentin 800 mg oral tablet See Instructions, TAKE ONE TABLET BY MOUTH TWICE A DAY, # 180 tabs, 2 Refill(s) , eRx: [facility] #[id number], TAKE ONE TABLET BY MOUTH TWICE A DAY Start Date: 07/27/15 Status: Ordered levothyroxine 50 mcg (0.05 mg) oral tablet 50 mcg 1 tabs, Oral, Daily, # 90 tabs, 2 Refill(s), Pharmacy: [facility] # [id number], 1 tabs Oral Daily Start Date: 05/24/15 Status: Ordered LORazepam 0.5 mg oral tablet 0.5 mg 1 tabs, Oral, BID, must last 30 days for each script NBrigette Morenitapancho, # 60 tabs, 5 Refill(s) Start Date: 10/05/15 Status: Ordered omeprazole 40 mg oral delayed release capsule See Instructions, TAKE ONE CAPSULE BY MOUTH EVERY DAY BEFORE A MEAL, # 90 caps, 2 Refill(s), eRx: [facility] #[id number], TAKE ONE CAPSULE BY MOUTH EVERY DAY BEFORE A MEAL Start Date: 03/30/15 Status: Ordered ondansetron 4 mg oral tablet 4 mg 1 tabs, Oral, BID, as needed for nausea/vomiting, X 90 days, # 180 tabs, 3 Refill(s), Pharmacy: [facility] #[id number], 1 tabs Oral BID,x90 days,PRN:as needed for nausea/vomiting Start Date: 05/09/15 Stop Date: 05/03/16 Status: Ordered oxybutynin 15 mg/24 hr oral tablet, extended release See Instructions, TAKE ONE TABLET BY MOUTH EVERY DAY, # 30 unknown unit, 6 Refill(s), eRx: [facility] #[id number], TAKE ONE TABLET BY MOUTH EVERY DAY Start Date: 09/11/15 Status: Ordered rOPINIRole 4 mg oral tablet See Instructions, TAKE ONE TABLET BY MOUTH EVERY NIGHT AT BEDTIME, # 90 tabs, 1 Refill(s), eRx: [facility] #[id number], TAKE ONE TABLET BY MOUTH EVERY NIGHT AT BEDTIME Start Date: 09/11/15 Status: Ordered Senna S 1 tabs, Oral, Bedtime (once a day), 0 Refill(s) Start Date: 03/28/14 Status: Ordered traZODone 150 mg oral tablet See Instructions, TAKE THREE TABLETS BY MOUTH EVERY NIGHT AT BEDTIME, # 270 tabs , eRx: [facility] #[id number], TAKE THREE TABLETS BY MOUTH EVERY NIGHT AT BEDTIME Start Date: 08/23/15 Status: Ordered Trileptal 300 mg oral tablet See Instructions, TAKE ONE TABLET BY MOUTH TWICE A DAY, # 120 tabs, eRx: [facility] #[id number], TAKE ONE TABLET BY MOUTH TWICE A [...] Patient Education Author: Shon Decker MD Date: 11/03 Family Medicine Heart Disease Prevention Heart disease can lead to heart attacks and strokes. This is a leading cause of . Heart disease can be inherited and can be caused from the lifestyle you lead. You can do a lot to keep your heart and blood vessels healthy. WHAT SHOULD I DO EACH DAY TO KEEP MY HEART HEALTHY? Do not smoke. Follow a healthy eating plan as recommended by your caregiver or dietitian. Be active for a total of 30 minutes most days. Ask your caregiver what activities are best for you. Limit the amount of alcohol you drink. Involve family and friends to help you with a healthy lifestyle. HOW DOES HEART DISEASE CAUSE HIGH BLOOD PRESSURE? Narrowed blood vessels leave a smaller opening for blood to flow through. It is like turning on a garden hose and holding your thumb over the opening. The smaller opening makes the water shoot out with more pressure. In the same way, narrowed blood vessels can lead to high blood pressure. Other factors, such as kidney problems and being overweight, also can lead to high blood pressure. If you have high blood pressure you may need to take blood pressure medicine every day. Some types of blood pressure medicine can also help keep your kidneys healthy. Many people with diabetes also have high blood pressure. If you have heart , eye, or kidney problems from diabetes, high blood pressure can make them worse. HOW DO MY BLOOD VESSELS GET CLOGGED? Cholesterol is a substance that is made by the body and used for many important functions. It is also found in food that comes from animals. When your cholesterol is high, it can stick to the insides of your blood vessels, making them narrowed and even clogged. This problem is called atherosclerosis. Narrowed and clogged blood vessels make it harder for blood to get to important body organs. This can cause problems such as: Chest pain (angina). Angina can cause temporary pain in your chest, arms, shoulders, or back. You may feel the pain more when your heart beats faster, such as when you exercise. The pain may go away when you rest. You also may feel very weak and sweaty. A heart attack. A heart attack happens when a blood vessel in or near the heart becomes blocked. Not enough blood is getting to the heart. During a heart attack, you may have chest pain in your chest, arms, shoulders, or back along with nausea, indigestion, extreme weakness, and sweating. WHAT CAN I DO TO PREVENT HEART DISEASE? Keep your blood pressure under control as recommended by your caregiver. Keep your cholesterol under control. Have it checked at least once a year. Target cholesterol levels for most people are: Total blood cholesterol level: Below 200. LDL (bad) cholesterol: Below 100. HDL (good) cholesterol: Above 40 in men and above 50 in women. Triglycerides (another type of fat in the blood): Below 150. Make physical activity a part of your daily routine. Check with your caregiver to learn what activities are best for you. Make sure that the foods you eat are "heart-healthy." Include foods high in fiber, such as oat bran, oatmeal, whole-grain breads and cereals. Cut back on fried foods and foods high in saturated fat. This includes foods such as meats, butter, whole dairy products, shortening, and coconut or palm oil. Avoid salty foods such as canned food, luncheon meat, salty snacks, and fast food. Eat more fruits and vegetables. Drink less alcohol. Lose weight as recommended by your caregiver. If you smoke, quit. Your caregiver can help you with quitting options. Ask your caregiver whether you should take a daily aspirin. Studies have shown that taking aspirin can help reduce your risk of heart disease and stroke. Take your prescribed medicines as directed. WHAT ARE THE WARNING SIGNS OF A HEART ATTACK? You may have one or more of the following warning signs: Chest pain or discomfort. Pain or discomfort in your arms, back, jaw, or neck. Indigestion or stomach pain. Shortness of breath. Sweating. Nausea or vomiting. Lightheadedness. No warning signs at all or they may come and go. FOR MORE INFORMATION To find out more about heart disease and stroke prevention, visit the [employer] website at www.americanheart.org Document Released: 05/06/2005 Document Revised: 03/23/2013 Document Reviewed: ExitCare Patient Information 2015 [facility]. This information is not intended to replace advice given to you by your health care provider. Make sure you discuss any questions you have with your health care provider. No follow up information was provided. Extracted from: Title: sacral decubitus, cervical Author: Shon Decker MD Date: spinal stenosis, depression,HTN Impression and Plan Diagnosis Hypertension (LVP97-PX I10, Working, Medical). Depression (IDV60-NI F32.1, Working, Medical). Restless legs syndrome (RLS) (IRI26-ZK G25.81, Working, Medical). Pure hypercholesterolemia (EGL27-SE E78.0, Working, Medical). Adult hypothyroidism (ZVD96-PJ E03.9, Working, Medical). Chronic low back pain (GJZ68-YO M54.5, Working, Medical). Cervical spinal stenosis (LXQ33-UE M48.02, Working, Medical). Cervical radiculopathy (ZJS17-DS M54.12, Working, Medical). Sacral decubitus ulcer (WWI09-TK L89.153, Working, Medical). Plan: 1) Stressed the importance of moving around, to keep the pressure off the decubitus. Exercise will also be helpful for depression and anxiety. 2) May continue your current meds and treatments. 3) See back in 4 weeks and as needed.. Orders Orders (Selected) Outpatient Orders Ordered Office Visit Level 4 Est 42720: Future (On Hold) XR Consultation Outside Film: . Dx/Order Association Plan: Diagnosis: Adult hypothyroidism Comment: Diagnosis: Cervical radiculopathy Comment: Diagnosis: Cervical spinal stenosis Comment: Ordered: Office Visit Level 4 Est [id number]; 11/03/15 11:25:00 ZINC CHLORIDE OPERATOR, Sacral decubitus ulcer | Hypertension | Depression | Cervical spinal stenosis Diagnosis: Chronic low back pain Comment: Diagnosis: Depression Comment: Ordered: Office Visit Level 4 Est 04283; 11/03/15 11:25:00 ZINC CHLORIDE OPERATOR, Sacral decubitus ulcer | Hypertension | Depression | Cervical spinal stenosis Diagnosis: Hypertension Comment: Ordered: Office Visit Level 4 Est 28396; 11/03/15 11:25:00 ZINC CHLORIDE OPERATOR, Sacral decubitus ulcer | Hypertension | Depression | Cervical spinal stenosis Diagnosis: Pure hypercholesterolemia Comment: Diagnosis: Restless legs syndrome (RLS) Comment: Diagnosis: Sacral decubitus ulcer Comment: Ordered: Office Visit Level 4 Est 96693; 11/03/15 11:25:00 ZINC CHLORIDE OPERATOR, Sacral decubitus ulcer | Hypertension | Depression | Cervical spinal stenosis End of Orders .
--- OUTSIDE RECORDS SUMMARY | 2016-12-26 00:37 | XMS REPORT | Referral Summary ---
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 Name Role Phone Lucian Decker Primary Care Physician [phone] Encounter [facility] [id number] Date(s): 02/03/15 - 02/03/15 [facility], [address] [place] [address]- Discharge Diagnosis: Benign hypertension Discharge Diagnosis: Anxiety [...] DAY, # 90 tabs, 2 Refill(s), eRx: [facility] #[id number], TAKE ONE TABLET BY MOUTH EVERY DAY Start Date: 06/15/15 Status: Ordered atorvastatin 10 mg oral tablet See Instructions, TAKE ONE TABLET BY MOUTH AT BEDTIME, # 30 tabs, 9 Refill(s), eRx: [facility] #[id number], TAKE ONE TABLET BY MOUTH AT BEDTIME [...] # 180 tabs, 2 Refill(s) , eRx: [facility] #[id number], TAKE ONE TABLET BY MOUTH TWICE A DAY Start Date: 07/27/15 Status: Ordered ibuprofen 200 mg oral tablet 2 tabs, Oral, BID, as needed for arthritis, # 120 tabs, 0 Refill(s) Start Date: 03/28/14 Status: Ordered levothyroxine 50 mcg (0.05 mg) oral tablet 50 mcg 1 tabs, Oral, Daily, # 90 tabs, 2 Refill(s), Pharmacy: [facility] # [id number], 1 tabs Oral Daily Start Date: 05/24/15 Status: Ordered LORazepam 0.5 mg oral tablet 0.5 mg 1 tabs, Oral, BID, must last 30 days Hetal Corado, # 60 tabs, 0 Refill(s) Start Date: 08/07/15 Status: Ordered omeprazole 40 mg oral delayed release capsule See Instructions, TAKE ONE CAPSULE BY MOUTH EVERY DAY BEFORE A MEAL, # 90 caps, 2 Refill(s), eRx: [facility] #[id number], TAKE ONE CAPSULE BY MOUTH EVERY DAY BEFORE A MEAL Start Date: 03/30/15 Status: Ordered ondansetron 4 mg oral tablet 4 mg 1 tabs, Oral, BID, as needed for nausea/vomiting, X 90 days, # 180 tabs, 3 Refill(s), Pharmacy: [facility] #[id number], 1 tabs Oral BID,x90 days,PRN:as needed for nausea/vomiting Start Date: 05/09/15 Stop Date: 05/03/16 Status: Ordered oxybutynin 15 mg/24 hr oral tablet, extended release See Instructions, TAKE ONE TABLET BY MOUTH EVERY DAY, # 30 unknown unit, 6 Refill(s), eRx: [facility] #[id number], TAKE ONE TABLET BY MOUTH EVERY DAY Start Date: 08/11/14 Status: Ordered oxybutynin 15 mg/24 hr oral tablet, extended release See Instructions, TAKE ONE TABLET BY MOUTH EVERY DAY, # 30 unknown unit, 5 Refill(s), eRx: [facility] #[id number], TAKE ONE TABLET BY MOUTH EVERY DAY Start Date: 03/13/15 Status: Ordered rOPINIRole 4 mg oral tablet See Instructions, TAKE ONE TABLET BY MOUTH EVERY NIGHT AT BEDTIME, # 90 tabs, 2 Refill(s), eRx: [facility] #[id number], TAKE ONE TABLET BY MOUTH EVERY NIGHT AT BEDTIME Start Date: 12/14/14 Status: Ordered Senna S 1 tabs, Oral, Bedtime (once a day), 0 Refill(s) Start Date: 03/28/14 Status: Ordered traZODone 150 mg oral tablet See Instructions, TAKE THREE TABLETS BY MOUTH EVERY NIGHT AT BEDTIME, # 270 tabs , eRx: [facility] #[id number], TAKE THREE TABLETS BY MOUTH EVERY NIGHT AT BEDTIME Start Date: 05/24/15 Status: Ordered traZODone 150 mg oral tablet See Instructions, TAKE THREE TABLETS BY MOUTH EVERY NIGHT AT BEDTIME, # 270 tabs , eRx: [facility] #[id number], TAKE THREE TABLETS BY MOUTH EVERY NIGHT AT BEDTIME Start Date: 02/22/15 Status: Ordered Trileptal 300 mg oral tablet See Instructions, TAKE ONE TABLET BY MOUTH TWICE A DAY, # 120 tabs, eRx: [facility] #[id number], TAKE ONE TABLET BY MOUTH TWICE A [...] at regular, fixed times. Your caregiver or floor associate will give you a meal plan to [...] Released: 03/18/2002 Document Revised: 12/14/2012 Document Reviewed: [facility] Patient Information 2014 [employer] [facility]. No follow up information was provided. [...] Orders Ordered Office Visit Level 4 Est 35269: Future (On Hold) BMP: Hgb A1c: LDL Direct: . Dx/Order Association Plan: Diagnosis: Anxiety Comment: Ordered: Office Visit Level 4 Est 11504; 02/03/15 10:25:00 CDT, Benign hypertension | Cervical radiculopathy | Cervical spinal stenosis | Depression | Pure hypercholesterolemia Diagnosis: Benign hypertension Comment: Ordered: Office Visit Level 4 Est 34414; 02/03/15 10:25:00 CDT, Benign hypertension | Cervical radiculopathy | Cervical spinal stenosis | Depression | Pure hypercholesterolemia Diagnosis: Cervical radiculopathy Comment: Ordered: Office Visit Level 4 Est 12456; 02/03/15 10:25:00 CDT, Benign hypertension | Cervical radiculopathy | Cervical spinal stenosis | Depression | Pure hypercholesterolemia Diagnosis: Cervical spinal stenosis Comment: Ordered: Office Visit Level 4 Est 37569; 02/03/15 10:25:00 CDT, Benign hypertension | Cervical radiculopathy | Cervical spinal stenosis | Depression | Pure hypercholesterolemia Diagnosis: Depression Comment: Ordered: Office Visit Level 4 Est 47622; 02/03/15 10:25:00 CDT, Benign hypertension | Cervical radiculopathy | Cervical spinal stenosis | Depression | Pure hypercholesterolemia Diagnosis: Hyperglycemia Comment: Ordered: Office Visit Level 4 Est 74666; 02/03/15 10:25:00 CDT, Benign hypertension | Cervical radiculopathy | Cervical spinal stenosis | Depression | Pure hypercholesterolemia Diagnosis: Pure hypercholesterolemia Comment: Ordered: Office Visit Level 4 Est 36614; 02/03/15 10:25:00 CDT, Benign hypertension | Cervical radiculopathy | Cervical spinal stenosis | Depression | Pure hypercholesterolemia Diagnosis: Restless legs syndrome (RLS) Comment: Ordered: Office Visit Level 4 Est 78011; 02/03/15 10:25:00 CDT, Benign hypertension | Cervical radiculopathy | Cervical spinal stenosis | Depression | Pure hypercholesterolemia Diagnosis: Spinal stenosis, lumbar region, without neurogenic claudication Comment: Ordered: Office Visit Level 4 Est 37884; 02/03/15 10:25:00 CDT, Benign hypertension | Cervical [...]
--- OUTSIDE RECORDS SUMMARY | 2016-12-26 00:37 | XMS REPORT | Referral Summary ---
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 Phone Lucian Decker Primary Care Physician [phone] Encounter [facility] Date(s): 07/31/16 - 07/31/16 [facility], [address] [place] [id number] Discharge Disposition: 01-Home or Self Care Attending [...] BID, # 60 caps, 11 Refill(s), Pharmacy: [facility] # [id number], 1 caps Oral BID Start Date: 05/29/16 [...] Daily, # 30 tabs, 3 Refill(s), Pharmacy: [facility] # [id number], 1 tabs Oral Daily Start Date: 05/27/16 Status: Ordered cyanocobalamin 1000 mcg/mL injectable solution 1,000 mcg, IntraMuscular, Daily, Given [facility] 07-01-16 To get weekly dose x4 weeks [...] TWICE A DAY, # 180 tabs, eRx: [facility] #[id number], TAKE ONE TABLET BY MOUTH TWICE A DAY Start Date: 07/30/16 Status: Ordered levothyroxine 50 mcg (0.05 mg) oral tablet See Instructions, TAKE ONE TABLET BY MOUTH DAILY, # 90 tabs, eRx: [facility] #[id number], TAKE ONE TABLET BY MOUTH DAILY Start [...] BEFORE A MEAL, # 90 caps, eRx: [facility] #[id number], TAKE ONE CAPSULE BY MOUTH EVERY DAY BEFORE A MEAL Start Date: 06/25/16 Status: Ordered ondansetron 4 mg oral tablet See Instructions, TAKE ONE TABLET BY MOUTH TWICE A DAY NEEDED FOR NAUSEA AND VOMITING, # 60 tabs, eRx: [facility] #[id number], TAKE ONE TABLET BY MOUTH TWICE A DAY NEEDED FOR NAUSEA AND VOMITING Start Date: 07/01/16 Status: Ordered OXcarbazepine 300 mg oral tablet See Instructions, TAKE ONE-HALF TABLET BY MOUTH TWICE A DAY, # 30 tabs, eRx: [facility] #[id number], TAKE ONE-HALF TABLET BY MOUTH TWICE A DAY Start Date: 07/29/16 Status: Ordered oxybutynin 15 mg/24 hr oral tablet, extended release See Instructions, TAKE ONE TABLET BY MOUTH EVERY DAY, # 30 unknown unit, 4 Refill(s), eRx: [facility] #[id number], TAKE ONE TABLET BY MOUTH EVERY DAY Start Date: 04/25/16 Status: Ordered promethazine 25 mg oral tablet See Instructions, TAKE ONE TABLET BY MOUTH TWICE A DAY NEEDED FOR NAUSEA, # 180 tabs, eRx: [facility] #[id number], TAKE ONE TABLET BY MOUTH TWICE A DAY NEEDED FOR NAUSEA Start Date: 07/22/16 Status: Ordered rOPINIRole 2 mg oral tablet 2 mg 1 tabs, Oral, Bedtime (once a day), # 90 tabs, 3 Refill(s), Pharmacy: [facility] #[id number], 1 tabs Oral Bedtime (once a day),x90 days Start Date: 06/17/16 Stop Date: 06/12/17 Status: Ordered traZODone 150 mg oral tablet See Instructions, TAKE THREE TABLETS BY MOUTH EVERY NIGHT AT BEDTIME, # 270 tabs , eRx: [facility] #[id number], TAKE THREE TABLETS BY MOUTH EVERY NIGHT [...]
--- OUTSIDE RECORDS SUMMARY | 2016-12-26 00:38 | XMS REPORT | Referral Summary ---
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 Role Phone Lucian Decker Primary Care Physician [phone] Encounter [facility] Date(s): 05/09/15 - 05/09/15 [facility], [address] [place] [address]- Discharge Diagnosis: Visit for screening mammogram Discharge Diagnosis: HEMATURIA Discharge Diagnosis: Post hysterectomy menopause Discharge Disposition: -Home or Self Care Attending Physician: Shon Decker MD Admitting Physician: Shon Decker MD Vital Signs Most recent to 1 oldest [Reference Range]: Temperature Tympanic 36.5 degC [36.6-38.1 degC] *LOW* (05/09/15 8:54 AM) Peripheral Pulse 83 bpm Rate [60-100 bpm] (05/09/15 8:54 AM) Blood Pressure 118/74 mmHg [90-140/60-90 mmHg] (05/09/15 8:54 AM) SpO2 92 % (05/09/15 8:54 AM) Problem List Condition Effective Dates Status [...] # 90 tabs, 2 Refill(s), eRx: [facility] #[id number], TAKE ONE TABLET BY MOUTH EVERY DAY Start Date: 06/15/15 Status: Ordered Aspirin Low Dose 81 mg, Oral, Daily, 0 Refill(s) Start Date: 11/03/15 Status: Ordered atorvastatin 10 mg oral tablet See Instructions, TAKE ONE TABLET BY MOUTH AT BEDTIME, # 30 tabs, 9 Refill(s), eRx: [facility] #[id number], TAKE ONE TABLET BY MOUTH AT BEDTIME [...] 180 tabs, 2 Refill(s) , eRx: [facility] #[id number], TAKE ONE TABLET BY MOUTH TWICE A DAY Start Date: 07/27/15 Status: Ordered levothyroxine 50 mcg (0.05 mg) oral tablet 50 mcg 1 tabs, Oral, Daily, # 90 tabs, 2 Refill(s), Pharmacy: [facility] # [id number], 1 tabs Oral Daily Start Date: 05/24/15 [...] # 90 caps, 2 Refill(s), eRx: [facility] #[id number], TAKE ONE CAPSULE BY MOUTH EVERY DAY BEFORE A MEAL Start Date: 03/30/15 Status: Ordered ondansetron 4 mg oral tablet 4 mg 1 tabs, Oral, BID, as needed for nausea/vomiting, X 90 days, # 180 tabs, 3 Refill(s), Pharmacy: [facility] #[id number], 1 tabs Oral BID,x90 days,PRN:as needed for nausea/vomiting Start Date: 05/09/15 Stop Date: 05/03/16 Status: Ordered oxybutynin 15 mg/24 hr oral tablet, extended release 15 mg 1 tabs, Oral, Daily, # 30 tabs, 4 Refill(s), Pharmacy: [facility] # [id number], 1 tabs Oral Daily Start Date: 11/14/15 Status: Ordered rOPINIRole 4 mg oral tablet See Instructions, TAKE ONE TABLET BY MOUTH EVERY NIGHT AT BEDTIME, # 90 tabs, 1 Refill(s), eRx: [facility] #[id number], TAKE ONE TABLET BY MOUTH EVERY NIGHT AT BEDTIME Start Date: 09/11/15 Status: Ordered Senna S 1 tabs, Oral, Bedtime (once a day), 0 Refill(s) Start Date: 03/28/14 Status: Ordered traZODone 150 mg oral tablet See Instructions, TAKE THREE TABLETS BY MOUTH EVERY NIGHT AT BEDTIME, # 270 tabs , eRx: [facility] #[id number], TAKE THREE TABLETS BY MOUTH EVERY NIGHT AT BEDTIME Start Date: 08/23/15 Status: Ordered Trileptal 300 mg oral tablet See Instructions, TAKE ONE TABLET BY MOUTH TWICE A DAY, # 120 tabs, eRx: [facility] #[id number], TAKE ONE TABLET BY MOUTH TWICE A DAY Start Date: 10/12/15 Status: Ordered Vitamin D3 1,000 Intl_Units, Oral, Daily, 0 Refill(s) Start Date: 03/21/14 Status: Ordered Results Hematology Most recent to 1 oldest [Reference Range]: WBC [4.8-10.8 5.4 10*3/uL 10*3/uL] (05/09/15 10:18 AM) RBC [4.00-5.20 4.79 10*6/uL 10*6/uL] (05/09/15 10:18 AM) Hgb [12.0-16.0 14.4 gm/dL gm/dL] (05/09/15 10:18 AM) Hct [37.0-47.0 %] 41.9 % (05/09/15 10:18 AM) MCV [82.0-99.0 fL] 87.5 fL (05/09/15 10:18 AM) MCH [27.0-32.0 pg] 30.1 pg (05/09/15 10:18 AM) MCHC [32.0-36.0 34.4 gm/dL gm/dL] (05/09/15 10:18 AM) RDW [11.5-14.5 %] 12.5 % (05/09/15 10:18 AM) Platelet [150-400 164 10*3/uL 10*3/uL] (05/09/15 10:18 AM) MPV [8.8-14.8 fL] 10.3 fL (05/09/15 10:18 AM) Immature 0.2 % Granulocytes (05/09/15:18 AM) [0.0-1.0 %] Neutrophils [51-75 67 % %] (05/09/15 10:18 AM) Lymphocytes [20-46 24 % %] (05/09/15 10:18 AM) Monocytes [4-11 %] 7 % (05/09/15 10:18 AM) Eosinophils [0-4 %] 2 % (05/09/15 10:18 AM) Basophils [0-2 %] 1 % (05/09/15 10:18 AM) Neutro Absolute 3.61 10*3 [1.90-7.00 10*3] (05/09/15 10:18 AM) Lymph Absolute 1.31 10*3 [0.80-3.30 10*3] (05/09/15 10:18 AM) [place] Absolute 0.35 10*3 [0.30-1.00 10*3] (05/09/15 10:18 AM) Eos Absolute 0.11 10*3 [0.00-0.50 10*3] (05/09/15 10:18 AM) Baso Absolute 0.03 10*3 [0.00-0.20 10*3] (05/09/15 10:18 AM) Chemistry Most recent to 1 oldest [Reference Range]: Sodium Lvl [135-144 141 mEq/L mEq/L] (05/09/15 10:18 AM) Potassium Lvl 4.3 mEq/L [3.5-5.2 mEq/L] (05/09/15 10:18 AM) Chloride [99-111 104 mEq/L mEq/L] (05/09/15 10:18 AM) CO2 [22-31 mEq/L] 29 mEq/L (05/09/15 10:18 AM) AGAP [3-20] 8 (05/09/15 10:18 AM) BUN [10-20 mg/dL] 11 mg/dL (05/09/15 10:18 AM) Glucose Lvl [70-99 108 mg/dL mg/dL] *HI* (05/09/15 10:18 AM) Creatinine Lvl 0.79 mg/dL [0.57-1.11 mg/dL] (05/09/15 10:18 AM) eGFR [>60 mL/min] >60 mL/min 1 (05/09/15:18 AM) Calcium Lvl 9.8 mg/dL [8.9-10.5 mg/dL] (05/09/15 10:18 AM) Albumin Lvl [3.4-4.8 4.1 gm/dL gm/dL] (05/09/15 10:18 AM) Total Protein 6.7 gm/dL [6.2-8.1 gm/dL] (05/09/15 10:18 AM) Globulin [1.8-4.0 2.6 gm/dL gm/dL] (05/09/15 10:18 AM) ALT [0-55 U/L] 8 U/L (05/09/15 10:18 AM) AST [5-34 U/L] 16 U/L (05/09/15 10:18 AM) Alk Phos [40-150 58 U/L U/L] (05/09/15 10:18 AM) Bili Total [0.2-1.2 0.7 mg/dL mg/dL] (05/09/15 10:18 AM) Chol [0-199 mg/dL] 210 mg/dL *HI* (05/09/15 10:18 AM) Trig [0-149 mg/dL] 138 mg/dL (05/09/15 10:18 AM) HDL [40-84 mg/dL] 65 mg/dL (05/09/15 10:18 AM) LDL [0-130 mg/dL] 117 mg/dL (05/09/15 10:18 AM) VLDL Cholesterol 28 mg/dL [0-28 mg/dL] (05/09/15 10:18 AM) Cardiac Risk 3.2 [0.0-5.0] (05/09/15 10:18 AM) TSH [0.35-4.94] 1.78 (05/09/15 10:18 AM) 1Result Comment: Multiply eGFR results by 1.21 for race. Urinalysis Most recent to 1 oldest [Reference Range]: UA Color DkYellow (05/09/15 10:28 AM) UA Appear Cloudy *ABN* (05/09/15 10:28 AM) UA pH [5.0-8.0] 6.0 (05/09/15 10:28 AM) UA Leuk Est Pos 1+ [Negative] *ABN* (05/09/15 10:28 AM) UA Nitrite Negative [Negative] (05/09/15 10:28 AM) UA Protein Negative [Negative] (05/09/15 10:28 AM) UA Glucose Negative [Negative] (05/09/15 10:28 AM) UA Ketones Negative [Negative] (05/09/15 10:28 AM) UA Urobilinogen 1.0 mg/dL [<1.0 mg/dL] (05/09/15 10:28 AM) UA Bili [Negative] Negative (05/09/15 10:28 AM) UA Blood [Negative] Trace *ABN* (05/09/15 10:28 AM) UA Spec Grav 1.027 [1.003-1.030] (05/09/15 10:28 AM) Type Clean Catch (05/09/15 10:28 AM) UA WBC [0-4] 2-4 (05/09/15 10:28 AM) UA RBC [0-4] 10-20 *ABN* (05/09/15 10:28 AM) Epithelial Cells 5-10 (05/09/15 10:28 AM) Crystals Ca Ox (05/09/15 10:28 AM) UA Mucous Present (05/09/15 10:28 AM) Microbiology Reports TEST: Urine Culture STATUS: Auth (Verified) BODY SITE: SOURCE: Urine COLLECTED DATE/TIME: 05/09/15 10:28 AM Urine Culture No growth Immunizations Vaccine Date Refusal Reason tetanus/diphth/pertuss (Tdap) [...] Author: Shon Decker MD Date: Family Medicine Restless Legs Syndrome Restless legs syndrome is a movement disorder. It may also be called a sensori- motor disorder. CAUSES No one knows what specifically causes restless legs syndrome, but it tends to run in families. It is also more common in people with low iron, in , in people who need dialysis, and those with nerve damage (neuropathy).Some medications may make restless legs syndrome worse.Those medications include drugs to treat high blood pressure, some heart conditions, nausea, colds, allergies, and depression. SYMPTOMS Symptoms include uncomfortable sensations in the legs. These leg sensations are worse during periods of inactivity or rest. They are also worse while sitting or lying down. Individuals that have the disorder describe sensations in the legs that feel like: Pulling. Drawing. Crawling. [place]orming. [place]. Tingling. Pins and needles. Prickling. Pain. The sensations are usually accompanied by an overwhelming urge to move the legs. Sudden muscle jerks may also occur. Movement provides temporary relief from the discomfort. In rare cases, the arms may also be affected. Symptoms may interfere with going to sleep (sleep onset insomnia). Restless legs syndrome may also be related to periodic limb movement disorder (PLMD). PLMD is another more common motor disorder. It also causes interrupted sleep. The symptoms from PLMD usually occur most often when you are awake. TREATMENT Treatment for restless legs syndrome is symptomatic. This means that the symptoms are treated. Massage and cold compresses may provide temporary relief. Walk, stretch, or take a cold or hot bath. Get regular exercise and a good night's sleep. Avoid caffeine, alcohol, nicotine, and medications that can make it worse. Do activities that provide mental stimulation like discussions, needlework , and video games. These may be helpful if you are not able to walk or stretch. Some medications are effective in relieving the symptoms. However, many of these medications have side effects. Ask your caregiver about medications that may help your symptoms. Correcting iron deficiency may improve symptoms for some patients. Document Released: 09/12/2003 Document Revised: 12/14/2012 Document Reviewed: [facility] Patient Information 2015 [employer]. This information is not intended to replace advice given to you by your health care provider. Make sure you discuss any questions you have with your health care provider. No follow up information was provided. Extracted from: Title: [facility] Author: Shon Decker MD Date: 05/09/15 Impression and Plan Diagnosis Adult hypothyroidism (ICD9 244.9, Working, Medical). Anxiety (ICD9 300.00, Working, Medical). At high risk for pneumonia (ICD9 V49.89, Working, Medical). Benign hypertension (ICD9 401.1, Working, Medical). Cervical spinal stenosis (ICD9 723.0, Working, Medical). Chronic low back pain (ICD9 724.2, Working, Medical). Depression (ICD9 311, Working, Medical). Fatigue (ICD9 780.79, Working, Medical). Post hysterectomy menopause (ICD9 627.4, Discharge, Medical). Pure hypercholesterolemia (ICD9 272.0, Working, Medical). Restless legs syndrome (RLS) (ICD9 333.94, Working, Medical). Visit for screening mammogram (ICD9 V76.12, Discharge, Medical). Plan: Medicare screening breast and pelvic exam done today, post hysterectomy. , Prevnar-13 pneumonia shot given today, due to being at high risk for pneumonia. Continue healthy diet and daily exercise as much as possible. Use Monistat cream under the breasts twice a day until the rash is clear. , Lab today. Stop the Promethazine and switch to Ondansetron 4 mg twice a day as needed for nausea. Continue your other meds the same. , Shingles and Hepatitis A and B vaccine series is recommended. , See Dr. Ortiz for toenail trimming. See me in 3 months and as needed. , Schedule mammograms at the lab desk.. Orders Orders (Selected) Outpatient Orders Ordered Office Visit Level 5 Est 40410: Pelvis and Breast exam- with or without exam G0101: pneumococcal 13-valent conjugate vaccine: 0.5 mL, IntraMuscular, Once Future (On Hold) CBC w/ Differential: CMP: Lipid Panel: Mammogram Routine Screening Bilat: Routine Urinalysis: TSH 3rd Generation: XR Consultation Outside Film: Prescriptions Prescribed ondansetron 4 mg oral tablet: 4 mg=1 tabs, Oral, BID, for 90 days, PRN: as needed for nausea/vomiting, 180 tabs, 3 Refill(s).
--- OUTSIDE RECORDS SUMMARY | 2016-12-26 00:38 | XMS REPORT | Referral Summary ---
Author Author [facility], Family Medicine Organization [facility] Address Unknown Phone Unavailable Care Team Providers Care Tobacco Stripper Hand Name Role Phone Lucian Decker Primary Care Physician [phone] Encounter VC Date(s): 10/05/15 - 10/05/15 [facility], [address] [place] [address]- Discharge Disposition: 01-Home or Self Care Attending Physician: Shon Decker MD Admitting Physician: Shon Decker MD Vital Signs Most recent to 1 oldest [Reference Range]: Temperature Tympanic 36.7 degC [36.6-38.1 degC] (10/05/15 2:03 PM) Peripheral Pulse 84 bpm Rate [60-100 bpm] (10/05/15 2:03 PM) Blood Pressure 110/72 mmHg [90-140/60-90 mmHg] (10/05/15 2:03 PM) Problem List Condition Effective Dates Status [...] DAY, # 90 tabs, 2 Refill(s), eRx: [facility] #[id number], TAKE ONE TABLET BY MOUTH EVERY DAY Start Date: 06/15/15 Status: Ordered atorvastatin 10 mg oral tablet See Instructions, TAKE ONE TABLET BY MOUTH AT BEDTIME, # 30 tabs, 9 Refill(s), eRx: [facility] #[id number], TAKE ONE TABLET BY MOUTH AT BEDTIME Start Date: 07/27/15 Status: Ordered fentaNYL 100 mcg/hr transdermal film, extended release 1 patches, Topical, q72hr, # 10 patches, 0 Refill(s) Start Date: 09/13/15 Status: Ordered ferrous sulfate 325 mg (65 mg elemental iron) oral tablet 1 tabs, Oral, Daily, 0 Refill(s) Start Date: 07/07/14 Status: Ordered gabapentin 800 mg oral tablet See Instructions, TAKE ONE TABLET BY MOUTH TWICE A DAY, # 180 tabs, 2 Refill(s) , eRx: [facility] #[id number], TAKE ONE TABLET BY MOUTH TWICE A DAY Start Date: 07/27/15 Status: Ordered levothyroxine 50 mcg (0.05 mg) oral tablet 50 mcg 1 tabs, Oral, Daily, # 90 tabs, 2 Refill(s), Pharmacy: [facility] # [id number], 1 tabs Oral Daily Start Date: 05/24/15 [...] MEAL, # 90 caps, 2 Refill(s), eRx: [facility] #[id number], TAKE ONE CAPSULE BY MOUTH EVERY DAY BEFORE A MEAL Start Date: 03/30/15 Status: Ordered ondansetron 4 mg oral tablet 4 mg 1 tabs, Oral, BID, as needed for nausea/vomiting, X 90 days, # 180 tabs, 3 Refill(s), Pharmacy: [facility] #[id number], 1 tabs Oral BID,x90 days,PRN:as needed for nausea/vomiting Start Date: 05/09/15 Stop Date: 05/03/16 Status: Ordered oxybutynin 15 mg/24 hr oral tablet, extended release See Instructions, TAKE ONE TABLET BY MOUTH EVERY DAY, # 30 unknown unit, 6 Refill(s), eRx: [facility] #[id number], TAKE ONE TABLET BY MOUTH EVERY DAY Start Date: 09/11/15 Status: Ordered rOPINIRole 4 mg oral tablet See Instructions, TAKE ONE TABLET BY MOUTH EVERY NIGHT AT BEDTIME, # 90 tabs, 1 Refill(s), eRx: [facility] #[id number], TAKE ONE TABLET BY MOUTH EVERY NIGHT AT BEDTIME Start Date: 09/11/15 Status: Ordered Senna S 1 tabs, Oral, Bedtime (once a day), 0 Refill(s) Start Date: 03/28/14 Status: Ordered traZODone 150 mg oral tablet See Instructions, TAKE THREE TABLETS BY MOUTH EVERY NIGHT AT BEDTIME, # 270 tabs , eRx: [facility] #[id number], TAKE THREE TABLETS BY MOUTH EVERY NIGHT AT BEDTIME Start Date: 08/23/15 Status: Ordered Trileptal 300 mg oral tablet See Instructions, TAKE ONE TABLET BY MOUTH TWICE A DAY, # 120 tabs, eRx: [facility] #[id number], TAKE ONE TABLET BY MOUTH TWICE A DAY Start Date: 06/29/15 Status: Ordered Vitamin D3 1,000 Intl_Units, Oral, Daily, 0 Refill(s) Start Date: 03/21/14 Status: Ordered Results Hematology Most recent to 1 oldest [Reference Range]: WBC [4.8-10.8 5.2 10*3/uL 10*3/uL] (12/31/15 3:00 PM) RBC [4.00-5.20] 4.77 (10/05/15 3:00 PM) Hgb [12.0-16.0 14.3 gm/dL gm/dL] (10/05/15 3:00 PM) Hct [37.0-47.0 %] 40.3 % (10/05/15 3:00 PM) MCV [82.0-99.0 fL] 84.5 fL (10/05/15 3:00 PM) MCH [27.0-32.0 pg] 30.0 pg (10/05/15 3:00 PM) MCHC [32.0-36.0 35.5 gm/dL gm/dL] (10/05/15 3:00 PM) RDW [11.5-14.5 %] 12.5 % (10/05/15 3:00 PM) Platelet [150-400 172 10*3/uL 10*3/uL] (10/05/15 3:00 PM) MPV [8.8-14.8 fL] 9.7 fL (10/05/15 3:00 PM) Immature 0.2 % Granulocytes (10/05/15 3:00 PM) [0.0-1.0 %] Neutrophils [51-75 80 % %] *HI* (10/05/15 3:00 PM) Lymphocytes [20-46 13 % %] *LOW* (10/05/15 3:00 PM) Monocytes [4-11 %] 6 % (10/05/15 3:00 PM) Eosinophils [0-4 %] 1 % (10/05/15 3:00 PM) Basophils [0-2 %] 1 % (10/05/15 3:00 PM) Neutro Absolute 4.16 10*3 [1.90-7.00 10*3] (10/05/15 3:00 PM) Lymph Absolute 0.67 10*3 [0.80-3.30 10*3] *LOW* (10/05/15 3:00 PM) [place] Absolute 0.31 10*3 [0.30-1.00 10*3] (10/05/15 3:00 PM) Eos Absolute 0.03 10*3 [0.00-0.50 10*3] (10/05/15 3:00 PM) Baso Absolute 0.03 10*3 [0.00-0.20 10*3] (10/05/15 3:00 PM) Coagulation Most recent to 1 oldest [Reference Range]: PT Venous (10/05/15 3:00 PM) INR [0.8-1.2] 1.0 1 (10/05/15 3:00 PM) PTT [25.0-35.0 28.8 seconds seconds] (10/05/15 3:00 PM) 1Result Comment: Normal (no anticoagulant): 0.8 - 1.2 Units Routine Therapeutic Range: 2.0 - 3.0 Units High Risk Therapeutic Range: 2.5 - 3.5 Units Chemistry Most recent to 1 oldest [Reference Range]: Sodium Lvl [135-144 133 mEq/L mEq/L] *LOW* (10/05/15 3:00 PM) Potassium Lvl 3.7 mEq/L [3.5-5.2 mEq/L] (10/05/15 3:00 PM) Chloride [99-111 97 mEq/L mEq/L] *LOW* (10/05/15 3:00 PM) CO2 [22-31 mEq/L] 27 mEq/L (10/05/15 3:00 PM) AGAP [3-20] 9 (10/05/15 3:00 PM) BUN [10-20 mg/dL] 11 mg/dL (10/05/15 3:00 PM) Glucose Lvl [70-99 121 mg/dL mg/dL] *HI* (10/05/15 3:00 PM) Creatinine Lvl 0.71 mg/dL [0.57-1.11 mg/dL] (10/05/15 3:00 PM) eGFR [>60 mL/min] >60 mL/min 1 (10/05/15 3:00 PM) Calcium Lvl 9.2 mg/dL [8.9-10.5 mg/dL] (10/05/15 3:00 PM) Albumin Lvl [3.4-4.8 3.8 gm/dL gm/dL] (10/05/15 3:00 PM) Total Protein 6.8 gm/dL [6.2-8.1 gm/dL] (10/05/15 3:00 PM) Globulin [1.8-4.0 3.0 gm/dL gm/dL] (10/05/15 3:00 PM) ALT [0-55 U/L] 15 U/L (10/05/15 3:00 PM) AST [5-34 U/L] 24 U/L (10/05/15 3:00 PM) Alk Phos [40-150 54 U/L U/L] (10/05/15 3:00 PM) Bili Total [0.2-1.2 0.7 mg/dL mg/dL] (10/05/15 3:00 PM) 1Result Comment: Multiply eGFR results by 1.21 for race. Urinalysis Most recent to 1 oldest [Reference Range]: UA Color DkYellow (10/05/15 3:17 PM) UA Appear Clear (10/05/15 3:17 PM) UA pH [5.0-8.0] 6.5 (10/05/15 3:17 PM) UA Leuk Est Pos 1+ [Negative] *ABN* (10/05/15 3:17 PM) UA Nitrite Negative [Negative] (10/05/15 3:17 PM) UA Protein Trace [Negative] *ABN* (10/05/15 3:17 PM) UA Glucose Negative [Negative] (10/05/15 3:17 PM) UA Ketones Negative [Negative] (10/05/15 3:17 PM) UA Urobilinogen 1.0 mg/dL [<1.0 mg/dL] (10/05/15 3:17 PM) UA Bili [Negative] Negative (10/05/15 3:17 PM) UA Blood [Negative] Trace *ABN* (10/05/15 3:17 PM) UA Spec Grav 1.025 [1.003-1.030] (10/05/15 3:17 PM) Type Clean Catch (10/05/15 3:17 PM) UA WBC [0-4] 5-10 *ABN* (10/05/15 3:17 PM) UA RBC [0-4] 5-10 *ABN* (10/05/15 3:17 PM) Epithelial Cells 2-5 (10/05/15 3:17 PM) UA Bacteria Occasional *ABN* (10/05/15 3:17 PM) Immunizations Vaccine Date Refusal Reason tetanus/diphth/pertuss (Tdap) [...] Author: Shon Decker MD Date: Family Medicine Pressure Ulcer A pressure ulcer is a sore that has formed from the breakdown of skin and exposure of deeper layers of tissue. It develops in areas of the body where there is unrelieved pressure. Pressure ulcers are usually found over a bony area , such as the shoulder blades, spine, lower back, hips, knees, ankles, and heels. Pressure ulcers vary in severity. Your health care provider may determine the severity (stage) of your pressure ulcer. The stages include: Stage IThe skin is red, and when the skin is pressed, it stays red. Stage IIThe top layer of skin is gone, and there is a shallow, pink ulcer. Stage IIIThe ulcer becomes deeper, and it is more difficult to see the whole wound. Also, there may be yellow or brown parts, as well as pink and red parts. Stage IVThe ulcer may be deep and red, pink, brown, white, or yellow. Bone or muscle may be seen. Unstageable pressure ulcerThe ulcer is covered almost completely with black, brown, or yellow tissue. It is not known how deep the ulcer is or what stage it is until this covering comes off. Suspected deep tissue injuryA person's skin can be injured from pressure or pulling on the skin when his or her position is changed. The skin appears purple or maroon. There may not be an opening in the skin, but there could be a blood-filled blister. This deep tissue injury is often difficult to see in people with darker skin tones. The site may open and become deeper in time. However, early interventions will help the area heal and may prevent the area from opening. CAUSES Pressure ulcers are caused by pressure against the skin that limits the flow of blood to the skin and nearby tissues. There are many risk factors that can lead to pressure sores. RISK FACTORS Decreased ability to move. Decreased ability to feel pain or discomfort. Excessive skin moisture from urine, stool, sweat, or secretions. Poor nutrition. Dehydration. Tobacco, drug, or alcohol abuse. Having someone pull on bedsheets that are under you, such as when health care workers are changing your position in a hospital bed. Obesity. Increased adult age. Hospitalization in a critical care unit for longer than 4 days with use of medical devices. Prolonged use of medical devices. Critical illness. Anemia. Traumatic brain injury. Spinal cord injury. Stroke. Diabetes. Poor blood glucose control. Low blood pressure (hypotension). Low oxygen levels. Medicines that reduce blood flow. Infection. DIAGNOSIS Your health care provider will diagnose your pressure ulcer based on its appearance. The health care provider may determine the stage of your pressure ulcer as well. Tests may be done to check for infection, to assess your circulation, or to check for other diseases, such as diabetes. TREATMENT Treatment of your pressure ulcer begins with determining what stage the ulcer is in. Your treatment team may include your health care provider, a operation specialist, a apparatus repair mechanic, a physical therapist, and a surgeon. Possible treatments may include: Moving or repositioning every 12 hours. Using beds or mattresses to shift your body weight and pressure points frequently. Improving your diet. Cleaning and bandaging (dressing) the open wound. Giving antibiotic medicines. Removing damaged tissue. Surgery and sometimes skin grafts. HOME CARE INSTRUCTIONS If you were hospitalized, follow the care plan that was started in the hospital. Avoid staying in the same position for more than 2 hours. Use padding, devices, or mattresses to cushion your pressure points as directed by your health care provider. Eat a well-balanced diet. Take nutritional supplements and vitamins as directed by your health care provider. Keep all follow-up appointments. Only take [id number]-lwb-[id number] or prescription medicines for pain, fever, or discomfort as directed by your health care provider. SEEK MEDICAL CARE IF: Your pressure ulcer is not improving. You do not know how to care for your pressure ulcer. You notice other areas of redness on your skin. You have a fever. SEEK IMMEDIATE MEDICAL CARE IF: You have increasing redness, swelling, or pain in your pressure ulcer. You notice pus coming from your pressure ulcer. You notice a bad smell coming from the wound or dressing. Your pressure ulcer opens up again. Document Released: 09/22/2006 Document Revised: 09/27/2014 Document Reviewed: Exit[employer] Patient Information 2015 [employer]. This information is not intended to replace advice given to you by your health care provider. Make sure you discuss any questions you have with your health care provider. No follow up information was provided. Extracted from: Title: [facility] Author: Shon Decker MD Date: 10/05/15 Impression and Plan Diagnosis Cervical spinal stenosis (SXU06-XA M48.02, Working, Medical). Cervical radiculopathy (CWU53-CO M54.12, Working, Medical). Hypertension (DBG98-FD I10, Working, Medical). Depression (OUW66-YO F32.1, Working, Medical). Restless legs syndrome (RLS) (VKH41-SU G25.81, Working, Medical). Pure hypercholesterolemia (BVI69-PM E78.0, Working, Medical). Adult hypothyroidism (MXK70-GE E03.9, Working, Medical). Chronic low back pain (FUK13-CR M54.5, Working, Medical). Sacral decubitus ulcer, stage III (NRL02-AM L89.153, Working, Medical). Preop testing (VCW60-TJ Z01.818, Working, Medical). Mild recurrent major depression (IXZ33-RH F33.0, Working, Medical). Plan: 1) See the wound care center for treatment of your sacral decubitus ulcer. 2) use a donut cushion and keep the pressure off the ulcer. 3) Lab and CXR today. 4) May have surgery after the buttock ulcer is closed. 5) Have Dr. Leblanc send a copy of your ECG to your surgeon. 6) See me back in one month. . Orders Orders (Selected) Outpatient Orders Ordered Office Visit Level 5 Est 13600: Discontinued Office Visit Level 4 Est 17403: Future (On Hold) CBC w/ Differential: CMP: Message for Lab: PT/PTT: Routine Urinalysis: XR Chest 2 Views: XR Consultation Outside Film: Prescriptions Prescribed LORazepam 0.5 mg oral tablet: 0.5 mg=1 tabs, Oral, BID, must last 30 days for each script NBrigette Corado, 60 tabs, 5 Refill(s). Dx/Order Association Plan: Diagnosis: Adult hypothyroidism Comment: Diagnosis: Cervical radiculopathy Comment: Ordered: Office Visit Level 5 Est 54269; 10/05/15 14:31:00 MICROWAVE REMOTE SENSING SCIENTIST, Sacral decubitus ulcer, stage III | Hypertension | Cervical spinal stenosis | Cervical radiculopathy Diagnosis: Cervical spinal stenosis Comment: Ordered: Office Visit Level 5 Est 14457; 10/05/15 14:31:00 MICROWAVE REMOTE SENSING SCIENTIST, Sacral decubitus ulcer, stage III | Hypertension | Cervical spinal stenosis | Cervical radiculopathy Discontinued: Office Visit Level 4 Est 57700; 10/05/15 14:24:00 MICROWAVE REMOTE SENSING SCIENTIST, Sacral decubitus ulcer, stage III | Hypertension | Cervical spinal stenosis | Restless legs syndrome (RLS) Diagnosis: Chronic low back pain Comment: Diagnosis: Depression Comment: Diagnosis: Hypertension Comment: Ordered: Office Visit Level 5 Est 46274; 10/05/15 14:31:00 MICROWAVE REMOTE SENSING SCIENTIST, Sacral decubitus ulcer, stage III | Hypertension | Cervical spinal stenosis | Cervical radiculopathy Discontinued: Office Visit Level 4 Est 77763; 10/05/15 14:24:00 MICROWAVE REMOTE SENSING SCIENTIST, Sacral decubitus ulcer, stage III | Hypertension | Cervical spinal stenosis | Restless legs syndrome (RLS) Diagnosis: Mild recurrent major depression Comment: Diagnosis: Preop testing Comment: Diagnosis: Pure hypercholesterolemia Comment: Diagnosis: Restless legs syndrome (RLS) Comment: Discontinued: Office Visit Level 4 Est 18483; 10/05/15 14:24:00 MICROWAVE REMOTE SENSING SCIENTIST, Sacral decubitus ulcer, stage III | Hypertension | Cervical spinal stenosis | Restless legs syndrome (RLS) Diagnosis: Sacral decubitus ulcer, stage III Comment: Ordered: Office Visit Level 5 Est 39512; 10/05/15 14:31:00 MICROWAVE REMOTE SENSING SCIENTIST, Sacral decubitus ulcer, stage III | Hypertension | Cervical spinal stenosis | Cervical radiculopathy Discontinued: Office Visit Level 4 Est 31361; 10/05/15 14:24:00 MICROWAVE REMOTE SENSING SCIENTIST, Sacral decubitus ulcer, stage III | Hypertension | Cervical spinal stenosis | Restless legs syndrome (RLS) Diagnosis: Cervical radiculopathy Comment: Diagnosis: Cervical spinal stenosis Comment: Diagnosis: Pure hypercholesterolemia Comment: Diagnosis: Hypertension Comment: Diagnosis: Sacral decubitus ulcer, stage III Comment: Diagnosis: Hypertension Comment: Diagnosis: Sacral decubitus ulcer, stage III Comment: Diagnosis: Hypertension Comment: Diagnosis: Hypertension Comment: Diagnosis: Cervical radiculopathy Comment: Diagnosis: Cervical spinal stenosis Comment: Diagnosis: Hypertension Comment: Additional Orders: Comment: Ordered: LORazepam 0.5 mg oral tablet,0.5 mg 1 tabs, Oral, BID, must last 30 days for each script Hetal Corado, # 60 tabs, 5 Refill(s) End of Orders ."
--- OUTSIDE RECORDS SUMMARY | 2016-12-26 00:38 | XMS REPORT | Continuity of Care Document ---
Author Author Carmen VALLE, PhD, [facility] Address [address] [place] [address] [place] [address] Phone Care Team Providers Care Chief Nurse Anesthetist Name Role Phone Shon Decker PP Unavailable Jannie Cohen RP Unavailable Payers Payer name Insurance type Covered democrat ID Authorization(s) Unknown Problems Condition Effective Dates (start - stop) Clinical Status Hypertension - *Chronic Low back pain - *Chronic Fatigue - *Chronic Chronic gastritis - Improved Hypercholesterolemia - *Chronic RLS (restless legs syndrome) - *Chronic Back pain - *Chronic Depression [...] loss - *Resolved Generalized osteoarthritis - *Chronic Hypertonicity of bladder - *Poor control Urge incontinence - *Poor control Influenza Vaccine - Leg weakness, bilateral - [...] *Symptomatic Enlargement of lymph nodes - *Resolved Lymphadenopathy, [...] the evening meal 10 MG - Active Vesicare 10 mg tablet take 1 tablet (10MG) by oral route every day 10 MG - Active zolpidem 10 mg [...] Rate Blood Pressure Temperature /10:05:00 64.00 in 186.00 lbs 80 /min 130/72 mm[Hg] 97.6 F Procedures Procedure Date Unknown Encounters Encounter Location Date Patient Visit [facility] New FM Patient Visit [facility] Patient Visit [facility] Patient Visit [facility] Patient Visit [facility] Patient Visit [facility] Patient Visit [facility] FM Patient Visit [facility] Patient Visit [facility] Patient Visit [facility] Patient Visit [facility] Patient Visit [facility] FC Pain Patient Visit [facility] FC Pain Patient Visit [facility] FC Pain Patient Visit [facility] Urology Patient Visit [facility] FC Pain Patient Visit [facility] New Surg Patient Visit [facility] New Surg Patient Visit [facility] FM Advance Directives Directive Effective Date Unknown
--- OUTSIDE RECORDS SUMMARY | 2016-12-26 00:38 | XMS REPORT | Referral Summary ---
Author Author [facility], [facility] Organization [facility] Address Unknown Phone Unavailable Care Team Providers Care Slasher Tender Helper Name Role Phone Lucian Decker Primary Care Physician [phone] Encounter VC Date(s): 07/10/16 - 07/10/16 [facility], [address] [place] [address]- Discharge Disposition: 01-Home or Self Care Attending Physician: Shon Decker MD Admitting Physician: Hakeem Navarro Vital Signs No data available for this [...] BID, # 60 caps, 11 Refill(s), Pharmacy: [facility] # [id number], 1 caps Oral BID Start Date: 05/29/16 [...] Daily, # 30 tabs, 3 Refill(s), Pharmacy: [facility] # [id number], 1 tabs Oral Daily Start Date: 05/27/16 Status: Ordered cyanocobalamin 1000 mcg/mL injectable solution 1,000 mcg, IntraMuscular, Daily, Given [facility] 07-01-16 To get weekly dose [...] TWICE A DAY, # 180 tabs, eRx: [facility] #[id number], TAKE ONE TABLET BY MOUTH TWICE A DAY Start Date: 04/30/16 Status: Ordered levothyroxine 50 mcg (0.05 mg) oral tablet See Instructions, TAKE ONE TABLET BY MOUTH DAILY, # 90 tabs, eRx: [facility] #[id number], TAKE ONE TABLET BY MOUTH DAILY Start [...] BEFORE A MEAL, # 90 caps, eRx: [facility] #[id number], TAKE ONE CAPSULE BY MOUTH EVERY DAY BEFORE A MEAL Start Date: 06/25/16 Status: Ordered ondansetron 4 mg oral tablet See Instructions, TAKE ONE TABLET BY MOUTH TWICE A DAY NEEDED FOR NAUSEA AND VOMITING, # 60 tabs, eRx: [facility] #[id number], TAKE ONE TABLET BY MOUTH TWICE A DAY NEEDED FOR NAUSEA AND VOMITING Start Date: 07/01/16 Status: Ordered OXcarbazepine 300 mg oral tablet 150 mg 0.5 tabs, Oral, Daily, # 30 tabs, 0 Refill(s), Pharmacy: [facility] #[id number], 0.5 tabs Oral BID Start Date: 05/27/16 Status: Ordered oxybutynin 15 mg/24 hr oral tablet, extended release See Instructions, TAKE ONE TABLET BY MOUTH EVERY DAY, # 30 unknown unit, 4 Refill(s), eRx: [facility] #[id number], TAKE ONE TABLET BY MOUTH EVERY DAY Start Date: 04/25/16 Status: Ordered promethazine 25 mg, Oral, BID, as needed for nausea/vomiting, 0 Refill(s) Start Date: 05/06/16 Status: Ordered rOPINIRole 2 mg oral tablet 2 mg 1 tabs, Oral, Bedtime (once a day), # 90 tabs, 3 Refill(s), Pharmacy: [facility] #[id number], 1 tabs Oral Bedtime (once a day),x90 days Start Date: 06/17/16 Stop Date: 06/12/17 Status: Ordered traZODone 150 mg oral tablet See Instructions, TAKE THREE TABLETS BY MOUTH EVERY NIGHT AT BEDTIME, # 270 tabs , eRx: [facility] #[id number], TAKE THREE TABLETS BY MOUTH EVERY NIGHT [...]
--- OUTSIDE RECORDS SUMMARY | 2016-12-26 00:38 | XMS REPORT | Referral Summary ---
Author Author [facility], Family Medicine Organization [facility] Address Unknown Phone Unavailable Care Team Providers Care Design/Animation Instructor Name Role Phone Lucian Decker Primary Care Physician [phone] Encounter VC Date(s): 06/25/16 - 06/25/16 [facility], [address] [place] [address]- Discharge Disposition: 01-Home or Self Care Attending [...] BID, # 60 caps, 11 Refill(s), Pharmacy: [facility] # [id number], 1 caps Oral BID Start Date: 05/29/16 [...] Daily, # 30 tabs, 3 Refill(s), Pharmacy: [facility] # [id number], 1 tabs Oral Daily Start Date: 05/27/16 [...] TWICE A DAY, # 180 tabs, eRx: [facility] #[id number], TAKE ONE TABLET BY MOUTH TWICE A DAY Start Date: 04/30/16 Status: Ordered levothyroxine 50 mcg (0.05 mg) oral tablet See Instructions, TAKE ONE TABLET BY MOUTH DAILY, # 90 tabs, eRx: [facility] #[id number], TAKE ONE TABLET BY MOUTH DAILY Start [...] BEFORE A MEAL, # 90 caps, eRx: [facility] #[id number], TAKE ONE CAPSULE BY MOUTH EVERY DAY BEFORE A MEAL Start Date: 06/25/16 Status: Ordered ondansetron 4 mg oral tablet 4 mg 1 tabs, Oral, BID, as needed for nausea/vomiting, # 60 tabs, 0 Refill(s), Pharmacy: [facility] #[id number], 1 tabs Oral BID,PRN:as needed for nausea/ vomiting Start Date: 05/27/16 Status: Ordered OXcarbazepine 300 mg oral tablet 150 mg 0.5 tabs, Oral, Daily, # 30 tabs, 0 Refill(s), Pharmacy: [facility] #[id number], 0.5 tabs Oral BID Start Date: 05/27/16 Status: Ordered oxybutynin 15 mg/24 hr oral tablet, extended release See Instructions, TAKE ONE TABLET BY MOUTH EVERY DAY, # 30 unknown unit, 4 Refill(s), eRx: [facility] #[id number], TAKE ONE TABLET BY MOUTH EVERY DAY Start Date: 04/25/16 Status: Ordered promethazine 25 mg, Oral, BID, as needed for nausea/vomiting, 0 Refill(s) Start Date: 05/06/16 Status: Ordered rOPINIRole 2 mg oral tablet 2 mg 1 tabs, Oral, Bedtime (once a day), # 90 tabs, 3 Refill(s), Pharmacy: [facility] #[id number], 1 tabs Oral Bedtime (once a day),x90 days Start Date: 06/17/16 Stop Date: 06/12/17 Status: Ordered traZODone 150 mg oral tablet See Instructions, TAKE THREE TABLETS BY MOUTH EVERY NIGHT AT BEDTIME, # 270 tabs , eRx: [facility] #[id number], TAKE THREE TABLETS BY MOUTH EVERY NIGHT [...]
--- OUTSIDE RECORDS SUMMARY | 2016-12-26 00:38 | XMS REPORT | Referral Summary ---
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 Role Phone Lucian Decker Primary Care Physician [phone] Encounter VC Date(s): 06/17/16 - 06/17/16 [facility], [address] [place] [address]- Discharge Disposition: 01-Home or Self Care Attending Physician: Shon Decker MD Admitting Physician: Shon Decker MD Vital Signs Most recent to 1 oldest [Reference Range]: Temperature Tympanic 36.4 degC [36.6-38.1 degC] *LOW* (06/17/16 7:04 AM) Peripheral Pulse 90 bpm Rate [60-100 bpm] (06/17/16 7:04 AM) Blood Pressure 120/65 mmHg [90-140/60-90 mmHg] (06/17/16 7:04 AM) Problem List Condition Effective Dates Status [...] BID, # 60 caps, 11 Refill(s), Pharmacy: [facility] # [id number], 1 caps Oral BID Start Date: 05/29/16 [...] Daily, # 30 tabs, 3 Refill(s), Pharmacy: [facility] # [id number], 1 tabs Oral Daily Start Date: 05/27/16 [...] TWICE A DAY, # 180 tabs, eRx: [facility] #[id number], TAKE ONE TABLET BY MOUTH TWICE A DAY Start Date: 04/30/16 Status: Ordered levothyroxine 50 mcg (0.05 mg) oral tablet See Instructions, TAKE ONE TABLET BY MOUTH DAILY, # 90 tabs, eRx: [facility] #[id number], TAKE ONE TABLET BY MOUTH DAILY Start Date: 05/21/16 Status: Ordered LORazepam 0.5 mg oral tablet 0.5 mg 1 tabs, Oral, BID, must last 30 days for each script JeffBrigette Xavierpancho, # 60 tabs, 5 Refill(s) Start Date: 04/05/16 Status: Ordered omeprazole 40 mg oral delayed release capsule See Instructions, TAKE ONE CAPSULE BY MOUTH EVERY DAY BEFORE A MEAL, # 90 caps, eRx: [facility] #[id number], TAKE ONE CAPSULE BY MOUTH EVERY DAY BEFORE A MEAL Start Date: 03/25/16 Status: Ordered ondansetron 4 mg oral tablet 4 mg 1 tabs, Oral, BID, as needed for nausea/vomiting, # 60 tabs, 0 Refill(s), Pharmacy: [facility] #[id number], 1 tabs Oral BID,PRN:as needed for nausea/ vomiting Start Date: 05/27/16 Status: Ordered OXcarbazepine 300 mg oral tablet 150 mg 0.5 tabs, Oral, Daily, # 30 tabs, 0 Refill(s), Pharmacy: [facility] #[id number], 0.5 tabs Oral BID Start Date: 05/27/16 Status: Ordered oxybutynin 15 mg/24 hr oral tablet, extended release See Instructions, TAKE ONE TABLET BY MOUTH EVERY DAY, # 30 unknown unit, 4 Refill(s), eRx: [facility] #[id number], TAKE ONE TABLET BY MOUTH EVERY DAY Start Date: 04/25/16 Status: Ordered promethazine 25 mg, Oral, BID, as needed for nausea/vomiting, 0 Refill(s) Start Date: 05/06/16 Status: Ordered rOPINIRole 2 mg oral tablet 2 mg 1 tabs, Oral, Bedtime (once a day), # 90 tabs, 3 Refill(s), Pharmacy: [facility] #[id number], 1 tabs Oral Bedtime (once a day),x90 days Start Date: 06/17/16 Stop Date: 06/12/17 Status: Ordered traZODone 150 mg oral tablet See Instructions, TAKE THREE TABLETS BY MOUTH EVERY NIGHT AT BEDTIME, # 270 tabs , eRx: [facility] #[id number], TAKE THREE TABLETS BY MOUTH EVERY NIGHT [...] Patient Education Author: Shon Decker MD Date: 06/17 Family Medicine Suture Removal, Care After Refer to this sheet in the next few weeks. These instructions provide you with information on caring for yourself after your procedure. Your health care provider may also give you more specific instructions. Your treatment has been planned according to current medical practices, but problems sometimes occur. Call your health care provider if you have any problems or questions after your procedure. WHAT TO EXPECT AFTER THE PROCEDURE After your stitches (sutures) are removed, it is typical to have the following: Some discomfort and swelling in the wound area. Slight redness in the area. HOME CARE INSTRUCTIONS If you have skin adhesive strips over the wound area, do not take the strips off. They will fall off on their own in a few days. If the strips remain in place after 14 days, you may remove them. Change any bandages (dressings) at least once a day or as directed by your health care provider. If the bandage sticks, soak it off with warm, soapy water. Apply cream or ointment only as directed by your health care provider. If using cream or ointment, wash the area with soap and water 2 times a day to remove all the cream or ointment. Rinse off the soap and pat the area dry with a clean towel. Keep the wound area dry and clean. If the bandage becomes wet or dirty, or if it develops a bad smell, change it as soon as possible. Continue to protect the wound from injury. Use sunscreen when out in the sun. New scars become sunburned easily. SEEK MEDICAL CARE IF: You have increasing redness, swelling, or pain in the wound. You see pus coming from the wound. You have a fever. You notice a bad smell coming from the wound or dressing. Your wound breaks open (edges not staying together). This information is not intended to replace advice given to you by your health care provider. Make sure you discuss any questions you have with your health care provider. Document Released: 06/17/2002 Document Revised: 07/13/2014 Document Reviewed: ExitCare Patient Information 2016 [employer]. No follow up information was provided. Extracted from: Title: suture removal, RLS, daytime Author: Shon Decker MD Date: 06/17 sleepiness Impression and Plan Diagnosis Visit for suture removal (MCC72-DE Z48.02, Working, Medical). Chronic low back pain (CUM63-SC M54.5, Working, Medical). Restless legs syndrome (RLS) (XOC66-XR G25.81, Working, Medical). Excessive daytime sleepiness (WOX60-ND G47.19, Working, Medical). Plan: 1) Sutures on the back incision were removed without difficulty. 2) New script provided for the Ropinirole 2 mg tabs. 3) Continue your other meds the same. 4) See me in August, as scheduled, and as needed.. Orders Orders (Selected) Outpatient Orders Ordered Office Visit Level 3 Est 00304: Canceled BMP: Prescriptions Prescribed rOPINIRole 2 mg oral tablet: 2 mg=1 tabs, Oral, Bedtime (once a day), for 90 days, 90 tabs, 3 Refill(s). Dx/Order Association Plan: Diagnosis: Chronic low back pain Comment: Ordered: Office Visit Level 3 Est 83637; 06/17/16 7:28:00 CDT, Visit for suture removal | Excessive daytime sleepiness | Restless legs syndrome (RLS) | Chronic low back pain Diagnosis: Excessive daytime sleepiness Comment: Ordered: Office Visit Level 3 Est 71821; 06/17/16 7:28:00 CDT, Visit for suture removal | Excessive daytime sleepiness | Restless legs syndrome (RLS) | Chronic low back pain Diagnosis: Restless legs syndrome (RLS) Comment: Ordered: Office Visit Level 3 Est 37019; 06/17/16 7:28:00 CDT, Visit for suture removal | Excessive daytime sleepiness | Restless legs syndrome (RLS) | Chronic low back pain Diagnosis: Visit for suture removal Comment: Ordered: Office Visit Level 3 Est 78392; 06/17/16 7:28:00 CDT, Visit for suture removal | Excessive daytime sleepiness | Restless legs syndrome (RLS) | Chronic low back pain Additional Orders: Comment: Ordered: rOPINIRole 2 mg oral tablet,2 mg 1 tabs, Oral, Bedtime ( once a day), # 90 tabs, 3 Refill(s), Pharmacy: [facility] #[id number], 1 tabs Oral Bedtime (once a day),x90 days End of Orders ."
--- OUTSIDE RECORDS SUMMARY | 2016-12-26 00:38 | XMS REPORT | Referral Summary ---
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 Name Role Phone Lucian Decker Primary Care Physician [phone] Encounter VC Date(s): 04/18/16 - 04/18/16 [facility], [address] [place] [address]- Discharge Disposition: 01-Home or Self Care Attending Physician: Shon Decker MD Admitting Physician: Shon Decker MD Vital Signs Most recent to 1 oldest [Reference Range]: Temperature Tympanic 36.0 degC [36.6-38.1 degC] *LOW* (04/18/16 9:07 AM) Peripheral Pulse 72 bpm Rate [60-100 bpm] (04/18/16 9:07 AM) Blood Pressure 108/64 mmHg [90-140/60-90 mmHg] (04/18/16 9:07 AM) Problem List Condition Effective Dates Status [...] BEDTIME, # 30 tabs, 9 Refill(s), eRx: [facility] #[id number], TAKE ONE TABLET BY MOUTH AT BEDTIME Start Date: 07/27/15 Status: Ordered Cortisporin otic solution 4 drops, Ear-Left, TID, # 10 mL, 0 Refill(s), Pharmacy: [facility] #[id number] Start Date: 04/18/16 Stop Date: 04/28/16 Status: Ordered cyclobenzaprine 10 mg, Oral, TID, [...] # 180 tabs, 2 Refill(s) , eRx: [facility] #[id number], TAKE ONE TABLET BY MOUTH TWICE A DAY Start Date: 07/27/15 Status: Ordered levothyroxine 50 mcg (0.05 mg) oral tablet See Instructions, TAKE ONE TABLET BY MOUTH DAILY, # 90 tabs, eRx: [facility] #[id number], TAKE ONE TABLET BY MOUTH DAILY Start Date: 02/19/16 Status: Ordered Lexapro 5 mg oral tablet 5 mg 1 tabs, Oral, Daily, # 30 tabs, 11 Refill(s), Pharmacy: [facility] # [id number], 1 tabs Oral Daily Start Date: 04/18/16 Status: Ordered LORazepam 0.5 mg oral tablet 0.5 mg 1 tabs, Oral, BID, must last 30 days for each script Hetal Corado, # 60 tabs, 5 Refill(s) Start Date: 04/05/16 Status: Ordered omeprazole 40 mg oral delayed release capsule See Instructions, TAKE ONE CAPSULE BY MOUTH EVERY DAY BEFORE A MEAL, # 90 caps, eRx: [facility] #[id number], TAKE ONE CAPSULE BY MOUTH EVERY DAY BEFORE A MEAL Start Date: 03/25/16 Status: Ordered ondansetron 4 mg oral tablet 4 mg 1 tabs, Oral, BID, as needed for nausea/vomiting, X 90 days, # 180 tabs, 3 Refill(s), Pharmacy: [facility] #[id number], 1 tabs Oral BID,x90 days,PRN:as needed for nausea/vomiting Start Date: 05/09/15 Stop Date: 05/03/16 Status: Ordered OXcarbazepine 300 mg oral tablet See Instructions, TAKE ONE TABLET BY MOUTH TWICE A DAY, # 120 tabs, eRx: [facility] #[id number], TAKE ONE TABLET BY MOUTH TWICE A DAY Start Date: 02/06/16 Status: Ordered oxybutynin 15 mg/24 hr oral tablet, extended release 15 mg 1 tabs, Oral, Daily, # 30 tabs, 4 Refill(s), Pharmacy: [facility] # [id number], 1 tabs Oral Daily Start Date: 11/14/15 Status: Ordered rOPINIRole 4 mg oral tablet See Instructions, TAKE ONE TABLET BY MOUTH EVERY NIGHT AT BEDTIME, # 90 tabs, 1 Refill(s), eRx: [facility] #[id number], TAKE ONE TABLET BY MOUTH EVERY NIGHT AT BEDTIME Start Date: 03/11/16 Status: Ordered traZODone 150 mg oral tablet See Instructions, TAKE THREE TABLETS BY MOUTH EVERY NIGHT AT BEDTIME, # 270 tabs , eRx: [facility] #[id number], TAKE THREE TABLETS BY MOUTH EVERY NIGHT AT BEDTIME Start Date: 02/19/16 Status: Ordered Vitamin D3 1,000 Intl_Units, Oral, Daily, 0 Refill(s) Start Date: 03/21/14 Status: Ordered Results Hematology Most recent to 1 oldest [Reference Range]: WBC [5.0-10.0 9.4 10*3/uL 10*3/uL] (04/18/16 10: AM) RBC [3.70-5.20] 4.82 (04/18/16 10: AM) Hgb [12.0-16.0 14.7 gm/dL gm/dL] (04/18/16: AM) Hct [37.0-47.0 %] 40.7 % (04/18/16 10: AM) MCV [80.0-96.0 fL] 84.4 fL (04/18/16 10: AM) MCH [26.0-34.0 pg] 30.5 pg (04/18/16 10:17 AM) MCHC [32.0-36.0 36.1 gm/dL gm/dL] *HI* (04/18/16 10: AM) RDW [0.0-14.5 %] 11.9 % (04/18/16 10:17 AM) Platelet [150-400 150 10*3/uL 10*3/uL] (04/18/16 10:17 AM) MPV [8.8-14.8 fL] 9.0 fL (04/18/16 10: AM) Neutrophils [50-70 84 % %] *HI* (04/18/16 10:17 AM) Lymphocytes [20-40 11 % %] *LOW* (04/18/16 10:17 AM) Monocytes [4-8 %] 4 % (04/18/16 10:17 AM) Eosinophils [0-6 %] 1 % (04/18/16: AM) Basophils [0-2 %] 0 % (04/18/16: AM) Neutro Absolute 7.92 10*3 [2.50-7.00 10*3] *HI* (04/18/16: AM) Lymph Absolute 0.99 10*3 [1.00-4.00 10*3] *LOW* (04/18/16: AM) [place] Absolute 0.39 10*3 [0.20-0.80 10*3] (04/18/16 10: AM) Eos Absolute 0.09 10*3 [0.00-0.60 10*3] (04/18/16: AM) Baso Absolute 0.03 [0.00-0.30] (04/18/16: AM) Chemistry Most recent to 1 oldest [Reference Range]: Sodium Lvl [135-144 128 mEq/L mEq/L] *LOW* (04/18/16: AM) Potassium Lvl 4.1 mEq/L [3.5-5.2 mEq/L] (04/18/16: AM) Chloride [99-111 93 mEq/L mEq/L] *LOW* (04/18/16: AM) CO2 [22-31 mEq/L] 24 mEq/L (04/18/16: AM) AGAP [3-20] 11 (04/18/16: AM) BUN [10-20 mg/dL] 8 mg/dL *LOW* (04/18/16 AM) Glucose Lvl [70-99 107 mg/dL mg/dL] *HI* (04/18/16: AM) Creatinine Lvl 0.63 mg/dL [0.57-1.11 mg/dL] (04/18/16: AM) eGFR [>60 mL/min] >60 mL/min 1 (04/18/16: AM) Calcium Lvl 9.3 mg/dL [8.9-10.5 mg/dL] (04/18/16: AM) Albumin Lvl [3.4-4.8 4.3 gm/dL gm/dL] (7/14/16 10:17 AM) Total Protein 6.5 gm/dL 2 [6.0-7.6 gm/dL] (04/18/16 10:17 AM) Globulin [1.8-4.0 2.2 gm/dL gm/dL] (04/18/16 10:17 AM) ALT [0-55 U/L] 12 U/L (04/18/16 10:17 AM) AST [5-34 U/L] 19 U/L (04/18/16 10:17 AM) Alk Phos [40-150 58 U/L U/L] (04/18/16 10:17 AM) Bili Total [0.2-1.2 0.7 mg/dL mg/dL] (04/18/16 10:17 AM) 1Result Comment: Multiply eGFR results by 1.21 for race. 2Result Comment: Please note new reference range for adult Protein. Urinalysis Most recent to 1 oldest [Reference Range]: UA Color DkYellow (04/18/16 2:15 PM) UA Appear Cloudy *ABN* (04/18/16 2:15 PM) UA pH [5.0-8.0] 7.0 (04/18/16 2:15 PM) UA Leuk Est Pos 1+ [Negative] *ABN* (04/18/16 2:15 PM) UA Nitrite Negative [Negative] (04/18/16 2:15 PM) UA Protein Negative [Negative] (04/18/16 2:15 PM) UA Glucose Negative [Negative] (04/18/16 2:15 PM) UA Ketones Negative [Negative] (04/18/16 2:15 PM) UA Urobilinogen 2.0 mg/dL [<1.0 mg/dL] *ABN* (04/18/16 2:15 PM) UA Bili [Negative] Negative (04/18/16 2:15 PM) UA Blood [Negative] Negative (04/18/16 2:15 PM) UA Spec Grav 1.021 [1.003-1.030] (04/18/16 2:15 PM) Type Clean Catch (04/18/16 2:15 PM) UA WBC [0-4] 5-10 *ABN* (04/18/16 2:15 PM) UA RBC [0-4] 5-10 *ABN* (04/18/16 2:15 PM) Epithelial Cells 2-5 (04/18/16 2:15 PM) Immunizations Vaccine Date Refusal Reason tetanus/diphth/pertuss [...] Patient Education Author: Shon Decker MD Date: 04/18 Family Medicine Major Depressive Disorder Major depressive disorder is a mental illness. It also may be called clinical depression or unipolar depression. Major depressive disorder usually causes feelings of sadness, hopelessness, or helplessness. Some people with this disorder do not feel particularly sad but lose interest in doing things they used to enjoy (anhedonia). Major depressive disorder also can cause physical symptoms. It can interfere with work, school, relationships, and other normal everyday activities. The disorder varies in severity but is longer lasting and more serious than the sadness we all feel from time to time in our lives. Major depressive disorder often is triggered by stressful life events or major life changes. Examples of these triggers include divorce, loss of your job or home, a move, and the of a family member or close friend. Sometimes this disorder occurs for no obvious reason at all. People who have family members with major depressive disorder or bipolar disorder are at higher risk for developing this disorder, with or without life stressors. Major depressive disorder can occur at any age. It may occur just once in your life (single episode major depressive disorder). It may occur multiple times (recurrent major depressive disorder). SYMPTOMS People with major depressive disorder have either anhedonia or depressed mood on nearly a daily basis for at least 2 weeks or longer. Symptoms of depressed mood include: Feelings of sadness (blue or down in the dumps) or emptiness. Feelings of hopelessness or helplessness. Tearfulness or episodes of crying (may be observed by others). Irritability (children and adolescents). In addition to depressed mood or anhedonia or both, people with this disorder have at least four of the following symptoms: Difficulty sleeping or sleeping too much. Significant change (increase or decrease) in appetite or weight. Lack of energy or motivation. Feelings of guilt and worthlessness. Difficulty concentrating, remembering, or making decisions. Unusually slow movement (psychomotor retardation) or restlessness (as observed by others). Recurrent wishes for , recurrent thoughts of self-harm (suicide), or a suicide attempt. People with major depressive disorder commonly have persistent negative thoughts about themselves, other people, and the world. People with severe major depressive disorder may experiencedistorted beliefs or perceptions about the world (psychotic delusions). They also may see or hear things that are not real (psychotic hallucinations). DIAGNOSIS Major depressive disorder is diagnosed through an assessment by your health care provider. Your health care provider will ask aboutaspects of your daily life, such as mood,sleep, and appetite, to see if you have the diagnostic symptoms of major depressive disorder. Your health care provider may ask about your medical history and use of alcohol or drugs, including prescription medicines. Your health care provider also may do a physical exam and blood work. This is because certain medical conditions and the use of certain substances can cause major depressive disorder-like symptoms (secondary depression). Your health care provider also may refer you to a mental health specialist for further evaluation and treatment. TREATMENT It is important to recognize the symptoms of major depressive disorder and seek treatment. The following treatments can be prescribed for this disorder: Medicine. Antidepressant medicines usually are prescribed. Antidepressant medicines are thought to correct chemical imbalances in the brain that are commonly associated with major depressive disorder. Other types of medicine may be added if the symptoms do not respond to antidepressant medicines alone or if psychotic delusions or hallucinations occur. Talk therapy. Talk therapy can be helpful in treating major depressive disorder by providing support, education, and guidance. Certain types of talk therapy also can help with negative thinking (cognitive behavioral therapy) and with relationship issues that trigger this disorder (interpersonal therapy). A mental health specialist can help determine which treatment is best for you. Most people with major depressive disorder do well with a combination of medicine and talk therapy. Treatments involving electrical stimulation of the brain can be used in situations with extremely severe symptoms or when medicine and talk therapy do not work over time. These treatments include electroconvulsive therapy, transcranial magnetic stimulation, and vagal nerve stimulation. This information is not intended to replace advice given to you by your health care provider. Make sure you discuss any questions you have with your health care provider. Document Released: 01/17/2014 Document Revised: 10/13/2015 Document Reviewed: ExitCare Patient Information 2016 [employer] [facility]. No follow up information was provided. Extracted from: Title: ERMIAS, Depression, HTN Author: Shon Decker MD Date: 04/18/16 Impression and Plan Diagnosis Acute otitis externa of left ear (NXG46-YM H60.12, Working, Medical). Fever (FDG44-NS R50.9, Working, Medical). Recurrent major depression (VDL45-SH F33.1, Working, Medical). Hypertension (RRB95-JP I10, Working, Medical). Restless legs syndrome (RLS) (UFJ49-IY G25.81, Working, Medical). Pure hypercholesterolemia (HHU45-VP E78.0, Working, Medical). Adult hypothyroidism (PXL82-OK E03.9, Working, Medical). Chronic low back pain (MGA66-PN M54.5, Working, Medical). Spinal stenosis, lumbar region, without neurogenic claudication (HUS97-TV M48.06 , Working, Medical). Plan: 1) Reduce your Amlodipine to 1/2 tab daily. 2) Start Lexapro 5 mg daily for depression. 3) use the Cortisporin ear drops in the left ear as directed. 4) See in 4-6 weeks for a recheck of these problems. 5) Lab ordered today. 6) Continue your other meds as before.. Orders Orders (Selected) Outpatient Orders Ordered CMP: CRP C-Reactive Protein: Office Visit Level 4 Est 78816: eGFR: Ordered (Pending Collection) Routine Urinalysis: Completed CBC w/ Differential: Prescriptions Prescribed Cortisporin otic solution: 4 drops, Ear-Left, TID, 10 mL, 0 Refill(s) Lexapro 5 mg oral tablet: 5 mg=1 tabs, Oral, Daily, 30 tabs, 11 Refill(s) amLODIPine 5 mg oral tablet: 2.5 mg=0.5 tabs, Oral, Daily, for 90 days, 45 tabs , 3 Refill(s). Dx/Order Association Plan: Diagnosis: Acute otitis externa of left ear Comment: Ordered: CRP C-Reactive Protein; Blood, Routine Collect, 04/18/16 10:03:00 CDT, Once, Stop date 04/18/16 10:03:00 CDT, Lab Collect, Fever | Acute otitis externa of left ear | Chronic low back pain Office Visit Level 4 Est 65544; 04/18/16 9:49:00 CDT, Acute otitis externa of left ear | Fever | Hypertension | Pure hypercholesterolemia | Recurrent major depression Other status: CBC w/ Differential; Blood, Routine Collect, 10:03:00 CDT, Once, Stop date 04/18/16 10:03:00 CDT, Lab Collect, Acute otitis externa of left ear (Completed) Diagnosis: Adult hypothyroidism Comment: Diagnosis: Chronic low back pain Comment: Ordered: CRP C-Reactive Protein; Blood, Routine Collect, 04/18/16 10:03:00 CDT, Once, Stop date 04/18/16 10:03:00 CDT, Lab Collect, Fever | Acute otitis externa of left ear | Chronic low back pain Routine Urinalysis; Urine, Clean Catch, Routine collect, 04/18/16 10:03:00 CDT, Once, Stop date 04/18/16 10:03:00 CDT, Nurse Collect Non-Blood, Fever | Chronic low back pain | Hypertension Diagnosis: Fever Comment: Ordered: CRP C-Reactive Protein; Blood, Routine Collect, 04/18/16 10:03:00 CDT, Once, Stop date 04/18/16 10:03:00 CDT, Lab Collect, Fever | Acute otitis externa of left ear | Chronic low back pain Routine Urinalysis; Urine, Clean Catch, Routine collect, 04/18/16 10:03:00 CDT, Once, Stop date 04/18/16 10:03:00 CDT, Nurse Collect Non-Blood, Fever | Chronic low back pain | Hypertension Office Visit Level 4 Est 68061; 04/18/16 9:49:00 CDT, Acute otitis externa of left ear | Fever | Hypertension | Pure hypercholesterolemia | Recurrent major depression Diagnosis: Hypertension Comment: Ordered: CMP; Blood, Routine Collect, 04/18/16 10:03:00 CDT, Once , Stop date 04/18/16 10:03:00 CDT, Lab Collect, Hypertension | Pure hypercholesterolemia Routine Urinalysis; Urine, Clean Catch, Routine collect, 04/18/16 10:03:00 CDT, Once, Stop date 04/18/16 10:03:00 CDT, Nurse Collect Non-Blood, Fever | Chronic low back pain | Hypertension Office Visit Level 4 Est 27972; 04/18/16 9:49:00 CDT, Acute otitis externa of left ear | Fever | Hypertension | Pure hypercholesterolemia | Recurrent major depression Diagnosis: Pure hypercholesterolemia Comment: Ordered: CMP; Blood, Routine Collect, 04/18/16 10:03:00 CDT, Once , Stop date 04/18/16 10:03:00 CDT, Lab Collect, Hypertension | Pure hypercholesterolemia Office Visit Level 4 Est 87622; 04/18/16 9:49:00 CDT, Acute otitis externa of left ear | Fever | Hypertension | Pure hypercholesterolemia | Recurrent major depression Diagnosis: Recurrent major depression Comment: Ordered: Office Visit Level 4 Est 53610; 04/18/16 9:49:00 CDT, Acute otitis externa of left ear | Fever | Hypertension | Pure hypercholesterolemia | Recurrent major depression Diagnosis: Restless legs syndrome (RLS) Comment: Diagnosis: Spinal stenosis, lumbar region, without neurogenic claudication Comment: Additional Orders: Comment: Ordered: Cortisporin otic solution,4 drops, Ear-Left, TID, # 10 mL , 0 Refill(s), Pharmacy: [facility] #[id number] Ordered: Lexapro 5 mg oral tablet,5 mg 1 tabs, Oral, Daily, # 30 tabs, 11 Refill(s), Pharmacy: [facility] #[id number], 1 tabs Oral Daily Ordered: amLODIPine 5 mg oral tablet,2.5 mg 0.5 tabs, Oral, Daily, # 45 tabs, 3 Refill(s), other reason (Rx), TAKE ONE TABLET BY MOUTH EVERY DAY End of Orders ."
[2016-12-26 00:39] VITALS: TEMP 100.2; Ht 172.7 cm; Wt 70.8 kg
--- OUTSIDE RECORDS SUMMARY | 2016-12-26 00:39 | XMS REPORT | Referral Summary ---
Author Organization Unknown Address Unknown Phone Unavailable Care Team Providers Care Water Conservationist Name Role Phone Lucian Decker Primary Care Physician [phone] Encounter VC Date(s): 11/24/14 - 11/24/14 [facility], [address] [place] [id number] Discharge Diagnosis: Benign hypertension Discharge Diagnosis: Spinal stenosis, lumbar region, without neurogenic claudication Discharge Diagnosis: Nausea & vomiting Discharge Diagnosis: Anxiety Discharge Diagnosis: Depression Discharge Diagnosis: Pure hypercholesterolemia Discharge Diagnosis: Chronic gastritis Discharge Diagnosis: Restless legs syndrome (RLS) Discharge Disposition: Home or Self Care Attending Physician: Shon Decker MD Admitting Physician: Shon Decker MD Vital Signs Most recent to 1 oldest [Reference Range]: Temperature Tympanic 36.1 degC [36.6-38.1 degC] *LOW* (11/24/14 2:07 PM) Peripheral Pulse 72 bpm Rate [60-100 bpm] (11/24/14 2:07 PM) Blood Pressure 140/70 mmHg [90-140/60-90 mmHg] (11/24/14 2:07 PM) Problem List Condition Effective Dates Status [...] DAY, # 90 tabs, 3 Refill(s), eRx: [facility] #[id number], TAKE ONE TABLET BY MOUTH EVERY DAY Special Instructions: TAKE ONE TABLET BY MOUTH EVERY DAY Start Date: 06/13/14 Status: Ordered atorvastatin 10 mg oral tablet 1 tabs, Oral, Bedtime (once a day), # 30 tabs, 11 Refill(s), Pharmacy: [facility] #[id number], Stop Lovastatin, 1 tabs Oral Bedtime (once a day) Start Date: 03/29/14 Status: Ordered docusate 100 mg, Oral, Daily, 0 Refill(s) Start Date: 03/28/14 Status: Ordered fentaNYL 100 mcg/hr transdermal film, extended release 1 patches, Topical, q72hr, # 10 patches, 0 Refill(s) Start Date: 11/14/14 Status: Ordered ferrous sulfate 325 mg (65 mg elemental iron) oral tablet 1 tabs, Oral, Daily, 0 Refill(s) Start Date: 07/07/14 Status: Ordered gabapentin 800 mg oral tablet See Instructions, TAKE ONE TABLET BY MOUTH TWICE A DAY, # 180 tabs, 3 Refill(s) , eRx: [facility] #[id number], TAKE ONE TABLET BY MOUTH TWICE A [...] DAY, # 90 tabs, 2 Refill(s), eRx: [facility] #[id number], TAKE ONE TABLET BY MOUTH EVERY DAY Special Instructions: TAKE ONE TABLET BY MOUTH EVERY DAY Start Date: 08/02/14 Status: Ordered levothyroxine 50 mcg (0.05 mg) oral tablet 1 tabs, Oral, Daily, # 30 tabs, 2 Refill(s), Pharmacy: [facility] #[id number] , 1 tabs Oral Daily Start Date: 08/01/14 Status: Ordered LORazepam 0.5 mg oral tablet 1 tabs, Oral, BID, must last 30 days Hetal Corado, # 60 tabs, 0 Refill(s) Special Instructions: must last 30 days Hetal Corado Start Date: 11/02/14 Stop Date: 12/02/14 Status: Ordered omeprazole 40 mg oral delayed release capsule See Instructions, TAKE ONE CAPSULE BY MOUTH EVERY DAY BEFORE A MEAL, # 90 caps, 3 Refill(s), eRx: [facility] #[id number], TAKE ONE CAPSULE BY MOUTH EVERY DAY BEFORE A MEAL Special Instructions: TAKE ONE CAPSULE BY MOUTH EVERY DAY BEFORE A MEAL Start Date: 04/04/14 Status: Ordered oxybutynin 15 mg/24 hr oral tablet, extended release See Instructions, TAKE ONE TABLET BY MOUTH EVERY DAY, # 30 unknown unit, 6 Refill(s), eRx: [facility] #[id number], TAKE ONE TABLET BY MOUTH EVERY DAY Special Instructions: TAKE ONE TABLET BY MOUTH EVERY DAY Start Date: 08/11/14 Status: Ordered promethazine 25 mg oral tablet See Instructions, TAKE ONE TABLET BY MOUTH TWICE A DAY, # 180 tabs, eRx: [facility] #[id number], TAKE ONE TABLET BY MOUTH TWICE A DAY NEEDED FOR NAUSEA Special Instructions: TAKE ONE TABLET BY MOUTH TWICE A DAY Start Date: 10/24/14 Status: Ordered rOPINIRole 4 mg oral tablet 1 tabs, Oral, Bedtime (once a day), 0 Refill(s) Start Date: 03/21/14 Status: Ordered Senna S 1 tabs, Oral, Bedtime (once a day), 0 Refill(s) Start Date: 03/28/14 Status: Ordered traZODone 150 mg oral tablet See Instructions, TAKE THREE TABLETS BY MOUTH EVERY NIGHT AT BEDTIME, # 270 tabs , 1 Refill(s), eRx: [facility] #[id number], TAKE THREE TABLETS BY MOUTH EVERY NIGHT AT BEDTIME Special Instructions: TAKE THREE TABLETS BY MOUTH EVERY NIGHT AT BEDTIME Start Date: 08/26/14 Status: Ordered Trileptal 300 mg oral tablet See Instructions, TAKE ONE TABLET BY MOUTH twice a day, # 120 tabs, eRx: [facility] #[id number], TAKE ONE TABLET BY MOUTH THREE TIMES A DAY FOR 7 DAYS, THEN INCREASE TO 2 TABLETS EVERY 12 HOURS Special Instructions: TAKE ONE TABLET BY MOUTH twice a day Start Date: 10/03/14 Status: Ordered Vitamin D3 1,000 Intl_Units, Oral, Daily, 0 Refill(s) Start Date: 03/21/14 Status: Ordered Results Hematology Most recent to 1 oldest [Reference Range]: WBC [4.8-10.8 K/uL] 4.4 K/uL *LOW* (11/24/14 3:00 PM) RBC [4.00-5.20 M/uL] 4.70 M/uL (11/24/14 3:00 PM) Hgb [12.0-16.0 14.4 gm/dL gm/dL] (11/24/14 3:00 PM) Hct [37.0-47.0 %] 39.1 % (11/24/14 3:00 PM) MCV [82.0-99.0 fL] 83.2 fL (11/24/14 3:00 PM) MCH [27.0-32.0 pg] 30.6 pg (11/24/14 3:00 PM) MCHC [32.0-36.0 36.8 gm/dL gm/dL] *HI* (11/24/14 3:00 PM) RDW [11.5-14.5 %] 12.2 % (11/24/14 3:00 PM) Platelet [150-400 221 K/uL K/uL] (11/24/14 3:00 PM) MPV [8.8-14.8 fL] 9.4 fL (11/24/14 3:00 PM) Immature 0.2 % Granulocytes (11/24/14 3:00 PM) [0.0-1.0 %] Neutrophils [51-75 68 % %] (11/24/14 3:00 PM) Lymphocytes [20-46 23 % %] (11/24/14 3:00 PM) Monocytes [4-11 %] 7 % (11/24/14 3:00 PM) Eosinophils [0-4 %] 1 % (11/24/14 3:00 PM) Basophils [0-2 %] 1 % (11/24/14 3:00 PM) Neutro Absolute 3.02 THOUS [1.90-7.00 THOUS] (11/24/14 3:00 PM) Lymph Absolute 1.00 THOUS [0.80-3.30 THOUS] (11/24/14 3:00 PM) [place] Absolute 0.32 THOUS [0.30-1.00 THOUS] (11/24/14 3:00 PM) Eos Absolute 0.03 THOUS [0.00-0.50 THOUS] (11/24/14 3:00 PM) Baso Absolute 0.04 THOUS [0.00-0.20 THOUS] (11/24/14 3:00 PM) Chemistry Most recent to 1 oldest [Reference Range]: Sodium Lvl [135-144 126 mEq/L mEq/L] *LOW* (11/24/14 3:00 PM) Potassium Lvl 4.2 mEq/L [3.5-5.2 mEq/L] (11/24/14 3:00 PM) Chloride [99-111 93 mEq/L mEq/L] *LOW* (11/24/14 3:00 PM) CO2 [22-31 mEq/L] 24 mEq/L (11/24/14 3:00 PM) AGAP [3-20] 9 (11/24/14 3:00 PM) BUN [10-20 mg/dL] 9 mg/dL *LOW* (11/24/14 3:00 PM) Glucose Lvl [70-99 135 mg/dL mg/dL] *HI* (11/24/14 3:00 PM) Creatinine Lvl 0.68 mg/dL [0.57-1.11 mg/dL] (11/24/14 3:00 PM) eGFR [>60 mL/min] >60 mL/min 1 (11/24/14 3:00 PM) Calcium Lvl 9.5 mg/dL [8.9-10.5 mg/dL] (11/24/14 3:00 PM) Albumin Lvl [3.4-4.8 4.4 gm/dL gm/dL] (11/24/14 3:00 PM) Total Protein 7.0 gm/dL [6.2-8.1 gm/dL] (11/24/14 3:00 PM) Globulin [1.8-4.0 2.6 gm/dL gm/dL] (11/24/14 3:00 PM) ALT [0-55 unit/L] 10 unit/L (11/24/14 3:00 PM) AST [5-34 unit/L] 17 unit/L (11/24/14 3:00 PM) Alk Phos [40-150 79 unit/L unit/L] (11/24/14 3:00 PM) Bili Total [0.2-1.2 0.5 mg/dL mg/dL] (11/24/14 3:00 PM) 1Result Comment: Multiply eGFR results by 1.21 for race. Immunizations Vaccine Date Refusal Reason tetanus/diphth/pertuss (Tdap) adult/adol 03/28/14 influenza virus vaccine, inactivated1 07/07/14 influenza virus vaccine, live 07/23/13 pneumococcal 23-polyvalent vaccine 03/28/14 pneumococcal 23-polyvalent vaccine 08/13/05 1Result Comment: [07/07/2014] See scanned document Procedures Procedure Date Related Diagnosis Body Site T1-2 Translaminar 10/20/14 Caudal 10/04/14 Caudal 06/20/14 T1-T2 Translaminar 06/07/14 Colonoscopic polypectomy1 05/09/14 Thoracic Transforaminal approach 08/25/13 Caudal 08/11/13 Cystoscopy 06/23/13 Rt Inguinal node biopsy benign 04/22/13 Carpal tunnel release and right elbow suergy 2013 Incisional hernia repair 2002 Cholecystectomy 1985 Appendectomy 1984 Gastric bypass 1980 Bilateral tubal ligation 1969 Hysterectomy and single salpingo-oophorectomy Low Back surgeries2 Neck surgery 1Tubular adenoma, diverticula, repeat in 5 years, family history of brother with colon cancer 28 low back surgeries Social History Social History Type Response Smoking Status Never smoker Assessment and Plan Extracted from: Title: Ambulatory Patient Education Author: Shon Decker MD Date: 11/24 Family Medicine Depression, Adult Depression refers to feeling sad, low, down in the dumps, blue, gloomy, or empty. In general, there are two kinds of depression: 1. Depression that we all experience from time to time because of upsetting life experiences, including the loss of a job or the ending of a relationship ( normal sadness or normal grief). This kind of depression is considered normal, is short lived, and resolves within a few days to 2 weeks. (Depression experienced after the loss of a loved one is called bereavement. Bereavement often lasts longer than 2 weeks but normally gets better with time.) 2. Clinical depression, which lasts longer than normal sadness or normal grief or interferes with your ability to function at home, at work, and in school. It also interferes with your personal relationships. It affects almost every aspect of your life. Clinical depression is an illness. Symptoms of depression also can be caused by conditions other than normal sadness and grief or clinical depression. Examples of these conditions are listed as follows: Physical illnessSome physical illnesses, including underactive thyroid gland (hypothyroidism ), severe anemia, specific types of cancer, diabetes, uncontrolled seizures, heart and lung problems, strokes, and chronic pain are commonly associated with symptoms of depression. Side effects of some prescription medicineIn some people, certain types of prescription medicine can cause symptoms of depression. Substance abuseAbuse of alcohol and illicit drugs can cause symptoms of depression. SYMPTOMS Symptoms of normal sadness and normal grief include the following: Feeling sad or crying for short periods of time. Not caring about anything (apathy ). Difficulty sleeping or sleeping too much. No longer able to enjoy the things you used to enjoy. Desire to be by oneself all the time (social isolation ). Lack of energy or motivation. Difficulty concentrating or remembering. Change in appetite or weight. Restlessness or agitation. Symptoms of clinical depression include the same symptoms of normal sadness or normal grief and also the following symptoms: Feeling sad or crying all the time. Feelings of guilt or worthlessness. Feelings of hopelessness or helplessness. Thoughts of suicide or the desire to harm yourself (suicidal ideation ). Loss of touch with reality (psychotic symptoms ). Seeing or hearing things that are not real (hallucinations ) or having false beliefs about your life or the people around you (delusions and paranoia ). DIAGNOSIS The diagnosis of clinical depression usually is based on the severity and duration of the symptoms. Your caregiver also will ask you questions about your medical history and substance use to find out if physical illness, use of prescription medicine, or substance abuse is causing your depression. Your caregiver also may order blood tests. TREATMENT Typically, normal sadness and normal grief do not require treatment. However, sometimes antidepressant medicine is prescribed for bereavement to ease the depressive symptoms until they resolve. The treatment for clinical depression depends on the severity of your symptoms but typically includes antidepressant medicine, counseling with a mental health professional, or a combination of both. Your caregiver will help to determine what treatment is best for you. Depression caused by physical illness usually goes away with appropriate medical treatment of the illness. If prescription medicine is causing depression , talk with your caregiver about stopping the medicine, decreasing the dose, or substituting another medicine. Depression caused by abuse of alcohol or illicit drugs abuse goes away with abstinence from these substances. Some adults need professional help in order to stop drinking or using drugs. SEEK IMMEDIATE CARE IF: You have thoughts about hurting yourself or others. You lose touch with reality (have psychotic symptoms). You are taking medicine for depression and have a serious side effect. FOR MORE INFORMATION National [place] on Mental Illness: www.estela.org National [place] of Mental Health: www.nimh.nih.gov Document Released: 09/19/2001 Document Revised: 03/23/2013 Document Reviewed: ExitCare Patient Information 2014 [place]. Cholesterol Cholesterol is a type of fat. Your body needs a small amount of cholesterol, but too much can cause health problems. Certain problems include heart attacks, strokes, and not enough blood flow to your heart, brain, kidneys, or feet. You get cholesterol in 2 ways: Naturally. By eating certain foods. HOME CARE Eat a low-fat diet: Eat less eggs, whole dairy products (whole milk, cheese, and butter), fatty meats, and fried foods. Eat more fruits, vegetables, whole-wheat breads, lean chicken, and fish. Follow your exercise program as told by your doctor. Keep your weight at a healthy level. Talk to your doctor about what is right for you. Only take medicine as told by your doctor. Get your cholesterol checked once a year or as told by your doctor. MAKE SURE YOU: Understand these instructions. Will watch your condition. Will get help right away if you are not doing well or get worse. Document Released: 12/19/2009 Document Revised: 12/14/2012 Document Reviewed: ExitCare Patient Information [address] [facility]. No follow up information was provided. Extracted from: Title: depression, anxiety, back Author: Shon Decker MD Date: 11/24/14 pain Impression and Plan Diagnosis Spinal stenosis, lumbar region, without neurogenic claudication (ICD9 724.02, Discharge, Medical). Restless legs syndrome (RLS) (ICD9 333.94, Discharge, Medical). Pure hypercholesterolemia (ICD9 272.0, Discharge, Medical). Depression (ICD9 311, Discharge, Medical). Chronic gastritis (ICD9 535.10, Discharge, Medical). Benign hypertension (ICD9 401.1, Discharge, Medical). Anxiety (ICD9 300.00, Discharge, Medical). Plan: May continue your current meds. Get lab today. See me in 2 months and as needed.. Orders Orders (Selected) Outpatient Orders Ordered Office Visit Level 4 Est 09253: Future (On Hold) CBC w/ Differential: CMP: . Dx/Order Association Plan: Diagnosis: Anxiety Comment: Ordered: Office Visit Level 4 Est 94813; 11/24/14 14:31:00 NOVELTY CANDY MAKER, Benign hypertension | Chronic gastritis | Restless legs syndrome (RLS) | Spinal stenosis, lumbar region, without neurogenic claudication | Pure hypercholesterolemia Diagnosis: Benign hypertension Comment: Ordered: Office Visit Level 4 Est [id number]; 11/24/14 14:31:00 NOVELTY CANDY MAKER, Benign hypertension | Chronic gastritis | Restless legs syndrome (RLS) | Spinal stenosis, lumbar region, without neurogenic claudication | Pure hypercholesterolemia Diagnosis: Chronic gastritis Comment: Ordered: Office Visit Level 4 Est [id number]; 11/24/14 14:31:00 NOVELTY CANDY MAKER, Benign hypertension | Chronic gastritis | Restless legs syndrome (RLS) | Spinal stenosis, lumbar region, without neurogenic claudication | Pure hypercholesterolemia Diagnosis: Depression Comment: Ordered: Office Visit Level 4 Est [id number]; 11/24/14 14:31:00 NOVELTY CANDY MAKER, Benign hypertension | Chronic gastritis | Restless legs syndrome (RLS) | Spinal stenosis, lumbar region, without neurogenic claudication | Pure hypercholesterolemia Diagnosis: Nausea & vomiting Comment: Diagnosis: Pure hypercholesterolemia Comment: Ordered: Office Visit Level 4 Est [id number]; 11/24/14 14:31:00 NOVELTY CANDY MAKER, Benign hypertension | Chronic gastritis | Restless legs syndrome (RLS) | Spinal stenosis, lumbar region, without neurogenic claudication | Pure hypercholesterolemia Diagnosis: Restless legs syndrome (RLS) Comment: Ordered: Office Visit Level 4 Est [id number]; 11/24/14 14:31:00 NOVELTY CANDY MAKER, Benign hypertension | Chronic gastritis | Restless legs syndrome (RLS) | Spinal stenosis, lumbar region, without neurogenic claudication | Pure hypercholesterolemia Diagnosis: Spinal stenosis, lumbar region, without neurogenic claudication Comment: Ordered: Office Visit Level 4 Est [id number]; 11/24/14 14:31:00 NOVELTY CANDY MAKER, Benign hypertension | Chronic gastritis | Restless legs syndrome (RLS) | Spinal stenosis, lumbar region, without neurogenic claudication | Pure hypercholesterolemia Additional Orders: Comment: Future Orders: CBC w/ Differential,Blood, Routine Collect, 11/24/14 , Once, Lab Collect, Benign hypertension, Order for future visit Future Orders: CMP,Blood, Routine Collect, 11/24/14, Once, Lab Collect, Benign hypertension, Order for future visit End of Orders ."
--- OUTSIDE RECORDS SUMMARY | 2016-12-26 00:39 | XMS REPORT | Referral Summary ---
Author Author [facility] [place], Family Medicine Organization [facility] Address Unknown Phone Unavailable Care Team Providers Care Direct Marketing Coordinator Name Role Phone Lucian Decker Primary Care Physician [phone] Encounter VC Date(s): 07/02/16 - 07/02/16 [facility] [place], [address] [place] [address]- Discharge Disposition: 01-Home or Self Care Attending [...] # 60 caps, 11 Refill(s), Pharmacy: [facility] # [id number], 1 caps Oral BID Start Date: 05/29/16 [...] # 30 tabs, 3 Refill(s), Pharmacy: [facility] # [id number], 1 tabs Oral Daily Start Date: 05/27/16 [...] A DAY, # 180 tabs, eRx: [facility] #[id number], TAKE ONE TABLET BY MOUTH TWICE A DAY Start Date: 04/30/16 Status: Ordered levothyroxine 50 mcg (0.05 mg) oral tablet See Instructions, TAKE ONE TABLET BY MOUTH DAILY, # 90 tabs, eRx: [facility] #[id number], TAKE ONE TABLET BY MOUTH DAILY Start [...] A MEAL, # 90 caps, eRx: [facility] #[id number], TAKE ONE CAPSULE BY MOUTH EVERY DAY BEFORE A MEAL Start Date: 06/25/16 Status: Ordered ondansetron 4 mg oral tablet See Instructions, TAKE ONE TABLET BY MOUTH TWICE A DAY NEEDED FOR NAUSEA AND VOMITING, # 60 tabs, eRx: [facility] #[id number], TAKE ONE TABLET BY MOUTH TWICE A DAY NEEDED FOR NAUSEA AND VOMITING Start Date: 07/01/16 Status: Ordered OXcarbazepine 300 mg oral tablet 150 mg 0.5 tabs, Oral, Daily, # 30 tabs, 0 Refill(s), Pharmacy: [facility] #[id number], 0.5 tabs Oral BID Start Date: 05/27/16 Status: Ordered oxybutynin 15 mg/24 hr oral tablet, extended release See Instructions, TAKE ONE TABLET BY MOUTH EVERY DAY, # 30 unknown unit, 4 Refill(s), eRx: [facility] #[id number], TAKE ONE TABLET BY MOUTH EVERY DAY Start Date: 04/25/16 Status: Ordered promethazine 25 mg, Oral, BID, as needed for nausea/vomiting, 0 Refill(s) Start Date: 05/06/16 Status: Ordered rOPINIRole 2 mg oral tablet 2 mg 1 tabs, Oral, Bedtime (once a day), # 90 tabs, 3 Refill(s), Pharmacy: [facility] #[id number], 1 tabs Oral Bedtime (once a day),x90 days Start Date: 06/17/16 Stop Date: 06/12/17 Status: Ordered traZODone 150 mg oral tablet See Instructions, TAKE THREE TABLETS BY MOUTH EVERY NIGHT AT BEDTIME, # 270 tabs , eRx: [facility] #[id number], TAKE THREE TABLETS BY MOUTH EVERY NIGHT [...]
--- NOTE | 2016-12-26 00:43 | ERPDOC ---
Departure Disposition Decision Date: Dec 26, 2016 Disposition Decision Time: : Disposition: 01 DISCHARGED HOME, SELF-CARE Impression Impression Impression: Primary Impression: Urinary tract infection Urinary tract infection type: acute cystitis Hematuria presence: without hematuria Qualified Codes: N30.00 - Acute cystitis without hematuria Additional Impressions: Accidental medication overdose Encounter type: initial encounter Qualified Codes: T50.901A - Poisoning by unspecified drugs, medicaments and biological substances, accidental ( unintentional), initial encounter Polypharmacy Ankle fracture Encounter type: initial encounter Fracture type: closed Laterality: left Qualified Codes: S82.892A - Other fracture of left lower leg, initial encounter for closed fracture Severity: Severe Condition: Improved Seen By: Physician only Referrals: EMERSON POLLARD MD (Family) Patient Instructions: Adult Overdose (ED), Ankle Fracture (ED), Urinary Tract Infection in Women (ED) Problems/Meds/Labs Reviewed?: Yes Medications reviewed and manag: Yes Additional Instructions: Keep splint in place, clean, and dry. Recheck with your primary physician in 3-5 days Continue your routine pain medications only Keflex 500 mg, one tablet 3 times daily for 10 days for bladder infection Return to ER for any significant worsening Follow up care ordered?: Yes Mental Status: Alert Scripts Cephalexin (Keflex) 500 Mg Capsule 500 MG PO TID, #30 CAP Prov: SAMANTHA ALBERTO MD 12/26/16 HPI - General Medical General Chief Complaint: Altered Mental Status Stated Complaint: LOC,LETHAROIC Time Seen by Provider: 00:30 Source: patient, family, EMS Exam Limitations: clinical condition HPI - General Medical Initial Comments Pt's called EMS with complaint of his having significant decreased mental status for several hours. Currently took Friday and nights medication including trazodone and Ativan tonight. Since that time she has been having several episodes of staggering around and falling at home. No known head injury, patient does have complaints of left leg pain. Vision has chronic pain in the left leg, but is able to tell us at this time that the left leg pain is not her routine. Occurred At: home Onset: Rapid Duration: 4-6 hrs Severity: moderate Associated Symptoms: weakness, DENIES: chest pain, cough, diaphoresis, fever/ chills, headaches, loss of appetite, malaise, nausea/vomiting, rash, seizure, shortness of breath, syncope Hx of Similar Symptoms: No Allergies: Coded Allergies: meperidine HCl (Verified Allergy, Unknown, DISORIENTED, ALMOST , ) morphine (Verified Allergy, Unknown, NIGHT TERRORS, 12/26/16) adhesive (Unverified Adverse Reaction, Mild, RASH, 12/26/16) Past History Past Medical History Metabolic: hypertension, hypothyroidism GI: GERD Neurological: neuropathy Musculoskeletal: back pain Psychological: anxiety Surgical History General: back, gallbladder Family History Family PMH: FOUND: hypertension Vaccines Hx Influenza Vaccination: Yes (Jul) Hx Pneumococcal Vaccination: Yes (2014) Social History Sexuality: male partner Review of Systems Constitutional Constitutional: DENIES: appetite decrease, appetite increase, chills, dizziness , fever, weakness ENMT Ears: DENIES: pain Hearing: DENIES: hearing loss, tinnitus Balance: DENIES: vertigo Mouth/Throat: DENIES: change in swallowing, change in voice, hoarsness, painful swallowing, sore throat Cardiovascular Cardiac: DENIES: chest pain, dyspnea on exertion Rhythm/Rate: DENIES: irregular beat, palpitations, tachycardia Vascular: DENIES: pedal edema Pulmonary Respiratory: DENIES: cough, dyspnea, pleuritic chest pain GI Upper Abdomen: DENIES: dysphagia, heartburn/indigestion, nausea, pain, vomiting Lower Abdomen: DENIES: blood in stool, constipation, diarrhea, pain General: DENIES: burning, dysuria, frequency, pain, urgency Musculoskeletal General: pain, tenderness, DENIES: cramps, joint pain, joint swelling, weakness Integumentary Skin: DENIES: rash, sores Neurological General: ataxia, DENIES: headache, numbness, tingling, vertigo, weakness Comments Confusion Lethargy Physical Exam General General Nourishment: well nourished, well developed, appears stated age General Body Habitus: disheveled Vitals and Pain First Documented Vital Signs Date Time Temp Pulse Resp B/P Pulse Ox O2 Delivery O2 Flow Rate FiO2 12/26/16 00:39 100.2 81 21 138/75 96 Room Air Weight: Kilograms: Height (feet): 5 Height (inches): 4.00 Triage Pain Scale: RN VS reviewed by Provider: Yes Comments Patient appears significantly confused Normal Exams: Head: Normocephalic w/o trauma Eyes: Pupils are PERRLA w/ EOMI, No scleral icterus, irritation, or foreign bodies noted ENMT: No facial trauma, nasal exudates, pharyngeal erythema, or exudates are noted Neck: Full range of motion, without adenopathy, JVD, bruits or thyromegaly Chest/Resp: Clear all jay, with good airflow, and symmetry bilaterally CV: Regular rate and rhythm, without murmur or gallop, Pulses 2+ all extremities, capillary refill, <2 seconds all ext., no pedal edema noted Abdomen: Bowel sounds positive, soft, non-tender, non-distended, no hepatosplenomegaly, masses or bruits noted Lymphatic: No lymphadenopathy, or lymphedema noted Integumentary: No rashes, hives, or bruising noted, hair and nails, without abnormality Neurologic: cranial nerves, motor/sensory/cerebellar, exams w/o gross deficits , to observation Psychiatric: Patient exhibits, appropriate attention, emotion and affect Musculoskeletal (brief) Musculoskeletal Brief: FOUND: deformity, loss of motion, tenderness (mild diffuse left lateral hip tenderness, left ankle shows significant tenderness, swelling, and ecchymosis over the proximal portion of the lateral malleolus.), NOT FOUND: spasm Neurologic (brief) Neurological Brief: FOUND: CN w/o gross def to obs, ataxia, motor-no gross deficits, sensory-no gross deficits Psychiatric (brief) Psychiatric Brief: FOUND: oriented, NOT FOUND: alert, attentive (flat affect), normal affect Procedures Procedures Performed Procedures Performed: Splinting Splinting Procedure Splint : Site: left ankle Pre-placement NV: FOUND: cap refill < 3 sec, good movement, good sensation Hand-Made Type: orthoglass Splint: sugar-tong Post-placement NV: FOUND: cap refill < 3 sec, good movement, good sensation Applied by: RN, MD/DO Progress Results/Orders Orders Procedure Category Date Status Time Iv Lock (Ed Only) EDM 12/26/16 Transmitted 00:34 Cbc W/Auto LAB 12/26/16 Complete Diff-Reflex Manual Cmp - Comprehensive LAB 12/26/[address] Head W/O Contrast CT 12/26/16 Logged Pelvis W/2 View Lt Hip RAD 12/26/16 Taken Ankle Left 3 View RAD 12/26/16 Taken Drug Screen LAB 12/26/16 [place] [facility] [place] Lactate - Lactic Acid LAB 12/26/16 Complete Procalcitonin LAB 12/26/16 Complete 00:47 UA, LAB 12/26/16 Complete Dip&Micro(Complete) & 01:00 Urine Culture ELENA 12/26/16 In Process 01:13 Ceftriaxone I.V. (Er PHA 12/26/16 In Process Use Only) (Rocephin 02:15 Lab Results Laboratory Tests Test 12/26/16 00:39 12/26/16 00:56 12/26/16 01:00 12/26/16 01:03 White Blood Count 6.4T/MM3 Red Blood Count 4.46M/MM3 Hemoglobin 13.2GM/DL Hematocrit 38.6% Mean Corpuscular Volume 86.5UM3 Mean Corpuscular Hemoglobin 29.6UUG Mean Corpuscular Hemoglobin Concent 34.2GM/DL RDW Standard Deviation 40.3FL Platelet Count 163T/MM3 Mean Platelet Volume 9.2UM3 Immature Granulocyte % (Auto) 0.2% Neutrophils (%) (Auto) 76.9% Lymphocytes (%) (Auto) 15.3% Monocytes (%) (Auto) 6.6% Eosinophils (%) (Auto) 0.8% Basophils (%) (Auto) 0.2% Absolute Immature Granulocyte (auto 0.01T/MM3 Absolute Neutrophils (auto) 4.9T/MM3 Absolute Lymphocytes (auto) 1.0T/MM3 Absolute Monocytes (auto) 0.4T/MM3 Absolute Eosinophils (auto) 0.1T/MM3 Absolute Basophils (auto) 0.0T/MM3 Turbidity < 20 Sodium Level 141MEQ/L Potassium Level 4.0MEQ/L Chloride Level 104MEQ/L Carbon Dioxide Level 25MEQ/L Anion Gap 12MEQ/L Blood Urea Nitrogen 13.0MG/DL Creatinine 0.6MG/DL Glomerular Filtration Rate Calc 98 BUN/Creatinine Ratio 22RATIO Glucose Level 139MG/DL Calculated Osmolality 273MOSM/KG Calcium Level 9.0MG/DL Total Bilirubin 0.80MG/DL Icterus Index < 2 Aspartate Amino Transf (AST/SGOT) 21U/L Alanine Aminotransferase (ALT/SGPT) 24U/L Alkaline Phosphatase 63U/L Total Protein 6.7G/DL Albumin 3.7G/DL Globulin 3.0G/DL Albumin/Globulin Ratio 1.2RATIO Plasma Lactate 2.2MMOL/L Chemistry Specimen Hemolysis 22 Procalcitonin < 0.05NG/ML Urine Collection Type Cleancatch-midstream Urine Color Yellow Urine Turbidity Cloudy Urine pH 6.0 Urine Specific [place] 1.025 Urine Protein 2+ Urine Glucose (UA) Negative Urine Ketones Negative Urine Blood 3+ Urine Nitrite Positive Urine Bilirubin Negative Urine Urobilinogen 1.0EU/DL Urine Leukocyte Esterase 2+ Urine RBC 30-50/HPF Urine WBC 20-30/HPF Urine Bacteria 2+ Urine Culture Indicated Cult reflexed &setup Urine Opiates Screen NegativeNG/ML Urine Oxycodone Screen PositiveNG/ML Urine Methadone Screen NegativeNG/ML Urine Propoxyphene Screen NegativeNG/ML Urine Barbiturates Screen NegativeNG/ML Urine Tricyclic Antidepressants NegativeNG/ML Urine Phencyclidine Screen NegativeNG/ML Urine Amphetamines Screen NegativeNG/ML Urine Methamphetamines Screen NegativeNG/ML Urine Benzodiazepines Screen PositiveNG/ML Urine Cocaine Screen NegativeNG/ML Urine Cannabinoids Screen NegativeNG/ML Urine Drug Screen Confirmation Sent out Urine Drug Screen Information Pending Medications Current ED Medications Ceftriaxone Sodium/Sodium Chloride (Rocephin/NS) 100 ml @ 100 mls/hr O ONCE IV Last administered on 12/26/16t 02:18; Start 12/26/16 at 02:15; Stop at 03:14 Progress Progress While lying still patient has good pain control, and declines pain medication CBC - normal CMP - normal UA - significant urinary tract infection with leukocyte esterase positive, nitrites positive, difficult amount of white blood cells and bacteria present CT head - normal Pelvis/left hip - normal Left ankle - lateral malleolar fracture, nondisplaced Patient started on Rocephin 1 g IV, will continue Keflex 500 mg 3 times daily for 10 days Patient was also placed in a short leg splint, sugar tong, and instructed on nonweightbearing until she is followed up with her primary care physician in 3- 5 days. SAMANTHA ALBERTO MD Dec 26, 2016 00:43
--- OUTSIDE RECORDS SUMMARY | 2016-12-26 00:51 | XMS REPORT | Continuity of Care Document ---
Author Author [facility] Organization [facility] Address Unknown Phone Unavailable Allergies Active [...] Procedures Code Description Performed By Performed On [id number] FUSION OF 2-6 C JT, ANT APPR A COL, OPEN APPROACH Jared Haji MD 12/21/2015 [id number] RESECTION OF CERVICAL VERTEBRAL DISC, OPEN APPROAC [...] Status Pt. Type Provider Facility Loc./Unit Complaint [id number] 12/21/2013 09:56:00 12/21/2013 23 :59:59 CLS Outpatient [id number] 10/22/2013 10:05:00 10/22/2013 23 :59:59 CLS Outpatient [id number] 10/07/2013 10:17:00 10/07/2013 23 :59:59 CLS Outpatient [id number] 08/02/2013 14:13:00 08/02/2013 23 :59:59 CLS Outpatient
--- OUTSIDE RECORDS SUMMARY | 2016-12-26 00:52 | XMS REPORT | Continuity of Care Document ---
Author Author [facility] Organization [facility] Address Unknown Phone Unavailable Support Name Relationship Address Phone SAMANTHA ALBERTO MD Caregiver [facility] [address] [place] [address] Unavailable EMERSON POLLARD MD Caregiver [address] [place] [address] [place], [place] [phone] ENRIQUEALDO Castro Next Of Kin [address] [place] [address] CP Insurance Providers Payer Name Policy Number Subscriber Name Relationship Medicare [id number] Jennifer Ornelas 17 Self [facility] [id number] Jennifer Ornelas 17 Self Advance Directives Directive [...] F (96.8 - 99.1) Temperature (Calculated Celsius) 37.50891 degrees C (36.0 - 37.3) Pulse Rate [...] Has specimen been collected/obtained? Y Urine Specific [place] May 11, 2013 6:09pm 1.005 L - [...] 12, 2013 10:06am LAB TEST FORM REQUEST [id number] - Turbidity September 02, 2014 6:50pm < [...] Encounters Encounter Location Date/Time Departed Emergency Room [facility] 09/02/14 4:51pm Recent Diagnosis
--- OUTSIDE RECORDS SUMMARY | 2016-12-26 00:52 | XMS REPORT | Continuity of Care Document ---
Author Author [facility] Organization [facility] Address Unknown Phone Unavailable Support Name Relationship Address Phone ALDO VAZ Next Of Kin [address] [place] [address] Unavailable Insurance Providers Payer Name Policy Number Subscriber Name Relationship Medicare [facility] [employer] Pffs [id number] Jennifer Vaz 17 Self Problems No Known [...] Procedures Procedure Code Date BIOPSY/REMOVAL LYMPH NODES 83971 04/22/13 THER/PROPH/DIAG INJ IV PUSH 73756 05/11/13 HYDRATE IV INFUSION ADD-ON 47336 05/11/13 HYDRATE IV INFUSION ADD-ON 49110 05/11/13 Encounters Encounter Location Date/Time Departed Emergency Room [facility] 05/11/13 3:56pm
--- OUTSIDE RECORDS SUMMARY | 2016-12-26 00:52 | XMS REPORT | Continuity of Care Document ---
Author Author [facility] Organization [facility] Address Unknown Phone Unavailable Support Name Relationship Address Phone CALOS BENNETT FACS, MD Caregiver [address] [place] [address] [place] [phone] EMERSON POLLARD MD Caregiver [address] [place] [address] [place] [phone] CECI ALDO Next Of Kin [address] [place] [address] Insurance Providers Payer Name Policy Number Subscriber Name Relationship Medicare [id number] Jennifer Ornelas 17 Self [facility] [id number] Jennifer Ornelas 17 Self Advance Directives Directive [...] F (96.8 - 99.1) Temperature (Calculated Celsius) 36.71655 degrees C (36.0 - 37.3) Temperature Source [...] Has specimen been collected/obtained? Y Urine Specific [place] May 11, 2013 6:09pm 1.005 L - [...] 12, 2013 10:06am LAB TEST FORM REQUEST [id number] - Glomerular Filtration Rate Calc August 12, [...]
--- OUTSIDE RECORDS SUMMARY | 2016-12-26 00:53 | XMS REPORT | Continuity of Care Document ---
Author Author [facility] Organization [facility] Address Unknown Phone Unavailable Support Name Relationship Address Phone ALDO VAZ Next Of Kin [address] [place] [address] Unavailable Insurance Providers Payer Name Policy Number Subscriber Name Relationship Medicare [facility] [employer] Pffs [id number] Jennifer Vaz 17 Self Problems No Known [...] Procedures Procedure Code Date BIOPSY/REMOVAL LYMPH NODES 07126 04/22/13 THER/PROPH/DIAG INJ [place] PUSH 66829 05/11/13 HYDRATE IV INFUSION ADD-ON 11544 05/11/13 HYDRATE IV INFUSION ADD-ON 93414 05/11/13 Encounters Encounter Location Date/Time Departed Emergency Room [facility] 05/11/13 3:56pm
[2016-12-26 01:06] LABS: ALBUMIN 3.7 G/DL (3.5-5.0); ALBUMIN/GLOBULIN RATIO 1.2 RATIO (1.1-2.2); ALKALINE PHOSPHATASE 63 U/L (38-126); ALT (SGPT) 24 U/L (9-52); ANION GAP 12 MEQ/L (5-15); AST (SGOT) 21 U/L (14-36); BUN/CREATININE RATIO 22 RATIO (6-26); CHLORIDE 104 MEQ/L (98-107); CO2 - CARBON DIOXIDE 25 MEQ/L (22-30); CREATININE 0.6 MG/DL (0.7-1.2); GLOMERULAR FILTRATION RATE 98; GLUCOSE 139 MG/DL (65-110); SODIUM 141 MEQ/L (134-144); TOTAL PROTEIN 6.7 G/DL (6.3-8.2)
[2016-12-26 01:09] LABS: BLOOD, URINE 3+ (NEGATIVE); COLOR,URINE YELLOW (YELLOW); LEUKOCYTE ESTERASE ,URINE 2+ (NEGATIVE); NITRITE,URINE POSITIVE (NEGATIVE)
[2016-12-26 01:12] LABS: WBC,URINE 20-30 /HPF (0-5)
[2016-12-26 01:13] LABS: BACTERIA,URINE 2+ (NEGATIVE); RBC,URINE 30-50 /HPF (0-3)
[2016-12-26 01:17] LABS: BASOPHILS % (AUTO) 0.2 % (0-2); EOSINOPHILS # (AUTO) 0.1 T/MM3 (0-0.5); EOSINOPHILS % (AUTO) 0.8 % (0-4); HCT - HEMATOCRIT 38.6 % (36-46); HGB - HEMOGLOBIN 13.2 GM/DL (12-16); IMMATURE GRANULOCYTE # (AUTO) 0.01 T/MM3 (0.00-0.03); IMMATURE GRANULOCYTE % (AUTO) 0.2 % (0.0-0.5); LYMPHOCYTES % (AUTO) 15.3 % (23-45); MEAN CORPUSCULAR HGB 29.6 UUG (26-34); MEAN CORPUSCULAR HGB CONC(MCHC 34.2 GM/DL (31-37); MEAN CORPUSCULAR VOLUME 86.5 UM3 (80-100); MEAN PLATELET VOLUME 9.2 UM3 (9.4-12.4); MONOCYTES # (AUTO) 0.4 T/MM3 (0-0.8); MONOCYTES % (AUTO) 6.6 % (0-9.0); NEUTROPHILS #(AUTO)-ABSOLUTE 4.9 T/MM3 (1.8-7.7); NEUTROPHILS % (AUTO) 76.9 % (33-66); RED BLOOD COUNT 4.46 M/MM3 (4.00-5.20); WBC - WHITE BLOOD COUNT 6.4 T/MM3 (4.5-11.0)
[2016-12-26 01:17] LABS: AMPHETAMINE SCREEN,URINE NEGATIVE; BARBITURATE SCREEN,URINE NEGATIVE; BENZODIAZEPINES SCREEN,URINE POSITIVE; CANNABINOID SCREEN,URINE NEGATIVE; COCAINE SCREEN,URINE NEGATIVE; METHADONE SCREEN, URINE NEGATIVE; METHAMPHETAMINE SCREEN, URINE NEGATIVE; OPIATE SCREEN,URINE NEGATIVE; PHENCYCLIDINE SCREEN,URINE NEGATIVE; TRICYCLIC ANTIDEPRESSANT,URINE NEGATIVE
[2016-12-26 02:01] LABS: LACTATE - LACTIC ACID 2.2 MMOL/L (0.6-2.2)
[2016-12-26] MEDS ORDERED: CEFTRIAXONE I.V. (ER USE ONLY) 1 G in NORMAL SALINE 100 ML IV ONE (02:15)
--- NOTE | 2016-12-26 02:28 | NUR ---
SPLINT DR. ALBERTO AT BEDSIDE, APPLYING SPLINT TO LLE.
[2016-12-26] MEDS ORDERED: CEPH-583 PO (02:32)
[2016-12-26 02:49] VITALS: BP 149/63; PULSE 72; RESP 17; O2SAT 93
--- NOTE | 2016-12-26 03:06 | NUR ---
DEPARTURE PT'S COLLECTED THEIR BELONGINGS AND CARRIED THEM TO THE EXIT. PT ASSISTED INTO A WHEELCHAIR AND TAKEN TO FAMILY VEHICLE AT EXIT. PT ASSISTED GETTING INTO VEHICLE WITHOUT INCIDENT.
--- NOTE | 2016-12-26 08:08 | DI ---
Indication: ITS.REASON: fall, left ankle pain PROCEDURE: ANKLE LEFT 3 VIEW: Encounter: Initial Comparison: None Findings: Nondisplaced fracture of the distal fibula with overlying soft tissue swelling. Bony demineralization. No additional acute fracture or dislocation seen. Motion artifact. Impression: Closed posttraumatic lateral malleolar fracture. .
--- NOTE | 2016-12-26 08:09 | DI ---
Indication: ITS.REASON: confusion, ataxia PROCEDURE: CT HEAD W/O CONTRAST: Encounter: Initial Comparison: May 11, 2013 Technique: Axial CT images through the head were performed without contrast. Iterative Reconstruction dose reducing technique was utilized. FINDINGS: The ventricles are of normal size, shape, and contour for the patient's age. There are scattered areas of low attenuation in the white matter which most likely represent changes from chronic microvascular ischemia. The brainstem, cerebellum, and cerebral hemispheres otherwise have a normal morphology and CT attenuation. There is no evidence of midline displacement. No hemorrhage, signs of acute territorial stroke, mass effect, mass lesions, or edema is evident. The visualized portions of the skull base, midface, and calvarium demonstrate no abnormality. The paranasal sinuses are well aerated and free of significant disease. The tympanic and mastoid cavities appear normal. IMPRESSION: No acute intracranial abnormality or hemorrhage. There is a preliminary report by [employer] radiologic. .
--- NOTE | 2016-12-26 08:41 | DI ---
Indication: ITS.REASON: fall, left hip pain PROCEDURE: PELVIS W/2 VIEW LT HIP: Encounter: Initial Comparison: None Findings: There is no acute fracture, dislocation or malalignment identified. Orthopedic hardware in the sacroiliac joint regions. Mild joint space narrowing in both hips. Subcutaneous calcifications bilaterally. Mild bony demineralization. Impression: No acute osseous abnormality. .
== END 2016-12-26 03:06 | disposition home or self-care (01) ==
LOC: ED 00:29
DX: T42.4X1A Poisoning by benzodiazepines, accidental (unintentional), initial encounter (principal); R53.83 Other fatigue; N30.00 Acute cystitis without hematuria; S82.65XA Nondisplaced fracture of lateral malleolus of left fibula, initial encounter for closed fracture; W19.XXXA Unspecified fall, initial encounter; Y93.89 Activity, other specified; Y92.009 Unspecified place in unspecified non-institutional (private) residence as the place of occurrence of the external cause; Y99.8 Other external cause status
CPT/HCPCS: 29515; 36415; 51701; 70450; 73502; 73610; 80053; 80306; 81001; 83605; 84145; 85025; 87086; 87088; 87186; 96365; 99284; J0696; J7050